=== PATIENT | female | born 1965 | race Hispanic/Latino ===

== ENCOUNTER → 2017-06-20 | Outpatient (CLI) | payer OTHER ==
--- NOTE | 2017-07-08 08:25 | Diagnostic Imaging Report ---
#[id number] - [id number] #BILATERAL FIRST EVER DIGITAL SCREENING MAMMOGRAM WITH CAD: 06/20/2017 CLINICAL: Routine screening. Baseline exam. No prior exams were available for comparison. Current study contains 4 films. There are scattered fibroglandular elements in both breasts. Current study was also evaluated with a Computer Aided Detection (CAD) system. There is grouped amorphous calcification in the left breast at 1 o'clock posterior depth. There are several other areas of calcification in the left breast. Scattered benign calcification and vascular calcfication present in the right breast. No other significant masses, calcifications, or other findings are seen in either breast. IMPRESSION: INCOMPLETE: NEEDS ADDITIONAL IMAGING EVALUATION The amorphous calcification in the left breast is indeterminate. Spot magnification views are recommended. The patient will be contacted by the Mammography Department to schedule this appointment. Khadar Cuenca Jr., D.O. cw/:07/05/2017 09:58:36 Power Plant Installer: Cynthia GUNN)(Sonido), [facility] letter sent: Additional Imaging Needed Mammogram BI-RADS: 0 Indeterminate
== END ==
LOC: MAMMO 08:52
PROVIDERS: ATTEND Internal Medicine
DX: Z12.31 Encounter for screening mammogram for malignant neoplasm of breast (principal)
CPT/HCPCS: 77067

== ENCOUNTER → 2017-07-14 | Outpatient (CLI) | payer OTHER ==
--- NOTE | 2017-07-14 15:48 | Diagnostic Imaging Report ---
#[id number] - [id number] #UNILATERAL LEFT DIGITAL DIAGNOSTIC MAMMOGRAM WITH CAD WITH MAGNIFICATION: 07/14/2017 Comparison is made to exam dated: 06/20/2017 mammogram - [facility]. Current study contains 3 films. There are scattered fibroglandular elements in the left breast. Current study was also evaluated with a Computer Aided Detection (CAD) system. There are multiple areas (at least 6-7) of grouped calcifications in the left breast. The most suspicious area is most posterior at the 2-3 o'clock position. A stereo biopsy of these is recommended, however the patient does take aspirin and plavix and these Rx would have to be discontinued for a week prior to the procedure. If a biopsy is not performed then a follow up mammogram in 6 months would be necessary. IMPRESSION: SUSPICIOUS OF MALIGNANCY A phone call was made to Dr. Christy and the case discussed. The patient was notified of the need for a biopsy. Khadar Cuenca Jr., D.O. cw/:07/14/2017 14:26:52 Parking Cashier: Cynthia ARECHIGA(R)(M), [facility] letter sent: Biopsy Required Mammogram BI-RADS: 4a Suspicious abnormality - low suspicion for malignancy
== END ==
LOC: MAMMO 12:17
PROVIDERS: ATTEND Internal Medicine
DX: N64.59 Other signs and symptoms in breast (principal)

== ENCOUNTER → 2017-07-29 | Outpatient (CLI) | payer OTHER ==
[~2017-07-29] MED LIST: LIDOCAINE 2% /EPINEPHRINE 20 ML SDV INJ ONE; LIDOCAINE HCL 1% LOCAL INJ 20 ML VIAL ONE; SODIUM CHLORIDE 0.9% 250ML 250 ML ONE
--- NOTE | 2017-07-30 08:20 | Diagnostic Imaging Report ---
THIS REPORT HAS BEEN AMENDED. #[id number] - [id number] STEREOTACTIC GUIDED BIOPSY: 07/29/2017 PATIENT CONSENT: According to [facility] requirements, a time out was performed, correct site was localized and the patient was consented. PROCEDURE DESCRIPTION: A stereotactic biopsy of microcalcificaiton in the left breast upper outer posterior aspect was requested. The procedure was fully discussed with the patient including benefits, risks and alternatives. The need for a post biopsy clip was discussed. It was performed with written informed consent. A radio time sales supervisor out was taken prior to beginning the biopsy to confirm patient and procedure, including laterality. The area of concern was targeted stereotactically using an upright biopsy machine. The area over the site was prepared in the standard sterile fashion. Local anesthsia was achieved with 1% Lidocaine. The biopsy probe was advanced to the lesion and vacuum assisted core biopsy samples obtained. A micromarker was placed. After removal of the probe, hemostasis was achieved with compression and a sterile bandage was applied. A specimen radiograph shows calcifications within the cores, concordant with biopsy images. Following the procedure, the patient was discharged from the breast area with no immediate complications. Full post biopsy instructions were provided and acknowledged by the patient. Correlation is made to exams dated: 07/14/2017 mammogram and 06/20/2017 mammogram - [facility]. IMPRESSION: STEREOTACTIC GUIDED BIOPSY Khadar Cuenca Jr., D.O. cw/:07/29/2017 13:14:47 Circular Knitter: Cynthia GUNN)(Sonido), [facility] [id number] AMENDMENT: 08/04/2017 Khadar Cuenca Jr., D.O. Pathology results from the stereo biopsy reveal Fibroadenomatoid stroma with embedded calcifications. Negative for malignancy.
== END ==
LOC: MAMMO 08:13
PROVIDERS: ATTEND Internal Medicine
DX: R92.0 Mammographic microcalcification found on diagnostic imaging of breast (principal); D24.2 Benign neoplasm of left breast
CPT/HCPCS: 19081; 88305; J2001 ×2; J7050

== ENCOUNTER 2018-06-02 13:51 | Emergency (ER) | payer OTHER ==
[~2018-06-02] VITALS: Ht 157.5 cm; Wt 74.8 kg
--- OUTSIDE RECORDS SUMMARY | 2018-06-02 13:55 | XMS REPORT ---
Author Author [facility] Address Unknown Phone Unavailable Care Team Providers Care Auditing Manager Name Role Phone Sonido CHRISTY Unavailable Unavailable Problems This patient has no known problems. Allergies, Adverse Reactions, Alerts This patient has no known allergies or adverse reactions. Medications This patient has no known medications. Results Test Description Test Time Test Comments Text Results Atomic Results Result Comments BX RAYSA 1ST LESION STRTCTC-LT [place] [address] Patient Name: BRIDGET SHETTY MR #: [id number] : 1965 Age/Sex: 52/F Req #: [id number] [facility] Physician: Ordered by: SUSAN CHRISTY MD Report #: [id number] Location: MAMMO Room/Bed: Procedure: [id number] MG/BX RAYSA 1ST LESION STRTCTC-LT Exam Date: Exam Time: REPORT STATUS: Signed THIS REPORT HAS BEEN AMENDED. #[id number] - [id number] STEREOTACTIC GUIDED BIOPSY: 07/29/2017 PATIENT CONSENT: According to [facility] requirements, a time out was performed, correct site was localized and the patient was consented. PROCEDURE DESCRIPTION: A stereotactic biopsy of microcalcificaiton in the left breast upper outer posterior aspect was requested. The procedure was fully discussed with the patient including benefits, risks and alternatives. The need for a post biopsy clip was discussed. It was performed with written informed consent. A signal timer out was taken prior to beginning the biopsy to confirm patient and procedure, including laterality. The area of concern was targeted stereotactically using an upright biopsy machine. The area over the site was prepared in the standard sterile fashion. Local anesthsia was achieved with 1% Lidocaine. The biopsy probe was advanced to the lesion and vacuum assisted core biopsy samples obtained. A micromarker was placed. After removal of the probe, hemostasis was achieved with compression and a sterile bandage was applied. A specimen radiograph shows calcifications within the cores, concordant with biopsy images. Following the procedure, the patient was discharged from the breast area with no immediate complications. Full post biopsy instructions were provided and acknowledged by the patient. Correlation is made to ex ams dated: 07/14/2017 mammogram and 06/20/2017 mammogram - [facility]. IMPRESSION: STEREOTACTIC GUIDED BIOPSY Stacey Cuenca Jr., D.O. cw/:07/29/2017 13:14:47 Animal Husbandry Teacher: Cynthia GUNN)(Sonido), [facility] [id number] AMENDMENT: 08/04/2017 Stacey Cuenca Jr., D.O. Pathology results from the stereo biopsy reveal Fibroadenomatoid stroma with embedded calcifications. Negative for malignancy. Dictated By: STACEY CUENCA DO 1314 Transcribed By: VERONICA on 08/04/17 0948 COPY TO: SUSAN CHRISTY MD MAMMO [place] [address] Patient Name: BRIDGET SHETTY MR #: [id number] : 1965 Age/Sex: 52/F Req #: [id number] [facility] Physician: Ordered by: SUSAN CHRISTY MD Report #: [id number] Location: MAMMO Room/Bed: Procedure: [id number] MG/MAMMO DIAG UNI CAD LT Exam Date: 07/14/17 Exam Time: 1300 REPORT STATUS: Signed #[id number] - [id number] #UNILATERAL LEFT DIGITAL DIAGNOSTIC MAMMOGRAM WITH CAD WITH MAGNIFICATION: 07/14/2017 Comparison is made to exam dated: 06/20/2017 mammogram - [facility]. Current study contains 3 films. There are scattered fibroglandular elements in the left breast. Current study was also evaluated with a Computer Aided Detection (CAD) system. There are multiple areas (at least 6-7) of grouped calcifications in the left breast. The most suspicious area is most posterior at the 2-3 o'clock position. A stereo biopsy of these is recommended, however the patient does take aspirin and plavix and these Rx would have to be discontinued for a week prior to the procedure. If a biopsy is not performed then a follow up mammogram in 6 months would be necessary. I MPRESSION: SUSPICIOUS OF MALIGNANCY A phone call was made to Dr. Christy and the case discussed. The patient was notified of the need for a biopsy. Stacey Cuenca Jr., D.O. cw/:07/14/2017 14:26:52 Animal Husbandry Teacher: Cynthia GUNN)(Sonido), [facility] letter sent: Biopsy Required Mammogram BI-RADS: 4a Suspicious abnormality - low suspicion for malignancy Dictated By: STACEY CUENCA DO 1426 Transcribed By: VERONICA on 07/14/17 1426 COPY TO: SUSAN CHRISTY MD MAMMOGRAPHY DIGITAL SCR BILAT [place] [address] Patient Name: BRIDGET SHETTY MR #: [id number] : 1965 Age/Sex: 52/F Req #: [id number] Physician: Ordered by: SUSAN CHRISTY MD Report #: [id number] Location: MAMMO Room/Bed: Procedure: [id number] MG/MAMMOGRAPHY DIGITAL SCR BILAT Exam Date: 06/20/17 Exam Time: 0900 REPORT STATUS: Signed #[id number] - MGSCRBIL #BILATERAL FIRST EVER DIGITAL SCREENING MAMMOGRAM WITH CAD: 06/20/2017 CLINICAL: Routine screening. Baseline exam. No prior exams were available for comparison. Current study contains 4 films. There are scattered fibroglandular elements in both breasts. Current study was also evaluated with a Computer Aided Detection (CAD) system. There is grouped amorphous calcification in the left breast at 1 o'clock posterior depth. There are several other areas of calcification in the left breast. Scattered benign calcification and vascular calcfication present in the right breast. No other significant masses, calcifications, or other findings are seen in either breast. IMPRESSION: INCOMPLETE: NEEDS ADDITIONAL IMAGING EVALUATION The amorphous calcification in the left breast is indeterminate. Spot magnification views are recommended. The patient will be contacted by the Mammography Department to schedule this appointment. Stacey Cuenca Jr., D.O. cw/:07/05/2017 09:58:36 Animal Husbandry Teacher: Cynthia GUNN)(Sonido), [facility] letter sent: Additional Imaging Needed Mammogram BI-RADS: 0 Indeterminate Dictated By: STACEY CUENCA DO 7 Transcribed By: VERONICA on 07/05/17957 COPY TO: SUSAN CHRISTY MD
[2018-06-02 14:58] LABS: BASOPHILS % 0.4 % (0.0-1.0); EOSINOPHILS # (AUTO) 0.2 (0.0-0.4); HEMATOCRIT 37.7 % (34.2-44.1); HEMOGLOBIN 12.2 g/dL (12.0-16.0); LYMPHOCYTES # (AUTO) 3.5 (1.0-3.2); LYMPHOCYTES % 31.6 % (18.0-39.1); MEAN CORPUSCULAR HEMOGLOBIN 25.9 pg (28-32); MEAN CORPUSCULAR HGB CONC 32.4 g/dL (31-35); MONOCYTES # (AUTO) 0.6 (0.2-0.8); MONOCYTES % 5.8 % (4.4-11.3); NEUTROPHILS # (AUTO) 6.7 (2.1-6.9); NEUTROPHILS % 59.8 % (38.7-80.0); PLATELET COUNT 346 x10e3/uL (140-360); RED BLOOD COUNT 4.71 x10e6/uL (3.6-5.1); RED CELL DISTRIBUTION WIDTH 13.8 % (11.7-14.4)
[2018-06-02 15:09] LABS: PREGNANCY TEST, URINE NEGATIVE (NEGATIVE)
[2018-06-02 15:14] LABS: ALANINE AMINOTRANSFERASE 24 IU/L (0-55); ALBUMIN 3.7 g/dL (3.5-5.0); ALBUMIN/GLOBULIN RATIO 1.1 (0.8-2.0); ALKALINE PHOSPHATASE 53 IU/L (40-150); AMYLASE 40 U/L (25-125); ANION GAP 13.6 mmol/L (8-16); BLOOD UREA NITROGEN 16 mg/dL (7-26); BUN/CREATININE RATIO 20 (6-25); CALCIUM 9.4 mg/dL (8.4-10.2); CARBON DIOXIDE 26 mmol/L (22-29); CHLORIDE 105 mmol/L (98-107); CREATININE, SERUM 0.81 mg/dL (0.57-1.11); EST GLOMERULAR FILTRATION RATE > 60 ML/MIN (60-); GLUCOSE 139 mg/dL (74-118); LIPASE 24 U/L (8-78); POTASSIUM 3.6 mmol/L (3.5-5.1); SODIUM 141 mmol/L (136-145)
[2018-06-02 15:17] LABS: CLARITY,URINE CLEAR (CLEAR); COLOR,URINE YELLOW (YELLOW)
[2018-06-02 15:18] LABS: BACTERIA,URINE FEW /HPF; BILIRUBIN,URINE NEGATIVE (NEGATIVE); EPITHELIAL CELLS,URINE FEW /LPF; KETONES,URINE NEGATIVE (NEGATIVE); LEUKOCYTE ESTERASE ,URINE NEGATIVE (NEGATIVE); NITRITE,URINE NEGATIVE (NEGATIVE); PROTEIN,URINE DIPSTICK NEGATIVE (NEGATIVE); RBC,URINE 0-5 /HPF (0-5); URINE UROBILINOGEN 0.2 mg/dL (0.2 - 1); WBC,URINE (MAN) 0-5 /HPF (0-5)
--- NOTE | 2018-06-02 17:31 | Diagnostic Imaging Report ---
EXAM: Right upper quadrant abdominal ultrasound INDICATION: Right upper quadrant pain COMPARISON: None. TECHNIQUE: Transverse and longitudinal images of the right upper quadrant abdomen were obtained FINDINGS: Liver: Size: Measures 15.6 cm in the right midclavicular line Appearance: Increased echogenicity, smooth contour Mass: No focal masses Gallbladder: No pericholecystic fluid, distension, wall thickening, stone, or reported sonographic Mckeon's sign. Gallbladder wall measures 0.2 cm. There is a small amount of gallbladder sludge. Bile Ducts: Intrahepatic Ducts: No dilatation Extrahepatic Ducts: Common bile duct measures 0.3 cm, no dilatation Pancreas: Visualized portions of the pancreatic head, neck and proximal body are normal. Kidney: The right kidney measures 11.7 cm without evidence of hydronephrosis or stone. Vessels: Aorta: Visualized portions are normal Inferior Vena Cava: Visualized portions are normal Main Portal Vein: 0.9 cm, normal size with hepatopetal flow. Free Fluid: No evidence of ascites. IMPRESSION: Small amount of gallbladder sludge without sonographic evidence of cholecystitis. Hepatic steatosis and mild hepatomegaly. Signed by: Dr. Patrick Godinez MD on 06/02/2018 5:28 PM
[2018-06-02 18:23] VITALS: BP 194/96
--- NOTE | 2018-06-02 18:25 | NUR ---
PATIENT EDUCATED AND INSTRUCTED TO TAKE HOME BP MEDS; PATIENT VERBALIZES UNDERSTANDING
== END 2018-06-02 18:34 | disposition home or self-care (01) ==
LOC: ER 13:51
DX: R10.11 Right upper quadrant pain (principal); R11.0 Nausea; I10 Essential (primary) hypertension; E11.9 Type 2 diabetes mellitus without complications; E78.5 Hyperlipidemia, unspecified; I25.2 Old myocardial infarction; Z86.73 Personal history of transient ischemic attack (TIA), and cerebral infarction without residual deficits
CPT/HCPCS: 36415; 76705; 80053; 81001; 81025; 82150; 83690; 85025; 99283

== ENCOUNTER → 2018-06-11 | Outpatient (CLI) | payer OTHER ==
[~2018-06-11] MED LIST changes: +IOPAMIDOL 370 MG/ML 200 ML INFUS..BTL INJ ONE; -LIDOCAINE 2% /EPINEPHRINE 20 ML SDV INJ ONE; -LIDOCAINE HCL 1% LOCAL INJ 20 ML VIAL ONE; -SODIUM CHLORIDE 0.9% 250ML 250 ML ONE; +SODIUM CHLORIDE 0.9% 50ML 50 ML ONE
[2018-06-11 10:10] LABS: BLOOD UREA NITROGEN 11 mg/dL (7-26); BUN/CREATININE RATIO 15 (6-25); CREATININE, SERUM 0.72 mg/dL (0.57-1.11); EST GLOMERULAR FILTRATION RATE > 60 ML/MIN (60-)
--- NOTE | 2018-06-11 11:10 | Diagnostic Imaging Report ---
EXAMINATION: CT of the abdomen with contrast. TECHNIQUE: Helical CT images of the abdomen were performed from the lung bases to the iliac crests after the intravenous administration of 100 cc of Isovue 300 and the oral administration of none. Coronal and sagittal reformatted images were obtained. COMPARISON: None. CLINICAL HISTORY:Generalized abdominal pain DISCUSSION: LOWER THORAX:Unremarkable. HEPATOBILIARY: Hepatic steatosis. No focal lesions. Gallbladder normal by CT. SPLEEN: No splenomegaly. PANCREAS: No focal masses or ductal dilatation. ADRENALS: No adrenal nodules. KIDNEYS/URETERS: No hydronephrosis, stones, or solid mass lesions. PERITONEUM/RETROPERITONEUM: No free air or fluid. LYMPH NODES: No intra-abdominal, retroperitoneal, pelvic or inguinal lymphadenopathy. VESSELS: Unremarkable. GI TRACT: No distention or wall thickening. BONES AND SOFT TISSUE: No bony destructive lesions. No soft tissue abnormalities. IMPRESSION: Hepatic steatosis, otherwise unremarkable CT of the abdomen. Signed by: Dr. Alli Montez M.D. on 06/11/2018 11:07 AM
== END ==
LOC: CT 08:58
PROVIDERS: ATTEND Internal Medicine
DX: R10.84 Generalized abdominal pain (principal); K52.9 Noninfective gastroenteritis and colitis, unspecified
CPT/HCPCS: 36415; 74160; 82565; 84520; Q9967

== ENCOUNTER 2018-09-04 21:52 | Emergency (ER) | payer OTHER ==
[~2018-09-04] VITALS: Ht 157.5 cm; Wt 74.8 kg
[2018-09-04] MEDS ORDERED: HYDROCODONE/APAP 10MG-325MG TAB PO ONE (22:30)
[2018-09-04] MEDS ORDERED: KETOROLAC TROMETHAMINE 60 MG/2 ML VIAL IM ONE (22:30)
[2018-09-05 00:50] VITALS: BP 153/76
[2018-09-05] MEDS ORDERED: LIDOCAINE 5% PATCH TP ONE (09:00)
== END 2018-09-05 01:24 | disposition home or self-care (01) ==
LOC: ER 21:52
DX: R52 Pain, unspecified (principal); B02.9 Zoster without complications; I10 Essential (primary) hypertension; E11.9 Type 2 diabetes mellitus without complications; I25.10 Atherosclerotic heart disease of native coronary artery without angina pectoris; I25.2 Old myocardial infarction; F17.210 Nicotine dependence, cigarettes, uncomplicated
CPT/HCPCS: 99283; J1885

== ENCOUNTER → 2018-09-09 | Outpatient (CLI) | payer OTHER ==
--- NOTE | 2018-09-09 11:33 | Diagnostic Imaging Report ---
Exam: Lumbar spine, complete, sacrum, 2 views History: Low back pain Comparison: CT abdomen 06/11/2018 Findings: Sacrum: No acute, displaced fracture or dislocation. Sacroiliac joints are intact. Sacral foramina are intact superiorly. Inferiorly, the sacrum and coccyx are obscured by rectal gas and stool. No step-off on the lateral radiograph. Lumbar spine: There are 5 nonrib-bearing lumbar vertebral bodies. No acute, displaced fracture or subluxation. Multilevel disc space narrowing with marginal osteophytosis affecting the lower thoracic and upper lumbar spine to the level of L1-L2. Bilateral facet arthropathy at L5-S1. No pars interarticularis defects are identified on the oblique radiographs. Circular left upper quadrant density may reflect bowel contents. Impression: No acute osseous abnormality. Multilevel degenerative disc changes and facet arthropathy of the lower thoracic and lower lumbar spine as described. Signed by: Dr. Jairo Bobo M.D. on 09/09/2018 11:30 AM
--- NOTE | 2018-09-09 11:36 | Diagnostic Imaging Report ---
Exam: Thoracic spine 2 views History: Low back pain Comparison: Lumbar spine radiographs same day; CT abdomen with contrast 06/11/2018 Findings: No acute displaced fracture or subluxation. Multilevel degenerative disc changes of the thoracic spine with disc space narrowing and large anterior osteophytes. Cervicothoracic junction is intact on the swimmer's radiograph. Paraspinal soft tissues are within normal limits. Left upper quadrant circular density may reflect bowel contents. Impression: No acute osseous abnormality. Multilevel degenerative disc changes of the thoracic spine. Signed by: Dr. Jairo Bobo M.D. on 09/09/2018 11:33 AM
== END ==
LOC: RAD 10:33
PROVIDERS: ATTEND Internal Medicine
DX: M54.5 Low back pain (principal)
CPT/HCPCS: 72070; 72110; 72220

== ENCOUNTER 2019-02-16 17:04 | Emergency (ER) | payer OTHER ==
[~2019-02-16] VITALS: Ht 157.5 cm; Wt 74.8 kg
[2019-02-16] MEDS ORDERED: METOPROLOL TART50 MG PO (17:36)
[2019-02-16 17:52] LABS: BASOPHILS # (AUTO) 0.1 (0.0-0.1); BASOPHILS % 0.4 % (0.0-1.0); EOSINOPHILS # (AUTO) 0.2 (0.0-0.4); EOSINOPHILS % 1.8 % (0.0-6.0); HEMATOCRIT 37.2 % (34.2-44.1); HEMOGLOBIN 12.1 g/dL (12.0-16.0); LYMPHOCYTES # (AUTO) 3.5 (1.0-3.2); LYMPHOCYTES % 26.5 % (18.0-39.1); MEAN CORPUSCULAR HEMOGLOBIN 26.2 pg (28-32); MEAN CORPUSCULAR HGB CONC 32.5 g/dL (31-35); MEAN CORPUSCULAR VOLUME 80.5 fL (81-99); MONOCYTES # (AUTO) 0.8 (0.2-0.8); MONOCYTES % 5.7 % (4.4-11.3); NEUTROPHILS # (AUTO) 8.7 (2.1-6.9); NEUTROPHILS % 65.1 % (38.7-80.0); PLATELET COUNT 292 x10e3/uL (140-360); RED BLOOD COUNT 4.62 x10e6/uL (3.6-5.1); RED CELL DISTRIBUTION WIDTH 14.6 % (11.7-14.4)
[2019-02-16 18:13] LABS: ALANINE AMINOTRANSFERASE 21 IU/L (0-55); ALBUMIN 3.7 g/dL (3.5-5.0); ALBUMIN/GLOBULIN RATIO 1.1 (0.8-2.0); ALKALINE PHOSPHATASE 55 IU/L (40-150); ANION GAP 11.3 mmol/L (8-16); BLOOD UREA NITROGEN 12 mg/dL (7-26); BUN/CREATININE RATIO 15 (6-25); CALCIUM 9.5 mg/dL (8.4-10.2); CARBON DIOXIDE 27 mmol/L (22-29); CHLORIDE 103 mmol/L (98-107); CREATINE KINASE 83 IU/L (29-168); CREATININE, SERUM 0.79 mg/dL (0.57-1.11); EST GLOMERULAR FILTRATION RATE > 60 ML/MIN (60-); GLUCOSE 120 mg/dL (74-118); POTASSIUM 3.3 mmol/L (3.5-5.1); SODIUM 138 mmol/L (136-145)
--- NOTE | 2019-02-16 18:22 | Diagnostic Imaging Report ---
A single frontal view of the chest. HISTORY: Arm hurting, left arm pain, rule out cardiac COMPARISON: None available. DISCUSSION: Portable technique, limits sensitivity of the exam. Soft tissue attenuation partially limits sensitivity of the exam. Overlying monitoring leads. Tubes/Lines: None Lungs and pleura: The lungs are well inflated. No evidence of a consolidative pneumonia or pulmonary alveolar edema. No definite pleural effusion or pneumothorax is identified. Heart and mediastinum: The cardiomediastinal silhouette appear(s) unremarkable. Bones and soft tissues: Chronic appearing healed right clavicular fracture deformity. IMPRESSION: No acute radiographic abnormality. Signed by: Dr. Kyler Randle D.O., M.M.M. on 02/16/2019 6:19 PM
[2019-02-16 18:25] LABS: INR 0.9; PROTHROMBIN TIME 12.6 seconds (11.9-14.5)
[2019-02-16 18:26] LABS: PARTIAL THROMBOPLASTIN TIME 30.9 seconds (23.8-35.5)
[2019-02-16] MEDS: KETOROLAC TROMETHAMINE 30 MG/ML VIAL IV STA (18:28)
--- NOTE | 2019-02-16 19:04 | Diagnostic Imaging Report ---
LEFT SHOULDER - 2 Image(s) HISTORY: Arm hurting, pain COMPARISON: None available. FINDINGS: Sensitivity limited by portable technique. Bones: No acute displaced fracture. No aggressive osseous lesion. Joints: Mild hypertrophic degenerative changes of the acromioclavicular joint. Minimal degenerative changes of the glenohumeral joint. Soft tissues: Small calcification in the region of the coracoclavicular ligament, likely indicative of a remote injury. IMPRESSION: 1. No acute radiographic abnormality. 2. Mild acromioclavicular and minimal glenohumeral osteoarthrosis. Signed by: Dr. Kyler Randle D.O., M.M.M. on 02/16/2019 7:01 PM
[2019-02-16 20:00] VITALS: BP 189/80
== END 2019-02-16 19:55 | disposition home or self-care (01) ==
LOC: ER 17:04
DX: M19.012 Primary osteoarthritis, left shoulder (principal); I10 Essential (primary) hypertension; E11.9 Type 2 diabetes mellitus without complications; E78.5 Hyperlipidemia, unspecified; Z86.73 Personal history of transient ischemic attack (TIA), and cerebral infarction without residual deficits; I25.2 Old myocardial infarction; M54.9 Dorsalgia, unspecified; G89.29 Other chronic pain
CPT/HCPCS: 36415; 71045; 73030; 80053; 82550; 82553; 84484; 85025; 85610; 85730; 93005; 99284; J1885

== ENCOUNTER 2019-03-23 13:00 | Emergency (ER) | payer OTHER ==
[~2019-03-23] VITALS: Ht 157.5 cm; Wt 74.8 kg
[~2019-03-23 13:00] MED LIST changes: -IOPAMIDOL 370 MG/ML 200 ML INFUS..BTL INJ ONE; +METOPROLOL TART50 MG PO; -SODIUM CHLORIDE 0.9% 50ML 50 ML ONE
--- NOTE | 2019-03-23 14:12 | Diagnostic Imaging Report ---
EXAMINATION: HIP LEFT 2-3 VW (+/- PELVIS) INDICATION: Left hip pain COMPARISON: None FINDINGS: AP and frog-leg views of the left hip and AP view of the pelvis demonstrate no acute fracture or dislocation. Alignment is anatomic. No substantial degenerative change. Nonobstructive bowel gas pattern. IMPRESSION: No acute osseous injury. Signed by: Tiffany Bain MD on 03/23/2019 2:09 PM
[2019-03-23] MEDS ORDERED: ASPIRIN 81 MG CHEW TAB PO ONE (14:30)
--- NOTE | 2019-03-23 14:47 | Diagnostic Imaging Report ---
EXAMINATION: CHEST SINGLE (NOT PORTABLE) INDICATION: Chest pain COMPARISON: None FINDINGS: LINES/TUBES:None LUNGS:The lungs are well-inflated. No focal consolidation or pulmonary edema. PLEURA:No pleural effusion or pneumothorax. MEDIASTINUM:The cardiomediastinal silhouette appears normal in size and shape. BONES/SOFT TISSUES:No acute osseous injury. ABDOMEN:No free air under the diaphragm. IMPRESSION: No focal pneumonia or pulmonary edema. Signed by: Tiffany Bain MD on 03/23/2019 2:44 PM
[2019-03-23] MEDS ORDERED: ULTRAM50 MG PO (15:53)
[2019-03-23] MEDS ORDERED: ROBAXIN-750750 MG PO (15:53)
[2019-03-23] MEDS ORDERED: SODIUM CHLORIDE 0.9% 1000ML 1,000 ML IV STA (16:13)
[2019-03-23] MEDS ORDERED: KETOROLAC TROMETHAMINE 30 MG/ML VIAL IV NR (16:15)
[2019-03-23] MEDS ORDERED: DIAZEPAM INJ 5 MG/ML 2 ML IV NR (16:15)
[2019-03-23 16:33] LABS: BASOPHILS # (AUTO) 0.1 (0.0-0.1); BASOPHILS % 0.6 % (0.0-1.0); EOSINOPHILS # (AUTO) 0.4 (0.0-0.4); EOSINOPHILS % 3.3 % (0.0-6.0); HEMATOCRIT 41.3 % (34.2-44.1); LYMPHOCYTES # (AUTO) 3.2 (1.0-3.2); LYMPHOCYTES % 29.5 % (18.0-39.1); MEAN CORPUSCULAR HEMOGLOBIN 25.7 pg (28-32); MEAN CORPUSCULAR HGB CONC 31.5 g/dL (31-35); MEAN CORPUSCULAR VOLUME 81.6 fL (81-99); MONOCYTES # (AUTO) 0.7 (0.2-0.8); MONOCYTES % 6.5 % (4.4-11.3); NEUTROPHILS # (AUTO) 6.5 (2.1-6.9); NEUTROPHILS % 59.6 % (38.7-80.0); PLATELET COUNT 320 x10e3/uL (140-360); RED BLOOD COUNT 5.06 x10e6/uL (3.6-5.1); RED CELL DISTRIBUTION WIDTH 14.9 % (11.7-14.4)
[2019-03-23 16:43] LABS: ALANINE AMINOTRANSFERASE 15 IU/L (0-55); ALBUMIN 3.9 g/dL (3.5-5.0); ALBUMIN/GLOBULIN RATIO 1.2 (0.8-2.0); ALKALINE PHOSPHATASE 55 IU/L (40-150); ANION GAP 13.6 mmol/L (8-16); BLOOD UREA NITROGEN 12 mg/dL (7-26); BUN/CREATININE RATIO 16 (6-25); CALCIUM 9.1 mg/dL (8.4-10.2); CARBON DIOXIDE 28 mmol/L (22-29); CHLORIDE 103 mmol/L (98-107); CREATININE, SERUM 0.73 mg/dL (0.57-1.11); EST GLOMERULAR FILTRATION RATE > 60 ML/MIN (60-); GLUCOSE 141 mg/dL (74-118); POTASSIUM 3.6 mmol/L (3.5-5.1); SODIUM 141 mmol/L (136-145)
--- NOTE | 2019-03-23 17:28 | Diagnostic Imaging Report ---
EXAM: CT Abdomen and Pelvis WITHOUT intravenous contrast INDICATION: Left flank pain COMPARISON: CT abdomen of 06/11/2018 TECHNIQUE: Abdomen and pelvis were scanned utilizing a multidetector helical scanner from the lung base to the pubic symphysis without administration of IV contrast. Coronal and sagittal reformations were obtained. IV CONTRAST: None ORAL CONTRAST: Water COMPLICATIONS: None RADIATION DOSE: Total DLP: 397.1 mGy*cm Dose modulation, iterative reconstruction, and/or weight based adjustment of the mA/kV was utilized to reduce the radiation dose to as low as reasonably achievable. FINDINGS: LOWER THORAX: Normal. HEPATOBILIARY: Hepatomegaly to 22 cm. Mild diffuse hepatic steatosis. No focal liver lesions. Unremarkable gallbladder. SPLEEN: No splenomegaly. PANCREAS: No focal masses or ductal dilatation. ADRENALS: No adrenal nodules. KIDNEYS/URETERS: No hydronephrosis, stones, or solid mass lesions. PELVIC ORGANS/BLADDER: Status post hysterectomy. PERITONEUM / RETROPERITONEUM: No free air or fluid. LYMPH NODES: No lymphadenopathy. VESSELS: Scattered atherosclerotic calcifications of the nonaneurysmal abdominal aorta and major branches. GI TRACT: No abnormal bowel wall thickening. No bowel obstruction. Normal appendix. BONES AND SOFT TISSUES: No acute osseous injury. No suspicious lytic or blastic lesions. IMPRESSION: No renal calculi or hydronephrosis. Hepatomegaly and mild diffuse hepatic steatosis. Signed by: Tiffany Bain MD on 03/23/2019 5:24 PM
[2019-03-23 17:45] LABS: BILIRUBIN,URINE NEGATIVE (NEGATIVE); CLARITY,URINE CLEAR (CLEAR); KETONES,URINE NEGATIVE (NEGATIVE); LEUKOCYTE ESTERASE ,URINE NEGATIVE (NEGATIVE); NITRITE,URINE NEGATIVE (NEGATIVE); PROTEIN,URINE DIPSTICK NEGATIVE (NEGATIVE); URINE UROBILINOGEN 0.2 mg/dL (0.2 - 1)
[2019-03-23] MEDS ORDERED: LIDOCAINE 5% PATCH TP NR (17:45)
[2019-03-23 17:46] LABS: COLOR,URINE YELLOW (YELLOW)
[2019-03-23 18:01] LABS: EPITHELIAL CELLS,URINE FEW /LPF
== END 2019-03-23 18:32 | disposition home or self-care (01) ==
LOC: ER 13:00
DX: M25.552 Pain in left hip (principal); I10 Essential (primary) hypertension; E11.9 Type 2 diabetes mellitus without complications; E78.5 Hyperlipidemia, unspecified; I25.2 Old myocardial infarction; Z86.73 Personal history of transient ischemic attack (TIA), and cerebral infarction without residual deficits
CPT/HCPCS: 36415; 71045; 73502; 74176; 80053; 81001; 85025; 96374; 96375; 99283; J1885; J3360; J7030

== ENCOUNTER → 2019-04-14 | Outpatient (CLI) | payer OTHER ==
[~2019-04-14] MED LIST changes: +ROBAXIN-750750 MG PO; +ULTRAM50 MG PO
--- NOTE | 2019-04-14 13:57 | Diagnostic Imaging Report ---
History: Low back and left hip pain Comparison studies: X-ray of the lumbar spine 09/09/2018 Technique: Sagittal, coronal and axial T2 , sagittal T1 and IR, axial spin density oblique. Intravenous contrast: None Findings: Number of lumbar vertebral bodies:5 Alignment: Normal lordosis.No scoliosis. Soft tissues: No T2 hyperintense inflammatory changes. Paraspinal muscles: No signal abnormalities. No atrophy. Lower thoracic cord:Normal in signal and morphology. The tip of the conus is at L1. Cauda equina: No masses. No arachnoiditis. Vertebrae: Normal in height and signal intensity. No compression fractures, infection or neoplasm. Degenerative changes: L1-L2: No abnormalities. L2-L3: No abnormalities. L3-L4: No abnormalities. L4-L5: Mild disc degeneration with loss of T2 signal. Left foraminal and extraforaminal disc protrusion (1.9 AP x 2.6 TV cm), results in severe left neural foramen with impingement of the exiting L4 nerve root. Facet hypertrophy patent canal and right foramen. L5-S1: Mild diffuse disc bulge mild facet hypertrophy with patent canal and foramina. Additional findings: None IMPRESSION: Severe left neural foramen at L4-5 secondary to left foraminal and extraforaminal disc protrusion, which results in impingement of the exiting L4 nerve root. Signed by: DR Young Vega M.D. on 04/14/2019 9:27 PM
== END ==
LOC: MRI 09:34
PROVIDERS: ATTEND Internal Medicine
DX: M54.5 Low back pain (principal); M25.552 Pain in left hip
CPT/HCPCS: 72148

== ENCOUNTER 2019-07-07 13:38 | Inpatient (IN) | payer OTHER ==
[~2019-07-07] VITALS: Ht 157.5 cm; Wt 74.8 kg
[2019-07-07] MEDS ORDERED: ALBUTEROL SULF 0.083% NEB SOLN 3 ML NEB NEB STA (13:39)
[2019-07-07] MEDS ORDERED: IPRATROPIUM BROMIDE 0.02% 2.5 ML NEB NEB STA (13:39)
[2019-07-07] MEDS ORDERED: ONDANSETRON HCL INJ 2MG/ML 2ML 2 MG/ML VIAL IV STA (13:44)
[2019-07-07] MEDS ORDERED: SODIUM CHLORIDE 0.9% 1000ML 1,000 ML IV STA (13:44)
[2019-07-07] MEDS ORDERED: FAMOTIDINE 20 MG/2 ML VIAL IV STA ×2 (13:44→15:56)
[2019-07-07] MEDS ORDERED: ASPIRIN 81 MG CHEW TAB PO ONE (13:45)
[2019-07-07 14:56] LABS: BASOPHILS # (AUTO) 0.1 (0.0-0.1); BASOPHILS % 0.6 % (0.0-1.0); EOSINOPHILS # (AUTO) 0.1 (0.0-0.4); EOSINOPHILS % 0.7 % (0.0-6.0); HEMATOCRIT 34.6 % (34.2-44.1); LYMPHOCYTES # (AUTO) 5.1 (1.0-3.2); LYMPHOCYTES % 31.4 % (18.0-39.1); MEAN CORPUSCULAR HEMOGLOBIN 25.8 pg (28-32); MEAN CORPUSCULAR HGB CONC 31.8 g/dL (31-35); MONOCYTES # (AUTO) 0.8 (0.2-0.8); MONOCYTES % 4.9 % (4.4-11.3); NEUTROPHILS % 61.8 % (38.7-80.0); PLATELET COUNT 465 x10e3/uL (140-360); RED BLOOD COUNT 4.27 x10e6/uL (3.6-5.1); RED CELL DISTRIBUTION WIDTH 14.8 % (11.7-14.4)
[2019-07-07 15:11] LABS: ALANINE AMINOTRANSFERASE 13 IU/L (0-55); ALBUMIN 3.6 g/dL (3.5-5.0); ALBUMIN/GLOBULIN RATIO 1.3 (0.8-2.0); ALKALINE PHOSPHATASE 49 IU/L (40-150); ANION GAP 20.3 mmol/L (8-16); BLOOD UREA NITROGEN 44 mg/dL (7-26); BUN/CREATININE RATIO 60 (6-25); CALCIUM 10.1 mg/dL (8.4-10.2); CARBON DIOXIDE 21 mmol/L (22-29); CHLORIDE 103 mmol/L (98-107); CREATINE KINASE 74 IU/L (29-168); CREATININE, SERUM 0.73 mg/dL (0.57-1.11); EST GLOMERULAR FILTRATION RATE > 60 ML/MIN (60-); GLUCOSE 206 mg/dL (74-118); POTASSIUM 4.3 mmol/L (3.5-5.1); SODIUM 140 mmol/L (136-145)
[2019-07-07 15:14] LABS: INR 0.92; PROTHROMBIN TIME 12.9 seconds (11.9-14.5)
[2019-07-07 15:15] LABS: PARTIAL THROMBOPLASTIN TIME 28.1 seconds (23.8-35.5)
--- NOTE | 2019-07-07 15:26 | Diagnostic Imaging Report ---
Exam: Chest radiograph Clinical History: Shortness of breath Comparison: March 23, 2019 Findings: The cardiomediastinal silhouette and lungs are normal. The regional skeleton and soft tissue are unremarkable. There is no evidence of pleural effusion or pneumothorax. Impression: No radiographic evidence of acute cardiopulmonary disease. Signed by: Dr. Anthony Grace MD on 07/07/2019 3:24 PM
[2019-07-07 15:31] LABS: THYROID STIMULATING HORMONE 1.895 uIU/mL (0.350-4.940)
[2019-07-07 15:34] LABS: MAGNESIUM 1.4 MG/DL (1.3-2.1)
[2019-07-07 15:37] LABS: BILIRUBIN,URINE NEGATIVE (NEGATIVE); CLARITY,URINE SL CLOUDY (CLEAR); COLOR,URINE YELLOW (YELLOW); KETONES,URINE TRACE (NEGATIVE); LEUKOCYTE ESTERASE ,URINE TRACE (NEGATIVE); NITRITE,URINE NEGATIVE (NEGATIVE); PROTEIN,URINE DIPSTICK TRACE (NEGATIVE); URINE UROBILINOGEN 0.2 mg/dL (0.2 - 1)
[2019-07-07 15:48] LABS: BACTERIA,URINE MANY /HPF; EPITHELIAL CELLS,URINE MODERATE /LPF
[2019-07-07] MEDS ORDERED: METOPROLOL TARTRATE 50 MG TAB PO STA (15:56)
[2019-07-07] MEDS ORDERED: ENOXAPARIN SODIUM INJ 100 MG/ML SYR SC STA (15:56)
[2019-07-07] MEDS ORDERED: CEFTRIAXONE SOD 1 GM/NS 50 ML 50 ML IV STA (15:56)
[2019-07-07] MEDS ORDERED: ASPIRIN 81 MG CHEW TAB PO STA (15:56)
[2019-07-07] MEDS ORDERED: NITROGLYCERIN 0.4 MG SUBL SL PRN (16:15)
[2019-07-07] MEDS ORDERED: IPRATROPIUM BROMIDE 0.02% 2.5 ML NEB NEB PRN (16:15)
[2019-07-07] MEDS ORDERED: ONDANSETRON HCL INJ 2MG/ML 2ML 2 MG/ML VIAL IV PRN (16:15)
[2019-07-07] MEDS ORDERED: LEVALBUTEROL HCL SOLN NEBU 1.25 MG/3 ML NEB INH PRN (16:15)
[2019-07-07] MEDS ORDERED: NITROGLYCERIN 2% OINT 1 GM PKT TOP ONE (16:30)
[2019-07-07] MEDS ORDERED: CEFTRIAXONE SOD 1 GM VIAL ONE (16:34)
[2019-07-07] MEDS ORDERED: AZITHROMYCIN 500MG/NS 250 ML 250 ML IV ONE (17:00)
[2019-07-07] MEDS ORDERED: ENOXAPARIN SODIUM INJ 100 MG/ML SYR SC SCH (17:00)
--- NOTE | 2019-07-07 17:28 | Diagnostic Imaging Report ---
Exam: CT pulmonary angiogram Clinical History: Shortness of breath DOSE REDUCTION: The exams was performed according to the departmental dose-optimization program which includes automated exposure control, adjustment of the mA and/or kV according to patient size and/or use of iterative reconstruction technique. Technique: Helical images of the chest were obtained after IV contrast administration using the pulmonary embolism protocol. Findings: There is no evidence of acute pulmonary embolism in the main pulmonary artery or its visualized branches. There is no evidence of pulmonary edema, consolidation, pleural effusion, or pneumothorax. The tracheobronchial tree is clear. There is no evidence of mediastinal or hilar adenopathy. The cardiac size is within normal limits. The great vessels are normal in caliber and configuration. The visualized upper abdominal solid organs are unremarkable. Impression: No CT evidence of acute pulmonary embolism. Signed by: Dr. Anthony Grace MD on 07/07/2019 5:25 PM
[2019-07-07] MEDS ORDERED: METHOCARBAMOL 750 MG TAB PO PRN (18:30)
[2019-07-07 19:07] LABS: ABG HCO3 17 mmol/L (23-28); ABG PCO2 27 mmHg (41-51); ABG PH 7.42 (7.31-7.41); ABG PO2 95 mmHg (80-105)
[2019-07-07] MEDS ORDERED: IOPAMIDOL 370 MG/ML 200 ML INFUS..BTL INJ ONE (19:54)
[2019-07-07] MEDS ORDERED: SODIUM CHLORIDE 0.9% 50ML 50 ML ONE (19:54)
[2019-07-07 20:09] LABS: HYPOCHROMASIA SLIGHT; LYMPHOCYTES % (MANUAL) 39 % (19-48); MONOCYTES % (MANUAL) 8 % (3.4-9.0); NEUTROPHILS % (MANUAL) 52 % (40-74); PLATELET ESTIMATE ADEQUATE; PLATELET MORPHOLOGY COMMENT NORMAL; RBC MORPHOLOGY COMMENT NORMAL
--- NOTE | 2019-07-07 20:21 | NUR ---
SPOKE WITH DR. Addie RAMOS AT THIS TIME IN REGARDING TO ABG RESULTS AND CURRENT STATUS. NO NEW ORDERS AT THIS TIME.
--- NOTE | 2019-07-07 21:30 | NUR ---
PT STATES SHE HAD BLACK STOOLS WHILE HAVING BM. PT REPORTS FIRST BM OF BLACK STOOLS. PT AND ON COMING FLOOR RN NOTIFIED AND AWARE WHEN PT HAS NEXT BM TO NOTIFY RN.
--- NOTE | 2019-07-07 22:45 | NUR ---
Patient received via stretcher from ER. AAO x 3. Patient had no complaints of chest pain or discomfort. Respirations even and non-labored on 2L NC. Admission history obtained. Initial physical assessment performed. Patient oriented to room, call light and plan of care. Fall precautions implemented. Patient instructed to call for assistance when needed. Call light within reach.
[2019-07-07] MEDS: ATORVASTATIN 20 MG TAB PO SCH (22:50)
[2019-07-07] MEDS: METOPROLOL TARTRATE 25 MG TAB PO SCH (22:50)
[2019-07-07] MEDS: FAMOTIDINE 20 MG/2 ML VIAL IV SCH (22:50)
[2019-07-07] MEDS: SODIUM CHLORIDE 0.9% 1000ML 1,000 ML IV SCH (22:50)
[2019-07-07 23:00] VITALS: BP 127/55
--- NOTE | 2019-07-07 23:05 | NUR ---
Blood specimen sent to lab for Blood type and Screen.
--- NOTE | 2019-07-07 23:55 | NUR ---
Patient informed of upcoming procedure----Right /Left heart Catheterization and NPO status after midnight. Patient verbalized understanding and voluntarily signed "Disclosure and Consent" form.
[2019-07-08] VITALS (15 sets, daily range): BP systolic 88–142; BP diastolic 40–81
--- NOTE | 2019-07-08 01:00 | NUR ---
Blood specimen sent to lab for analysis of cardiac enzymes and blood culture.
--- NOTE | 2019-07-08 01:57 | History and Physical ---
CHIEF COMPLAINT: This is a 54-year-old female, patient of mine, presented to the emergency room with chest pain and shortness of breath. HISTORY OF PRESENT ILLNESS: Ms. Tiffany Pavon is a 54-year-old female patient with a previous history of coronary artery disease and angioplasty, came to the emergency room with a 1-day history of sudden onset of chest pain and shortness of breath. The patient is stating that she was having nausea and dizziness yesterday and this morning, the patient was found to have a chest pain and shortness of breath and the patient was feeling chest pain and shortness of breath on walking few steps or standing up. REVIEW OF SYSTEMS: As per history of present illness. The patient is short of breath and chest pain on mild exertion, but no current nausea or vomiting. The patient has nausea and vomiting yesterday. PAST SURGICAL HISTORY: Hysterectomy and and the patient has a carotid artery stenosis and the patient had surgery done. PAST MEDICAL HISTORY: The patient has diabetes mellitus, [place], hyperlipidemia, and chronic back pain. ALLERGIES: NO KNOWN DRUG ALLERGIES. SOCIAL HISTORY: Denies smoking. Denies using alcohol. FAMILY HISTORY: Hypertension, diabetes mellitus, and coronary artery disease. HOME MEDICATIONS: Metoprolol, tramadol, and . PHYSICAL EXAMINATION: GENERAL: Middle-aged female patient, lying in the bed. The patient is tachypneic. VITAL SIGNS: Temperature 98, pulse rate 80, respiratory rate 24, blood pressure 107/60, and O2 saturation 100%. HEENT: Normocephalic and atraumatic. No JVD. No lymphadenopathy. LUNGS: Bilateral equal air entry. No rales, no rhonchi. HEART: S1, S2. Regular. Loud systolic murmur present. ABDOMEN: Soft. Bowel sounds present. NEUROLOGIC: No focal neurological deficits. ADMITTING IMPRESSION/DIAGNOSES: Unstable angina, shortness of breath, acute congestive heart failure, systolic congestive heart failure, coronary artery disease, diabetes mellitus, hypertension, and hyperlipidemia. PLAN: We will obtain stat 2D echo. The patient has a CT scan of the chest was done, which was negative for any PE obtain the urine culture and treat with Rocephin. We will give anticoagulation, Lovenox and Plavix will continue. We will also obtain Cardiology consultation, Dr. Pavon. ADDITIONAL ADMITTING DIAGNOSIS: Urinary tract infection, community-acquired, present on admission without any catheterization. MD ALEXANDER Thurman/CASEY /[id number]
[2019-07-08 01:59] LABS: CREATINE KINASE MB 6.8 ng/mL (0-5.0)
[2019-07-08] MEDS ORDERED: ASPIR 8181 MG PO (02:59)
[2019-07-08] MEDS ORDERED: LISINOPRIL-HCT1 EAC1 PO (02:59)
[2019-07-08] MEDS ORDERED: ASPIRIN81 MG PO (02:59)
[2019-07-08] MEDS ORDERED: NOVOLOG100 UNIT/1 SQ (02:59)
[2019-07-08] MEDS ORDERED: POTASSIUM CHLO10 ME1 PO (02:59)
[2019-07-08] MEDS ORDERED: GLIPIZIDE-METF1 EAC2 PO (02:59)
[2019-07-08] MEDS ORDERED: ATORVASTATIN CA20 MG PO (02:59)
[2019-07-08] MEDS ORDERED: INSULIN AS100 UNIT/2 SQ (02:59)
--- NOTE | 2019-07-08 03:02 | Consultation ---
DATE OF CONSULTATION: 07/07/2019 Cardiology Consultation CONSULTING PHYSICIAN: Meng Lan MD, Interventional Cardiology. REASON FOR CONSULTATION: Chest discomfort. HISTORY OF PRESENT ILLNESS: Ms. Pavon is a 54-year-old woman with history of CAD and prior stents, diabetes mellitus type 2, hypertension, and dyslipidemia, tobacco abuse, who presents with complaints of lightheaded spells and nausea associated with exertional chest discomfort and dyspnea of recent onset over the last 48 hours. Symptoms do not recur while the patient is resting; however, they do reproduce upon exertion. She decided to proceed with further evaluation in the emergency department. EKG is remarkable for normal sinus rhythm and nonspecific repolarization abnormality. First troponin is negative. The patient has currently no active complaints. PHYSICAL EXAMINATION: VITAL SIGNS: Afebrile, heart rate 68, blood pressure 130/60, respiratory rate 20, O2 saturation 100% on nasal cannula. General: In no acute distress. Alert. NECK: No JVD. Right carotid bruit. CHEST: Clear to auscultation bilaterally. CARDIOVASCULAR: Regular rate and rhythm, normal S1 and S2. No S3 or S4. Systolic ejection murmur 2/6 in the right upper sternal border and second intercostal space, worse with expiration. An additional holosystolic murmur in the cardiac apex. No S3. No S4. ABDOMEN: Soft. Bowel sounds positive. EXTREMITIES: No edema. Warm extremities. CARDIOVASCULAR MEDICATIONS: Reviewed. Atorvastatin 40 mg at every night at bedtime, metoprolol tartrate 25 mg every 12 hours, aspirin 81 mg daily, clopidogrel 75 mg daily, Lovenox 70 mg subcu. LABORATORY AND IMAGING DATA: Studies reviewed. EKG and troponin as previously described. BNP 162. CT chest negative for pulmonary embolism. Sodium 140, potassium 4.3, chloride 103, bicarbonate 21, BUN 44, creatinine 0.7, glucose 206. White blood cells 16.1, hemoglobin 11, platelets 465. PT 12.9, PTT 28.1, INR 0.92. AST 16, ALT 13, total bilirubin 0.5, alkaline phosphatase 49. ASSESSMENT AND PLAN: A 54-year-old woman presents with unstable angina. 1. Coronary artery disease with previous stents. 2. Diabetes mellitus type 2. 3. Hypertension. 4. Dyslipidemia. 5. Tobacco abuse. 6. Right carotid bruit. 7. Heart murmur concerning for aortic stenosis and concomitant mitral insufficiency, pending confirmation with echocardiogram. 8. Leukocytosis. RECOMMENDATIONS: Continue aspirin and the patient is status post Lovenox. Trend cardiac enzymes. Obtain echocardiogram, which is still pending. Maintain on telemetry. Continue beta-ritchie and statin. Discussed with patient indications, alternatives, risks, and benefits of coronary angiography and possible intervention. The patient voices understanding and agrees to proceed. We will plan for scheduling tomorrow likely p.m. pending semiconductor lab technician availability at that time. I thank, Dr. Christy, for the opportunity to participate in the care of this patient. Meng Lan MD [facility]igh [facility]/CASEY /[id number]
[2019-07-08] MEDS: SODIUM CHLORIDE 0.9% 1000ML 1,000 ML IV SCH ×3 (03:50→17:15)
[2019-07-08] MEDS: CEFTRIAXONE SOD 1 GM/NS 50 ML 50 ML IV SCH ×2 (05:15→17:15)
--- NOTE | 2019-07-08 07:00 | NUR ---
Walking rounds done. Shift report given to oncoming nurse.
[2019-07-08 07:11] LABS: BASOPHILS # (AUTO) 0.1 (0.0-0.1); BASOPHILS % 0.4 % (0.0-1.0); EOSINOPHILS # (AUTO) 0.2 (0.0-0.4); EOSINOPHILS % 1.2 % (0.0-6.0); LYMPHOCYTES # (AUTO) 5.7 (1.0-3.2); LYMPHOCYTES % 40.8 % (18.0-39.1); MEAN CORPUSCULAR VOLUME 81.3 fL (81-99); MONOCYTES # (AUTO) 0.9 (0.2-0.8); MONOCYTES % 6.6 % (4.4-11.3); NEUTROPHILS % 50.1 % (38.7-80.0); PLATELET COUNT 304 x10e3/uL (140-360); RED BLOOD COUNT 2.46 x10e6/uL (3.6-5.1); RED CELL DISTRIBUTION WIDTH 14.7 % (11.7-14.4)
[2019-07-08 07:31] LABS: HEMOGLOBIN 6.4 g/dL (12.0-16.0)
[2019-07-08 07:36] LABS: ALANINE AMINOTRANSFERASE 10 IU/L (0-55); ALBUMIN 2.8 g/dL (3.5-5.0); ALBUMIN/GLOBULIN RATIO 1.4 (0.8-2.0); ALKALINE PHOSPHATASE 34 IU/L (40-150); ANION GAP 12.7 mmol/L (8-16); BLOOD UREA NITROGEN 45 mg/dL (7-26); BUN/CREATININE RATIO 65 (6-25); CALCIUM 8.3 mg/dL (8.4-10.2); CARBON DIOXIDE 23 mmol/L (22-29); CHLORIDE 108 mmol/L (98-107); CHOL/HDL RATIO 4.7 (3.0-3.6); CHOLESTEROL 80 MD/DL (0-199); CREATININE, SERUM 0.69 mg/dL (0.57-1.11); EST GLOMERULAR FILTRATION RATE > 60 ML/MIN (60-); GLUCOSE 230 mg/dL (74-118); HDL CHOLESTEROL 17 MG/DL (40-60); LDL CHOLESTEROL 11 MG/DL (60-130); MAGNESIUM 1.4 MG/DL (1.3-2.1); PHOSPHORUS 4.1 MG/DL (2.3-4.7); POTASSIUM 3.7 mmol/L (3.5-5.1); SODIUM 140 mmol/L (136-145); TRIGLYCERIDES 258 MG/DL (0-149)
--- NOTE | 2019-07-08 07:40 | NUR ---
PATIENT IN BED RESTING WITH NO S/S OF DISTRESS. NPO FOR A PROCEDURE. IV FLUID INFUSING ORDERED. BED IN LOWER POSITION, CALL LIGHT AT REACH.
[2019-07-08] MEDS: MORPHINE SULFATE 2 MG/ML SYR 1ML IV PRN ×2 (08:50→21:05)
[2019-07-08] MEDS ORDERED: CLOPIDOGREL BISULFATE 75 MG TAB PO SCH (09:00)
[2019-07-08] MEDS ORDERED: ASPIRIN 81 MG ENTERIC COATED PO SCH (09:00)
[2019-07-08] MEDS: METOPROLOL TARTRATE 25 MG TAB PO SCH ×2 (09:00→21:22)
[2019-07-08] MEDS ORDERED: METOPROLOL TARTRATE 50 MG TAB PO SCH (09:00)
[2019-07-08] MEDS: FAMOTIDINE 20 MG/2 ML VIAL IV SCH ×2 (09:43→21:21)
[2019-07-08 10:40] LABS: BASOPHILS # (AUTO) 0.1 (0.0-0.1); BASOPHILS % 0.5 % (0.0-1.0); EOSINOPHILS # (AUTO) 0.1 (0.0-0.4); EOSINOPHILS % 0.3 % (0.0-6.0); LYMPHOCYTES # (AUTO) 3.8 (1.0-3.2); LYMPHOCYTES % 24.7 % (18.0-39.1); MEAN CORPUSCULAR HGB CONC 31.1 g/dL (31-35); MEAN CORPUSCULAR VOLUME 83.6 fL (81-99); MONOCYTES # (AUTO) 0.8 (0.2-0.8); NEUTROPHILS # (AUTO) 10.5 (2.1-6.9); NEUTROPHILS % 68.6 % (38.7-80.0); PLATELET COUNT 327 x10e3/uL (140-360); RED CELL DISTRIBUTION WIDTH 14.9 % (11.7-14.4)
[2019-07-08 10:42] LABS: HEMOGLOBIN 6.5 g/dL (12.0-16.0)
[2019-07-08 10:43] LABS: HEMATOCRIT 20.9 % (34.2-44.1)
[2019-07-08] MEDS ORDERED: FUROSEMIDE INJ 10 MG/ML 2 ML VIAL IV PRN (11:00)
--- NOTE | 2019-07-08 11:24 | NUR ---
SPOKE WITH MD REGARDING ABNORMAL LAB RESULT, NEW ORDERS RECEIVED.
[2019-07-08] MEDS ORDERED: DEXTROSE 50% SYRINGE 50 ML IV PRN (11:30)
[2019-07-08] MEDS ORDERED: SODIUM CHLORIDE 0.9% 250ML 250 ML IV ONE (11:45)
[2019-07-08] MEDS ORDERED: PANTOPRAZOLE 40 MG 10ML VIAL IV SCH (12:00)
[2019-07-08] MEDS: INSULIN REGULAR, HUMAN 100 UNIT/1 ML 3ML VIAL SQ SCH ×3 (12:26→21:24)
--- NOTE | 2019-07-08 12:26 | NUR ---
SPOKE WITH DR SHETTY, IS OKAY FOR THE EGD TO BE DONE.
[2019-07-08 12:36] LABS: CREATINE KINASE MB 5.5 ng/mL (0-5.0)
--- NOTE | 2019-07-08 13:45 | NUR ---
PATIENT OFF UNIT TO ENDO.
[2019-07-08] MEDS ORDERED: EPINEPHRINE HCL 1:1000 1ML 1 MG/ML AMP ONE (14:16)
--- NOTE | 2019-07-08 15:11 | NUR ---
PATIENT IS TO BE TRANSFERRED FROM ENDO TO ICU. REPORT CALLED AND GIVEN TO RECEIVING NURSE.
[2019-07-08] MEDS ORDERED: ONDANSETRON HCL INJ 2MG/ML 2ML 2 MG/ML VIAL ONE (15:20)
[2019-07-08] MEDS ORDERED: PROMETHAZINE HCL (IM) 25 MG/ML VIAL ONE (15:22)
[2019-07-08] MEDS ORDERED: PANTOPRAZOLE 40 MG 10ML VIAL ONE (15:24)
[2019-07-08] MEDS ORDERED: PANTOPRAZOLE 40 MG 10ML VIAL IV NR (15:30)
--- NOTE | 2019-07-08 16:12 | NUR ---
1st unit prbc finished upon patient arriving to icu room 192. 2nd returned to blood bank. new order placed for new unit of prbc.
[2019-07-08] MEDS ORDERED: SODIUM CHLORIDE 0.9% 250ML 250 ML IV NR (16:15)
[2019-07-08] MEDS ORDERED: PANTOPRAZOLE INJ 40 MG in SODIUM CHLORIDE 0.9% 50ML 50 ML IV SCH (17:00)
[2019-07-08] MEDS: PANTOPRAZOL 40MG/SOD CHL 0.9% 50 ML IV SCH ×2 (17:15→21:21)
[2019-07-08] MEDS ORDERED: PROPOFOL IV EMULSION 10 MG/ML 50 ML VIAL ONE (17:50)
[2019-07-08] MEDS ORDERED: MIDAZOLAM HCL 2 MG/2 ML VIAL ONE (17:56)
--- NOTE | 2019-07-08 18:52 | Progress Note ---
DATE: 07/08/2019 Cardiology Progress Note SUBJECTIVE: Had recurrent episodes of nausea and had significant drop in hemoglobin to 6.5. Anticoagulation was held, PRBC transfusions, and GI evaluation ordered. The patient found to have a bleeding duodenal ulcer for which endoscopic treatment was provided by GI. Coronary angiogram was deferred. Given the acute severe change in hemoglobin, it was felt symptomatic anemia was most likely reason for symptoms of angina and not an acute coronary syndrome at this point. OBJECTIVE: VITAL SIGNS: Temperature 96.5, heart rate 107, sinus tachycardia, blood pressure 142/69, respiratory rate 18, and O2 saturation 100%. BMI 30.1. GENERAL: In no acute distress. Pale in appearance, tired. NECK: No JVD. Right carotid bruit. CHEST: Clear to auscultation bilaterally. CARDIOVASCULAR: Regular rate and rhythm. Normal S1 and S2. Tachycardic. Systolic ejection murmur. ABDOMEN: Soft. Bowel sounds positive. EXTREMITIES: No edema. Warm extremities. CARDIOVASCULAR MEDICATIONS: Reviewed. Atorvastatin 40 mg at bedtime, nitroglycerin p.r.n., metoprolol 25 mg every 12 hours, furosemide p.r.n. 40 mg post transfusion, Protonix drip, and Zofran. STUDIES: Reviewed. Sodium 140, potassium 3.7, chloride 108, bicarbonate 23, BUN 45, creatinine 0.69, and glucose 230. White blood cells 15.2, hemoglobin 6.5, and platelets 327. INR 0.92, PT 12.9, and PTT 28.1. AST 13, ALT 10, alkaline phosphatase 34, and total bilirubin 0.2. Echocardiogram with hyperdynamic left ventricular systolic function. Left ventricular ejection fraction more than 70%. Left ventricular intracavitary gradient with peak systolic velocity 6 m/sec, grade 1 impaired relaxation of left ventricle, mild aortic sclerosis without stenosis. Mild mitral regurgitation. Trace tricuspid regurgitation. Aortic valve did not well visualized. ASSESSMENT AND PLAN: 1. A 54-year-old woman presents with acute symptomatic anemia in the setting of bleeding ulcer, status post endoscopic treatment and PRBC transfusion ordered. 2. Aortic sclerosis without stenosis. 3. Mild mitral regurgitation. 4. Preserved left ventricular systolic function. RECOMMEND: Hold any anticoagulation or antiplatelet therapy at this point. The patient does have a history of remote coronary artery disease. At this point, defer any additional cardiac procedures and treat ongoing acute GI bleed and symptomatic anemia. Monitor response to therapy. Prognosis is guarded. MD DALTON Reyes/CASEY /[id number]
[2019-07-08 19:59] LABS: CREATINE KINASE MB 3.2 ng/mL (0-4.3)
[2019-07-08] MEDS: ATORVASTATIN 20 MG TAB PO SCH (21:21)
--- NOTE | 2019-07-08 22:28 | Operative Report ---
DATE OF PROCEDURE: SURGEON: César Mohr MD PROCEDURE: EGD with NG suction, therapy and hemoclipping of an actively bleeding duodenal ulcer. ADDITIONAL REFERRING PHYSICIAN: Meng Lan MD INDICATIONS FOR PROCEDURES: Anemia, history of melena. MEDICATIONS: The patient was done under MAC please see anesthesiologist's note. PROCEDURE IN DETAIL: With the patient in left lateral decubitus position flexible fiberoptic Olympus gastroscope was introduced into the esophagus under direct visualization without any difficulty. There was some patchy erythema noted in distal esophagus. The scope was then advanced with ease into the stomach traversing a small sliding hiatal hernia. Mucosa overlying the antrum and body revealed some patchy erythema. Pylorus was of normal contour and shape, and the scope was advanced into the duodenal bulb. An actively bleeding ulcer was noted with an overlying clot along the anterior wall of the distal bulb. The ulcer site was then injected with 4 mL a total of 1/10,000 epi and then the ulcer was hemoclipped x4 with size 16 hemoclips. Excellent hemostasis was obtained. The scope was then withdrawn back into the stomach and retroflexed mucosa overlying the fundus and the cardia appeared to be within normal limits. The scope was then straightened out it was subsequently withdrawn. The patient tolerated procedure well. IMPRESSION: 1. Mild distal esophagitis. 2. Small sliding hiatal hernia. 3. Gastritis, mild. 4. Actively bleeding duodenal ulcer anterior wall distal bulb, injected with 4 mL of 1/10,000 epi and hemoclipped x4 with excellent hemostasis. PLAN: Follow H and H. Initiate a PPI drip. César Mohr MD [facility]/MODL /[id number] cc: MD César Thurman MD Andres Felipe Vasquez-Donado, MD
[2019-07-09] VITALS (21 sets, daily range): BP systolic 91–150; BP diastolic 45–76
[2019-07-09] MEDS: PANTOPRAZOL 40MG/SOD CHL 0.9% 50 ML IV SCH ×5 (02:07→22:08)
[2019-07-09] MEDS: SODIUM CHLORIDE 0.9% 1000ML 1,000 ML IV SCH ×3 (02:07→20:40)
[2019-07-09] MEDS: CEFTRIAXONE SOD 1 GM/NS 50 ML 50 ML IV SCH ×2 (05:08→17:36)
[2019-07-09 05:09] LABS: BASOPHILS % 0.3 % (0.0-1.0); EOSINOPHILS # (AUTO) 0.2 (0.0-0.4); EOSINOPHILS % 1.4 % (0.0-6.0); LYMPHOCYTES # (AUTO) 4.4 (1.0-3.2); LYMPHOCYTES % 36.1 % (18.0-39.1); MEAN CORPUSCULAR HEMOGLOBIN 27.2 pg (28-32); MEAN CORPUSCULAR HGB CONC 31.8 g/dL (31-35); MEAN CORPUSCULAR VOLUME 85.6 fL (81-99); MONOCYTES # (AUTO) 0.9 (0.2-0.8); MONOCYTES % 7.4 % (4.4-11.3); NEUTROPHILS # (AUTO) 6.6 (2.1-6.9); PLATELET COUNT 171 x10e3/uL (140-360); RED BLOOD COUNT 2.57 x10e6/uL (3.6-5.1)
[2019-07-09 05:38] LABS: ALANINE AMINOTRANSFERASE 9 IU/L (0-55); ALBUMIN 2.6 g/dL (3.5-5.0); ALBUMIN/GLOBULIN RATIO 1.5 (0.8-2.0); ALKALINE PHOSPHATASE 27 IU/L (40-150); ANION GAP 11.3 mmol/L (8-16); BLOOD UREA NITROGEN 23 mg/dL (7-26); BUN/CREATININE RATIO 38 (6-25); CALCIUM 7.4 mg/dL (8.4-10.2); CARBON DIOXIDE 23 mmol/L (22-29); CHLORIDE 112 mmol/L (98-107); CREATININE, SERUM 0.61 mg/dL (0.57-1.11); EST GLOMERULAR FILTRATION RATE > 60 ML/MIN (60-); GLUCOSE 91 mg/dL (74-118); POTASSIUM 3.3 mmol/L (3.5-5.1); SODIUM 143 mmol/L (136-145)
[2019-07-09] MEDS: INSULIN REGULAR, HUMAN 100 UNIT/1 ML 3ML VIAL SQ SCH ×4 (07:27→20:39)
[2019-07-09 07:38] LABS: HEMATOCRIT 21.7 % (34.2-44.1)
[2019-07-09] MEDS: FAMOTIDINE 20 MG/2 ML VIAL IV SCH ×2 (08:18→20:40)
[2019-07-09] MEDS: METOPROLOL TARTRATE 25 MG TAB PO SCH ×2 (08:19→20:40)
[2019-07-09] MEDS ORDERED: SODIUM CHLORIDE 0.9% 250ML 250 ML IV ONE (08:20)
[2019-07-09 08:24] LABS: INR 1.09; PROTHROMBIN TIME 14.8 seconds (11.9-14.5)
[2019-07-09 08:25] LABS: PARTIAL THROMBOPLASTIN TIME 25.8 seconds (23.8-35.5)
--- NOTE | 2019-07-09 12:23 | Progress Note ---
DATE: 07/09/2019 Cardiology Progress Note SUBJECTIVE: Continues to have epigastric discomfort. Had bloody bowel movement overnight and hemoglobin instead of PRBC transfusions, remained at 7. OBJECTIVE: VITAL SIGNS: Temperature 99 degrees, heart rate 66, blood pressure 112/64, respiratory rate 12, and O2 saturation 100%. BMI 30.1. GENERAL: In no acute distress. Alert. NECK: No JVD. CHEST: Clear to auscultation. CARDIOVASCULAR: Regular rate and rhythm. Normal S1 and S2. Systolic ejection murmur. ABDOMEN: Soft. Bowel sounds positive. EXTREMITIES: No edema. CARDIOVASCULAR MEDICATIONS: Reviewed. Atorvastatin 40 mg at bedtime, nitroglycerin p.r.n., and metoprolol tartrate 25 mg every 12 hours. STUDIES: Reviewed. Creatinine 0.6. Hemoglobin 7, platelets 171, and white blood cells 12.1. ASSESSMENT AND PLAN: 1. A 54-year-old woman presents with bleeding duodenal ulcer and acute blood loss anemia, symptomatic anemia. 2. Hypertension, diabetes, and dyslipidemia. 3. Chest pain and shortness of breath, likely related to ulcer and anemia. RECOMMEND: 1. Continue supportive transfusions as needed and monitoring in ICU. 2. Continue PPI drip and management as directed by GI for bleeding ulcer, possible repeat endoscopy soon. 3. The patient's prognosis remains guarded. As an outpatient at a later date advised on further workup for carotid disease and CAD. Defer at this point in time given life-threatening ongoing GI acute illness. Meng Lan MD [facility]/MODL /[id number]
[2019-07-09] MEDS ORDERED: SODIUM CHLORIDE 0.9% 250ML 250 ML ONE (13:21)
[2019-07-09] MEDS ORDERED: POTASSIUM CHLORIDE 20MEQ/100ML 200 ML IV ONE (14:00)
--- NOTE | 2019-07-09 17:44 | Progress Note ---
DATE: Medicine Progress Note I am covering for Dr. Leigh Ann Christy. SUBJECTIVE: The patient was admitted for underlying chest pain. She was in the process of undergoing a left heart catheterization, but suddenly started having black tarry stool, underwent status post EGD on yesterday on 07/08/[address] Mohr. She was found to have a bleeding ulceration in the duodenum, requiring blood transfusion products. The patient continues to have bleeding at this time and in the ICU she is currently receiving blood products. The patient was doing well during my evaluation. She is alert, awake, and oriented. Blood pressure is stable. She is scheduled to go back to the endoscopy suite later today for EGD and another look to see if they can cauterize further bleeding. General Surgery was consulted as per GI recommendations. PHYSICAL EXAMINATION: VITAL SIGNS: Temperature is 98.5, pulse 90, respirations 12, blood pressure is 110/70, pulse ox 100% on room air. GENERAL: Not in acute distress. Alert and oriented x3. Cooperative on examination. HEENT: Head; normocephalic, atraumatic. Eyes; pupils are equal, round, and reactive to light bilaterally. Extraocular movements are intact bilaterally. Throat; no evidence of erythema or exudates in the posterior pharynx. Has poor dentition. NECK: Supple. Good range of motion. PULMONARY: Clear to auscultation bilaterally. No wheezing, no rales, no rhonchi, no crackles appreciated. CARDIOVASCULAR: Positive S1 and S2. No murmurs, rubs, or gallops appreciated. ABDOMEN: Soft, nondistended, and nontender to palpation. Bowel sounds present. MUSCULOSKELETAL: Strength is 5/5 throughout. No evidence of any muscle deficits on examination. No weakness appreciated. NEUROLOGIC: Cranial nerves 2 through 12 grossly intact. No evidence of any neurological deficits on exam. SKIN: Intact. Warm to touch. Good cap refill. PSYCHIATRIC: Normal affect and mood. EXTREMITIES: No edema. Good range of motion throughout. LABORATORY FINDINGS: Show white count was 12.1, hemoglobin last one recorded was 7, but it was as low as 6.4, requiring blood products, hematocrit 21.7, platelets of 171. Coagulation; PT 14.8, INR is 1.09, PTT 25, D-dimer 0.18, negative. Chemistry; sodium 143, potassium 3.3, chloride 112, bicarb 23, anion gap is 11, BUN is 23, creatinine is 0.61, glucose 91, calcium 7.4. LFTs within normal range. Troponins were all negative. Albumin was 2.6, LDL is 11. TSH is 1.895. Lipase level was 13. Urinalysis was found to be consistent, was noted serologies. Flu was negative. MICROBIOLOGY: Blood cultures were found to be negative. Urine culture was found to be final. No growth. IMAGING STUDIES: Chest x-ray showed no radiographic evidence of acute cardiopulmonary process. Chest CT shows no evidence of any pulmonary embolism in the main pulmonary artery or visualized branches. There is no evidence of pulmonary edema, consolidation, pleural effusion or pneumothorax. There is no evidence of mediastinal or hilar adenopathy. Otherwise, no CT evidence of acute pulmonary embolism. IMPRESSION: 1. Gastrointestinal bleed with duodenal ulcer still active-the patient is currently on a Protonix drip. Her hemoglobin did drop to 7.1 this morning. She is currently receiving blood products. GI is involved in this patient's case. Also, she is scheduled to get an EGD again today to further evaluate this bleeding. The patient seems to still have active bleeding at this time. General Surgery was consulted as recommendations by GI. 2. Chest pain, likely atypical-at this time left heart catheterization will be deferred for later date likely outpatient. Cardiology is following. 3. Electrolyte abnormalities-replace potassium accordingly. 4. Hypertension-blood pressure stable, monitor blood pressure closely, continue with same antihypertensives. 5. Nutrition-n.p.o., likely clear liquid after procedure. 6. SCDs for DVT prophylaxis. Otherwise, consultants we have General surgery, GI and Cardiology. The patient is currently in ICU. I spent more than 35 minutes of critical care time on this case. MD JACKELYN Solano/CASEY /[id number]
--- NOTE | 2019-07-09 20:03 | Diagnostic Imaging Report ---
EXAMINATION: CHEST XRAY LINE PLACEMENT INDICATION: ^picc placement ^[id number] ^193 COMPARISON: 07/07/2019. FINDINGS: TUBES and LINES: Interval placement of a left upper extremity PICC with distal tip projected on the cavoatrial junction, adequate position. LUNGS: Lungs are well inflated. There are bibasilar atelectasis. There is no evidence of pneumonia or pulmonary edema. PLEURA: No pleural effusion or pneumothorax. HEART AND MEDIASTINUM: The cardiomediastinal silhouette is unremarkable. BONES AND SOFT TISSUES: No acute osseous lesion. Soft tissues are unremarkable. UPPER ABDOMEN: No free air under the diaphragm. IMPRESSION: Interval placement of a left upper extremity PICC with distal tip projected on the cavoatrial junction, adequate position. Signed by: Dr. Jeffrey Butler M.D. on 07/09/2019 8:01 PM
[2019-07-09] MEDS: ATORVASTATIN 20 MG TAB PO SCH (20:40)
[2019-07-10] VITALS (9 sets, daily range): BP systolic 134–170; BP diastolic 68–99
[2019-07-10 00:23] LABS: HEMATOCRIT 27.6 % (34.2-44.1); HEMOGLOBIN 8.9 g/dL (12.0-16.0)
[2019-07-10] MEDS: PANTOPRAZOL 40MG/SOD CHL 0.9% 50 ML IV SCH ×5 (02:50→22:15)
[2019-07-10] MEDS: SODIUM CHLORIDE 0.9% 1000ML 1,000 ML IV SCH ×2 (05:08→11:50)
[2019-07-10] MEDS: CEFTRIAXONE SOD 1 GM/NS 50 ML 50 ML IV SCH ×2 (05:10→17:35)
[2019-07-10 06:03] LABS: HEMATOCRIT 28.4 % (34.2-44.1); HEMOGLOBIN 9.4 g/dL (12.0-16.0)
[2019-07-10] MEDS ORDERED: SODIUM CHLORIDE 0.9% 250ML 250 ML ONE (06:20)
[2019-07-10 06:25] LABS: ANION GAP 13.4 mmol/L (8-16); BLOOD UREA NITROGEN 6 mg/dL (7-26); BUN/CREATININE RATIO 11 (6-25); CALCIUM 7.9 mg/dL (8.4-10.2); CARBON DIOXIDE 23 mmol/L (22-29); CHLORIDE 111 mmol/L (98-107); CREATININE, SERUM 0.57 mg/dL (0.57-1.11); EST GLOMERULAR FILTRATION RATE > 60 ML/MIN (60-); GLUCOSE 103 mg/dL (74-118); POTASSIUM 3.4 mmol/L (3.5-5.1); SODIUM 144 mmol/L (136-145)
--- NOTE | 2019-07-10 07:03 | NUR ---
patient is resting in bed. walking rounds complete. bed is in lowest position and call jarrett is within reach.
[2019-07-10] MEDS: INSULIN REGULAR, HUMAN 100 UNIT/1 ML 3ML VIAL SQ SCH ×4 (07:30→20:56)
--- NOTE | 2019-07-10 08:33 | Progress Note ---
DATE: 07/10/2019 Cardiology Progress Note SUBJECTIVE: Epigastric discomfort persists. The dyspnea has resolved. Has had no recurrent bloody bowel movements so far today. Denies any hematemesis. OBJECTIVE: VITAL SIGNS: Temperature 97 degrees, heart rate 63, blood pressure 157/70, respiratory rate 18, O2 saturation 100%. BMI 30.17. GENERAL: No acute distress, alert. NECK: No JVD. Right carotid bruit. CHEST: Clear to auscultation. CARDIOVASCULAR: Regular rate and rhythm. Normal S1, S2. Systolic ejection murmur. No S3, no S4 ABDOMEN: Soft. Bowel sounds positive. EXTREMITIES: No edema. CARDIOVASCULAR MEDICATIONS: Reviewed. Atorvastatin 40 mg at bedtime, nitroglycerin p.r.n., metoprolol tartrate 25 mg every 12 hours, furosemide 40 mg p.r.n. posttransfusion. STUDIES: Reviewed. Creatinine 0.5, glucose 103, hemoglobin 9.4, white blood cells 12.1, platelets 171. INR 1.09, PTT 25.8. ASSESSMENT AND PLAN: 1. A 54-year-old woman presents with acute gastrointestinal bleed and symptomatic anemia. 2. Coronary artery disease with previous remote PCI. 3. Hypertension, diabetes, and dyslipidemia. 4. Acute blood loss anemia. RECOMMEND: 1. Continue current cardiovascular medications and monitoring H and H. 2. Continue PPI and care per GI. MD DALTON Reyes/JIML /[id number]
[2019-07-10] MEDS: METOPROLOL TARTRATE 25 MG TAB PO SCH ×2 (08:45→20:55)
[2019-07-10] MEDS: FAMOTIDINE 20 MG/2 ML VIAL IV SCH ×2 (09:00→20:55)
--- NOTE | 2019-07-10 10:00 | NUR ---
DR SHETTY HERE NO NEW ORDERS.
--- NOTE | 2019-07-10 12:45 | NUR ---
DR RENE HERE ORDERS WRITTEN,PT DENIES PAIN.
[2019-07-10] MEDS ORDERED: POTASSIUM CHLORIDE 20 MEQ TAB CR PO ONE (16:00)
--- NOTE | 2019-07-10 18:39 | NUR ---
PT UP IN BED DENIES PAIN,TOLERATED FULL LIQUID WELL.
--- NOTE | 2019-07-10 19:20 | NUR ---
received report from day nurse. bedside rounds complete. patient is resting comfortably in bed. bed is in lowest position and call jarrett is within reach. will continue to monitor patient.
[2019-07-10] MEDS: ATORVASTATIN 20 MG TAB PO SCH (20:55)
[2019-07-11] VITALS: BP 166/75
--- NOTE | 2019-07-11 00:30 | NUR ---
patients blood sugar is 54. patient is awake and sitting on the side of the bed. patient has been given 3 cups of orange juice. will recheck patients blood sugar in 10minutes.
--- NOTE | 2019-07-11 00:40 | NUR ---
patients blood sugar has been rechecked and found to be 144. patient is resting in the bed. denies discomfort and distress.
[2019-07-11 04:00] VITALS: BP 160/73
[2019-07-11] MEDS: PANTOPRAZOL 40MG/SOD CHL 0.9% 50 ML IV SCH ×4 (05:17→21:22)
[2019-07-11] MEDS: CEFTRIAXONE SOD 1 GM/NS 50 ML 50 ML IV SCH ×2 (05:18→17:51)
[2019-07-11] MEDS: TRAMADOL HCL 50 MG TAB PO PRN ×2 (05:18→15:32)
--- NOTE | 2019-07-11 06:35 | NUR ---
patient is resting in the bed. bed is in the lowest position and call light is within reach. denies pain or discomfort at this time.
[2019-07-11] MEDS: INSULIN REGULAR, HUMAN 100 UNIT/1 ML 3ML VIAL SQ SCH ×4 (07:46→21:30)
[2019-07-11 08:31] VITALS: BP 145/70
[2019-07-11] MEDS: FAMOTIDINE 20 MG/2 ML VIAL IV SCH ×2 (09:40→21:22)
[2019-07-11] MEDS: METOPROLOL TARTRATE 25 MG TAB PO SCH ×2 (09:41→21:22)
[2019-07-11 09:47] LABS: HEMATOCRIT 31.3 % (34.2-44.1); HEMOGLOBIN 10.3 g/dL (12.0-16.0)
[2019-07-11 12:21] VITALS: BP 162/73
[2019-07-11] MEDS: LOSARTAN POTASSIUM 25 MG TAB PO SCH (16:11)
[2019-07-11 16:21] VITALS: BP 172/76
[2019-07-11 18:01] LABS: HEMOGLOBIN 10.2 g/dL (12.0-16.0)
[2019-07-11 20:00] VITALS: BP 171/79
[2019-07-11] MEDS: ATORVASTATIN 20 MG TAB PO SCH (21:22)
--- NOTE | 2019-07-11 22:03 | Progress Note ---
DATE: Cardiology Progress Note SUBJECTIVE: Feels better today. Denies any chest discomfort or shortness of breath. Denies recurrent bleeding. OBJECTIVE: VITAL SIGNS: Temperature 96.6, heart rate 71, blood pressure 145/70, respiratory rate 18, O2 saturation 100%. GENERAL: No acute distress. Alert. NECK: No JVD. No carotid bruits. CHEST: Clear to auscultation. CARDIOVASCULAR: Regular rate and rhythm. Normal S1 and S2. Systolic ejection murmur. No S3 or S4. ABDOMEN: Soft. Bowel sounds positive. EXTREMITIES: No edema. CARDIOVASCULAR MEDICATIONS: Atorvastatin 40 mg at bedtime, nitroglycerin p.r.n., and metoprolol tartrate 25 mg every 12 hours. STUDIES: Sodium 144, potassium 3.4, chloride 111, bicarbonate 23, BUN 6, creatinine 0.57, glucose 103. White blood cells 12.1, hemoglobin 10.3, and platelets 171. ASSESSMENT AND PLAN: A 54-year-old woman presents with blood loss anemia in the setting of peptic ulcer now status post endoscopic treatment and PRBC transfusions. RECOMMENDATIONS: 1. Continue current cardiovascular medications and monitor H and H. 2. Outpatient evaluation for carotid disease and outpatient stress test at a later date after healing from peptic ulcer disease. MD DALTON Reyes/CASEY /[id number]
[2019-07-12] VITALS (9 sets, daily range): BP systolic 142–175; BP diastolic 60–85
[2019-07-12] MEDS: PANTOPRAZOL 40MG/SOD CHL 0.9% 50 ML IV SCH ×5 (02:30→20:00)
[2019-07-12] MEDS ORDERED: SODIUM CHLORIDE 0.9% 250ML 250 ML ONE (04:50)
[2019-07-12] MEDS: CEFTRIAXONE SOD 1 GM/NS 50 ML 50 ML IV SCH ×2 (05:34→18:00)
[2019-07-12 06:13] LABS: BASOPHILS % 0.4 % (0.0-1.0); EOSINOPHILS # (AUTO) 0.3 (0.0-0.4); EOSINOPHILS % 3.2 % (0.0-6.0); HEMATOCRIT 32.1 % (34.2-44.1); HEMOGLOBIN 10.6 g/dL (12.0-16.0); LYMPHOCYTES # (AUTO) 2.3 (1.0-3.2); LYMPHOCYTES % 23.6 % (18.0-39.1); MEAN CORPUSCULAR VOLUME 84.7 fL (81-99); MONOCYTES # (AUTO) 0.6 (0.2-0.8); NEUTROPHILS # (AUTO) 6.4 (2.1-6.9); NEUTROPHILS % 66.4 % (38.7-80.0); PLATELET COUNT 225 x10e3/uL (140-360); RED BLOOD COUNT 3.79 x10e6/uL (3.6-5.1); RED CELL DISTRIBUTION WIDTH 15.7 % (11.7-14.4)
[2019-07-12 06:39] LABS: ANION GAP 13.6 mmol/L (8-16); BLOOD UREA NITROGEN < 5 mg/dL (7-26); CALCIUM 8.7 mg/dL (8.4-10.2); CARBON DIOXIDE 27 mmol/L (22-29); CHLORIDE 106 mmol/L (98-107); CREATININE, SERUM 0.66 mg/dL (0.57-1.11); EST GLOMERULAR FILTRATION RATE > 60 ML/MIN (60-); GLUCOSE 84 mg/dL (74-118); POTASSIUM 3.6 mmol/L (3.5-5.1); SODIUM 143 mmol/L (136-145)
[2019-07-12 06:41] LABS: BUN/CREATININE RATIO 8 (6-25)
--- NOTE | 2019-07-12 07:20 | NUR ---
pt up in bed no distress ntoed,denies [pain.
[2019-07-12] MEDS: LOSARTAN POTASSIUM 25 MG TAB PO SCH (09:00)
[2019-07-12] MEDS: METOPROLOL TARTRATE 25 MG TAB PO SCH ×2 (09:00→21:00)
[2019-07-12] MEDS: FAMOTIDINE 20 MG/2 ML VIAL IV SCH (09:00)
[2019-07-12] MEDS: INSULIN REGULAR, HUMAN 100 UNIT/1 ML 3ML VIAL SQ SCH ×4 (11:30→21:00)
--- NOTE | 2019-07-12 11:41 | Progress Note ---
DATE: 07/12/2019 Cardiology Progress Note SUBJECTIVE: No complaints. OBJECTIVE: VITAL SIGNS: Temperature 97.5, heart rate 85, blood pressure 142/63, respiratory rate 20, and O2 saturation 100%. GENERAL: In no acute distress. Alert. NECK: No JVD. CHEST: Clear to auscultation. CARDIOVASCULAR: Regular rate and rhythm. Normal S1 and S2. Systolic ejection murmur. ABDOMEN: Soft. Bowel sounds positive. EXTREMITIES: No edema. CARDIOVASCULAR MEDICATIONS: Reviewed. Atorvastatin 40 mg at bedtime, losartan 50 mg daily, metoprolol tartrate 25 mg every 12 hours, and furosemide p.r.n. posttransfusion 40 mg. STUDIES: Reviewed. Creatinine 0.6, bicarbonate 27, and potassium 3.6. White blood cells 9.6, hemoglobin 10.6, and platelets 225. ASSESSMENT AND PLAN: A 54-year-old woman presents with acute gastrointestinal bleed in the setting of peptic ulcer disease, acute blood loss anemia, asymptomatic, now status post transfusion, hypertension, dyslipidemia, diabetes, and coronary artery disease. RECOMMEND: 1. Continue current cardiovascular medications. 2. Outpatient evaluation with carotid Doppler and stress test at a later date once GI confirmed healing occurs. MD DALTON Reyes/CASEY /[id number]
--- NOTE | 2019-07-12 12:33 | NUR ---
PT TOLERATED GI SOFT WELL
--- NOTE | 2019-07-12 16:00 | NUR ---
PAGED DR RAMOS RE; HIGH GLUCOSE .INSULIN GIVEN PER S/S
--- NOTE | 2019-07-12 17:28 | NUR ---
re paged dr blandon
--- NOTE | 2019-07-12 17:30 | NUR ---
SPOKE WITH DR RAMOS ORDERS WRITTEN
--- NOTE | 2019-07-12 19:45 | NUR ---
ROUNDS DONE, RECEIVED REPORT FROM 7AM NURSE, PATIENT RESTING IN BED WITH HOB ELEVATED TALKING TO FAMILY, NO DISTRESS NOTED. CALL LIGHT REMAIN IN REACH. WILL CONTINUE TO MONITOR.
--- NOTE | 2019-07-12 20:05 | NUR ---
PATIENT REQUESTED TO GO WALKING IN THE HALLWAYS, FAMILY REMAIN AT HER SIDE.
[2019-07-12] MEDS ORDERED: INSULIN LISPRO 100 UNIT/1 ML 3ML VIAL SQ SCH (21:00)
[2019-07-12] MEDS: FAMOTIDINE 20 MG TAB PO SCH (21:00)
[2019-07-12] MEDS ORDERED: INSULIN ASPART 30 UNIT SQ SCH (21:00)
[2019-07-12] MEDS: ATORVASTATIN 20 MG TAB PO SCH (21:00)
[2019-07-12] MEDS ORDERED: INSULIN ASPART 70/30 100 UNITS/ML VIAL SC SCH (21:00)
[2019-07-13] VITALS: BP 148/67
--- NOTE | 2019-07-13 01:47 | NUR ---
DR. JORDANA WHITFIELD VISIT.
[2019-07-13] MEDS: PANTOPRAZOL 40MG/SOD CHL 0.9% 50 ML IV SCH ×3 (03:57→12:20)
[2019-07-13 04:00] VITALS: BP 161/71
[2019-07-13 05:26] LABS: BASOPHILS # (AUTO) 0.1 (0.0-0.1); BASOPHILS % 0.5 % (0.0-1.0); EOSINOPHILS # (AUTO) 0.4 (0.0-0.4); EOSINOPHILS % 3.7 % (0.0-6.0); HEMATOCRIT 31.5 % (34.2-44.1); HEMOGLOBIN 10.2 g/dL (12.0-16.0); LYMPHOCYTES # (AUTO) 2.7 (1.0-3.2); LYMPHOCYTES % 28.1 % (18.0-39.1); MEAN CORPUSCULAR HEMOGLOBIN 27.4 pg (28-32); MEAN CORPUSCULAR HGB CONC 32.4 g/dL (31-35); MEAN CORPUSCULAR VOLUME 84.7 fL (81-99); MONOCYTES # (AUTO) 0.7 (0.2-0.8); MONOCYTES % 7.6 % (4.4-11.3); NEUTROPHILS # (AUTO) 5.6 (2.1-6.9); NEUTROPHILS % 59.7 % (38.7-80.0); PLATELET COUNT 232 x10e3/uL (140-360); RED BLOOD COUNT 3.72 x10e6/uL (3.6-5.1); RED CELL DISTRIBUTION WIDTH 15.3 % (11.7-14.4)
[2019-07-13] MEDS ORDERED: INSULIN LISPRO 100 UNIT/1 ML 3ML VIAL SQ SCH (06:00)
[2019-07-13] MEDS: CEFTRIAXONE SOD 1 GM/NS 50 ML 50 ML IV SCH (06:13)
--- NOTE | 2019-07-13 07:20 | NUR ---
PATIENT RESTING IN BED, NO COMPLAINTS VOICED. REPORT GIVEN TO AM NURSE.
[2019-07-13] MEDS: INSULIN REGULAR, HUMAN 100 UNIT/1 ML 3ML VIAL SQ SCH ×2 (07:30→11:30)
[2019-07-13] MEDS ORDERED: INSULIN ASPART 70/30 100 UNITS/ML VIAL SC SCH (07:30)
[2019-07-13 07:40] VITALS: BP 175/84
--- NOTE | 2019-07-13 07:40 | NUR ---
PATIENT IN BED RESTING WITH EYES CLOSED, NO DISTRESS NOTED. PROTONIX DRIP IN PROGRESS. BED IN LOWER POSITION, CALL LIGHT AT REACH.
[2019-07-13 08:00] VITALS: BP 175/84
[2019-07-13] MEDS: LOSARTAN POTASSIUM 25 MG TAB PO SCH (09:20)
[2019-07-13] MEDS: FAMOTIDINE 20 MG TAB PO SCH (09:20)
[2019-07-13] MEDS: METOPROLOL TARTRATE 25 MG TAB PO SCH (09:20)
[2019-07-13 12:00] VITALS: BP 186/81
--- NOTE | 2019-07-13 12:00 | NUR ---
PATIENT HAS A DISCHARGE ORDER, PENDING GI CLEARANCE. CALL PLACE TO DR WHITFIELD, AWAITING CALL BACK.
--- NOTE | 2019-07-13 12:01 | Discharge Summary ---
IDENTIFICATION: This is a 54-year-old female patient of mine presented with chest pain and shortness of breath. ADMITTING IMPRESSION DIAGNOSES: 1. Chest pain. 2. Shortness of breath. 3. Unstable angina. 4. Rule out myocardial infarction. 5. Peptic ulcer disease. 6. Hypertension. 7. Coronary artery disease. 8. Diabetes mellitus. 9. Suspected congestive heart failure. 10. Urinary tract infection. HOSPITAL COURSE SUMMARY: The patient was admitted with above diagnosis. The patient was having cardiac monitoring done, and stat echocardiogram and cardiology evaluation were done by Dr. Pavon. The patient was monitored in the cardiac unit. EKG had not shown any except WA changes. Ejection fraction was 45%-50%, mild systolic dysfunction on the echocardiogram. The patient had a chest CT that was done, which was negative for any PE. A chest x-ray was done, which was unremarkable. While the patient was in the the patient had black tarry stool and repeat hemoglobin dropped down to 6.4 from 11. The patient was suspected to have acute bleeding ulcer. GI consult was done. The patient was taken to the endoscope suite and the patient was having actively bleeding duodenal ulcer. The patient was started on a Protonix drip. The patient was also given antibiotics, Rocephin. The patient was very closely monitored for recurrent bleeding. The patient anticoagulation was hold. The patient had original plan to cardiac catheterization, after her GI bleeding has developed it was postponed. Upon stabilization and without having any recurrent bleed, the patient hemoglobin today is 10.2. So, the patient will be discharged home on Protonix, Carafate, cephalexin, iron and folic acid. A patient was advised to follow up with me as well as GI and Cardiology as outpatient. DISCHARGE DIAGNOSES: 1. Acutely bleeding duodenal ulcers. 2. Acute blood loss anemia. Severe anemia requiring blood transfusion 2 units. 3. Diabetes mellitus. 4. Hypertension. 5. Hypertensive heart disease. 6. Mild chronic systolic dysfunction and systolic congestive heart failure, mild. 7. Hypertensive lung disease. 8. Hypertensive heart disease. 9. Chronic back pain. 10. Urinary tract infection was community-acquired. stabilization the patient will be discharged home and followed up as an outpatient. MD ALEXANDER Thurman/JIML /[id number]
--- NOTE | 2019-07-13 13:30 | NUR ---
CALL BACK RECEIVED FROM DR WHITFIELD. RADHA TO D/C PATIENT.
[2019-07-13] MEDS ORDERED: PANTOPRAZOLE SO40 MG PO (13:50)
[2019-07-13] MEDS ORDERED: CARAFATE1 GM/10 ML PO (13:51)
[2019-07-13] MEDS ORDERED: CEPHALEXIN500 MG PO (13:52)
[2019-07-13] MEDS ORDERED: FERROUS SULFAT325 MG PO (13:53)
--- NOTE | 2019-07-13 14:30 | NUR ---
PATIENT DISCHARGED HOME. DISCHARGE INSTRUCTIONS, PRESCRIPTIONS, AND FOLLOW UP GIVEN TO PATIENT, SHE VERBALIZED UNDERSTANDING. PICC LINE TO LEFT UPPER ARM REMOVED WITH TIP INTACT, PRESSURE APPLIED FOR 5 MINUTES. ALL PERSONAL ITEMS TAKEN WITH PATIENT. REFUSED WHEEL CHAIR, BUT WAS ACCOMPANIED TO FRONT LOBBY BY A HOSPITAL STAFF IN STABLE CONDITION.
--- NOTE | 2019-07-13 18:44 | Progress Note ---
DATE: 07/13/2019 Cardiology Progress Note SUBJECTIVE: No complaints. Denies any nausea, vomiting, chest pain, or shortness of breath. Denies any bleeding. OBJECTIVE: VITAL SIGNS: Temperature 97.4, heart rate 69, blood pressure 161/71, respiratory rate 20, and O2 saturation 99%. BMI 40.17. GENERAL: In no acute distress. Alert. NECK: No JVD. CHEST: Clear to auscultation. CARDIOVASCULAR: Regular rate and rhythm. Normal S1 and S2. Systolic ejection murmur. ABDOMEN: Soft. Bowel sounds positive. EXTREMITIES: No edema. CARDIOVASCULAR MEDICATIONS: Reviewed. Atorvastatin 40 mg at bedtime, furosemide 40 mg pre-transfusion, nitroglycerin p.r.n., and losartan 50 mg daily. STUDIES: Reviewed. Creatinine 0.6. Hemoglobin 10.2 and platelets 232. INR 1.09. ASSESSMENT AND PLAN: 1. A 54-year-old woman presents with acute blood loss anemia in the setting of peptic ulcer with bleed. 2. Hypertension. 3. Dyslipidemia. 4. Diabetes. RECOMMEND: 1. Continue current cardiovascular medications. 2. Outpatient followup with GI and Cardiology as well as primary care. Once peptic ulcer disease healed, we will consider resuming anticoagulation. Further outpatient stress test and carotid ultrasound advised. Meng Lan MD AFLeigh Ann/CASEY /[id number]
== END 2019-07-13 14:20 | disposition home or self-care (01) | DRG 378 ==
LOC: ER 13:38 → ERHOLD 16:24 → MED/SURG3 22:00 → ICU 07-08 15:53 → MED/SURG3 07-10 05:53
PROVIDERS: ADMIT Internal Medicine; ATTEND Internal Medicine
PROC: 30243N1 Transfusion of Nonautologous Red Blood Cells into Central Vein, Percutaneous Approach (ICD-10-PCS; 2019-07-08)
PROC: 0W3P8ZZ Control Bleeding in Gastrointestinal Tract, Via Natural or Artificial Opening Endoscopic (ICD-10-PCS; principal; 2019-07-08 14:02)
PROC: 02HV33Z Insertion of Infusion Device into Superior Vena Cava, Percutaneous Approach (ICD-10-PCS; 2019-07-09)
DX: K26.0 Acute duodenal ulcer with hemorrhage (principal); I25.110 Atherosclerotic heart disease of native coronary artery with unstable angina pectoris; D62 Acute posthemorrhagic anemia; I50.22 Chronic systolic (congestive) heart failure; N39.0 Urinary tract infection, site not specified; E11.9 Type 2 diabetes mellitus without complications; K29.70 Gastritis, unspecified, without bleeding; K44.9 Diaphragmatic hernia without obstruction or gangrene; K20.9 Esophagitis, unspecified; E87.6 Hypokalemia; E87.8 Other disorders of electrolyte and fluid balance, not elsewhere classified; I08.0 Rheumatic disorders of both mitral and aortic valves; Z95.5 Presence of coronary angioplasty implant and graft; F17.200 Nicotine dependence, unspecified, uncomplicated; I11.0 Hypertensive heart disease with heart failure; I27.20 Pulmonary hypertension, unspecified
CPT/HCPCS: 36415; 36569; 36600; 43255; 71045; 71260; 80048; 80053; 80061; 81001; 82550; 82553; 82805; 82948; 83690; 83735; 83880; 84100; 84443; 84484; 85014; 85018; 85025; 85379; 85610; 85730; 86850; 86900; 86920; 87040; 87086; 87400; 93005; 93306; 94640; 94760; 96360; 96372; 99284; J0171; J0456; J0696; J1650; J1815; J1817; J1940; J2250; J2270; J2405; J2550; J3480; J7030; J7050; P9016; Q9967

== ENCOUNTER 2020-02-28 14:51 | Emergency (ER) | payer OTHER ==
[~2020-02-28] VITALS: Ht 157.5 cm; Wt 74.8 kg
[~2020-02-28 14:51] MED LIST changes: +ASPIR 8181 MG PO; +ASPIRIN81 MG PO; +ATORVASTATIN CA20 MG PO; +CARAFATE1 GM/10 ML PO; +CEPHALEXIN500 MG PO; +FERROUS SULFAT325 MG PO; +GLIPIZIDE-METF1 EAC2 PO; +INSULIN AS100 UNIT/2 SQ; +LISINOPRIL-HCT1 EAC1 PO; +NOVOLOG100 UNIT/1 SQ; +PANTOPRAZOLE SO40 MG PO; +POTASSIUM CHLO10 ME1 PO
[2020-02-28] MEDS ORDERED: MECLIZINE HCL 12.5 MG TAB PO STA (15:13)
[2020-02-28 15:23] LABS: BASOPHILS # (AUTO) 0.1 (0.0-0.1); BASOPHILS % 0.5 % (0.0-1.0); EOSINOPHILS # (AUTO) 0.3 (0.0-0.4); EOSINOPHILS % 2.9 % (0.0-6.0); HEMOGLOBIN 11.6 g/dL (12.0-16.0); LYMPHOCYTES # (AUTO) 2.4 (1.0-3.2); LYMPHOCYTES % 25.1 % (18.0-39.1); MEAN CORPUSCULAR HEMOGLOBIN 25.9 pg (28-32); MEAN CORPUSCULAR HGB CONC 31.4 g/dL (31-35); MEAN CORPUSCULAR VOLUME 82.6 fL (81-99); MONOCYTES # (AUTO) 0.6 (0.2-0.8); MONOCYTES % 6.3 % (4.4-11.3); NEUTROPHILS # (AUTO) 6.2 (2.1-6.9); NEUTROPHILS % 64.7 % (38.7-80.0); PLATELET COUNT 361 x10e3/uL (140-360); RED BLOOD COUNT 4.48 x10e6/uL (3.6-5.1); RED CELL DISTRIBUTION WIDTH 13.8 % (11.7-14.4)
[2020-02-28 15:42] LABS: ALBUMIN 3.5 g/dL (3.5-5.0); ALBUMIN/GLOBULIN RATIO 0.9 (0.8-2.0); CALCIUM 9.5 mg/dL (8.4-10.2); CREATININE, SERUM 0.98 mg/dL (0.57-1.11)
--- OUTSIDE RECORDS SUMMARY | 2020-02-28 15:44 | XMS REPORT | Continuity of Care Document ---
Author Author [facility] t Organization [facility] Address [address] [place] [address] [address]. [address] [place] [address] Phone Unavailable Care Team Providers Care Comptometrist Name Role Phone Sonido CHRISTY MD PCP Sonido CHRISTY Attphys Unavailable SANDHIR, S AMBICA Attphys Unavailable VICKEY, P BIANCA Attphys Unavailable Sonido CHRISTY Admphys Unavailable Payers Payer Name Policy Type Policy Number Effective Date Expiration Date [place] o [id number] 2019 00:00:00 [facility] Cigna o [id number] 2014 00:00:00 [facility] Problems Condition Name Condition Details Condition Category Status Onset Date Resolution Date Last Treatment Date Treating Clinician Comments Source Chest pain in adult Chest pain in adult Problem Active [facility] Dyspnea Dyspnea Problem Active [facility] Leukocytosis Elevated WBCs Problem Active [facility] Allergies, Adverse Reactions, Alerts This patient has no known allergies or adverse reactions. Medications Ordered Medication Name Filled Medication Name Start Date Stop Da te Current Medication? Ordering Clinician Indication Dosage Frequency Signature (SIG) Comments Components Source Methocarbamol (Robaxin-750) 750 Mg Tablet Methocarbamo l (Robaxin-750) 750 Mg Tablet 2019-03-23 00:00:00 Yes Ambica Sandhir Do 750 Every 8 Hours as needed for Muscle Spasms [facility] Tramadol Hcl (Ultram) 50 Mg Tablet Tramadol Hcl (Ultram) 50 Mg Tablet 2019-03-23 00:00:00 Yes Ambica Sandhir Do 50 Ev magaly 6 Hours as needed for Mild Pain (1-3) Or Fever>100.8 [facility] Atorvastatin Calcium 20 Mg Tablet Atorvastatin Calcium 20 Mg Tablet Yes 40 Bedtime [facility] Cephalexin 500 Mg Capsule Cephalexin 500 Mg Capsule Yes 500 Twice A Day [facility] Ferrous Sulfate 325 Mg Tablet Ferrous Sulfate 325 Mg Tablet Yes 325 Twice A Day [facility] Glipizide/Metformin Hcl (Glipizide-Metformin 5-500 Mg) 1 Each Tablet Glipizide/Metformin Hcl (Glipizide-Metformin 5-500 Mg) 1 Each Tablet Yes 2 Twice A Day [facility] Insulin Aspart (Novolog) 100 Unit/1 Ml Cartridge Insul in Aspart (Novolog) 100 Unit/1 Ml Cartridge Yes 40 Daily@0600 [facility] Insulin Aspart 100 Unit/1 Ml Vial Insulin Aspart 100 Unit/1 Ml Vial Yes 30 Bedtime [facility] Lisinopril/Hydrochlorothiazide (Lisinopril-Hctz 20-25 Mg Tab) 1 Each Tablet Lisinopril/Hydrochlorothiazide (Lisinopril-Hctz 20-25 Mg Tab) 1 Each Tablet Yes Daily [facility] Metoprolol Tartrate 50 Mg Tablet Metoprolol Tartrate 50 Mg Tablet Yes 25 Twice A Day [facility] Pantoprazole Sodium (Protonix) 40 Mg Tablet. Pantopr azole Sodium (Protonix) 40 Mg Tablet. Yes 40 Twice A Day [facility] Potassium Chloride 10 Meq Tab.er.prt Potassium Chloride 10 Meq Tab. er.prt Yes 10 Daily [facility] Sucralfate (Carafate) 1 Gm/10 Ml Oral.susp Sucralfate (Carafate) 1 Gm/10 Ml Oral.susp Yes 1 Four Times Daily [facility] Aspirin 81 Mg Tab.chew, 81 Mg Oral Aspirin 81 Mg Tab.chew, 81 Mg Oral 2019-07-13 00:00:00 No 81 Daily [facility] Aspirin (Aspir 81) 81 Mg Tablet.dr 81 Mg Oral Aspirin (Aspir 81) 81 Mg Tablet., 81 Mg Oral 2019-07-12 00:00:00 No 81 Da [email or web address] [facility] Procedures Procedure Date / Time Performed Performing Clinician Sourc e EGD with biopsy 2019-07-08 00:00:00 WHITFIELDJORDANA Najera [facility] X-ray of chest, single view 2019-07-07 00:00:00 ASH LIVINGSTON [facility] Computed tomography of chest with contrast 2019-07-07 00:00:00 Ericka HAMILTONNAEL JANEL [facility] Magnetic resonance imaging of lumbar spine without contrast 2019-04-14 00:00:00 SUSAN CHRISTY [facility] X-ray of chest, single view 2019-03-23 00:00:00 CAESAR ESCOBAR [facility] CT of abdomen and pelvis without contrast 2019-03-23 00:00:00 SA ECHAVARRIA [facility] Encounters Start Date/Time End Date/Time Encounter Type Admission Type [facility] Care Department Encounter ID Source 2019-07-07 16:24:00 2019-07-13 14:20:00 Discharged Inpatient 1 SUSAN CHRISTY [facility] [id number] [facility] 2019-04-14 09:34:00 2019-04-14 09:34:00 Registered Clinic 3 JASON SRIVASTAVA [facility] [id number] [facility] 2019-03-23 13:00:00 2019-03-23 18:32:00 Departed Emergency Room 1 CAESAR ESCOBAR [facility] [id number] [facility] 2019-02-16 17:04:00 2019-02-16 19:55:00 Departed Emergency Room 1 CHRISTOPHER [facility] [place] [facility] [id number] [facility] 2018-09-09 10:33:00 2018-09-09 10:33:00 Registered Clinic 3 JASON [facility] [id number] [facility] 2018-09-04 21:52:00 2018-09-05 01:24:00 Departed Emergency Room [facility] [id number] [facility] 2018-06-11 08:58:00 2018-06-11 08:58:00 Registered Clinic 3 SUSAN ORELLANA [facility] [id number] [facility] 2018-06-02 13:51:00 2018-06-02 18:34:00 Departed Emergency Room 1 BIANCA HURD [facility] [id number] [facility] Results Test Description Test Time Test Comments Results Result Comments Source Bedside Glucose 2019-07-13 11:43:00 Test Item Bedside Glucose (test code = 29317-1) 262 70-120 H Meter ID: [id number] [facility] 2019-07-13 05:29:00* Test Item Value Reference Range Interpretation Comments White Blood Count (test code = 6690-2) 9.43 4.8-10.8 [facility] Blood Mczdk1621-60-94 05:29:00* Test Item Value Reference Range Interpretation Comments Red Blood Count (test code = 789-8) 3.72 3.6-5.1 [facility] HospitalHemoglobin2020-02-18 05:29:00* Test Item Value Reference Range Interpretation Comments Hemoglobin (test code = 37287-6) 10.2 12.0-16.0 L [facility] HospitalHematocrit2020-02-18 05:29:00* Test Item Value Reference Range Interpretation Comments Hematocrit (test code = 4544-3) 31.5 34.2-44.1 L [facility] HospitalMean Corpuscular Bituhv1388-83-97 05:29:00* Test Item Value Reference Range Interpretation Comments Mean Corpuscular Volume (test code = 787-2) 84.7 81-99 [facility] HospitalMean Corpuscular Hwiuyedmok1710-52-04 05:29:00* Test Item Value Reference Range Interpretation Comments Mean Corpuscular Hemoglobin (test code = 785-6) 27.4 28-32 L [facility] HospitalMean Corpuscular Hemoglobin Concent 2019-07-13 05:29:00* Test Item Value Reference Range Interpretation Comments Mean Corpuscular Hemoglobin Concent (test code = 786-4) 32.4 31-35 [facility] HospitalRed Cell Distribution Ywumq8448-46-39 05:29:00* Test Item Value Reference Range Interpretation Comments Red Cell Distribution Width (test code = 32258-3) 15.3 11.7 -14.4 H [facility] HospitalPlatelet Khbdg8021-55-73 05:29:00* Test Item Value Reference Range Interpretation Comments Platelet Count (test code = 777-3) 232 140-360 [facility] HospitalNeutrophils (%) (Auto)2019-07-13 05:29:00 * Test Item Value Reference Range Interpretation Comments Neutrophils (%) (Auto) (test code = 35380-7) 59.7 38.7-80.0 [facility] HospitalLymphocytes (%) (Auto)2019-07-13 05:29:00 * Test Item Value Reference Range Interpretation Comments Lymphocytes (%) (Auto) (test code = 736-9) 28.1 18.0-39.1 [facility] HospitalMonocytes (%) (Auto)2019-07-13 05:29:00* Test Item Value Reference Range Interpretation Comments Monocytes (%) (Auto) (test code = 5905-5) 7.6 4.4-11.3 [facility] HospitalEosinophils (%) (Auto)2019-07-13 05:29:00 * Test Item Value Reference Range Interpretation Comments Eosinophils (%) (Auto) (test code = 713-8) 3.7 0.0-6.0 [facility] HospitalBasophils (%) (Auto)2019-07-13 05:29:00* Test Item Value Reference Range Interpretation Comments Basophils (%) (Auto) (test code = 706-2) 0.5 0.0-1.0 [facility] HospitalIM GRANULOCYTES %2019-07-13 05:29:00* Test Item Value Reference Range Interpretation Comments IM GRANULOCYTES % (test code = IM GRANULOCYTES %) 0.4 0.0- 1.0 [facility] HospitalNeutrophils # (Auto)2019-07-13 05:29:00* Test Item Value Reference Range Interpretation Comments Neutrophils # (Auto) (test code = 751-8) 5.6 2.1-6.9 [facility] HospitalLymphocytes # (Auto)2019-07-13 05:29:00* Test Item Value Reference Range Interpretation Comments Lymphocytes # (Auto) (test code = 54361-6) 2.7 1.0-3.2 [facility] HospitalMonocytes # (Auto)2019-07-13 05:29:00* Test Item Value Reference Range Interpretation Comments Monocytes # (Auto) (test code = 742-7) 0.7 0.2-0.8 [facility] HospitalEosinophils # (Auto)2019-07-13 05:29:00* Test Item Value Reference Range Interpretation Comments Eosinophils # (Auto) (test code = 711-2) 0.4 0.0-0.4 [facility] HospitalBasophils # (Auto)2019-07-13 05:29:00* Test Item Value Reference Range Interpretation Comments Basophils # (Auto) (test code = 704-7) 0.1 0.0-0.1 [facility] HospitalAbsolute Immature Granulocyte (auto 2019-07-13 05:29:00* Test Item Value Reference Range Interpretation Comments Absolute Immature Granulocyte (auto (cesar t code = Absolute Immature Granulocyte (auto) 0.04 0-0.1 [facility] HospitalBlood Jjrdzph3205-95-61 05:26:00* Test Item Value Reference Range Interpretation Comments Blood Culture (test code = 55521533) NO GROWTH AFTER 5 DAYS, FINAL REPORT [facility] Gwgwp9155-99-63 06:41:00* Test Item Value Reference Range Interpretation Comments Sodium Level (test code = 2951-2) 143 136-145 [facility] HospitalPotassium Mbugm6216-43-62 06:41:00* Test Item Value Reference Range Interpretation Comments Potassium Level (test code = 2823-3) 3.6 3.5-5.1 [facility] HospitalChloride Zbtqp1640-19-19 06:41:00* Test Item Value Reference Range Interpretation Comments Chloride Level (test code = 2075-0) 106 98-107 [facility] HospitalCarbon Dioxide Fvthy9342-63-21 06:41:00* Test Item Value Reference Range Interpretation Comments Carbon Dioxide Level (test code = 2028-9) 27 22-29 [facility] HospitalAnion Rhe8137-58-36 06:41:00* Test Item Value Reference Range Interpretation Comments Anion Gap (test code = 23838-7) 13.6 8-16 [facility] HospitalBlood Urea Adohskfq3158-57-44 06:41:00* Test Item Value Reference Range Interpretation Comments Blood Urea Nitrogen (test code = 3094-0) < 5 7-26 L [facility] HospitalCreatinine2020-02-17 06:41:00* Test Item Value Reference Range Interpretation Comments Creatinine (test code = 2160-0) 0.66 0.57-1.11 [facility] HospitalBUN/Creatinine Tgmud1862-00-15 06:41:00* Test Item Value Reference Range Interpretation Comments BUN/Creatinine Ratio (test code = 3097-3) 8 6-25 [facility] HospitalEstimat Glomerular Filtration Rate 2019-07-12 06:41:00* Test Item Value Reference Range Interpretation Comments Estimat Glomerular Filtration Rate (test code = 054313610) > 60 >60 Ranges were taken from the National Kidney Disease Education Program and the Cele [facility] literature.Reference ranges:60 or greater: Jhditd54-61 ( for 3 consecutive months): Chronic kidney disease 15 or less: Kidney failurePalo Pinto General HospitalGlucose Wshlw5180-10-09 06:41:00* Test Item Value Reference Range Interpretation Comments Glucose Level (test code = LBT2768) 84 74-118 [facility] HospitalCalcium Esgrl9660-85-74 06:41:00* Test Item Value Reference Range Interpretation Comments Calcium Level (test code = 52238-0) 8.7 8.4-10.2 [facility] X[facility] LINE VDZBNXFPO0804-69-00 20:00:00 [facility] [address] [address] Patient Name: BRIDGET SHETTY MR #: [id number] : 1965 Age/Sex: 54/F Req #: [id number] Adm Physician: SUSAN CHRISTY MD Ordered by: SUSAN CHRISTY MD Report #: [id number] Location: ICU Room/Bed: ICU [facility] Procedure: [id number] DX /CHEST XRAY LINE PLACEMENT Exam Date: 07/09/19 Exam Time: 1934 REPORT STATUS: Signed EXAMINATION: CHEST XRAY LINE PLACEMENT INDICATION: picc placement [id number] COMPARISON: 07/07/2019. FINDINGS: TUBES and LINES: Interval placement of a left upper extremity PICC with distal tip projected on the cavoatrial junction, adequate position. LUNGS: L ungs are well inflated. There are bibasilar atelectasis. There is no eviden ce of pneumonia or pulmonary edema. PLEURA: No pleural effusion or pneumot horax. HEART AND MEDIASTINUM: The cardiomediastinal silhouette is unremark able. BONES AND SOFT TISSUES: No acute osseous lesion. Soft tissues a re unremarkable. UPPER ABDOMEN: No free air under the diaphragm. IMPRESSION: Interval placement of a left upper extremity PICC with distal tip projected on the cavoatrial junction, adequate position. Signed by: Dr. Jeffrey Diehl M.D. on 07/09/2019 8:01 PM Dictated By: NOEL BEATTY MD, MD 00 T ranscribed By: ROSY on 07/09/192000 COPY TO: SUSAN CHRISTY MD Prothrombin Kyao1544-25-43 08:30:00* Test Item Value Reference Range Interpretation Comments Prothrombin Time (test code = 5902-2) 14.8 11.9-14.5 H [facility] HospitalProthromb Time International Ratio 2019-07-09 08:30:00* Test Item Value Reference Range Interpretation Comments Prothromb Time International Ratio (test code = 6301-6) 1.09 Oral Anticoagulant Therapy INR Values:1. Low Intensity Therapy 1.5 - 2.02 . Moderate Intensity Therapy 2.0 - 3.03. High Intensity Therapy(1) 2.5 - 3. 54. High Intensity Therapy(2) 3.0 - 4.05. Panic Value INR > 5.0 [facility] HospitalActivated Partial Thromboplast Time 2019-07-09 08:30:00* Test Item Value Reference Range Interpretation Comments Activated Partial Thromboplast Time (test code = 20439-1) 25.8 23.8-35.5 [facility] HospitalTotal Glpapwsyw3230-17-47 05:40:00* Test Item Value Reference Range Interpretation Comments Total Bilirubin (test code = 1975-2) 0.2 0.2-1.2 [facility] HospitalAspartate Amino Transf (AST/SGOT) 2019-07-09 05:40:00* Test Item Value Reference Range Interpretation Comments Aspartate Amino Transf (AST/SGOT) (test code = Aspartate Amino Transf (AST/SGOT)) 15 5-34 [facility] HospitalAlanine Aminotransferase (ALT/SGPT) 2019-07-09 05:40:00* Test Item Value Reference Range Interpretation Comments Alanine Aminotransferase (ALT/SGPT) (test code = 1742-6) 9 0-55 [facility] HospitalTotal Ahhciek8270-72-02 05:40:00* Test Item Value Reference Range Interpretation Comments Total Protein (test code = 2885-2) 4.3 6.5-8.1 L [facility] HospitalAlbumin2020-02-14 05:40:00* Test Item Value Reference Range Interpretation Comments Albumin (test code = 1751-7) 2.6 3.5-5.0 L [facility] HospitalGlobulin2020-02-14 05:40:00* Test Item Value Reference Range Interpretation Comments Globulin (test code = 36318-4) 1.7 2.3-3.5 L [facility] HospitalAlbumin/Globulin Thwjf6539-50-41 05:40:00 * Test Item Value Reference Range Interpretation Comments Albumin/Globulin Ratio (test code = 1759-0) 1.5 0.8-2.0 [facility] HospitalAlkaline Rfrcrxfhgcb2332-91-15 05:40:00* Test Item Value Reference Range Interpretation Comments Alkaline Phosphatase (test code = 6768-6) 27 40-150 L [facility] HospitalTroponin U0733-14-43 22:07:00* Test Item Value Reference Range Interpretation Comments Troponin I (test code = XEZ1652) 0.030 0-0.300 [facility] HospitalCreatine Kinase ZP2825-77-69 20:02:00* Test Item Value Reference Range Interpretation Comments Creatine Kinase MB (test code = 70270-8) 3.20 0-4.3 [facility] HospitalCreatine Mcrsoh6908-89-74 19:52:00* Test Item Value Reference Range Interpretation Comments Creatine Kinase (test code = 2157-6) 66 29-168 [facility] HospitalPhosphorus Awflg9105-22-38 07:38:00* Test Item Value Reference Range Interpretation Comments Phosphorus Level (test code = DND4617) 4.1 2.3-4.7 [facility] HospitalMagnesium Qcphg4957-34-71 07:38:00* Test Item Value Reference Range Interpretation Comments Magnesium Level (test code = 59182-7) 1.4 1.3-2.1 [facility] HospitalTriglycerides Hbdoe2977-06-74 07:38:00* Test Item Value Reference Range Interpretation Comments Triglycerides Level (test code = 2571-8) 258 0-149 H [facility] HospitalCholesterol Yuozc1417-25-58 07:38:00* Test Item Value Reference Range Interpretation Comments Cholesterol Level (test code = 2093-3) 80 0-199 Less than 200 mg/dL Low Byio451 - 239 mg/dL Borderline Djxe797 m g/dl and greater High Risk [facility] HospitalLDL Zfdtjgnjfqa5355-97-74 07:38:00* Test Item Value Reference Range Interpretation Comments LDL Cholesterol (test code = 2089-1) 11 60-130 L [facility] HospitalHDL Tcppjhsdfon8474-43-42 07:38:00* Test Item Value Reference Range Interpretation Comments HDL Cholesterol (test code = 2085-9) 17 40-60 L [facility] HospitalCholesterol/HDL Ouokh1568-46-38 07:38:00 * Test Item Value Reference Range Interpretation Comments Cholesterol/HDL Ratio (test code = 9830-1) 4.7 3.0-3.6 H [facility] HospitalDifferential Total Cells Counted 2019-07-07 20:09:00* Test Item Value Reference Range Interpretation Comments Differential Total Cells Counted (test code = Kala tial Total Cells Counted) 100 [facility] HospitalNeutrophils % (Manual)2019-07-07 20:09:00 * Test Item Value Reference Range Interpretation Comments Neutrophils % (Manual) (test code = 95858-7) 52 40-74 [facility] HospitalLymphocytes % (Manual)2019-07-07 20:09:00 * Test Item Value Reference Range Interpretation Comments Lymphocytes % (Manual) (test code = 737-7) 39 19-48 [facility] HospitalMonocytes % (Manual)2019-07-07 20:09:00* Test Item Value Reference Range Interpretation Comments Monocytes % (Manual) (test code = 744-3) 8 3.4-9.0 [facility] HospitalReactive Zrwnbxjcgnp3792-31-74 20:09:00* Test Item Value Reference Range Interpretation Comments Reactive Lymphocytes (test code = 65228-5) 1 [facility] HospitalPlatelet Etuoacac5964-52-16 20:09:00* Test Item Value Reference Range Interpretation Comments Platelet Estimate (test code = 42625-5) ADEQUATE [facility] HospitalPlatelet Morphology Jizfsvw8097-55-89 20:09:00* Test Item Value Reference Range Interpretation Comments Platelet Morphology Comment (test code = 38919-7) NORMAL [facility] HospitalHypochromasia2020-02-12 20:09:00* Test Item Value Reference Range Interpretation Comments Hypochromasia (test code = 728-6) SLIGHT [facility] HospitalRed Cell Morphology Joqaltd6277-60-40 20:09:00* Test Item Value Reference Range Interpretation Comments Red Cell Morphology Comment (test code = 6742-1) NORMAL [facility] HospitalArterial Blood yN4078-52-12 19:10:00* Test Item Value Reference Range Interpretation Comments Arterial Blood pH (test code = 2744-1) 7.42 7.31-7.41 H [facility] HospitalArterial Blood Partial Pressure CO2 2019-07-07 19:10:00* Test Item Value Reference Range Interpretation Comments Arterial Blood Partial Pressure CO2 (test code = 2018-8) 27 41-51 L [facility] HospitalArterial Blood Partial Pressure O2 2019-07-07 19:10:00* Test Item Value Reference Range Interpretation Comments Arterial Blood Partial Pressure O2 (test code = 2018-8) 95 80-105 [facility] HospitalArterial Blood WTQ25965-50-47 19:10:00* Test Item Value Reference Range Interpretation Comments Arterial Blood HCO3 (test code = 1960-4) 17 23-28 L [facility] HospitalArterial Blood Base Kicqie6252-84-46 19:10:00* Test Item Value Reference Range Interpretation Comments Arterial Blood Base Excess (test code = 1925-7) -7.0 -2-3 L [facility] HospitalArterial Blood Oxygen Saturation 2019-07-07 19:10:00* Test Item Value Reference Range Interpretation Comments Arterial Blood Oxygen Saturation (test code = 2708-6) 98.0 95-98 [facility] HospitalFiO22020-02-12 19:10:00* Test Item Value Reference Range Interpretation Comments FiO2 (test code = FiO2) 21 ABG DRAWN ON RIGHT RADIAL ON RAPATIENT DOES TAKE ASPIRIN DAILY RESULTS GIVEN TO THE PATIENT ER NURSE [facility] HospitalCT CHEST Q4566-08-58 17:24:00 [facility] [address] [address] Patient Name: BRIDGET SHETTY MR #: [id number] : 1965 Age/Sex: 54/F Req #: [id number] Adm Physician: SUSAN CHRISTY MD Ordered by: IAN VELASQUEZ, JANEL VELASQUEZ Report #: [id number] [facility]: [id number]/CT CHEST W Exam Date: 07/07/19 Exam Time: 1700 REPORT STATUS: Signed Exam: CT p ulmonary angiogram Clinical History: Shortness of breath DOSE REDUCTIO N: The exams was performed according to the departmental dose-optimization pr ogram which includes automated exposure control, adjustment of the mA and/or k V according to patient size and/or use of iterative reconstruction technique. Technique: Helical images of the chest were obtained after IV contrast ad ministration using the pulmonary embolism protocol. Findings: There is no evidence of acute pulmonary embolism in the main pulmonary artery or its visua lized branches. There is no evidence of pulmonary edema, consolidation, ple ural effusion, or pneumothorax. The tracheobronchial tree is clear. There is n o evidence of mediastinal or hilar adenopathy. The cardiac size is within norm al limits. The great vessels are normal in caliber and configuration. The visualized upper abdominal solid organs are unremarkable. Impression: No CT evidence of acute pulmonary embolism. Signed by: Dr. Anthony Grace MD on 5:25 PM Dictated By: DESHAUN GRACE MD 24 Transcribed By: ROSY on 07/07/191724 COPY TO: MALINI SOSAY Urine [id number] 15:48:00* Test Item Value Reference Range Interpretation Comments Urine WBC (test code = 5821-4) 6-10 0-5 H [facility] HospitalUrine [id number] 15:48:00* Test Item Value Reference Range Interpretation Comments Urine RBC (test code = 90773-1) NONE 0-5 [facility] HospitalUrine Ttptemes5744-56-04 15:48:00* Test Item Value Reference Range Interpretation Comments Urine Bacteria (test code = 30104-7) MANY NONE H [facility] HospitalUrine Epithelial Rwadx5273-02-46 15:48:00 * Test Item Value Reference Range Interpretation Comments Urine Epithelial Cells (test code = 86482-1) MODERATE NONE [facility] HospitalLipase2020-02-12 15:38:00* Test Item Value Reference Range Interpretation Comments Lipase (test code = 3040-3) 13 8-78 [facility] HospitalThyroid Stimulating Hormone (TSH) 2019-07-07 15:38:00* Test Item Value Reference Range Interpretation Comments Thyroid Stimulating Hormone (TSH) (test code = 60707-5) 1.895 0.350-4.940 [facility] HospitalUrine Cxrud2900-71-21 15:37:00* Test Item Value Reference Range Interpretation Comments Urine Color (test code = 5778-6) YELLOW YELLOW [facility] HospitalUrine Qdyyojo7726-13-33 15:37:00* Test Item Value Reference Range Interpretation Comments Urine Clarity (test code = 67949-0) SL CLOUDY CLEAR [facility] HospitalUrine Specific Jmdqpqf1266-70-60 15:37:00 * Test Item Value Reference Range Interpretation Comments Urine Specific [place] (test code = 5811-5) 1.025 1.010-1.02 5 [facility] HospitalUrine [id number] 15:37:00* Test Item Value Reference Range Interpretation Comments Urine pH (test code = 14189-0) 5.5 5-7 [facility] HospitalU[facility] Leukocyte Otuxfrbm0559-56-83 15:37:00* Test Item Value Reference Range Interpretation Comments Urine Leukocyte Esterase (test code = 5799-2) TRACE NEGATIVE H [facility] HospitalUrine Cetsmzm1410-45-49 15:37:00* Test Item Value Reference Range Interpretation Comments Urine Nitrite (test code = 15002-8) NEGATIVE NEGATIVE [facility] Lzskiet3552-49-59 15:37:00* Test Item Value Reference Range Interpretation Comments Urine Protein (test code = 5804-0) TRACE NEGATIVE H [facility] Glucose (UA)2019-07-07 15:37:00* Test Item Value Reference Range Interpretation Comments Urine Glucose (UA) (test code = 2349-9) NEGATIVE NEGATIVE [facility] Pgrgtzz6384-76-78 15:37:00* Test Item Value Reference Range Interpretation Comments Urine Ketones (test code = 74138-1) TRACE NEGATIVE H [facility] Avudtklsedne4744-34-03 15:37:00* Test Item Value Reference Range Interpretation Comments Urine Urobilinogen (test code = 78432-1) 0.2 0.2-1 [facility] Jzeyzbmdd9229-93-74 15:37:00* Test Item Value Reference Range Interpretation Comments Urine Bilirubin (test code = 1978-6) NEGATIVE NEGATIVE [facility] Mdehl0690-78-08 15:37:00* Test Item Value Reference Range Interpretation Comments Urine Blood (test code = 69610-0) NEGATIVE NEGATIVE [facility] HospitalB-Type Natriuretic Yzpjyau4192-61-70 15:24:00* Test Item Value Reference Range Interpretation Comments B-Type Natriuretic Peptide (test code = 43733-5) 162.1 0-100 H [facility] HospitalCHEST SINGLE (NOT PORTABLE)2019-07-07 15:22:00 [facility] [address] [place] [address] Patient Name: BRIDGET SHETTY MR #: [id number] : 1965 Age/Sex: 54/F Req #: [id number] Adm Physician: Ordered by: ASH LIVINGSTON VARITYPE OPERATOR Report #: [id number] Location: ER Room/Bed: Procedure: [id number] D X/CHEST SINGLE (NOT PORTABLE) Exam Date: 07/07/19 Ex am Time: 1405 REPORT STATUS: Signed Exam: Chest radiograph Clinical History: Shortness of breath Duc rison: March 23, 2019 Findings: The cardiomediastinal silhouette and lungs are normal. The regional skeleton and soft tissue are unremarkable. Th ere is no evidence of pleural effusion or pneumothorax. Impression: No radiographic evidence of acute cardiopulmonary disease. Signed by: Dr. Reinaldo Grace MD on 07/07/2019 3:24 PM Dictated By: DESHAUN GRACE MD Elect ronically Signed By: DESHAUN GRACE MD on 07/07/191523 Transcribed By: ROSY on 07/07/19 1524 COPY TO: ASH LIVINGSTON VARITYPE OPERATOR Influenza Virus Types A,B Hnruyga4023-13-20 15:19:00* Test Item Value Reference Range Interpretation Comments Influenza Virus Types A,B Antigen (test code = 68623-4) NEGATIVE NEGATIVE [facility] HospitalD-Dimer Quantitative (PE/DVT)2019-07-07 15:08:00* Test Item Value Reference Range Interpretation Comments D-Dimer Quantitative (PE/DVT) (test code = 86614-6) 0.18 0. 00-0.45 As with all in vitro diagnostic tests, the test results should be interpreted by the physician in conjunction with clinical findings and other test results.Test results are reported in NEW D-dimer units(ug/mLFEU).[facility] HospitalMRI SPINE LUMBAR XI5701-06-71 13:52:00 [facility] [address] [address] Patient Name: BRIDGET SHETTY MR #: [id number] : 1965 Age/Sex: 54/F Req #: [id number] Adm Physician: Ordered by: SUSAN CHRISTY MD Report #: [id number] Location: MRI Room/Bed: Procedure: [id number] MRI /MRI SPINE LUMBAR WO Exam Date: Exam Time: REPORT STATUS: Signed History: Low back and left hip pain Comparison studies: X-ray of the lumbar spine 09/09/2018 Technique: Sagittal, coronal and axial T2 , sagittal T1 and IR, axial spin density oblique. Intravenous contrast: None Findings: Number of l umbar vertebral bodies:5 Alignment: Normal lordosis.No scoliosis. Soft ti ssues: No T2 hyperintense inflammatory changes. Paraspinal muscles: No signal abnormalities. No atrophy. Lower thoracic cord:Normal in signal and morpholog y. The tip of the conus is at L1. Cauda equina: No masses. No arachnoiditis . Vertebrae: Normal in height and signal intensity. No compression frac tures, infection or neoplasm. Degenerative changes: L1-L2: No abnorm alities. L2-L3: No abnormalities. L3-L4: No abnormalities. L4 -L5: Mild disc degeneration with loss of T2 signal. Left foraminal and extra foraminal disc protrusion (1.9 AP x 2.6 TV cm), results in severe left neural foramen with impingement of the exiting L4 nerve root. Facet hypertrophy paten t canal and right foramen. L5-S1: Mild diffuse disc bulge mild facet hype rtrophy with patent canal and foramina. Additional findings: None IM PRESSION: Severe left neural foramen at L4-5 secondary to left foraminal an d extraforaminal disc protrusion, which results in impingement of the exiting L4 nerve root. Signed by: DR Young Vega M.D. on 04/14/2019 9:2 7 PM Dictated By: YOUNG GILLIAM MD 26 Transcribed By: ROSY on 04/14/192126 COPY TO: SUSAN CHRISTY MD Urine [id number] 18:01:00* Test Item Value Reference Range Interpretation Comments Urine WBC (test code = 5821-4) NONE 0-5 [facility] XXB4922-31-17 18:01:00* Test Item Value Reference Range Interpretation Comments Urine RBC (test code = 69094-1) NONE 0-5 [facility] Mbcmpezl7744-07-32 18:01:00* Test Item Value Reference Range Interpretation Comments Urine Bacteria (test code = 00008-1) NONE NONE [facility] Epithelial Snnby6067-28-74 18:01:00 * Test Item Value Reference Range Interpretation Comments Urine Epithelial Cells (test code = 97965-5) FEW NONE [facility] Qjmvg6498-55-31 17:46:00* Test Item Value Reference Range Interpretation Comments Urine Color (test code = 5778-6) YELLOW YELLOW [facility] Gjjzndf9165-00-15 17:46:00* Test Item Value Reference Range Interpretation Comments Urine Clarity (test code = 29952-6) CLEAR CLEAR [facility] Specific Vxvqxpd9267-55-61 17:46:00 * Test Item Value Reference Range Interpretation Comments Urine Specific [place] (test code = 5811-5) 1.010 1.010-1.02 5 [facility] hM7928-19-48 17:46:00* Test Item Value Reference Range Interpretation Comments Urine pH (test code = 62637-7) 7.5 5-7 [facility] Leukocyte Fzvbefnn8364-67-53 17:46:00* Test Item Value Reference Range Interpretation Comments Urine Leukocyte Esterase (test code = 22444-7) NEGATIVE NEGATIV E [facility] Egzxdru7270-29-78 17:46:00* Test Item Value Reference Range Interpretation Comments Urine Nitrite (test code = 71612-0) NEGATIVE NEGATIVE [facility] Auwficq2935-21-20 17:46:00* Test Item Value Reference Range Interpretation Comments Urine Protein (test code = 26374-2) NEGATIVE NEGATIVE [facility] Glucose (UA)2019-03-23 17:46:00* Test Item Value Reference Range Interpretation Comments Urine Glucose (UA) (test code = 22026-0) NEGATIVE NEGATIVE [facility] Prbwraz1429-36-79 17:46:00* Test Item Value Reference Range Interpretation Comments Urine Ketones (test code = 21294-2) NEGATIVE NEGATIVE [facility] Eokqlyjtngwt7272-65-55 17:46:00* Test Item Value Reference Range Interpretation Comments Urine Urobilinogen (test code = 76950-9) 0.2 0.2-1 [facility] Jarusxebw5186-36-95 17:46:00* Test Item Value Reference Range Interpretation Comments Urine Bilirubin (test code = 1977-8) NEGATIVE NEGATIVE [facility] Upoxs7659-52-39 17:46:00* Test Item Value Reference Range Interpretation Comments Urine Blood (test code = 60739-6) NEGATIVE NEGATIVE [facility] HospitalCT ABDOMEN/PELVIS GG1154-08-84 17:17:00 [facility] [address] [place] [address] Patient Name: BRIDGET SHETTY MR #: [id number] : 1965 Age/Sex: 54/F Req #: [id number] Adm Physician: Ordered by: CAESAR ESCOBAR MD Report #: [id number] Location: ER Room/Bed: Procedure: [id number] CT/CT ABDOMEN/PELVIS WO Exam Date: Exam Time: REPORT STATUS: Signed EXAM: CT Abdom en and Pelvis WITHOUT intravenous contrast INDICATION: Left flank pain COMPARISON: CT abdomen of 06/11/2018 TECHNIQUE: Abdomen and pelvis were s canned utilizing a multidetector helical scanner from the lung base to the pub ic symphysis without administration of IV contrast. Coronal and sagittal refor mations were obtained. IV CONTRAST: None ORAL CONTRAST: Water COMPLICATIONS: None RADIATION DOSE: Total DLP: 397.1 mGy*cm Dose modulation, iterative reconstruction, and/or weight based adjustment of the mA/kV was utilized to reduce the radiation dose to as low as reasonably achievable. FINDINGS: LOWER THORAX: Normal. HEPATOBILIARY: Hepato megaly to 22 cm. Mild diffuse hepatic steatosis. No focal liver lesions. Unrem arkable gallbladder. SPLEEN: No splenomegaly. PANCREAS: No focal senia s or ductal dilatation. ADRENALS: No adrenal nodules. KIDNEYS/URETERS: No hydronephrosis, stones, or solid mass lesions. PELVIC ORGANS/BLADDER: Status post hysterectomy. PERITONEUM / RETROPERITONEUM: No free air or fluid. LY MPH NODES: No lymphadenopathy. VESSELS: Scattered atherosclerotic calcificatio ns of the nonaneurysmal abdominal aorta and major branches. GI TRACT: No abnormal bowel wall thickening. No bowel obstruction. Normal appendix. WILVER BRIAN AND SOFT TISSUES: No acute osseous injury. No suspicious lytic or blastic lesions. IMPRESSION: No renal calculi or hydronephrosis. Hepatomega ly and mild diffuse hepatic steatosis. Signed by: Ramón Greenfield MD on 02/24 5:24 PM Dictated By: RAMÓN GREENFIELD MD 23 Transcribed By: ROSY on 03/23/191723 COPY TO: CAESAR ESCOBAR MD Sodium Gxhud0253-80-94 16:54:00* Test Item Value Reference Range Interpretation Comments Sodium Level (test code = 2951-2) 141 136-145 [facility] HospitalPotassium Erzkc0589-94-76 16:54:00* Test Item Value Reference Range Interpretation Comments Potassium Level (test code = 2823-3) 3.6 3.5-5.1 [facility] HospitalChloride Eedyz0456-33-92 16:54:00* Test Item Value Reference Range Interpretation Comments Chloride Level (test code = 2075-0) 103 98-107 [facility] HospitalCarbon Dioxide Tjxkl2786-66-34 16:54:00* Test Item Value Reference Range Interpretation Comments Carbon Dioxide Level (test code = 2028-9) 28 22-29 [facility] HospitalAnion Rld8595-54-73 16:54:00* Test Item Value Reference Range Interpretation Comments Anion Gap (test code = 31520-5) 13.6 8-16 [facility] HospitalBlood Urea Qosfpjwo3793-89-44 16:54:00* Test Item Value Reference Range Interpretation Comments Blood Urea Nitrogen (test code = 3094-0) 12 7-26 [facility] HospitalCreatinine2019-10-29 16:54:00* Test Item Value Reference Range Interpretation Comments Creatinine (test code = 2160-0) 0.73 0.57-1.11 [facility] HospitalBUN/Creatinine Zmgai2201-95-16 16:54:00* Test Item Value Reference Range Interpretation Comments BUN/Creatinine Ratio (test code = 3097-3) 16 6-25 [facility] HospitalEstimat Glomerular Filtration Rate 2019-03-23 16:54:00* Test Item Value Reference Range Interpretation Comments Estimat Glomerular Filtration Rate (test code = 858928854) > 60 >60 Ranges were taken from the National Kidney Disease Education Program and the [facility] [employer] literature.Reference ranges:60 or greater: Eaudzy39-67 ( for 3 consecutive months): Chronic kidney disease 15 or less: Kidney failurePalo Pinto General HospitalGlucose Msvye7423-69-17 16:54:00* Test Item Value Reference Range Interpretation Comments Glucose Level (test code = HTL9642) 141 74-118 H [facility] HospitalCalcium Bqsdx0175-14-67 16:54:00* Test Item Value Reference Range Interpretation Comments Calcium Level (test code = 89626-4) 9.1 8.4-10.2 [facility] HospitalTotal Tbxibemos5120-81-16 16:54:00* Test Item Value Reference Range Interpretation Comments Total Bilirubin (test code = 1975-2) 0.2 0.2-1.2 [facility] HospitalAspartate Amino Transf (AST/SGOT) 2019-03-23 16:54:00* Test Item Value Reference Range Interpretation Comments Aspartate Amino Transf (AST/SGOT) (test code = Aspartate Amino Transf (AST/SGOT)) 13 5-34 [facility] HospitalAlanine Aminotransferase (ALT/SGPT) 2019-03-23 16:54:00* Test Item Value Reference Range Interpretation Comments Alanine Aminotransferase (ALT/SGPT) (test code = 1742-6) 15 0-55 [facility] HospitalTotal Nczklwc3397-38-44 16:54:00* Test Item Value Reference Range Interpretation Comments Total Protein (test code = 2885-2) 7.1 6.5-8.1 [facility] HospitalAlbumin2019-10-29 16:54:00* Test Item Value Reference Range Interpretation Comments Albumin (test code = 1751-7) 3.9 3.5-5.0 [facility] HospitalGlobulin2019-10-29 16:54:00* Test Item Value Reference Range Interpretation Comments Globulin (test code = 08696-5) 3.2 2.3-3.5 [facility] HospitalAlbumin/Globulin Pagpv5037-04-04 16:54:00 * Test Item Value Reference Range Interpretation Comments Albumin/Globulin Ratio (test code = 1759-0) 1.2 0.8-2.0 [facility] HospitalAlkaline Hxlsvueigqn3881-90-92 16:54:00* Test Item Value Reference Range Interpretation Comments Alkaline Phosphatase (test code = 6768-6) 55 40-150 [facility] HospitalWhite Blood Odtau4927-92-48 16:33:00* Test Item Value Reference Range Interpretation Comments White Blood Count (test code = 6690-2) 10.96 4.8-10.8 H [facility] HospitalRed Blood Komde1994-55-54 16:33:00* Test Item Value Reference Range Interpretation Comments Red Blood Count (test code = 789-8) 5.06 3.6-5.1 [facility] HospitalHemoglobin2019-10-29 16:33:00* Test Item Value Reference Range Interpretation Comments Hemoglobin (test code = 97850-5) 13.0 12.0-16.0 [facility] HospitalHematocrit2019-10-29 16:33:00* Test Item Value Reference Range Interpretation Comments Hematocrit (test code = 4544-3) 41.3 34.2-44.1 [facility] HospitalMean Corpuscular Ngflrk6987-88-93 16:33:00* Test Item Value Reference Range Interpretation Comments Mean Corpuscular Volume (test code = 787-2) 81.6 81-99 [facility] HospitalMean Corpuscular Rvcdhlxiby5991-64-49 16:33:00* Test Item Value Reference Range Interpretation Comments Mean Corpuscular Hemoglobin (test code = 785-6) 25.7 28-32 L [facility] HospitalMean Corpuscular Hemoglobin Concent 2019-03-23 16:33:00* Test Item Value Reference Range Interpretation Comments Mean Corpuscular Hemoglobin Concent (test code = 786-4) 31.5 31-35 [facility] HospitalRed Cell Distribution Gemkp2682-93-50 16:33:00* Test Item Value Reference Range Interpretation Comments Red Cell Distribution Width (test code = 50657-2) 14.9 11.7 -14.4 H [facility] HospitalPlatelet Wqplw7450-01-13 16:33:00* Test Item Value Reference Range Interpretation Comments Platelet Count (test code = 777-3) 320 140-360 [facility] HospitalNeutrophils (%) (Auto)2019-03-23 16:33:00 * Test Item Value Reference Range Interpretation Comments Neutrophils (%) (Auto) (test code = 57610-0) 59.6 38.7-80.0 [facility] HospitalLymphocytes (%) (Auto)2019-03-23 16:33:00 * Test Item Value Reference Range Interpretation Comments Lymphocytes (%) (Auto) (test code = 736-9) 29.5 18.0-39.1 [facility] HospitalMonocytes (%) (Auto)2019-03-23 16:33:00* Test Item Value Reference Range Interpretation Comments Monocytes (%) (Auto) (test code = 5905-5) 6.5 4.4-11.3 [facility] HospitalEosinophils (%) (Auto)2019-03-23 16:33:00 * Test Item Value Reference Range Interpretation Comments Eosinophils (%) (Auto) (test code = 713-8) 3.3 0.0-6.0 [facility] HospitalBasophils (%) (Auto)2019-03-23 16:33:00* Test Item Value Reference Range Interpretation Comments Basophils (%) (Auto) (test code = 706-2) 0.6 0.0-1.0 [facility] HospitalIM GRANULOCYTES %2019-03-23 16:33:00* Test Item Value Reference Range Interpretation Comments IM GRANULOCYTES % (test code = IM GRANULOCYTES %) 0.5 0.0- 1.0 [facility] HospitalNeutrophils # (Auto)2019-03-23 16:33:00* Test Item Value Reference Range Interpretation Comments Neutrophils # (Auto) (test code = 751-8) 6.5 2.1-6.9 [facility] HospitalLymphocytes # (Auto)2019-03-23 16:33:00* Test Item Value Reference Range Interpretation Comments Lymphocytes # (Auto) (test code = 11926-3) 3.2 1.0-3.2 [facility] HospitalMonocytes # (Auto)2019-03-23 16:33:00* Test Item Value Reference Range Interpretation Comments Monocytes # (Auto) (test code = 742-7) 0.7 0.2-0.8 [facility] HospitalEosinophils # (Auto)2019-03-23 16:33:00* Test Item Value Reference Range Interpretation Comments Eosinophils # (Auto) (test code = 711-2) 0.4 0.0-0.4 [facility] HospitalBasophils # (Auto)2019-03-23 16:33:00* Test Item Value Reference Range Interpretation Comments Basophils # (Auto) (test code = 704-7) 0.1 0.0-0.1 [facility] HospitalAbsolute Immature Granulocyte (auto 2019-03-23 16:33:00* Test Item Value Reference Range Interpretation Comments Absolute Immature Granulocyte (auto (cesar t code = Absolute Immature Granulocyte (auto) 0.05 0-0.1 [facility] HospitalCHEST SINGLE (NOT PORTABLE)2019-03-23 14:43:[address] [address] Patient Name: BRIDGET SHTETY MR #: [id number] : 1965 Age/Sex: 54/F Req #: [id number] Adm Physician: Ordered by: CAESAR ESCOBAR MD Report #: [id number] Location: ER Room/Bed: Procedure: [id number] DX/CHEST SINGLE (NOT PORTABLE) Exam Date: 03/23/19 E xam Time: 1429 REPORT STATUS: Daniela d EXAMINATION: CHEST SINGLE (NOT PORTABLE) INDICATION: Chest pain COMPARISON: None FINDINGS: LINES/TUBES:None LUNGS:The francheska ngs are well-inflated. No focal consolidation or pulmonary edema. PLEURA:No pleural effusion or pneumothorax. MEDIASTINUM:The cardiomediastinal silhou ette appears normal in size and shape. BONES/SOFT TISSUES:No acute osseous injury. ABDOMEN:No free air under the diaphragm. IMPRESSION: No focal pneumonia or pulmonary edema. Signed by: Ramón Greenfield MD on 03/23/2019 2:44 PM Dictated By: RAMÓN GREENFIELD MD 43 Transcribed By: ROYS on 03/23/191443 COPY TO: CAESAR ESCOBAR MD HIP LEFT 2-3 VW (+/- PELVIS)2019-03-23 14:08:00 [address] [address] Patient Name: BRIDGET SHETTY MR #: [id number] : 1965 Age/Sex: 54/F Req #: [id number] Adm Physician: Ordered by: CAESAR ESCOBAR MD Report #: [id number] Location: ER Room/Bed: Procedure: [id number] DX/HIP LEFT 2-3 VW (+/- PELVIS) Exam Date: Exam Manny e: REPORT STATUS: Signed EXAMIN ATION: HIP LEFT 2-3 VW (+/- PELVIS) INDICATION: Left hip pain COM PARISON: None FINDINGS: AP and frog-leg views of the left hip and AP view of the pelvis demonstrate no acute fracture or dislocation. Alignment is anatomic. No substantial degenerative change. Nonobstructive bowel gas pat tern. IMPRESSION: No acute osseous injury. Signed by: Sonido Mccormick on 03/23/2019 2:09 PM Dictated By: RAMÓN GREENFIELD MD 08 Transcribed By: ROSY on 03/23/191408 COPY TO: CAESAR ESCOBAR MD SHOULDER LEFT UQKZWFFA1229-47-72 18:59:00 [address] [address] Patient Name: BRIDGET SHETTY MR #: [id number] : 1965 Age/Sex: 53/F Req #: [id number] Adm Physician: Ordered by: MONICA CERDA NP Report #: [id number] Location: ER Room/Bed: Procedure: [id number] DX/ SHOULDER LEFT COMPLETE Exam Date: 02/16/19 Exam Time : 1834 REPORT STATUS: Signed LEF T SHOULDER - 2 Image(s) HISTORY: Arm hurting, pain COMPARISON: N one available. FINDINGS: Sensitivity limited by portable technique. Bones: No acute displaced fracture. No aggressive osseous lesion. Joints: Mild hypertrophic degenerative changes of the acromioclavicular joint. Minimal degenerative changes of the glenohumeral joint. Soft tiss ues: Small calcification in the region of the coracoclavicular ligament, likel y indicative of a remote injury. IMPRESSION: 1. No acute radiograp hic abnormality. 2. Mild acromioclavicular and minimal glenohumeral osteoarth rosis. Signed by: Dr. Kyler Terry DCeciliaO., M.M.M. on 02/16/2019 7:01 PM Dictated By: KYLER TERRY DO 00 Transcribed By: ROSY on 02/16/191900 COPY TO: MONICA CERDA NP Prothrombin Efju1231-68-55 18:28:00* Test Item Value Reference Range Interpretation Comments Prothrombin Time (test code = 5902-2) 12.6 11.9-14.5 [facility] HospitalProthromb Time International Ratio 2019-02-16 18:28:00* Test Item Value Reference Range Interpretation Comments Prothromb Time International Ratio (test code = 6301-6) 0.90 Oral Anticoagulant Therapy INR Values:1. Low Intensity Therapy 1.5 - 2.02 . Moderate Intensity Therapy 2.0 - 3.03. High Intensity Therapy(1) 2.5 - 3. 54. High Intensity Therapy(2) 3.0 - 4.05. Panic Value INR > 5.0 [facility] HospitalActivated Partial Thromboplast Time 2019-02-16 18:28:00* Test Item Value Reference Range Interpretation Comments Activated Partial Thromboplast Time (test code = 45111-1) 30.9 23.8-35.5 [facility] HospitalProthrombin Ovsz2170-11-45 18:28:00* Test Item Value Reference Range Interpretation Comments Prothrombin Time (test code = 5902-2) 12.6 11.9-14.5 [facility] HospitalProthromb Time International Ratio 2019-02-16 18:28:00* Test Item Value Reference Range Interpretation Comments Prothromb Time International Ratio (test code = 6301-6) 0.90 Oral Anticoagulant Therapy INR Values:1. Low Intensity Therapy 1.5 - 2.02 . Moderate Intensity Therapy 2.0 - 3.03. High Intensity Therapy(1) 2.5 - 3. 54. High Intensity Therapy(2) 3.0 - 4.05. Panic Value INR > 5.0 [facility] HospitalActivated Partial Thromboplast Time 2019-02-16 18:28:00* Test Item Value Reference Range Interpretation Comments Activated Partial Thromboplast Time (test code = 88211-8) 30.9 23.8-35.5 [facility] HospitalCreatine Kinase RD6496-41-56 18:21:00* Test Item Value Reference Range Interpretation Comments Creatine Kinase MB (test code = 70933-8) 1.10 0-5.0 [facility] HospitalTroponin P9776-52-93 18:21:00* Test Item Value Reference Range Interpretation Comments Troponin I (test code = SBQ6164) 0.006 0-0.300 [facility] HospitalCreatine Kinase KK2562-12-70 18:21:00* Test Item Value Reference Range Interpretation Comments Creatine Kinase MB (test code = 62494-0) 1.10 0-5.0 [facility] HospitalTroponin J1879-33-20 18:21:00* Test Item Value Reference Range Interpretation Comments Troponin I (test code = FJT9358) 0.006 0-0.300 [facility] HospitalCHEST SINGLE (PORTABLE)2019-02-16 18:18:00 [facility] [address] [place] [address] Patient Name: BRIDGET SHETTY MR #: [id number] : 1965 Age/Sex: 53/F Req #: [id number] Adm Physician: Ordered by: CAESAR WHITE MD Report #: [id number] Location: ER Room/Bed: Procedure: [id number] D X/CHEST SINGLE (PORTABLE) Exam Date: 02/16/19 Exam T robert: 1957 REPORT STATUS: Signed A single frontal view of the chest. HISTORY: Arm hurting, left arm pain, r ule out cardiac COMPARISON: None available. DISCUSSION: Portable technique, limits sensitivity of the exam. Soft tissue attenuation partially limits sensitivity of the exam. Overlying monitoring leads. Tubes/Lines: No ne Lungs and pleura: The lungs are well inflated. No evidence of a consolidative pneumonia or pulmonary alveolar edema. No definite pleural effus ion or pneumothorax is identified. Heart and mediastinum: The cardiomed iastinal silhouette appear(s) unremarkable. Bones and soft tissues: Chr onic appearing healed right clavicular fracture deformity. IMPRESSION: No acute radiographic abnormality. Signed by: Dr. Kyler Terry D.O., M.M.M. on 02/16/2019 6:19 PM Dictated By: KYLER TERRY DO Electron ically Signed By: KYLER TERRY DO on 02/16/191818 Transcribed By: ROSY on 1818 COPY TO: CAESAR WHITE MD Sodium Srzaf3017-48-74 18:13:00* Test Item Value Reference Range Interpretation Comments Sodium Level (test code = 2951-2) 138 136-145 [facility] HospitalPotassium Gzqag2384-62-84 18:13:00* Test Item Value Reference Range Interpretation Comments Potassium Level (test code = 2823-3) 3.3 3.5-5.1 L [facility] HospitalChloride Pzjmu5316-73-54 18:13:00* Test Item Value Reference Range Interpretation Comments Chloride Level (test code = 2075-0) 103 98-107 [facility] HospitalCarbon Dioxide Urcwm4746-99-39 18:13:00* Test Item Value Reference Range Interpretation Comments Carbon Dioxide Level (test code = 2028-9) 27 22-29 [facility] HospitalAnion Pij6138-46-53 18:13:00* Test Item Value Reference Range Interpretation Comments Anion Gap (test code = 04182-2) 11.3 8-16 [facility] [facility] HospitalBlood Urea Zydivlut8462-67-89 18:13:00* Test Item Value Reference Range Interpretation Comments Blood Urea Nitrogen (test code = 3094-0) 12 7-26 [facility] HospitalCreatinine2019-09-24 18:13:00* Test Item Value Reference Range Interpretation Comments Creatinine (test code = 2160-0) 0.79 0.57-1.11 [facility] HospitalBUN/Creatinine Aupjv2647-49-79 18:13:00* Test Item Value Reference Range Interpretation Comments BUN/Creatinine Ratio (test code = 3097-3) 15 6-25 [facility] HospitalEstimat Glomerular Filtration Rate 2019-02-16 18:13:00* Test Item Value Reference Range Interpretation Comments Estimat Glomerular Filtration Rate (test code = 283116638) > 60 >60 Ranges were taken from the National Kidney Disease Education Program and the [facility] literature.Reference ranges:60 or greater: Llkmaa01-09 ( for 3 consecutive months): Chronic kidney disease 15 or less: Kidney failurePalo Pinto General HospitalGlucose Bshxo4650-87-41 18:13:00* Test Item Value Reference Range Interpretation Comments Glucose Level (test code = JPJ8358) 120 74-118 H [facility] HospitalCalcium Uxvla7097-99-87 18:13:00* Test Item Value Reference Range Interpretation Comments Calcium Level (test code = 43371-9) 9.5 8.4-10.2 [facility] HospitalTotal Jnboesshx5135-54-73 18:13:00* Test Item Value Reference Range Interpretation Comments Total Bilirubin (test code = 1975-2) 0.3 0.2-1.2 [facility] HospitalAspartate Amino Transf (AST/SGOT) 2019-02-16 18:13:00* Test Item Value Reference Range Interpretation Comments Aspartate Amino Transf (AST/SGOT) (test code = Aspartate Amino Transf (AST/SGOT)) 15 5-34 [facility] HospitalAlanine Aminotransferase (ALT/SGPT) 2019-02-16 18:13:00* Test Item Value Reference Range Interpretation Comments Alanine Aminotransferase (ALT/SGPT) (test code = 1742-6) 21 0-55 [facility] HospitalTotal Ivlirnb2166-93-74 18:13:00* Test Item Value Reference Range Interpretation Comments Total Protein (test code = 2885-2) 7.0 6.5-8.1 [facility] HospitalAlbumin2019-09-24 18:13:00* Test Item Value Reference Range Interpretation Comments Albumin (test code = 1751-7) 3.7 3.5-5.0 [facility] HospitalGlobulin2019-09-24 18:13:00* Test Item Value Reference Range Interpretation Comments Globulin (test code = 38212-9) 3.3 2.3-3.5 [facility] HospitalAlbumin/Globulin Gbzjb0100-51-15 18:13:00 * Test Item Value Reference Range Interpretation Comments Albumin/Globulin Ratio (test code = 1759-0) 1.1 0.8-2.0 [facility] HospitalAlkaline Gutiufmqxdu5829-94-64 18:13:00* Test Item Value Reference Range Interpretation Comments Alkaline Phosphatase (test code = 6768-6) 55 40-150 [facility] HospitalCreatine Phtdwh2699-06-87 18:13:00* Test Item Value Reference Range Interpretation Comments Creatine Kinase (test code = 2157-6) 83 29-168 [facility] HospitalCreatine Yzqklf4549-34-18 18:13:00* Test Item Value Reference Range Interpretation Comments Creatine Kinase (test code = 2157-6) 83 29-168 [facility] HospitalWhite Blood Qmxti6836-83-97 17:56:00* Test Item Value Reference Range Interpretation Comments White Blood Count (test code = 6690-2) 13.37 4.8-10.8 H [facility] HospitalRed Blood Oysol5435-46-52 17:56:00* Test Item Value Reference Range Interpretation Comments Red Blood Count (test code = 789-8) 4.62 3.6-5.1 [facility] HospitalHemoglobin2019-09-24 17:56:00* Test Item Value Reference Range Interpretation Comments Hemoglobin (test code = 61534-3) 12.1 12.0-16.0 [facility] HospitalHematocrit2019-09-24 17:56:00* Test Item Value Reference Range Interpretation Comments Hematocrit (test code = 4544-3) 37.2 34.2-44.1 [facility] HospitalMean Corpuscular Eeguns2784-57-70 17:56:00* Test Item Value Reference Range Interpretation Comments Mean Corpuscular Volume (test code = 787-2) 80.5 81-99 L [facility] HospitalMean Corpuscular Oydaziesio2729-69-70 17:56:00* Test Item Value Reference Range Interpretation Comments Mean Corpuscular Hemoglobin (test code = 785-6) 26.2 28-32 L [facility] HospitalMean Corpuscular Hemoglobin Concent 2019-02-16 17:56:00* Test Item Value Reference Range Interpretation Comments Mean Corpuscular Hemoglobin Concent (test code = 786-4) 32.5 31-35 [facility] HospitalRed Cell Distribution Aisvx4715-49-17 17:56:00* Test Item Value Reference Range Interpretation Comments Red Cell Distribution Width (test code = 53094-0) 14.6 11.7 -14.4 H [facility] HospitalPlatelet Vooid6076-81-61 17:56:00* Test Item Value Reference Range Interpretation Comments Platelet Count (test code = 777-3) 292 140-360 [facility] HospitalNeutrophils (%) (Auto)2019-02-16 17:56:00 * Test Item Value Reference Range Interpretation Comments Neutrophils (%) (Auto) (test code = 05452-6) 65.1 38.7-80.0 [facility] HospitalLymphocytes (%) (Auto)2019-02-16 17:56:00 * Test Item Value Reference Range Interpretation Comments Lymphocytes (%) (Auto) (test code = 736-9) 26.5 18.0-39.1 [facility] HospitalMonocytes (%) (Auto)2019-02-16 17:56:00* Test Item Value Reference Range Interpretation Comments Monocytes (%) (Auto) (test code = 5905-5) 5.7 4.4-11.3 [facility] HospitalEosinophils (%) (Auto)2019-02-16 17:56:00 * Test Item Value Reference Range Interpretation Comments Eosinophils (%) (Auto) (test code = 713-8) 1.8 0.0-6.0 [facility] HospitalBasophils (%) (Auto)2019-02-16 17:56:00* Test Item Value Reference Range Interpretation Comments Basophils (%) (Auto) (test code = 706-2) 0.4 0.0-1.0 [facility] HospitalIM GRANULOCYTES %2019-02-16 17:56:00* Test Item Value Reference Range Interpretation Comments IM GRANULOCYTES % (test code = IM GRANULOCYTES %) 0.5 0.0- 1.0 [facility] HospitalNeutrophils # (Auto)2019-02-16 17:56:00* Test Item Value Reference Range Interpretation Comments Neutrophils # (Auto) (test code = 751-8) 8.7 2.1-6.9 H [facility] HospitalLymphocytes # (Auto)2019-02-16 17:56:00* Test Item Value Reference Range Interpretation Comments Lymphocytes # (Auto) (test code = 32666-7) 3.5 1.0-3.2 H [facility] HospitalMonocytes # (Auto)2019-02-16 17:56:00* Test Item Value Reference Range Interpretation Comments Monocytes # (Auto) (test code = 742-7) 0.8 0.2-0.8 [facility] HospitalEosinophils # (Auto)2019-02-16 17:56:00* Test Item Value Reference Range Interpretation Comments Eosinophils # (Auto) (test code = 711-2) 0.2 0.0-0.4 [facility] HospitalBasophils # (Auto)2019-02-16 17:56:00* Test Item Value Reference Range Interpretation Comments Basophils # (Auto) (test code = 704-7) 0.1 0.0-0.1 [facility] HospitalAbsolute Immature Granulocyte (auto 2019-02-16 17:56:00* Test Item Value Reference Range Interpretation Comments Absolute Immature Granulocyte (auto (cesar t code = Absolute Immature Granulocyte (auto) 0.07 0-0.1 [facility] HospitalTHORACIC SPINE 6DU7070-22-32 11:30:00 [place] [address] Patient Name: BRIDGET SHETTY MR #: [id number] : 1965 Age/Sex: 53/F Req #: [id number] Adm Physician: Ordered by: SUSAN CHRISTY MD Report #: [id number] Location: RAD Room/Bed: Procedure: [id number] DX/ THORACIC SPINE 2VW Exam Date: 09/09/18 Exam Time: 10 34 REPORT STATUS: Signed Exam : Thoracic spine 2 views History: Low back pain Comparison: Lumbar s pine radiographs same day; CT abdomen with contrast 06/11/2018 Findings: No acute displaced fracture or subluxation. Multilevel degenerative disc c hanges of the thoracic spine with disc space narrowing and large anterior oste ophytes. Cervicothoracic junction is intact on the swimmer's radiograph. [place]as baron soft tissues are within normal limits. Left upper quadrant circular dens ity may reflect bowel contents. Impression: No acute osseous abn ormality. Multilevel degenerative disc changes of the thoracic spine. Signed by: Dr. Jackie Bobo M.D. on 09/09/2018 11:33 AM Dictated By: JACKIE BOBO MD 1133 T ranscribed By: ROSY on 09/09/18 1133 COPY TO: SUSAN CHRISTY MD SP LUMBAR, COMPLETE MIN 1RT6827-24-48 11:25:00 [place] [address] Patient Name: BRIDGET SHETTY MR #: [id number] : 1965 Age/Sex: 53/F Req #: [id number] Adm Physician: Ordered by: SUSAN CHRISTY MD Report #: [id number] Location: RAD Room/Bed: Procedure: [id number] DX/ SP LUMBAR, COMPLETE MIN 4VW Exam Date: 09/09/18 Exam Time: 1034 REPORT STATUS: Signed Exam: Lumbar spine, complete, sacrum, 2 views History: Low back pain Comparison: CT abdomen 06/11/2018 Findings: Sacrum: No acute, displaced fracture or dislocation. Sacroiliac joints are intact. Sacral fora chay are intact superiorly. Inferiorly, the sacrum and coccyx are obscured by rectal gas and stool. No step-off on the lateral radiograph. Lumbar spine: There are 5 nonrib-bearing lumbar vertebral bodies. No acute, displaced f racture or subluxation. Multilevel disc space narrowing with marginal osteophy tosis affecting the lower thoracic and upper lumbar spine to the level of L1-L 2. Bilateral facet arthropathy at L5-S1. No pars interarticularis defects are identified on the oblique radiographs. Circular left upper quadrant density may reflect bowel contents. Impression: No acute osseous abnormality. Multilevel degenerative disc changes and facet arthropathy of the lower thoracic and lower lumbar spine as described. Signed by: Dr. Jackie walter M.D. on 09/09/2018 11:30 AM Dictated By: JACKIE BOBO MD [facility] Signed By: JACKIE BOBO MD on 09/09/18 1130 Transcribed By: ROSY on 1130 COPY TO: SUSAN CHRISTY MD SACRUM [id number] 11:25:00 [place] [address] Patient Name: BRIDGET SHETTY MR #: [id number] : 1965 Age/Sex: 53/F Req #: [id number] Adm Physician: Ordered by: SUSAN CHRISTY MD Report #: [id number] Location: [facility] Room/Bed: Procedure: [id number] DX/ SACRUM X-RAY Exam Date: 09/09/18 Exam Time: 1034 REPORT STATUS: Signed Exam: Lum bar spine, complete, sacrum, 2 views History: Low back pain Compariso n: CT abdomen 06/11/2018 Findings: Sacrum: No acute, displaced fra cture or dislocation. Sacroiliac joints are intact. Sacral foramina are intact superiorly. Inferiorly, the sacrum and coccyx are obscured by rectal gas and stool. No step-off on the lateral radiograph. Lumbar spine: There are 5 nonrib-bearing lumbar vertebral bodies. No acute, displaced fracture or subl uxation. Multilevel disc space narrowing with marginal osteophytosis affecting the lower thoracic and upper lumbar spine to the level of L1-L2. Bilateral fa cet arthropathy at L5-S1. No pars interarticularis defects are identified on t he oblique radiographs. Circular left upper quadrant density may reflect wilver wel contents. Impression: No acute osseous abnormality. Multileve l degenerative disc changes and facet arthropathy of the lower thoracic and lo wer lumbar spine as described. Signed by: Dr. Jackie Bobo M.D. on 08/24 11:30 AM Dictated By: JACKIE BOBO MD 1130 Transcribed By: ROSY on 09/09/18 1130 COPY TO: SUSAN CHRISTY MD CT ABDOMEN [id number] 11:02:00 [place] [address] Patient Name: BRIDGET SHETTY MR #: [id number] : 1965 Age/Sex: 53/F Req #: [id number] Adm Physician: Ordered by: SUSAN CHRISTY MD Report #: [id number] Location: CT Room/Bed: Procedure: [id number] CT/ CT ABDOMEN W Exam Date: 06/11/18 Exam Time: 1030 REPORT STATUS: Signed EXAMINATION: CT of the abdomen with contrast. TECHNIQUE: Helical CT images of the abd omen were performed from the lung bases to the iliac crests after the intraven ous administration of 100 cc of Isovue 300 and the oral administration of none . Coronal and sagittal reformatted images were obtained. COMPARISON: No ne. CLINICAL HISTORY:Generalized abdominal pain DISCUSSION: LOWER THORAX:Unremarkable. HEPATOBILIARY: Hepatic steatosis. No focal lesi ons. Gallbladder normal by CT. SPLEEN: No splenomegaly. PANCREAS: No f ocal masses or ductal dilatation. ADRENALS: No adrenal nodules. KIDNEY S/URETERS: No hydronephrosis, stones, or solid mass lesions. PERITONEUM/RET ROPERITONEUM: No free air or fluid. LYMPH NODES: No intra-abdominal, retrop eritoneal, pelvic or inguinal lymphadenopathy. VESSELS: Unremarkable. GI TRACT: No distention or wall thickening. BONES AND SOFT TISSUE: No bony destructive lesions. No soft tissue abnormalities. IMPRESSION: Hepatic steatosis, otherwise unremarkable CT of the abdomen. Signed by: Dr. Cheyanne Chavarria M.D. on 06/11/2018 11:07 AM Dictated By: CHEYANNE CHAVARRIA MD 06 Transcribed By: ROSY on 06/11/181106 COPY TO: SUSAN CHRISTY MD Blood Urea Yvwkeemx1640-78-05 10:11:00* Test Item Value Reference Range Interpretation Comments Blood Urea Nitrogen (test code = 3094-0) 11 12-18 [facility]2019-01-17 10:11:00* Test Item Value Reference Range Interpretation Comments Creatinine (test code = 2160-0) 0.72 0.57-1.11 [facility] HospitalBUN/Creatinine Qtqzb5356-17-89 10:11:00* Test Item Value Reference Range Interpretation Comments BUN/Creatinine Ratio (test code = 3097-3) 15 6-25 [facility] HospitalEstimat Glomerular Filtration Rate 2018-06-11 10:11:00* Test Item Value Reference Range Interpretation Comments Estimat Glomerular Filtration Rate (test code = 468145740) > 60 >60 Ranges were taken from the National Kidney Disease Education Program and the [facility] Kidney Foundation literature.Reference ranges:60 or greater: Usafpr20-18 ( for 3 consecutive months): Chronic kidney disease 15 or less: Kidney failureCHI [facility]'S [facility] DallasUS HWMARAQNMVD8054-52-26 17:24:00 [place] [address] Patient Name: BRDIGET SHETTY MR #: [id number] : 1965 Age/Sex: 53/F Req #: [id number] Adm Physician: Ordered by: ANGELLA MOTA VARITYPE OPERATOR Report #: [id number] Location: ER Room/Bed: Procedure: [id number] US/US GALLBLADDER Exam Date: 06/02/18 Exam Time: 151 6 REPORT STATUS: Signed EXAM: [facility] upper quadrant abdominal ultrasound INDICATION: Right upper quadrant pain COMPARISON: None. TECHNIQUE: Transverse and longitudinal images of th e right upper quadrant abdomen were obtained FINDINGS: Liver: Si ze: Measures 15.6 cm in the right midclavicular line Appearance: Increased ech ogenicity, smooth contour Mass: No focal masses Gallbladder: No perichole cystic fluid, distension, wall thickening, stone, or reported sonographic Murp hy's sign. Gallbladder wall measures 0.2 cm. There is a small amount of gallbl adder sludge. Bile Ducts: Intrahepatic Ducts: No dilatation Extrahepat ic Ducts: Common bile duct measures 0.3 cm, no dilatation Pancreas: Visua lized portions of the pancreatic head, neck and proximal body are normal. K idney: The right kidney measures 11.7 cm without evidence of hydronephrosis or stone. Vessels: Aorta: Visualized portions are normal Inferior Vena C vandana: Visualized portions are normal Main Portal Vein: 0.9 cm, normal size with hepatopetal flow. Free Fluid: No evidence of ascites. IMPRESSION: Small amount of gallbladder sludge without sonographic evidence of cholecysti tis. Hepatic steatosis and mild hepatomegaly. Signed by: Dr. Byron zhang MD on 06/02/2018 5:28 PM Dictated By: BYRON ASCENCIO MD Electronically Sign ed By: BYRON ASCENCIO MD on 06/02/181727 Transcribed By: ROSY on 06/02/181727 COPY TO: ANGELLA MOTA NP Sodium Kbjej8953-89-59 15:20:00* Test Item Value Reference Range Interpretation Comments Sodium Level (test code = 2951-2) 141 136-145 [facility] HospitalPotassium Qbxiu9971-49-75 15:20:00* Test Item Value Reference Range Interpretation Comments Potassium Level (test code = 2823-3) 3.6 3.5-5.1 [facility] HospitalChloride Ihmzu0612-26-83 15:20:00* Test Item Value Reference Range Interpretation Comments Chloride Level (test code = 2075-0) 105 98-107 [facility] HospitalCarbon Dioxide Rpuyz2402-12-07 15:20:00* Test Item Value Reference Range Interpretation Comments Carbon Dioxide Level (test code = 8-9) 26 22-29 [facility] HospitalAnion Zlc6902-42-58 15:20:00* Test Item Value Reference Range Interpretation Comments Anion Gap (test code = 84867-7) 13.6 8-16 [facility] HospitalBlood Urea Eodmmywm8332-89-80 15:20:00* Test Item Value Reference Range Interpretation Comments Blood Urea Nitrogen (test code = 3094-0) 16 7-26 [facility] HospitalCreatinine2019-01-08 15:20:00* Test Item Value Reference Range Interpretation Comments Creatinine (test code = 2160-0) 0.81 0.57-1.11 [facility] HospitalBUN/Creatinine Qatps1246-39-83 15:20:00* Test Item Value Reference Range Interpretation Comments BUN/Creatinine Ratio (test code = 3097-3) 20 6-25 [facility] HospitalEstimat Glomerular Filtration Rate 2018-06-02 15:20:00* Test Item Value Reference Range Interpretation Comments Estimat Glomerular Filtration Rate (test code = 274103449) > 60 >60 Ranges were taken from the National Kidney Disease Education Program and the [facility] literature.Reference ranges:60 or greater: Csooht09-60 ( for 3 consecutive months): Chronic kidney disease 15 or less: Kidney failurePalo Pinto General HospitalGlucose Fyqkb7605-66-32 15:20:00* Test Item Value Reference Range Interpretation Comments Glucose Level (test code = JET0007) 139 74-118 H [facility] HospitalCalcium Dlgef2083-99-72 15:20:00* Test Item Value Reference Range Interpretation Comments Calcium Level (test code = 61897-2) 9.4 8.4-10.2 [facility] HospitalTotal Aimlytxqm3282-01-18 15:20:00* Test Item Value Reference Range Interpretation Comments Total Bilirubin (test code = 1975-2) 0.2 0.2-1.2 [facility] HospitalAspartate Amino Transf (AST/SGOT) 2018-06-02 15:20:00* Test Item Value Reference Range Interpretation Comments Aspartate Amino Transf (AST/SGOT) (test code = Aspartate Amino Transf (AST/SGOT)) 17 5-34 [facility] HospitalAlanine Aminotransferase (ALT/SGPT) 2018-06-02 15:20:00* Test Item Value Reference Range Interpretation Comments Alanine Aminotransferase (ALT/SGPT) (test code = 1742-6) 24 0-55 [facility] HospitalTotal Xytnnrr1600-34-87 15:20:00* Test Item Value Reference Range Interpretation Comments Total Protein (test code = 2885-2) 7.0 6.5-8.1 [facility] HospitalAlbumin2019-01-08 15:20:00* Test Item Value Reference Range Interpretation Comments Albumin (test code = 1751-7) 3.7 3.5-5.0 [facility] HospitalGlobulin2019-01-08 15:20:00* Test Item Value Reference Range Interpretation Comments Globulin (test code = 87501-0) 3.3 2.3-3.5 [facility] HospitalAlbumin/Globulin Lkgeo4191-57-63 15:20:00 * Test Item Value Reference Range Interpretation Comments Albumin/Globulin Ratio (test code = 1759-0) 1.1 0.8-2.0 [facility] HospitalAlkaline Etqafnnbnfm6002-70-64 15:20:00* Test Item Value Reference Range Interpretation Comments Alkaline Phosphatase (test code = 6768-6) 53 40-150 [facility] HospitalAmylase Izdbq4153-76-95 15:20:00* Test Item Value Reference Range Interpretation Comments Amylase Level (test code = 1798-8) 40 25-125 [facility] HospitalLipase2019-01-08 15:20:00* Test Item Value Reference Range Interpretation Comments Lipase (test code = 3040-3) 24 8-78 [facility]odium Drvuo9136-86-67 15:20:00* Test Item Value Reference Range Interpretation Comments Sodium Level (test code = 2951-2) 141 136-145 [facility] HospitalPotassium Onghm2022-84-90 15:20:00* Test Item Value Reference Range Interpretation Comments Potassium Level (test code = 2823-3) 3.6 3.5-5.1 [facility] HospitalChloride Hqxzc2176-43-90 15:20:00* Test Item Value Reference Range Interpretation Comments Chloride Level (test code = 2075-0) 105 98-107 [facility] HospitalCarbon Dioxide Ahxxn2472-05-44 15:20:00* Test Item Value Reference Range Interpretation Comments Carbon Dioxide Level (test code = 2028-9) 26 22-29 [facility] HospitalAnion Zxa8646-74-73 15:20:00* Test Item Value Reference Range Interpretation Comments Anion Gap (test code = 30775-6) 13.6 8-16 [facility] HospitalGlucose Xzbsc6485-82-57 15:20:00* Test Item Value Reference Range Interpretation Comments Glucose Level (test code = ZRH5731) 139 74-118 H [facility] HospitalCalcium Bxdkn3139-56-24 15:20:00* Test Item Value Reference Range Interpretation Comments Calcium Level (test code = 77962-7) 9.4 8.4-10.2 [facility] HospitalTotal Xamsbbdlp0672-10-68 15:20:00* Test Item Value Reference Range Interpretation Comments Total Bilirubin (test code = 1975-2) 0.2 0.2-1.2 [facility] HospitalAspartate Amino Transf (AST/SGOT) 2018-06-02 15:20:00* Test Item Value Reference Range Interpretation Comments Aspartate Amino Transf (AST/SGOT) (test code = Aspartate Amino Transf (AST/SGOT)) 17 5-34 [facility] HospitalAlanine Aminotransferase (ALT/SGPT) 2018-06-02 15:20:00* Test Item Value Reference Range Interpretation Comments Alanine Aminotransferase (ALT/SGPT) (test code = 1742-6) 24 0-55 [facility] HospitalTotal Knlfbpg8666-39-34 15:20:00* Test Item Value Reference Range Interpretation Comments Total Protein (test code = 2885-2) 7.0 6.5-8.1 [facility] HospitalAlbumin2019-01-08 15:20:00* Test Item Value Reference Range Interpretation Comments Albumin (test code = 1751-7) 3.7 3.5-5.0 [facility] HospitalGlobulin2019-01-08 15:20:00* Test Item Value Reference Range Interpretation Comments Globulin (test code = 06880-6) 3.3 2.3-3.5 [facility] HospitalAlbumin/Globulin Jbuxs2556-99-11 15:20:00 * Test Item Value Reference Range Interpretation Comments Albumin/Globulin Ratio (test code = 1759-0) 1.1 0.8-2.0 [facility] HospitalAlkaline Thwclojnpoh2520-06-01 15:20:00* Test Item Value Reference Range Interpretation Comments Alkaline Phosphatase (test code = 6768-6) 53 40-150 [facility] HospitalAmylase Ageda6126-22-05 15:20:00* Test Item Value Reference Range Interpretation Comments Amylase Level (test code = 1798-8) 40 25-125 [facility] HospitalLipase2019-01-08 15:20:00* Test Item Value Reference Range Interpretation Comments Lipase (test code = 3040-3) 24 78 [facility] HospitalAmylase Csfjb4997-18-89 15:20:00* Test Item Value Reference Range Interpretation Comments Amylase Level (test code = 1798-8) 40 25-125 [facility] HospitalLipase2019-01-08 15:20:00* Test Item Value Reference Range Interpretation Comments Lipase (test code = 3040-3) 24 78 [facility] HospitalAmylase Xxijz4836-11-46 15:20:00* Test Item Value Reference Range Interpretation Comments Amylase Level (test code = 1798-8) 40 25-125 [facility] HospitalLipase2019-01-08 15:20:00* Test Item Value Reference Range Interpretation Comments Lipase (test code = 3040-3) 24 78 [facility] HospitalUrine Gpgbg8913-96-54 15:18:00* Test Item Value Reference Range Interpretation Comments Urine Color (test code = 5778-6) YELLOW YELLOW [facility] HospitalUrine Cwfbnry5746-49-20 15:18:00* Test Item Value Reference Range Interpretation Comments Urine Clarity (test code = 35486-9) CLEAR CLEAR [facility] HospitalUrine Specific Ichvcju8550-01-52 15:18:00 * Test Item Value Reference Range Interpretation Comments Urine Specific [place] (test code = 5811-5) 1.015 1.010-1.02 5 [facility] HospitalUrine wY3957-61-68 15:18:00* Test Item Value Reference Range Interpretation Comments Urine pH (test code = 88303-2) 8 5-7 H [facility] HospitalUrine Leukocyte Iybdldfu9248-32-91 15:18:00* Test Item Value Reference Range Interpretation Comments Urine Leukocyte Esterase (test code = 5799-2) NEGATIVE NEGATIVE [facility] HospitalUrine Ntaiyss1651-38-83 15:18:00* Test Item Value Reference Range Interpretation Comments Urine Nitrite (test code = 19787-3) NEGATIVE NEGATIVE [facility] HospitalUrine Hponhgo4811-24-79 15:18:00* Test Item Value Reference Range Interpretation Comments Urine Protein (test code = 5804-0) NEGATIVE NEGATIVE [facility] HospitalUrine Glucose (UA)2018-06-02 15:18:00* Test Item Value Reference Range Interpretation Comments Urine Glucose (UA) (test code = 2349-9) NEGATIVE NEGATIVE [facility] HospitalUrine Hlmrfrf8399-73-07 15:18:00* Test Item Value Reference Range Interpretation Comments Urine Ketones (test code = 43300-6) NEGATIVE NEGATIVE [facility] Ismhaejvkyxb9432-64-16 15:18:00* Test Item Value Reference Range Interpretation Comments Urine Urobilinogen (test code = 33072-2) 0.2 0.2-1 [facility] Ynrctcmcr7597-84-49 15:18:00* Test Item Value Reference Range Interpretation Comments Urine Bilirubin (test code = 1978-6) NEGATIVE NEGATIVE [facility] Jelcg7166-80-70 15:18:00* Test Item Value Reference Range Interpretation Comments Urine Blood (test code = 12407-3) NEGATIVE NEGATIVE [facility] OHE2670-06-36 15:18:00* Test Item Value Reference Range Interpretation Comments Urine WBC (test code = 5821-4) 0-5 0-5 [facility] SDS6850-43-61 15:18:00* Test Item Value Reference Range Interpretation Comments Urine RBC (test code = 63480-0) 0-5 0-5 [facility] Hjrzzgzg3794-17-84 15:18:00* Test Item Value Reference Range Interpretation Comments Urine Bacteria (test code = 97872-5) FEW NONE [facility] Epithelial Uhkng9242-45-26 15:18:00 * Test Item Value Reference Range Interpretation Comments Urine Epithelial Cells (test code = 39532-6) FEW NONE [facility] Eikpr4546-82-36 15:18:00* Test Item Value Reference Range Interpretation Comments Urine Color (test code = 5778-6) YELLOW YELLOW [facility] Jfqcgim7737-54-39 15:18:00* Test Item Value Reference Range Interpretation Comments Urine Clarity (test code = 83241-7) CLEAR CLEAR [facility] Specific Uelzhxf0085-38-25 15:18:00 * Test Item Value Reference Range Interpretation Comments Urine Specific [place] (test code = 5811-5) 1.015 1.010-1.02 5 [facility] gC9364-73-34 15:18:00* Test Item Value Reference Range Interpretation Comments Urine pH (test code = 19458-4) 8 5-7 H [facility] Leukocyte Bwgbjkmw8016-16-92 15:18:00* Test Item Value Reference Range Interpretation Comments Urine Leukocyte Esterase (test code = 5799-2) NEGATIVE NEGATIVE [facility] Fvxtbku5541-37-40 15:18:00* Test Item Value Reference Range Interpretation Comments Urine Nitrite (test code = 94021-4) NEGATIVE NEGATIVE [facility] Sncxsal8505-85-87 15:18:00* Test Item Value Reference Range Interpretation Comments Urine Protein (test code = 5804-0) NEGATIVE NEGATIVE [facility] Glucose (UA)2018-06-02 15:18:00* Test Item Value Reference Range Interpretation Comments Urine Glucose (UA) (test code = 2349-9) NEGATIVE NEGATIVE [facility] Xacvtgn0833-36-50 15:18:00* Test Item Value Reference Range Interpretation Comments Urine Ketones (test code = 19934-6) NEGATIVE NEGATIVE [facility] Srsmdrimbuhp3576-11-57 15:18:00* Test Item Value Reference Range Interpretation Comments Urine Urobilinogen (test code = 70311-8) 0.2 0.2-1 [facility] Jhkejjccf3201-65-70 15:18:00* Test Item Value Reference Range Interpretation Comments Urine Bilirubin (test code = 1978-6) NEGATIVE NEGATIVE [facility] Hywco9680-04-77 15:18:00* Test Item Value Reference Range Interpretation Comments Urine Blood (test code = 55035-2) NEGATIVE NEGATIVE [facility] XLR9559-61-90 15:18:00* Test Item Value Reference Range Interpretation Comments Urine WBC (test code = 5821-4) 0-5 0-5 [facility] OTV4548-40-26 15:18:00* Test Item Value Reference Range Interpretation Comments Urine RBC (test code = 67186-6) 0-5 0-5 [facility] Igsxmbdl0953-78-77 15:18:00* Test Item Value Reference Range Interpretation Comments Urine Bacteria (test code = 39669-5) FEW NONE [facility] Epithelial Pstdw4428-12-61 15:18:00 * Test Item Value Reference Range Interpretation Comments Urine Epithelial Cells (test code = 47681-7) FEW NONE [facility] Ieyck5081-00-01 15:18:00* Test Item Value Reference Range Interpretation Comments Urine Color (test code = 5778-6) YELLOW YELLOW [facility] Bgpdjon7320-97-77 15:18:00* Test Item Value Reference Range Interpretation Comments Urine Clarity (test code = 83162-4) CLEAR CLEAR [facility] Specific Dbfwbgc1888-92-86 15:18:00 * Test Item Value Reference Range Interpretation Comments Urine Specific [place] (test code = 5811-5) 1.015 1.010-1.02 5 [facility] mB6748-03-15 15:18:00* Test Item Value Reference Range Interpretation Comments Urine pH (test code = 70405-0) 8 5-7 H [facility] Leukocyte Qjcbdjww3826-36-80 15:18:00* Test Item Value Reference Range Interpretation Comments Urine Leukocyte Esterase (test code = 5799-2) NEGATIVE NEGATIVE [facility] Vdczlml1478-03-60 15:18:00* Test Item Value Reference Range Interpretation Comments Urine Nitrite (test code = 26307-1) NEGATIVE NEGATIVE [facility] Bmxlghn0929-99-11 15:18:00* Test Item Value Reference Range Interpretation Comments Urine Protein (test code = 5804-0) NEGATIVE NEGATIVE [facility] Glucose (UA)2018-06-02 15:18:00* Test Item Value Reference Range Interpretation Comments Urine Glucose (UA) (test code = 2349-9) NEGATIVE NEGATIVE [facility] Ohsritk1833-32-11 15:18:00* Test Item Value Reference Range Interpretation Comments Urine Ketones (test code = 97861-7) NEGATIVE NEGATIVE [facility] Potzgqfvnlrn3897-25-99 15:18:00* Test Item Value Reference Range Interpretation Comments Urine Urobilinogen (test code = 39888-3) 0.2 0.2-1 [facility] Spexcrrgg0384-19-30 15:18:00* Test Item Value Reference Range Interpretation Comments Urine Bilirubin (test code = 1978-6) NEGATIVE NEGATIVE [facility] Crznw7872-08-22 15:18:00* Test Item Value Reference Range Interpretation Comments Urine Blood (test code = 75236-1) NEGATIVE NEGATIVE [facility] YPE2827-89-15 15:18:00* Test Item Value Reference Range Interpretation Comments Urine WBC (test code = 5821-4) 0-5 0-5 [facility] NUB7079-31-36 15:18:00* Test Item Value Reference Range Interpretation Comments Urine RBC (test code = 02076-5) 0-5 0-5 [facility] Kzhlzeth1768-61-80 15:18:00* Test Item Value Reference Range Interpretation Comments Urine Bacteria (test code = 27569-0) FEW NONE [facility] Epithelial Byobr5614-18-16 15:18:00 * Test Item Value Reference Range Interpretation Comments Urine Epithelial Cells (test code = 76408-5) FEW NONE [facility] Spaf1247-33-31 15:09:00* Test Item Value Reference Range Interpretation Comments Urine Test (test code = 2106-3) NEGATIVE NEGATIVE [facility] Ertb0016-11-05 15:09:00* Test Item Value Reference Range Interpretation Comments Urine Test (test code = 2106-3) NEGATIVE NEGATIVE [facility] Abdg2576-04-73 15:09:00* Test Item Value Reference Range Interpretation Comments Urine Test (test code = 2106-3) NEGATIVE NEGATIVE [facility] Ptus0122-34-23 15:09:00* Test Item Value Reference Range Interpretation Comments Urine Test (test code = 2106-3) NEGATIVE NEGATIVE [facility] Blood Nvjvi1932-12-72 15:03:00* Test Item Value Reference Range Interpretation Comments White Blood Count (test code = 6690-2) 11.09 4.8-10.8 H [facility] Blood Xxvir6844-82-67 15:03:00* Test Item Value Reference Range Interpretation Comments Red Blood Count (test code = 789-8) 4.71 3.6-5.1 [facility]emoglobin2019-01-08 15:03:00* Test Item Value Reference Range Interpretation Comments Hemoglobin (test code = 04141-8) 12.2 12.0-16.0 [facility] HospitalHematocrit2019-01-08 15:03:00* Test Item Value Reference Range Interpretation Comments Hematocrit (test code = 4544-3) 37.7 34.2-44.1 [facility] HospitalMean Corpuscular Qnkxro2064-42-06 15:03:00* Test Item Value Reference Range Interpretation Comments Mean Corpuscular Volume (test code = 787-2) 80.0 81-99 L [facility]Mean Corpuscular Rkdgxnndlq2186-49-73 15:03:00* Test Item Value Reference Range Interpretation Comments Mean Corpuscular Hemoglobin (test code = 785-6) 25.9 28-32 L [facility]Mean Corpuscular Hemoglobin Concent 2018-06-02 15:03:00* Test Item Value Reference Range Interpretation Comments Mean Corpuscular Hemoglobin Concent (test code = 786-4) 32.4 31-35 [facility] Cell Distribution Pvefz2447-06-95 15:03:00* Test Item Value Reference Range Interpretation Comments Red Cell Distribution Width (test code = 96802-4) 13.8 11.7 -14.4 [facility] HospitalPlatelet Fubne6527-23-62 15:03:00* Test Item Value Reference Range Interpretation Comments Platelet Count (test code = 777-3) 346 140-360 [facility] HospitalNeutrophils (%) (Auto)2018-06-02 15:03:00 * Test Item Value Reference Range Interpretation Comments Neutrophils (%) (Auto) (test code = 28764-1) 59.8 38.7-80.0 [facility] HospitalLymphocytes (%) (Auto)2018-06-02 15:03:00 * Test Item Value Reference Range Interpretation Comments Lymphocytes (%) (Auto) (test code = 736-9) 31.6 18.0-39.1 [facility] (%) (Auto)2018-06-02 15:03:00* Test Item Value Reference Range Interpretation Comments Monocytes (%) (Auto) (test code = 5905-5) 5.8 4.4-11.3 [facility]osinophils (%) (Auto)2018-06-02 15:03:00 * Test Item Value Reference Range Interpretation Comments Eosinophils (%) (Auto) (test code = 713-8) 2.0 0.0-6.0 [facility] (%) (Auto)2018-06-02 15:03:00* Test Item Value Reference Range Interpretation Comments Basophils (%) (Auto) (test code = 706-2) 0.4 0.0-1.0 [facility] HospitalIM GRANULOCYTES %2018-06-02 15:03:00* Test Item Value Reference Range Interpretation Comments IM GRANULOCYTES % (test code = IM GRANULOCYTES %) 0.4 0.0- 1.0 [facility] HospitalNeutrophils # (Auto)2018-06-02 15:03:00* Test Item Value Reference Range Interpretation Comments Neutrophils # (Auto) (test code = 751-8) 6.7 2.1-6.9 [facility] HospitalLymphocytes # (Auto)2018-06-02 15:03:00* Test Item Value Reference Range Interpretation Comments Lymphocytes # (Auto) (test code = 00360-9) 3.5 1.0-3.2 H [facility] HospitalMonocytes # (Auto)2018-06-02 15:03:00* Test Item Value Reference Range Interpretation Comments Monocytes # (Auto) (test code = 742-7) 0.6 0.2-0.8 [facility]Eosinophils # (Auto)2018-06-02 15:03:00* Test Item Value Reference Range Interpretation Comments Eosinophils # (Auto) (test code = 711-2) 0.2 0.0-0.4 [facility] # (Auto)2018-06-02 15:03:00* Test Item Value Reference Range Interpretation Comments Basophils # (Auto) (test code = 704-7) 0.0 0.0-0.1 [facility] HospitalAbsolute Immature Granulocyte (auto 2018-06-02 15:03:00* Test Item Value Reference Range Interpretation Comments Absolute Immature Granulocyte (auto (cesar t code = Absolute Immature Granulocyte (auto) 0.04 0-0.1 [facility] HospitalWhite Blood Pioat0407-75-60 15:03:00* Test Item Value Reference Range Interpretation Comments White Blood Count (test code = 6690-2) 11.09 4.8-10.8 H [facility] HospitalRed Blood Kfgev4733-47-37 15:03:00* Test Item Value Reference Range Interpretation Comments Red Blood Count (test code = 789-8) 4.71 3.6-5.1 [facility] HospitalHemoglobin2019-01-08 15:03:00* Test Item Value Reference Range Interpretation Comments Hemoglobin (test code = 15411-6) 12.2 12.0-16.0 [facility] HospitalHematocrit2019-01-08 15:03:00* Test Item Value Reference Range Interpretation Comments Hematocrit (test code = 4544-3) 37.7 34.2-44.1 [facility] HospitalMean Corpuscular Lkzkmo7537-60-88 15:03:00* Test Item Value Reference Range Interpretation Comments Mean Corpuscular Volume (test code = 787-2) 80.0 81-99 L [facility] HospitalMean Corpuscular Spzjgfndue8048-31-12 15:03:00* Test Item Value Reference Range Interpretation Comments Mean Corpuscular Hemoglobin (test code = 785-6) 25.9 28-32 L [facility] HospitalMean Corpuscular Hemoglobin Concent 2018-06-02 15:03:00* Test Item Value Reference Range Interpretation Comments Mean Corpuscular Hemoglobin Concent (test code = 786-4) 32.4 31-35 [facility] HospitalRed Cell Distribution Pycxd4271-91-04 15:03:00* Test Item Value Reference Range Interpretation Comments Red Cell Distribution Width (test code = 60442-9) 13.8 11.7 -14.4 [facility] HospitalPlatelet Kflko0646-08-69 15:03:00* Test Item Value Reference Range Interpretation Comments Platelet Count (test code = 777-3) 346 140-360 [facility] HospitalNeutrophils (%) (Auto)2018-06-02 15:03:00 * Test Item Value Reference Range Interpretation Comments Neutrophils (%) (Auto) (test code = 85386-2) 59.8 38.7-80.0 [facility] HospitalLymphocytes (%) (Auto)2018-06-02 15:03:00 * Test Item Value Reference Range Interpretation Comments Lymphocytes (%) (Auto) (test code = 736-9) 31.6 18.0-39.1 [facility] HospitalMonocytes (%) (Auto)2018-06-02 15:03:00* Test Item Value Reference Range Interpretation Comments Monocytes (%) (Auto) (test code = 5905-5) 5.8 4.4-11.3 [facility] HospitalEosinophils (%) (Auto)2018-06-02 15:03:00 * Test Item Value Reference Range Interpretation Comments Eosinophils (%) (Auto) (test code = 713-8) 2.0 0.0-6.0 [facility]Bas[facility] (%) (Auto)2018-06-02 15:03:00* Test Item Value Reference Range Interpretation Comments Basophils (%) (Auto) (test code = 706-2) 0.4 0.0-1.0 [facility] HospitalIM GRANULOCYTES %2018-06-02 15:03:00* Test Item Value Reference Range Interpretation Comments IM GRANULOCYTES % (test code = IM GRANULOCYTES %) 0.4 0.0- 1.0 [facility] HospitalNeutrophils # (Auto)2018-06-02 15:03:00* Test Item Value Reference Range Interpretation Comments Neutrophils # (Auto) (test code = 751-8) 6.7 2.1-6.9 [facility] HospitalLymphocytes # (Auto)2018-06-02 15:03:00* Test Item Value Reference Range Interpretation Comments Lymphocytes # (Auto) (test code = 69058-7) 3.5 1.0-3.2 H [facility] HospitalMonocytes # (Auto)2018-06-02 15:03:00* Test Item Value Reference Range Interpretation Comments Monocytes # (Auto) (test code = 742-7) 0.6 0.2-0.8 [facility] HospitalEosinophils # (Auto)2018-06-02 15:03:00* Test Item Value Reference Range Interpretation Comments Eosinophils # (Auto) (test code = 711-2) 0.2 0.0-0.4 [facility]Bas[facility] # (Auto)2018-06-02 15:03:00* Test Item Value Reference Range Interpretation Comments Basophils # (Auto) (test code = 704-7) 0.0 0.0-0.1 [facility] HospitalAbsolute Immature Granulocyte (auto 2018-06-02 15:03:00* Test Item Value Reference Range Interpretation Comments Absolute Immature Granulocyte (auto (cesar t code = Absolute Immature Granulocyte (auto) 0.04 0-0.1 [facility] HospitalBX RAYSA 1ST LESION STRTCTC-LT [place] [address] Patient Name: BRIDGET SHETTY MR #: [id number] : 1965 Age/Sex: 52/F Req #: [id number] Adm Physician: Ordered by: SUSAN CHRISTY MD Report #: [id number] Location: MAMMO Room/Bed: Procedure: [id number] MG/BX RAYSA 1ST LESION STRTCT C-LT Exam Date: Exam Time: REPORT STATUS: Si gned THIS REPORT HAS BEEN AMENDED. #[id number] - [id number] STEREOTAC TIC GUIDED BIOPSY: 07/29/2017 PATIENT CONSENT: According to [facility] requirements, a time out was performed, correct site was localized and the patient was cons ented. PROCEDURE DESCRIPTION: A stereotactic biopsy of microcalcificaiton in the left breast upper outer posterior aspect was requested. The procedure was fully discussed with the patient including benefits, risks and alternat kathe. The need for a post biopsy clip was discussed. It was performed with wr itten informed consent. A full time paramedic out was taken prior to beginning the biopsy to confirm patient and procedure, including laterality. The area of conc shawn was targeted stereotactically using an upright biopsy machine. The area over the site was prepared in the standard sterile fashion. Local anesthsia was a chieved with 1% Lidocaine. The biopsy probe was advanced to the lesion and va cuum assisted core biopsy samples obtained. A micromarker was placed. After r emoval of the probe, hemostasis was achieved with compression and a sterile b andage was applied. A specimen radiograph shows calcifications within the c ores, concordant with biopsy images. Following the procedure, the patient w as discharged from the breast area with no immediate complications. Full post biopsy instructions were provided and acknowledged by the patient. Corre lation is made to exams dated: 07/14/2017 mammogram and 06/20/2017 mammogram - [facility]. IMPRESSION: STEREOTACTIC GUIDED B IOPSY Khadar Stevens Jr., D.O. cw/:07/29/2017 13:14:47 Imaging Te chnologist: Cynthia Stein RT(R)(M), [facility] 190 [id number] AMENDMENT: 08/04/2017 Khadar Stevens Jr., D.O. Pathology res ults from the stereo biopsy reveal Fibroadenomatoid stroma with embedded calc ifications. Negative for malignancy. Dictated By: KHADAR SANTOS lectronically Signed By: KHADAR STEVENS DO on 07/29/17 1314 Transcribed By: DELORES MORALEZ on 08/04/17 0962 COPY TO: SUSAN CHRISTY MD MAMMO DIAG UNI CAD [place] [address] Patient Name: BRIDGET SHETTY MR #: [id number] : 1965 Age/Sex: 52/F Req #: [id number] Adm Physician: Ordered by: SUSAN CHRISTY MD Report #: [id number] Location: MAMMO Room/Bed: Procedure: [id number] MG/MAMMO DIAG UNI CAD LT Exam Date: 07/14/17 Exam Time: 1300 REPORT STA TUS: Signed #[id number] - [id number] #UNILATERAL LEFT DIGITAL DIAGNOST IC MAMMOGRAM WITH CAD WITH MAGNIFICATION: 07/14/2017 Comparison is made to exam dated: 06/20/2017 mammogram - [facility]. Current s tudy contains 3 films. There are scattered fibroglandular elements in the le ft breast. Current study was also evaluated with a Computer Aided Detection (CAD) system. There are multiple areas (at least 6-7) of grouped calcificati ons in the left breast. The most suspicious area is most posterior at the 2-3 o'clock position. A stereo biopsy of these is recommended, however the gertrude ent does take aspirin and plavix and these Rx would have to be discontinued f or a week prior to the procedure. If a biopsy is not performed then a foll ow up mammogram in 6 months would be necessary. IMPRESSION: SUSPICIOUS OF M ALIGNANCY A phone call was made to Dr. Christy and the case discussed. The p atient was notified of the need for a biopsy. Khadar Stevens Jr., D.O. cw/:07/14/2017 14:26:52 Environmental Health Specialist: Cynthia ARECHIGA (R)(Sonido), [facility] letter sent: Biopsy Required Ma mmogram BI-RADS: 4a Suspicious abnormality - low suspicion for malignancy Di ctated By: KHADAR STEVENS DO 25 COPY TO: SUSAN CHRISTY MD MAMMOGRAPHY DIGITAL SCR BILAT [place] [address] Patient Name: BRIDGET SHETTY MR #: [id number] : 1965 Age/Sex: 52/F Req #: [id number] [facility] Physician: Ordered by: SUSAN CHRISTY MD Report #: [id number] Location: MAMMO Room/Bed: Procedure: [id number] MG/MAMMOGRAPHY DIGITAL SCR BILAT Exam Date: 06/20/17 Exam Time: 0900 REPO RT STATUS: Signed #[id number] - [id number] #BILATERAL FIRST EVER DIGITA L SCREENING MAMMOGRAM WITH CAD: 06/20/2017 CLINICAL: Routine screening. Baseli ne exam. No prior exams were available for comparison. Current study con tains 4 films. There are scattered fibroglandular elements in both breasts. Current study was also evaluated with a Computer Aided Detection (CAD) ivon monzon. There is grouped amorphous calcification in the left breast at 1 o'clock posterior depth. There are several other areas of calcification in the left b reast. Scattered benign calcification and vascular calcfication present in the right breast. No other significant masses, calcifications, or other findings are seen in either breast. IMPRESSION: INCOMPLETE: NEEDS ADDITIONAL RUMA GING EVALUATION The amorphous calcification in the left breast is indeterminat e. Spot magnification views are recommended. The patient will be cont acted by the Mammography Department to schedule this appointment. Johnathan Stevens Jr., D.O. cw/:07/05/2017 09:58:36 Imaging Technologis t: Cynthia GUNN)(M), [facility] letter sent: Ad ditional Imaging Needed Mammogram BI-RADS: 0 Indeterminate Dictated By: KHADAR STEVENS DO 0958 T ranscribed By: VERONICA on 07/05/17 0958 COPY TO: SUSAN CHRISTY MD
[2020-02-28 15:48] LABS: CREATINE KINASE MB 1.5 ng/mL (0-5.0)
--- NOTE | 2020-02-28 16:07 | Diagnostic Imaging Report ---
Exam: Head CT without contrast History: Dizziness, visual disturbance Comparison studies: None Technique: Axial images were obtained from the skull base to the vertex. Coronal and sagittal images reconstructed from the axial data. Dose modulation, iterative reconstruction, and/or weight based adjustment of the mA/kV was utilized to reduce the radiation dose to as low as reasonably achievable. Radiation dose: Total DLP: 921 mGy*cm. Estimated effective dose: DLP x 0.015 Intravenous contrast: None Findings: Scalp: No abnormalities. Bones: No fractures, blastic or lytic lesions. Brain sulci: Appropriate for age. Ventricles: Normal in size and configuration. No hydrocephalus. Extra-axial spaces: No masses, no fluid collection. Parenchyma: No abnormal densities. No masses, acute hemorrhage, acute or chronic vascular insults. Incidental punctate left occipital dystrophic calcification without surrounding edema or mass effect which may be sequela of remote infection or inflammation. Sellar/suprasellar region: No abnormalities. Craniocervical junction: Patent foramen magnum. No Chiari one malformation. Incidental findings: Calcified atherosclerosis in the carotid siphons and intradural vertebral arteries. IMPRESSION: No acute intracranial abnormalities. Signed by: Dr. Jairo Ramirez M.D. on 02/28/2020 4:04 PM
--- NOTE | 2020-02-28 16:19 | Diagnostic Imaging Report ---
EXAMINATION: CHEST SINGLE (PORTABLE) INDICATION: Dizziness COMPARISON: Chest radiograph 07/09/2019 FINDINGS: LINES/TUBES:EKG leads overlie the chest. LUNGS:The lungs are well-inflated. No focal consolidation or pulmonary edema. PLEURA:No pleural effusion or pneumothorax. MEDIASTINUM:The cardiomediastinal silhouette appears normal in size and shape. BONES/SOFT TISSUES:No acute osseous injury. Old healed right clavicle fracture deformity. ABDOMEN:No free air under the diaphragm. IMPRESSION: No focal pneumonia or pulmonary edema. Signed by: Tiffany Bain MD on 02/28/2020 4:15 PM
[2020-02-28] MEDS ORDERED: ACETAMINOPHEN 325 MG TAB ONE (16:47)
[2020-02-28] MEDS ORDERED: ACETAMINOPHEN 325 MG TAB PO ONE (17:30)
--- NOTE | 2020-02-28 17:37 | Emergency Department Note ---
History of Present Illnes History of Present Illness Chief Complaint: General Medicine Complaints History of Present Illness This is a 55 year old female Chief Complaint Comment PATIENT IN FROM HOME WITH COMPLAINTS OF DIZZINESS/VERTIGO STARTING THIS AFTERNOON; STATES SHE WAS AT WORK WHEN SHE GOT DIZZY; PATIENT COMPLAINING OF VISUAL DISTURBANCES AND BALANCE PROBLEMS. STATES SHE HAS A HISTORY OF VERTIGO, RATES HEADACHE 12/02 . Historian: Patient, Family Member Arrival Mode: Car Onset (how long ago): day(s) (2) Location: HEADACHE Radiation: Denies non-radiation, Denies back, Denies neck, Denies extremity, D enies abdomen, Denies periumbilical, Denies flank, Denies proximal, Denies distal, Denies other Severity: moderate Onset quality: gradual Duration (how long): day(s) (2) Timing of current episode: intermittent Progression: waxing and waning Chronicity: new Context: Denies recent illness, Denies recent surgery, Denies recent immobilization, Denies recent travel, Denies trauma/injury, Denies new medications, Denies hx of DVT/PE, Denies non-compliance w/ medications, Denies other Relieving factors: none Exacerbating factors: none Associated symptoms: Reports denies other symptoms Past Medical/Family History Physician Review I have reviewed the patient's past medical and family history. Any updates have been documented here. Past Medical History Recent Fever: No Clinical Suspicion of Infectio: No New/Unexplained Change in Ment: No Past Medical History: Hypertension, Diabetes, [place], TIA, Hyperlipedemia, Chronic Back Pain Other Medical History: CAROTID ARTERY WITH STENOSIS Past Surgical History: Hysterectomy, Social History Smoking Cessation: Unknown if ever smoked Counseling Performed: No Alcohol Use: None Any Illegal Drug Use: No Other Last Tetanus: UNKNOWN Any Pre-Existing Lines (PICC,: No Review of Systems Review of Systems Constitutional: Reports no symptoms EENTM: Reports no symptoms Cardiovascular: Reports no symptoms Respiratory: Reports no symptoms Gastrointestinal: Reports no symptoms Genitourinary: Reports no symptoms Musculoskeletal: Reports no symptoms Integumentary: Reports no symptoms Neurological: Reports as per HPI Psychological: Reports no symptoms Endocrine: Reports no symptoms Hematological/Lymphatic: Reports no symptoms Physical Exam Related Data Allergies: Coded Allergies: No Known Allergies (Unverified , 02/28/20) Triage Vital Signs Vital Signs Date Time Temp Pulse Resp B/P (MAP) Pulse Ox O2 Delivery O2 Flow Rate FiO2 02/28/20 15:08 97.7 75 18 164/67 100 Room Air Vital signs reviewed: Yes Physical Exam CONSTITUTIONAL Constitutional: Present well-developed, Present well-nourished HENT HENT: Present normocephalic, Present atraumatic, Present oropharynx clear/moist, Present nose normal HENT L/R: Present left ext ear normal, Present right ext ear normal EYES Eyes: Reports PERRL, Reports conjunctivae normal; Denies EOM normal, Denies lids normal, Denies left eye discharge, Denies right eye discharge, Denies scleral icterus, Denies other NECK Neck: Present ROM normal; Absent supple, Absent thyromegaly, Absent tracheal deviation, Absent stridor, Absent JVD, Absent cervical adenopathy, Absent carotid bruit, Absent other PULMONARY Pulmonary: Present effort normal, Present breath sounds normal; Absent respiratory distress, Absent rales, Absent rhonchi, Absent chest tenderness, Absent other CARDIOVASCULAR Cardiovascular: Present regular rhythm, Present heart sounds normal, Present capillary refill normal, Present normal rate; Absent irregular rhythm, Absent intact distal pulses, Absent tachycardia, Absent bradycardia, Absent murmur, Absent gallop, Absent friction rub, Absent palpable pulses, Absent strong pulses, Absent weak pulses, Absent LLE edema, Absent RLE edema, Absent other GASTROINTESTINAL Abdominal: Present soft, Present nontender, Present bowel sounds normal; Absent distension, Absent tender, Absent guarding, Absent mass, Absent rebound, Absent hernia, Absent left CVA tenderness, Absent right CVA tenderness, Absent other GENITOURINARY Genitourinary: Present exam deferred SKIN Skin: Present warm, Present dry MUSCULOSKELETAL Musculoskeletal: Present ROM normal NEUROLOGICAL Neurological: Present alert, Present oriented x 3, Present no gross motor or sensory deficits PSYCHOLOGICAL Psychological: Present mood/affect normal, Present judgement normal Results Laboratory Result Diagram: 02/28/20 1515 02/28/20 1515 Laboratory Laboratory Tests Test 02/28/20 15:15 White Blood Count 9.62 x10e3/uL (4.8-10.8) Red Blood Count 4.48 x10e6/uL (3.6-5.1) Hemoglobin 11.6 g/dL (12.0-16.0) Hematocrit 37.0 % (34.2-44.1) Mean Corpuscular Volume 82.6 fL (81-99) Mean Corpuscular Hemoglobin 25.9 pg (28-32) Mean Corpuscular Hemoglobin Concent 31.4 g/dL (31-35) Red Cell Distribution Width 13.8 % (11.7-14.4) Platelet Count 361 x10e3/uL (140-360) Neutrophils (%) (Auto) 64.7 % (38.7-80.0) Lymphocytes (%) (Auto) 25.1 % (18.0-39.1) Monocytes (%) (Auto) 6.3 % (4.4-11.3) Eosinophils (%) (Auto) 2.9 % (0.0-6.0) Basophils (%) (Auto) 0.5 % (0.0-1.0) Neutrophils # (Auto) 6.2 (2.1-6.9) Lymphocytes # (Auto) 2.4 (1.0-3.2) Monocytes # (Auto) 0.6 (0.2-0.8) Eosinophils # (Auto) 0.3 (0.0-0.4) Basophils # (Auto) 0.1 (0.0-0.1) Absolute Immature Granulocyte (auto 0.05 x10e3/uL (0-0.1) Sodium Level 138 mmol/L (136-145) Potassium Level 4.0 mmol/L (3.5-5.1) Chloride Level 104 mmol/L (98-107) Carbon Dioxide Level 26 mmol/L (22-29) Anion Gap 12.0 mmol/L (8-16) Blood Urea Nitrogen 15 mg/dL (7-26) Creatinine 0.98 mg/dL (0.57-1.11) Estimat Glomerular Filtration Rate 59 ML/MIN (60-) BUN/Creatinine Ratio 15 (6-25) Glucose Level 289 mg/dL (74-118) Calcium Level 9.5 mg/dL (8.4-10.2) Total Bilirubin 0.2 mg/dL (0.2-1.2) Aspartate Amino Transf (AST/SGOT) 18 IU/L (5-34) Alanine Aminotransferase (ALT/SGPT) 13 IU/L (0-55) Alkaline Phosphatase 43 IU/L (40-150) Creatine Kinase 75 IU/L (29-168) Creatine Kinase MB 1.50 ng/mL (0-5.0) Troponin I 0.067 ng/mL (0-0.300) Total Protein 7.2 g/dL (6.5-8.1) Albumin 3.5 g/dL (3.5-5.0) Globulin 3.7 g/dL (2.3-3.5) Albumin/Globulin Ratio 0.9 (0.8-2.0) Lab results reviewed: Yes Imaging Imaging results reviewed: Yes Procedures 12 Lead ECG Interpretation ECG Interpretation : ECG: ECG 1 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: Interpreted by ED physician Date: Feb 28, 2020 Time: 15:13 Rhythm: sinus rhythm Rate: normal BPM: 75 QRS axis: left ST segments normal: Yes T waves normal: Yes Assessment & Plan Medical Decision Making MDM [place] MIGRAIN BLEED Reassessment Reassessment BETTER Assessment & Plan Final Impression: (1) Headache (2) Dizziness Depart Disposition: HOME, SELF-CARE Last Vital Signs Date Time Temp Pulse Resp B/P (MAP) Pulse Ox O2 Delivery O2 Flow Rate FiO2 02/28/20 15:34 78 18 155/58 100 Room Air 02/28/20 15:08 97.7 Home Meds Active Scripts Methocarbamol (ROBAXIN-750) 750 Mg Tablet, 750 MG PO Q8HR PRN for MUSCLE SPASMS, #20 Prov:CAESAR ESCOBAR DO 03/23/19 Tramadol Hcl (ULTRAM) 50 Mg Tablet, 50 MG PO Q6HR PRN for Mild Pain (1-3) or Fever>100.8, #14 TAB Prov:CAESAR ESCOBAR DO 03/23/19 Reported Medications Ferrous Sulfate (FERROUS SULFATE) 325 Mg Tablet, 325 MG PO BID, #60 07/13/19 Cephalexin (CEPHALEXIN) 500 Mg Capsule, 500 MG PO BID, #10 CAP 07/13/19 Sucralfate (CARAFATE) 1 Gm/10 Ml Oral.susp, 1 GM PO QID, #60 ML 07/13/19 Pantoprazole Sodium* (PROTONIX) 40 Mg Tablet.dr, 40 MG PO BID, #60 TAB 07/13/19 Insulin Aspart (Insulin Aspart) 100 Unit/1 Ml Vial, 30 UNIT SQ HS 07/08/19 Insulin Aspart (NOVOLOG) 100 Unit/1 Ml Cartridge, 40 UNIT SQ DAILY@0600 07/08/19 Potassium Chloride (POTASSIUM CHLORIDE) 10 Meq Tab.er.prt, 10 MEQ PO DAILY, TAB 07/08/19 Atorvastatin Calcium (ATORVASTATIN CALCIUM) 20 Mg Tablet, 40 MG PO HS, #30 TAB 07/08/19 Lisinopril/Hydrochlorothiazide (LISINOPRIL-HCTZ 20-25 MG TAB) 1 Each Tablet, 20-25 MG PO DAILY 07/08/19 Glipizide/Metformin Hcl (GLIPIZIDE-METFORMIN 5-500 MG) 1 Each Tablet, 2 TAB PO BID 07/08/19 Metoprolol Tartrate (METOPROLOL TARTRATE) 50 Mg Tablet, 25 MG PO BID 02/16/19 Medications in the ED Meclizine HCl 25 mg ONCE STAT PO Last administered on 02/28/20at 17:00; Admin Dose 25 MG; Start 02/28/20 at 15:13; Stop 02/28/20 at 15:14; Status DC Acetaminophen 975 mg STK-MED ONCE .ROUTE ; Start 02/28/20 at 16:47; Stop 02/28/20 at 16:40; Status DC Acetaminophen 975 mg ONCE ONCE PO Last administered on 02/28/20at 17:00; Admin Dose 975 MG; Start 02/28/20 at 17:30; Stop 02/28/20 at 17:32; Status DC RYLEE JACKSON MD Feb 28, 2020 17:37
[2020-02-28] MEDS ORDERED: HYDROCODONE/APAP 5MG-325MG TAB ONE (17:44)
[2020-02-28] MEDS ORDERED: HYDROCODONE/APAP 5MG-325MG TAB PO ONE (17:45)
[2020-02-29] MEDS ORDERED: HYDROCHLOROTH12.5 MG PO (22:54)
[2020-02-29] MEDS ORDERED: HUMALOG MI100 UNIT/2 SQ ×2 (22:54)
[2020-02-29] MEDS ORDERED: CLOPIDOGREL75 MG PO (22:54)
[2020-02-29] MEDS ORDERED: LYRICA150 MG PO (22:54)
[2020-02-29] MEDS ORDERED: LOSARTAN POTAS100 MG PO (22:54)
[2020-02-29] MEDS ORDERED: CYMBALTA30 MG PO (22:54)
[2020-02-29] MEDS ORDERED: CYCLOBENZAPRINE10 MG PO (22:54)
[2020-02-29] MEDS ORDERED: FENOFIBRATE145 MG PO (22:54)
== END 2020-02-28 18:18 | disposition home or self-care (01) ==
LOC: ER 15:00
DX: R51.9 Headache, unspecified (principal); R42 Dizziness and giddiness; I10 Essential (primary) hypertension; E11.9 Type 2 diabetes mellitus without complications; E78.5 Hyperlipidemia, unspecified; M54.9 Dorsalgia, unspecified; G89.29 Other chronic pain; I25.2 Old myocardial infarction; Z86.73 Personal history of transient ischemic attack (TIA), and cerebral infarction without residual deficits
CPT/HCPCS: 36415; 70450; 71045; 80053; 82550; 82553; 84484; 85025; 93005; 99284; J8597

== ENCOUNTER 2020-02-29 17:50 | Inpatient (IN) | payer OTHER ==
[~2020-02-29] VITALS: Ht 157.5 cm; Wt 74.8 kg
[2020-02-29] MEDS ORDERED: SODIUM CHLORIDE 0.9% 1000ML 1,000 ML IV STA (18:07)
[2020-02-29] MEDS ORDERED: KETOROLAC TROMETHAMINE 30 MG/ML VIAL IV STA (18:07)
--- NOTE | 2020-02-29 18:07 | Emergency Department Note ---
History of Present Illnes History of Present Illness Chief Complaint: General Medicine Complaints History of Present Illness This is a 55 year old female rreturns ot the ED for continued CABA . Historian: Patient Onset (how long ago): day(s) (1) Severity: severe Onset quality: gradual (1) Duration (how long): day(s) Timing of current episode: constant Progression: worsening Chronicity: new Context: Denies recent illness, Denies recent surgery, Denies recent immobilization, Denies recent travel, Denies trauma/injury, Denies new medications, Denies hx of DVT/PE, Denies non-compliance w/ medications, Denies other Relieving factors: none Exacerbating factors: none Associated symptoms: Reports headaches, Reports nausea/vomiting Previous service: medications given, tests performed, one or more referrals, re-evaluation Past Medical/Family History Physician Review I have reviewed the patient's past medical and family history. Any updates have been documented here. Past Medical History Recent Fever: No Clinical Suspicion of Infectio: No New/Unexplained Change in Ment: Yes Past Medical History: Hypertension, Diabetes, [place], TIA, Hyperlipedemia, Chronic Back Pain Other Medical History: CAROTID ARTERY WITH STENOSIS Past Surgical History: Hysterectomy, Social History Alcohol Use: None Any Illegal Drug Use: No Other Last Tetanus: UNKNOWN Review of Systems Review of Systems Constitutional: Reports no symptoms EENTM: Reports blurred vision Cardiovascular: Reports no symptoms Respiratory: Reports no symptoms Gastrointestinal: Reports no symptoms Genitourinary: Reports no symptoms Musculoskeletal: Reports no symptoms Integumentary: Reports no symptoms Neurological: Reports headache, Reports other (dizziness) Psychological: Reports no symptoms Endocrine: Reports no symptoms Hematological/Lymphatic: Reports no symptoms Physical Exam Related Data Allergies: Coded Allergies: No Known Allergies (Unverified , 02/28/20) Triage Vital Signs Vital Signs Date Time Temp Pulse Resp B/P (MAP) Pulse Ox O2 Delivery O2 Flow Rate FiO2 02/29/20 18:08 97.6 66 18 174/61 100 Room Air Vital signs reviewed: Yes Physical Exam CONSTITUTIONAL Constitutional: Present distressed, Present ill appearing HENT HENT: Present normocephalic, Present atraumatic, Present oropharynx clear/moist, Present nose normal, Present other (visual field defect) HENT L/R: Present left ext ear normal, Present right ext ear normal EYES Eyes: Reports PERRL, Reports conjunctivae normal NECK Neck: Present ROM normal PULMONARY Pulmonary: Present effort normal, Present breath sounds normal CARDIOVASCULAR Cardiovascular: Present regular rhythm, Present heart sounds normal, Present capillary refill normal, Present normal rate GASTROINTESTINAL Abdominal: Present soft, Present nontender, Present bowel sounds normal GENITOURINARY Genitourinary: Present exam deferred SKIN Skin: Present warm, Present dry MUSCULOSKELETAL Musculoskeletal: Present ROM normal NEUROLOGICAL Neurological: Present alert, Present oriented x 3 PSYCHOLOGICAL Psychological: Present mood/affect normal, Present judgement normal Results Laboratory Lab results reviewed: Yes Laboratory comments Laboratory Tests Test 02/29/20 19:09 02/29/20 19:03 02/29/20 18:15 White Blood Count 11.77 x10e3/uL (4.8-10.8) Red Blood Count 4.55 x10e6/uL (3.6-5.1) Hemoglobin 12.3 g/dL (12.0-16.0) Hematocrit 37.8 % (34.2-44.1) Mean Corpuscular Volume 83.1 fL (81-99) Mean Corpuscular Hemoglobin 27.0 pg (28-32) Mean Corpuscular Hemoglobin Concent 32.5 g/dL (31-35) Red Cell Distribution Width 14.1 % (11.7-14.4) Platelet Count 361 x10e3/uL (140-360) Neutrophils (%) (Auto) 69.4 % (38.7-80.0) Lymphocytes (%) (Auto) 21.8 % (18.0-39.1) Monocytes (%) (Auto) 5.4 % (4.4-11.3) Eosinophils (%) (Auto) 2.6 % (0.0-6.0) Basophils (%) (Auto) 0.5 % (0.0-1.0) Neutrophils # (Auto) 8.2 (2.1-6.9) Lymphocytes # (Auto) 2.6 (1.0-3.2) Monocytes # (Auto) 0.6 (0.2-0.8) Eosinophils # (Auto) 0.3 (0.0-0.4) Basophils # (Auto) 0.1 (0.0-0.1) Absolute Immature Granulocyte (auto 0.04 x10e3/uL (0-0.1) Sodium Level 140 mmol/L (136-145) Potassium Level 3.6 mmol/L (3.5-5.1) Chloride Level 103 mmol/L (98-107) Carbon Dioxide Level 25 mmol/L (22-29) Anion Gap 15.6 mmol/L (8-16) Blood Urea Nitrogen 10 mg/dL (7-26) Creatinine 0.78 mg/dL (0.57-1.11) Estimat Glomerular Filtration Rate > 60 ML/MIN (60-) BUN/Creatinine Ratio 13 (6-25) Glucose Level 141 mg/dL (74-118) Calcium Level 9.5 mg/dL (8.4-10.2) Total Bilirubin 0.2 mg/dL (0.2-1.2) Aspartate Amino Transf (AST/SGOT) 13 IU/L (5-34) Alanine Aminotransferase (ALT/SGPT) 12 IU/L (0-55) Alkaline Phosphatase 44 IU/L (40-150) Creatine Kinase 51 IU/L (29-168) Creatine Kinase MB 1.10 ng/mL (0-5.0) Troponin I 0.062 ng/mL (0-0.300) B-Type Natriuretic Peptide 69.5 pg/mL (0-100) Total Protein 7.2 g/dL (6.5-8.1) Albumin 3.7 g/dL (3.5-5.0) Globulin 3.5 g/dL (2.3-3.5) Albumin/Globulin Ratio 1.1 (0.8-2.0) Urine Test Negative (NEGATIVE) Urine Opiates Screen Positive (NEGATIVE) Urine Methadone Screen Negative (NEGATIVE) Urine Barbiturates Screen Negative (NEGATIVE) Urine Phencyclidine Screen Negative (NEGATIVE) Urine Amphetamines Screen Negative (NEGATIVE) Urine Methamphetamines Screen Negative (NEGATIVE) Urine Benzodiazepines Screen Negative (NEGATIVE) Urine Cocaine Screen Negative (NEGATIVE) Urine Cannabinoids Screen Negative (NEGATIVE) Imaging Imaging results reviewed: Yes Impressions [place] [id number] Patient Name: BRIDGET SHETTY MR #: [id number] : 1965 Age/Sex: 55/F Req #: [id number] Adm Physician: Ordered by: ASH HAGAN DO Report #: [id number] Location: ER Room/Bed: ____ Procedure: [id number] DX/CHEST SINGLE (PORTABLE) Exam Date: 02/29/20 Exam Time: 1815 REPORT STATUS: Signed EXAMINATION: CHEST SINGLE (PORTABLE) INDICATION: Chest pain. COMPARISON: Chest CT on 07/07/2019. FINDINGS: TUBES and LINES: None. LUNGS: Normal lung volumes. Lungs are clear. No consolidations. Bibasilar atelectasis. PLEURA: No pleural effusion or pneumothorax. HEART AND MEDIASTINUM: The cardiomediastinal silhouette is unremarkable. BONES AND SOFT TISSUES: No acute osseous lesion. Soft tissues are unremarkable. UPPER ABDOMEN: No free air under the diaphragm. IMPRESSION: No acute thoracic radiographic abnormality. Signed by: Lori Stallings MD on 02/29/2020 7:04 PM Dictated By: LORI STALLINGS MD 03 Transcribed By: ROSY on 02/29/201903 COPY TO: ASH HAGAN DO~ [place] [address] Patient Name: BRIDGET SHETTY MR #: [id number] : 1965 Age/Sex: 55/F Req #: [id number] Adm Physician: Ordered by: ASH HAGAN DO Report #: [id number] Location: ER Room/Bed: Procedure: [id number] CT/CT BRAIN WO Exam Date: 02/29/20 Exam Time: 1814 REPORT STATUS: Signed Exam: Head CT without contrast History: Headache Comparison studies: Head CT 02/28/2020. Technique: Axial images were obtained from the skull base to the vertex. Coronal and sagittal images reconstructed from the axial data. Dose modulation, iterative reconstruction, and/or weight based adjustment of the mA/kV was utilized to reduce the radiation dose to as low as reasonably achievable. Radiation dose: Total DLP: 832.18 mGy*cm. Estimated effective dose: DLP x 0.015 Intravenous contrast: None Findings: Scalp: No abnormalities. Bones: No fractures, blastic or lytic lesions. Brain sulci: Appropriate for age. Ventricles: Normal in size and configuration. No hydrocephalus. Extra-axial spaces: No masses, no fluid collection. Parenchyma: Acute nonhemorrhagic infarct in the right FALSEWORK BUILDER territory with cortical and subcortical hypodensity along the right inferior occipital and lingual gyri, occipitotemporal gyri and within the right hippocampus without significant mass effect. No mass or acute hemorrhage. Unchanged incidental punctate left occipital calcification which may be sequela of remote infection/inflammation. Sellar/suprasellar region: No abnormalities. Craniocervical junction: Patent foramen magnum. No Chiari one malformation. Incidental findings: Atherosclerotic calcifications in the carotid siphons and in the intradural vertebral arteries. IMPRESSION: 1. Acute infarct in the right FALSEWORK BUILDER territory without significant mass effect. 2. No acute hemorrhage or other acute intracranial abnormalities. Findings discussed with Dr. Hagan at 6:50 PM on 02/29/2020. Signed by: Dr. Jackie Ramirez M.D. 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 Assessment & Plan Final Impression: (1) Cerebral infarction involving posterior cerebral artery Depart Disposition: ADMITTED Home Meds Reported Medications Insulin Npl/Insulin Lispro (HUMALOG MIX 75-25 KWIKPEN) 100 Unit/1 Ml Insuln.pen, 30 UNIT SQ HS 02/29/20 Insulin Npl/Insulin Lispro (HUMALOG MIX 75-25 KWIKPEN) 100 Unit/1 Ml Insuln.pen, 40 UNITS SQ ACB 02/29/20 Cyclobenzaprine Hcl (CYCLOBENZAPRINE HCL) 10 Mg Tablet, 10 MG PO HS, TAB 02/29/20 Pregabalin (LYRICA) 150 Mg Capsule, 150 MG PO HS, CAP 02/29/20 Duloxetine Hcl (CYMBALTA) 30 Mg Capsule.dr, 60 MG PO HS, #30 CAP 02/29/20 Hydrochlorothiazide (HYDROCHLOROTHIAZIDE) 12.5 Mg Tablet, 12.5 MG PO DAILY 02/29/20 Losartan Potassium (LOSARTAN POTASSIUM) 100 Mg Tablet, 100 MG PO DAILY, TAB 02/29/20 Clopidogrel Bisulfate (CLOPIDOGREL) 75 Mg Tablet, 75 MG PO DAILY, #30 TAB 02/29/20 Fenofibrate Nanocrystallized (FENOFIBRATE) 145 Mg Tablet, 145 MG PO DAILY 02/29/20 Ferrous Sulfate (FERROUS SULFATE) 325 Mg Tablet, 325 MG PO DAILY, #60 07/13/19 Potassium Chloride (POTASSIUM CHLORIDE) 10 Meq Tab.er.prt, 8 MEQ PO DAILY, TAB 07/08/19 Atorvastatin Calcium (ATORVASTATIN CALCIUM) 20 Mg Tablet, 80 MG PO HS, #30 TAB 07/08/19 Glipizide/Metformin Hcl (GLIPIZIDE-METFORMIN 5-500 MG) 1 Each Tablet, 2 TAB PO BID 07/08/19 Metoprolol Tartrate (METOPROLOL TARTRATE) 50 Mg Tablet, 50 MG PO BID 02/16/19 Discontinued Reported Medications Cephalexin (CEPHALEXIN) 500 Mg Capsule, 500 MG PO BID, #10 CAP 07/13/19 Sucralfate (CARAFATE) 1 Gm/10 Ml Oral.susp, 1 GM PO QID, #60 ML 07/13/19 Pantoprazole Sodium* (PROTONIX) 40 Mg Tablet.dr, 40 MG PO BID, #60 TAB 07/13/19 Insulin Aspart (Insulin Aspart) 100 Unit/1 Ml Vial, 30 UNIT SQ HS 07/08/19 Insulin Aspart (NOVOLOG) 100 Unit/1 Ml Cartridge, 40 UNIT SQ DAILY@0600 07/08/19 Lisinopril/Hydrochlorothiazide (LISINOPRIL-HCTZ 20-25 MG TAB) 1 Each Tablet, 20- 25 MG PO DAILY 07/08/19 Discontinued Scripts Methocarbamol (ROBAXIN-750) 750 Mg Tablet, 750 MG PO Q8HR PRN for MUSCLE SPASMS, #20 Prov:CAESAR ESCOBAR DO 03/23/19 Tramadol Hcl (ULTRAM) 50 Mg Tablet, 50 MG PO Q6HR PRN for Mild Pain (1-3) or Fever>100.8, #14 TAB Prov:CAESAR ESCOBAR DO 03/23/19 ASH HAGAN DO Feb 29, 2020 18:07
[2020-02-29] MEDS ORDERED: METHYLPREDNISOLONE SOD SUCC 125 MG/2ML VIAL IV ONE (18:15)
[2020-02-29] MEDS ORDERED: METOCLOPRAMIDE HCL 10 MG/2ML VIAL IV ONE (18:15)
[2020-02-29] MEDS ORDERED: DIPHENHYDRAMINE HCL INJ 50 MG/ML VIAL IV ONE (18:15)
--- OUTSIDE RECORDS SUMMARY | 2020-02-29 18:25 | XMS REPORT | Continuity of Care Document ---
Author Author [facility] [place] [place] t Organization [facility] Address [address] [place] [address] Phone Unavailable Care Team Providers Care Clinical Cytogeneticist Name Role Phone RACHEL VELASQUEZ, MD Sonido DAVIS PCP RYLEE JACKSON Attphys Unavailable RACHEL, Sonido DAVIS Attphys Unavailable SANDHIR, S AMBICA Attphys Unavailable VICKEY, P BIANCA Attphys Unavailable RACHEL, Sonido DAVIS Admphys Unavailable Payers Payer Name Policy Type Policy Number Effective Date Expiration Date [place] [employer] o [id number] 2014 00:00:00 [facility] [employer] o [id number] 2019 00:00:00 [facility] Problems Condition Name Condition Details Condition Category Status Onset Date Resolution Date Last Treatment Date Treating Clinician Comments Source Chest pain in adult Chest pain in adult Problem Active [facility] Dyspnea Dyspnea Problem Active [facility] Leukocytosis Elevated WBCs Problem Active [facility] Headache Problem Active [facility] Dizziness Problem Active [facility] Allergies, Adverse Reactions, Alerts This patient has no known allergies or adverse reactions. Social History Social Habit Start Date Stop Date Quantity Comments Source Sex Assigned At 1965 00:00[birth year]00 1965 00:00:[address] [facility] Medications Ordered Medication Name Filled Medication Name Start Date Stop Da te Current Medication? Ordering Clinician Indication Dosage Frequency Signature (SIG) Comments Components Source Methocarbamol (Robaxin-750) 750 Mg TABLET Methocarbamo l (Robaxin-750) 750 Mg TABLET 2019-03-23 15:53:00 Yes 750 Ever y 8 Hours as needed for Muscle Spasms [facility] Tramadol Hcl (Ultram) 50 Mg TABLET Tramadol Hcl (Ultram) 50 Mg TABLET 2019-03-23 15:53:00 Yes 50 Every 6 Ho urs as needed for Mild Pain (1-3) Or Fever>100.8 [facility] Atorvastatin Calcium Atorvastatin Calcium Yes [address] [facility] Cephalexin Cephalexin Yes [address] [facility] Ferrous Sulfate Ferrous Sulfate Yes [address] [facility] Glipizide/Metformin Hcl (Glipizide-Metformin 5-500 Mg) 1 Each TABLET Glipizide/Metformin Hcl (Glipizide-Metformin 5-500 Mg) 1 Each TABLET Yes [address] [facility] Insulin Aspart (Novolog) 100 Unit/1 Ml CARTRIDGE Insul in Aspart (Novolog) 100 Unit/1 Ml CARTRIDGE Yes 40 Daily@0600 [facility] Insulin Aspart Insulin Aspart Yes [address] [facility] Lisinopril/Hydrochlorothiazide (Lisinopril-Hctz 20-25 Mg Tab) 1 Each TABLET Lisinopril/Hydrochlorothiazide (Lisinopril-Hctz 20-25 Mg Tab) [address] [facility] Metoprolol Tartrate Metoprolol Tartrate Yes [address] [facility] Pantoprazole Sodium (Protonix) 40 Mg TABLET. Pantopr azole Sodium (Protonix) 40 Mg TABLET. Yes 40 Twice A Day [facility] Potassium Chloride Potassium Chloride Yes [address] [facility] Sucralfate (Carafate) 1 Gm/10 Ml ORAL.SUSP Sucralfate (Carafate) 1 Gm/10 Ml ORAL.SUSP Yes [address] [facility] Aspirin Aspirin 2019-07-13 00:00:[address] [facility] Aspirin (Aspir 81) 81 Mg TABLET. Aspirin (Aspir 81) 81 Mg TABL ET.DR 2019-07-12 00:00:00 No 81 Daily@0600 [facility] Vital Signs Vital Name Observation Time Observation Value Comments Source Weight 2020-02-28 15:08:00 165 [lb_av] [facility] BMI (Body Mass Index) 2020-02-28 15:08:00 30.2 kg/m2 [facility] Body Temperature 2019-07-13 11:00:00 98.4 [degF] [facility] Procedures Procedure Date / Time Performed Performing Clinician Leslie e Computed tomography of brain without radiopaque contrast 2020-02 00:00:00 [facility] INSERTION OF INFUSION DEV INTO SUP VENA CAVA, PERC APPROACH 2019-07-09 00:00:00 [facility] CONTROL BLEEDING IN GASTROINTESTINAL TRACT, ENDO 2019-07-08 00:0 0:00 [facility] TRANSFUSE NONAUT RED BLOOD CELLS IN CENTRAL VEIN, PERC 2019-06-26 3 00:00:00 [facility] X-ray of chest, single view 2019-07-07 00:00:[address] [facility] Computed tomography of chest with contrast 2019-07-07 00:00:[address] [facility] Plan of Care Planned Activity Planned Date Details Comments Source Instructions Headache [facility] Instructions Vertigo [facility] Encounters Start Date/Time End Date/Time Encounter Type Admission Type Attendi [facility] Care Department Encounter ID Source 2020-02-28 15:00:00 2020-02-28 18:18:00 Departed Emergency Room 1 RENETTA PRASHANTDILLAN [facility] [id number] [facility] 2019-07-07 15:24:00 2019-07-13 13:20:00 Discharged Inpatient 1 SUSAN CHRISTY [facility] [id number] [facility] 2019-04-14 09:34:2019-04-14 09:34:00 Registered Clinic 3 PA TEL [facility] [id number] [facility] [place] 2019-03-23 13:00:00 2019-03-23 18:32:00 Departed Emergency Room 1 CAESAR ESCOBAR [facility] [id number] [facility] 2019-02-16 17:04:00 2019-02-16 19:55:00 Departed Emergency Room 1 CAESAR WHITE [facility] [id number] [facility] 2018-09-09 10:33:00 2018-09-09 10:33:00 Registered Clinic 3 JASON SRIVASTAVA [facility] [id number] [facility] 2018-09-04 21:52:00 2018-09-05 01:24:00 Departed Emergency Room [facility] [id number] [facility] [place] 2018-06-11 08:58:00 2018-06-11 08:58:00 Registered Clinic 3 JASON SRIVASTAVA [facility] [id number] [facility] 2018-06-02 13:51:00 2018-06-02 18:34:00 Departed Emergency Room 1 BIANCA HURD [facility] [id number] [facility] Results Test Description Test Time Test Comments Results Result Comments Source CHEST SINGLE (PORTABLE) 2020-02-28 16:15:00 [place] [address] Patient Name: BRIDGET SHETTY MR #: [id number] : 1965 Age/Sex: 55/F Req #: [id number] Adm Physician: Ordered by: RYLEE JACKSON MD Report #: [id number] Location: ER Room/Bed: Procedure: [id number] DX/CHEST SINGLE (PORTABLE) Exam Date: 02/28/20 Exam Time: 1541 REPORT STATUS: Signed EXAMINATION: CHEST SINGLE (PORTABLE) INDICATION: Dizziness COMPARISON: Chest radiograph 07/09/2019 FINDINGS: LINES/TUBES:EKG leads overlie the chest. LUNGS:The lungs are well-inflated. No focal consolidation or pulmonary edema. PLEURA:No pleural effusion or pneumothorax. MEDIASTINUM:The cardiomediastinal silhouette appears normal in size and shape. BONES/SOFT TISSUES:No acute osseous injury. Old healed right clavicle fracture deformity. ABDOMEN:No free air under the diaphragm. IMPRESSION: No focal pneumonia or pulmonary edema. Signed by: Ramón Greenfield MD on 02/28/2020 4:15 PM Dictated By: RAMÓN GREENFIELD MD 14 Transcribed By: ROSY on 02/28/201614 COPY TO: RYLEE JACKSON MD CT BRAIN WO 2020-02-28 16:01:00 [place] [address] Patient Name: BRIDGET SHETTY MR #: [id number] : 1965 Age/Sex: 55/F Req #: [id number] Adm Physician: Ordered by: RYLEE JACKSON MD Report #: [id number] Location: Room/Bed: Procedure: [id number] CT/CT BRAIN WO Exam Date: 02/28/20 Exam Time: 1548 REPORT STATUS: Signed Exam: Head CT without contrast History: Dizziness, visual disturbance Comparison studies: None Technique: Axial images were obtained from the skull base to the vertex. Coronal and sagittal images reconstructed from the axial data. Dose modulation, iterative reconstruction, and/or weight based adjustment of the mA/kV was utilized to reduce the radiation dose to as low as reasonably achievable. Radiation dose: Total DLP: 921 mGy*cm. Estimated effective dose: DLP x 0.015 Intravenous contrast: None Findings: Scalp: No abnormalities. Bones: No fractures, blastic or lytic lesions. Brain sulci: Appropriate for age. Ventricles: Normal in size and configuration. No hydrocephalus. Extra-axial spaces: No masses, no fluid collection. Parenchyma: No abnormal densities. No masses, acute hemorrhage, acute or chronic vascular insults. Incidental punctate left occipital dystrophic calcification without surrounding edema or mass effect which may be sequela of remote infection or inflammation. Sellar/suprasellar region: No abnormalities. Craniocervical junction: Patent foramen magnum. No Chiari one malformation. Incidental findings: Calcified atherosclerosis in the carotid siphons and intradural vertebral arteries. IMPRESSION: No acute intracranial abnormalities. Signed by: Dr. Jackie Rodriguez M.D. on 02/28/2020 4:04 PM Dictated By: JACKIE RODRIGUEZ MD 160 Transcribed By: ROSY on 02/28/20 1604 COPY TO: RYLEE JACKSON MD Blood leukocytes automated count (number/volume) 2020-02-28 15:15:00 Test Item White Blood Count (test code = 6690-2) 9.62 4.8-10.8 [facility] automated count (number/volume)2020-02-28 15:15:00* Test Item Value Reference Range Interpretation Comments Red Blood Count (test code = 789-8) 4.48 3.6-5.1 [facility] hemoglobin measurement (moles/volume)2020-02-28 15:15:00* Test Item Value Reference Range Interpretation Comments Hemoglobin (test code = 55277-2) 11.6 12.0-16.0 [facility] HospitalAutomated blood hematocrit (volume fraction)2020-02-28 15:15:00* Test Item Value Reference Range Interpretation Comments Hematocrit (test code = 4544-3) 37.0 34.2-44.1 [facility] HospitalAutomated erythrocyte mean corpuscular rnkveo0966-12-03 15:15:00* Test Item Value Reference Range Interpretation Comments Mean Corpuscular Volume (test code = 787-2) 82.6 81-99 [facility] HospitalAutomated erythrocyte mean corpuscular hemoglobin (mass per erythrocyte)2020-02-28 15:15:00* Test Item Value Reference Range Interpretation Comments Mean Corpuscular Hemoglobin (test code = 785-6) 25.9 28-32 [facility] erythrocyte mean corpuscular hemoglobin concentration measurement (mass/volume)2020-02-28 15:15:00* Test Item Value Reference Range Interpretation Comments Mean Corpuscular Hemoglobin Concent (test code = 786-4) 31.4 31-35 [facility] HospitalRDW JnuWk-Jfp1069-09-05 15:15:00* Test Item Value Reference Range Interpretation Comments Red Cell Distribution Width (test code = 67898-6) 13.8 11.7 -14.4 [facility] HospitalAutformerly [facility] blood platelet count (count/volume)2020-02-28 15:15:00* Test Item Value Reference Range Interpretation Comments Platelet Count (test code = 777-3) 361 140-360 [facility] HospitalAutformerly [facility] blood segmented neutrophil count as percentage of total rliqomuxee5402-65-39 15:15:00* Test Item Value Reference Range Interpretation Comments Neutrophils (%) (Auto) (test code = 52722-5) 64.7 38.7-80.0 [facility] HospitalAutomated blood lymphocyte count as percentage ot total iqijnczouc7914-81-84 15:15:00* Test Item Value Reference Range Interpretation Comments Lymphocytes (%) (Auto) (test code = 736-9) 25.1 18.0-39.1 [facility] HospitalAutomated blood monocyte count as percentage of total wzayttvcph7263-98-49 15:15:00* Test Item Value Reference Range Interpretation Comments Monocytes (%) (Auto) (test code = 5905-5) 6.3 4.4-11.3 [facility] HospitalAutomated blood eosinophil count as percentage of total rmfaqexldd3396-78-38 15:15:00* Test Item Value Reference Range Interpretation Comments Eosinophils (%) (Auto) (test code = 713-8) 2.9 0.0-6.0 [facility] HospitalAutomated blood basophil count as percentage of total pskzgreqxa1351-22-81 15:15:00* Test Item Value Reference Range Interpretation Comments Basophils (%) (Auto) (test code = 706-2) 0.5 0.0-1.0 [facility] HospitalFluoroscopic procedure less than one hour uuvqqwmd3619-52-34 15:15:00* Test Item Value Reference Range Interpretation Comments IM GRANULOCYTES % (test code = IM GRANULOCYTES %) 0.5 0.0- 1.0 [facility] HospitalAutomated blood neutrophil count 2020-02-28 15:15:00* Test Item Value Reference Range Interpretation Comments Neutrophils # (Auto) (test code = 751-8) 6.2 2.1-6.9 [facility] HospitalBlood lymphocytes count (number/volume) 2020-02-28 15:15:00* Test Item Value Reference Range Interpretation Comments Lymphocytes # (Auto) (test code = 63759-9) 2.4 1.0-3.2 [facility] HospitalBlood monocytes automated count (number/volume)2020-02-28 15:15:00* Test Item Value Reference Range Interpretation Comments Monocytes # (Auto) (test code = 742-7) 0.6 0.2-0.8 [facility] HospitalAutomated blood eosinophil count 2020-02-28 15:15:00* Test Item Value Reference Range Interpretation Comments Eosinophils # (Auto) (test code = 711-2) 0.3 0.0-0.4 [facility] HospitalAutomated blood basophil count (count/volume)2020-02-28 15:15:00* Test Item Value Reference Range Interpretation Comments Basophils # (Auto) (test code = 704-7) 0.1 0.0-0.1 [facility] HospitalFluoroscopic procedure less than one hour xgqvjtmv2653-53-94 15:15:00* Test Item Value Reference Range Interpretation Comments Absolute Immature Granulocyte (auto (ecsar t code = Absolute Immature Granulocyte (auto) 0.05 0-0.1 [facility] sodium measurement (moles/volume)2020-02-28 15:15:00* Test Item Value Reference Range Interpretation Comments Sodium Level (test code = 2951-2) 138 136-145 [facility] potassium measurement (moles/volume)2020-02-28 15:15:00* Test Item Value Reference Range Interpretation Comments Potassium Level (test code = 2823-3) 4.0 3.5-5.1 [facility] plasma chloride measurement (moles/volume)2020-02-28 15:15:00* Test Item Value Reference Range Interpretation Comments Chloride Level (test code = 2075-0) 104 98-107 [facility] plasma carbon dioxide, total measurement (moles/volume)2020-02-28 15:15:00* Test Item Value Reference Range Interpretation Comments Carbon Dioxide Level (test code = 2028-9) 26 22-29 [facility] or plasma anion bkc2388-90-45 15:15:00* Test Item Value Reference Range Interpretation Comments Anion Gap (test code = 41848-4) 12.0 8-16 [facility] plasma urea nitrogen measurement (mass/volume)2020-02-28 15:15:00* Test Item Value Reference Range Interpretation Comments Blood Urea Nitrogen (test code = 3094-0) 15 7-26 [facility] plasma creatinine measurement (mass/volume)2020-02-28 15:15:00* Test Item Value Reference Range Interpretation Comments Creatinine (test code = 2160-0) 0.98 0.57-1.11 [facility] or plasma urea nitrogen/creatinine mass aekcn5535-01-02 15:15:00* Test Item Value Reference Range Interpretation Comments BUN/Creatinine Ratio (test code = 3097-3) 15 6-25 [facility] HospitalEstimated glomerular filtration rate (GFR) wsoamqwlxwokl3981-37-81 15:15:00* Test Item Value Reference Range Interpretation Comments Estimat Glomerular Filtration Rate (test code = 697370728) 59 >60 Ranges were taken from the National Kidney Disease Education Program and the [facility] literature.Reference ranges:60 or greater: Prpkjq54-84 ( for 3 consecutive months): Chronic kidney disease 15 or less: Kidney failureSt. Luke's Baptist HospitalGlucose ljqnkuwtywn4822-13-46 15:15:00* Test Item Value Reference Range Interpretation Comments Glucose Level (test code = DIH9798) 289 74-118 [facility] or plasma calcium measurement (mass/volume)2020-02-28 15:15:00* Test Item Value Reference Range Interpretation Comments Calcium Level (test code = 88641-1) 9.5 8.4-10.2 [facility] or plasma total bilirubin measurement (mass/volume)2020-02-28 15:15:00* Test Item Value Reference Range Interpretation Comments Total Bilirubin (test code = 1975-2) 0.2 0.2-1.2 [facility] HospitalFluoroscopic procedure less than one hour ddmpvwqq6885-22-14 15:15:00* Test Item Value Reference Range Interpretation Comments Aspartate Amino Transf (AST/SGOT) (test code = Aspartate Amino Transf (AST/SGOT)) 18 5-34 [facility] or plasma alanine aminotransferase measurement (enzymatic activity/volume)2020-02-28 15:15:00* Test Item Value Reference Range Interpretation Comments Alanine Aminotransferase (ALT/SGPT) (test code = 1742-6) 13 0-55 [facility] or plasma protein measurement (mass/volume)2020-02-28 15:15:00* Test Item Value Reference Range Interpretation Comments Total Protein (test code = 2885-2) 7.2 6.5-8.1 [facility] or plasma albumin measurement (mass/volume)2020-02-28 15:15:00* Test Item Value Reference Range Interpretation Comments Albumin (test code = 1751-7) 3.5 3.5-5.0 [facility] HospitalPlasma globulin measurement (mass/volume) 2020-02-28 15:15:00* Test Item Value Reference Range Interpretation Comments Globulin (test code = 14772-8) 3.7 2.3-3.5 [facility] or plasma albumin/globulin mass jejzb3253-48-51 15:15:00* Test Item Value Reference Range Interpretation Comments Albumin/Globulin Ratio (test code = 1759-0) 0.9 0.8-2.0 [facility]ere[facility] or plasma alkaline phosphatase measurement (enzymatic activity/volume)2020-02-28 15:15:00* Test Item Value Reference Range Interpretation Comments Alkaline Phosphatase (test code = 6768-6) 43 40-150 [facility]ere[facility] or plasma creatine kinase measurement (enzymatic activity/volume)2020-02-28 15:15:00* Test Item Value Reference Range Interpretation Comments Creatine Kinase (test code = 2157-6) 75 29-168 [facility]ererum or plasma creatine kinase MB measurement (mass/volume)2020-02-28 15:15:00* Test Item Value Reference Range Interpretation Comments Creatine Kinase MB (test code = 19707-8) 1.50 0-5.0 [facility] HospitalTroponin I measurement by highly sensitive enzyme ysfpumkhzvv0829-84-66 15:15:00* Test Item Value Reference Range Interpretation Comments Troponin I (test code = 57555-5) 0.067 0-0.300 [facility] HospitalBedside Rchnjtw2917-99-77 11:43:00* Test Item Value Reference Range Interpretation Comments Bedside Glucose (test code = 73131-4) 262 70-120 H Meter ID: [id number] Saint Anthony's HospitalCapillary blood glucose measurement by glucometer (mass/volume)2019-07-13 10:36:00* Test Item Value Reference Range Interpretation Comments Bedside Glucose (test code = 35393-6) 262 70-120 Meter ID: [id number] Saint Anthony's HospitalWhite Blood Count 2019-07-13 05:29:00* Test Item Value Reference Range Interpretation Comments White Blood Count (test code = 6690-2) 9.43 4.8-10.8 [facility] HospitalRed Blood Mjybm4008-92-80 05:29:00* Test Item Value Reference Range Interpretation Comments Red Blood Count (test code = 789-8) 3.72 3.6-5.1 [facility] HospitalHemoglobin2020-02-18 05:29:00* Test Item Value Reference Range Interpretation Comments Hemoglobin (test code = 24060-6) 10.2 12.0-16.[address] [facility] HospitalHematocrit2020-02-18 05:29:00* Test Item Value Reference Range Interpretation Comments Hematocrit (test code = 4544-3) 31.5 34.2-44.[address] [facility] HospitalMean Corpuscular Xnnqbo4218-75-63 05:29:00* Test Item Value Reference Range Interpretation Comments Mean Corpuscular Volume (test code = 787-2) 84.7 81-99 [facility] HospitalMean Corpuscular Gevhpobpis8163-81-59 05:29:00* Test Item Value Reference Range Interpretation Comments Mean Corpuscular Hemoglobin (test code = 785-6) 27.4 28-[address] [facility] HospitalMean Corpuscular Hemoglobin Concent 2019-07-13 05:29:00* Test Item Value Reference Range Interpretation Comments Mean Corpuscular Hemoglobin Concent (test code = 786-4) 32.4 31-35 [facility] HospitalRed Cell Distribution Umynd4512-09-13 05:29:00* Test Item Value Reference Range Interpretation Comments Red Cell Distribution Width (test code = 43648-4) 15.3 11.7 -14.[address] [facility] HospitalPlatelet Nmauo6843-02-81 05:29:00* Test Item Value Reference Range Interpretation Comments Platelet Count (test code = 777-3) 232 140-360 [facility] HospitalNeutrophils (%) (Auto)2019-07-13 05:29:00 * Test Item Value Reference Range Interpretation Comments Neutrophils (%) (Auto) (test code = 79998-7) 59.7 38.7-80.0 [facility] HospitalLymphocytes (%) (Auto)2019-07-13 05:29:00 * Test Item Value Reference Range Interpretation Comments Lymphocytes (%) (Auto) (test code = 736-9) 28.1 18.0-39.1 [facility] HospitalMonocytes (%) (Auto)2019-07-13 05:29:00* Test Item Value Reference Range Interpretation Comments Monocytes (%) (Auto) (test code = 5905-5) 7.6 4.4-11.3 [facility] HospitalEosinophils (%) (Auto)2019-07-13 05:29:00 * Test Item Value Reference Range Interpretation Comments Eosinophils (%) (Auto) (test code = 713-8) 3.7 0.0-6.0 [facility] HospitalBasophils (%) (Auto)2019-07-13 05:29:00* Test Item Value Reference Range Interpretation Comments Basophils (%) (Auto) (test code = 706-2) 0.5 0.0-1.0 [facility] HospitalIM GRANULOCYTES %2019-07-13 05:29:00* Test Item Value Reference Range Interpretation Comments IM GRANULOCYTES % (test code = IM GRANULOCYTES %) 0.4 0.0- 1.0 [facility] HospitalNeutrophils # (Auto)2019-07-13 05:29:00* Test Item Value Reference Range Interpretation Comments Neutrophils # (Auto) (test code = 751-8) 5.6 2.1-6.9 [facility] HospitalLymphocytes # (Auto)2019-07-13 05:29:00* Test Item Value Reference Range Interpretation Comments Lymphocytes # (Auto) (test code = 63727-0) 2.7 1.0-3.2 [facility] HospitalMonocytes # (Auto)2019-07-13 05:29:00* Test Item Value Reference Range Interpretation Comments Monocytes # (Auto) (test code = 742-7) 0.7 0.2-0.8 [facility] HospitalEosinophils # (Auto)2019-07-13 05:29:00* Test Item Value Reference Range Interpretation Comments Eosinophils # (Auto) (test code = 711-2) 0.4 0.0-0.4 [facility] HospitalBasophils # (Auto)2019-07-13 05:29:00* Test Item Value Reference Range Interpretation Comments Basophils # (Auto) (test code = 704-7) 0.1 0.0-0.1 [facility] HospitalAbsolute Immature Granulocyte (auto 2019-07-13 05:29:00* Test Item Value Reference Range Interpretation Comments Absolute Immature Granulocyte (auto (cesar t code = Absolute Immature Granulocyte (auto) 0.04 0-0.1 [facility] HospitalBlood Pmqfwmu3652-06-37 05:26:00* Test Item Value Reference Range Interpretation Comments Blood Culture (test code = 09579987) NO GROWTH AFTER 5 DAYS, FINAL REPORT [facility] Centerodium Mycld5357-81-32 06:41:00* Test Item Value Reference Range Interpretation Comments Sodium Level (test code = 2951-2) 143 136-145 [facility] HospitalPotassium Wldkj2367-74-16 06:41:00* Test Item Value Reference Range Interpretation Comments Potassium Level (test code = 2823-3) 3.6 3.5-5.1 [facility] HospitalChloride Sckon1688-76-20 06:41:00* Test Item Value Reference Range Interpretation Comments Chloride Level (test code = 2075-0) 106 98-107 [facility] HospitalCarbon Dioxide Ixktg2754-65-86 06:41:00* Test Item Value Reference Range Interpretation Comments Carbon Dioxide Level (test code = 2028-9) 27 22-29 [facility] HospitalAnion Gdd1408-70-06 06:41:00* Test Item Value Reference Range Interpretation Comments Anion Gap (test code = 29731-6) 13.6 8-16 [facility] HospitalBlood Urea Tqvrsujs0364-71-03 06:41:00* Test Item Value Reference Range Interpretation Comments Blood Urea Nitrogen (test code = 3094-0) < 5 7-[address] [facility] HospitalCreatinine2020-02-17 06:41:00* Test Item Value Reference Range Interpretation Comments Creatinine (test code = 2160-0) 0.66 0.57-1.11 [facility] HospitalBUN/Creatinine Ikipk9281-86-44 06:41:00* Test Item Value Reference Range Interpretation Comments BUN/Creatinine Ratio (test code = 3097-3) 8 6-25 [facility] HospitalEstimat Glomerular Filtration Rate 2019-07-12 06:41:00* Test Item Value Reference Range Interpretation Comments Estimat Glomerular Filtration Rate (test code = 961043437) > 60 >60 Ranges were taken from the National Kidney Disease Education Program and the [facility] literature.Reference ranges:60 or greater: Nzpgfk28-37 ( for 3 consecutive months): Chronic kidney disease 15 or less: Kidney failureSt. Luke's Baptist HospitalGlucose Yerzc1552-73-64 06:41:00* Test Item Value Reference Range Interpretation Comments Glucose Level (test code = MYR9416) 84 74-118 [facility] HospitalCalcium Yvbvl3038-61-28 06:41:00* Test Item Value Reference Range Interpretation Comments Calcium Level (test code = 87420-2) 8.7 8.4-10.2 [facility] HospitalCHEST XRAY LINE VINIBVCZD4368-96-82 20:00:00 [facility] [address] [address] Patient Name: BRIDGET SHETTY MR #: [id number] : 1965 Age/Sex: 54/F Req #: [id number] Adm Physician: SUSAN CHRISTY MD Ordered by: SUSAN CHRISTY MD Report #: [id number] Location: ICU Room/Bed: ICU [facility] Procedure: [id number] DX /CHEST XRAY LINE PLACEMENT Exam Date: 07/09/19 Exam Time: 1934 REPORT STATUS: Signed EXAMINATION: CHEST XRAY LINE PLACEMENT INDICATION: picc placement [id number] COMPARISON: 07/07/2019. FINDINGS: TUBES and LINES: Interval placement of a left upper extremity PICC with dist al tip projected on the cavoatrial junction, adequate [...] a left upper extremity PICC with distal ti p projected on the cavoatrial junction, adequate position. Signed by: Dr. Jeffrey Diehl M.D. on 07/09/2019 8:01 PM Dictated By: NOEL BEATTY MD, MD 00 T ranscribed By: ROSY on 07/09/192000 COPY TO: SUSAN CHRISTY MD Prothrombin Ewkr7460-42-10 08:30:00* Test Item Value Reference Range Interpretation Comments Prothrombin Time (test code = 5902-2) 14.8 11.9-14.[address] [facility] HospitalProthromb Time International Ratio 2019-07-09 08:30:00* Test Item Value Reference Range Interpretation Comments Prothromb Time International Ratio (test code = 6301-6) 1.09 Oral Anticoagulant Therapy INR Values:1. Low Intensity Therapy 1.5 - 2.02 . Moderate Intensity Therapy 2.0 - 3.03. High Intensity Therapy(1) 2.5 - 3. 54. High Intensity Therapy(2) 3.0 - 4.05. Panic Value INR > 5.0 [facility] HospitalActivated Partial Thromboplast Time 2019-07-09 08:30:00* Test Item Value Reference Range Interpretation Comments Activated Partial Thromboplast Time (test code = 29587-1) 25.8 23.8-35.5 [facility] HospitalProthrombin time (PT) in platelet poor plasma by coagulation dxqze1968-90-31 07:00:00* Test Item Value Reference Range Interpretation Comments Prothrombin Time (test code = 5902-2) 14.8 11.9-14.5 [facility] HospitalINR in Platelet poor plasma by Coagulation ttapf1681-19-67 07:00:00* Test Item Value Reference Range Interpretation Comments Prothromb Time International Ratio (test code = 6301-6) 1.09 Oral Anticoagulant Therapy INR Values:1. Low Intensity Therapy 1.5 - 2.02 . Moderate Intensity Therapy 2.0 - 3.03. High Intensity Therapy(1) 2.5 - 3. 54. High Intensity Therapy(2) 3.0 - 4.05. Panic Value INR > 5.0 [facility] HospitalActivated partial thromboplastin time (aPTT) in platelet poor plasma by coagulation ycjfa5908-26-82 07:00:00* Test Item Value Reference Range Interpretation Comments Activated Partial Thromboplast Time (test code = 83471-9) 25.8 23.8-35.5 [facility] HospitalTotal Ysicgrcny5959-94-30 05:40:00* Test Item Value Reference Range Interpretation Comments Total Bilirubin (test code = 1975-2) 0.2 0.2-1.2 [facility] HospitalAspartate Amino Transf (AST/SGOT) 2019-07-09 05:40:00* Test Item Value Reference Range Interpretation Comments Aspartate Amino Transf (AST/SGOT) (test code = Aspartate Amino Transf (AST/SGOT)) 15 5-34 [facility] HospitalAlanine Aminotransferase (ALT/SGPT) 2019-07-09 05:40:00* Test Item Value Reference Range Interpretation Comments Alanine Aminotransferase (ALT/SGPT) (test code = 1742-6) 9 0-55 [facility] HospitalTotal Ynqfgod3778-20-98 05:40:00* Test Item Value Reference Range Interpretation Comments Total Protein (test code = 2885-2) 4.3 6.5-8.[address] [facility] HospitalAlbumin2020-02-14 05:40:00* Test Item Value Reference Range Interpretation Comments Albumin (test code = 1751-7) 2.6 3.5-5.[address] [facility] HospitalGlobulin2020-02-14 05:40:00* Test Item Value Reference Range Interpretation Comments Globulin (test code = 58601-1) 1.7 2.3-3.[address] [facility] HospitalAlbumin/Globulin Wmxfh0735-71-73 05:40:00 * Test Item Value Reference Range Interpretation Comments Albumin/Globulin Ratio (test code = 1759-0) 1.5 0.8-2.0 [facility] HospitalAlkaline Kyjluoqruxl2803-41-57 05:40:00* Test Item Value Reference Range Interpretation Comments Alkaline Phosphatase (test code = 6768-6) 27 40-[address] [facility] HospitalTroponin T3140-35-20 22:07:00* Test Item Value Reference Range Interpretation Comments Troponin I (test code = IPW4157) 0.030 0-0.300 [facility] HospitalCreatine Kinase XD7160-40-78 20:02:00* Test Item Value Reference Range Interpretation Comments Creatine Kinase MB (test code = 74162-3) 3.20 0-4.3 [facility] HospitalCreatine Mssvha9595-15-93 19:52:00* Test Item Value Reference Range Interpretation Comments Creatine Kinase (test code = 2157-6) 66 29-168 [facility] HospitalPhosphorus Prtwr8659-70-07 07:38:00* Test Item Value Reference Range Interpretation Comments Phosphorus Level (test code = VCF7956) 4.1 2.3-4.7 [facility] HospitalMagnesium Pysue2904-93-57 07:38:00* Test Item Value Reference Range Interpretation Comments Magnesium Level (test code = 45973-3) 1.4 1.3-2.1 [facility] HospitalTriglycerides Qozlg7132-69-45 07:38:00* Test Item Value Reference Range Interpretation Comments Triglycerides Level (test code = 2571-8) 258 0-[address] [facility] HospitalCholesterol Ukajb9063-13-11 07:38:00* Test Item Value Reference Range Interpretation Comments Cholesterol Level (test code = 2093-3) 80 0-199 Less than 200 mg/dL Low Egqx487 - 239 mg/dL Borderline Ummj970 m g/dl and greater High Risk [facility] HospitalLDL Mzhqrfyzafp7075-30-24 07:38:00* Test Item Value Reference Range Interpretation Comments LDL Cholesterol (test code = 2089-1) 11 60-[address] [facility] HospitalHDL Tdloemkvvob1484-66-64 07:38:00* Test Item Value Reference Range Interpretation Comments HDL Cholesterol (test code = 2085-9) 17 40-[address] [facility] HospitalCholesterol/HDL Bctev8726-69-84 07:38:00 * Test Item Value Reference Range Interpretation Comments Cholesterol/HDL Ratio (test code = 9830-1) 4.7 3.0-3.[address] [facility] HospitalPhosphorus wriposrmbjw5947-39-69 05:55:00 * Test Item Value Reference Range Interpretation Comments Phosphorus Level (test code = NNT3211) 4.1 2.3-4.7 [facility] plasma magnesium measurement (mass/volume)2019-07-08 05:55:00* Test Item Value Reference Range Interpretation Comments Magnesium Level (test code = 61890-3) 1.4 1.3-2.1 [facility]ererum or plasma triglyceride measurement (mass/volume)2019-07-08 05:55:00* Test Item Value Reference Range Interpretation Comments Triglycerides Level (test code = 2571-8) 258 0-149 [facility]ererum or plasma cholesterol measurement (mass/volume)2019-07-08 05:55:00* Test Item Value Reference Range Interpretation Comments Cholesterol Level (test code = 2093-3) 80 0-199 Less than 200 mg/dL Low Ugof969 - 239 mg/dL Borderline Rdth126 m g/dl and greater High Risk [facility]ererum or plasma cholesterol in LDL measurement (mass/volume) 2019-07-08 05:55:00* Test Item Value Reference Range Interpretation Comments LDL Cholesterol (test code = 2089-1) 11 60-130 [facility]ererum or plasma cholesterol in HDL measurement (mass/volume)2019-07-08 05:55:00* Test Item Value Reference Range Interpretation Comments HDL Cholesterol (test code = 2085-9) 17 40-60 [facility]ererum or plasma total cholesterol/cholesterol in HDL mass lbsqg2781-22-19 05:55:00* Test Item Value Reference Range Interpretation Comments Cholesterol/HDL Ratio (test code = 9830-1) 4.7 3.0-3.6 [facility] HospitalDifferential Total Cells Counted 2019-07-07 20:09:00* Test Item Value Reference Range Interpretation Comments Differential Total Cells Counted (test code = Differen tial Total Cells Counted) 100 [facility] HospitalNeutrophils % (Manual)2019-07-07 20:09:00 * Test Item Value Reference Range Interpretation Comments Neutrophils % (Manual) (test code = 04021-0) 52 40-74 [facility] HospitalLymphocytes % (Manual)2019-07-07 20:09:00 * Test Item Value Reference Range Interpretation Comments Lymphocytes % (Manual) (test code = 737-7) 39 19-48 [facility] HospitalMonocytes % (Manual)2019-07-07 20:09:00* Test Item Value Reference Range Interpretation Comments Monocytes % (Manual) (test code = 744-3) 8 3.4-9.0 [facility] HospitalReactive Vionenvwovy0724-20-32 20:09:00* Test Item Value Reference Range Interpretation Comments Reactive Lymphocytes (test code = 42219-7) 1 [facility] HospitalPlatelet Ihepscsh5069-02-71 20:09:00* Test Item Value Reference Range Interpretation Comments Platelet Estimate (test code = 80332-0) ADEQUATE [facility] HospitalPlatelet Morphology Vuhhwbv0912-38-66 20:09:00* Test Item Value Reference Range Interpretation Comments Platelet Morphology Comment (test code = 68893-5) NORMAL [facility] HospitalHypochromasia2020-02-12 20:09:00* Test Item Value Reference Range Interpretation Comments Hypochromasia (test code = 728-6) SLIGHT [facility] HospitalRed Cell Morphology Xlcbtcj7624-65-11 20:09:00* Test Item Value Reference Range Interpretation Comments Red Cell Morphology Comment (test code = 6742-1) NORMAL [facility] HospitalArterial Blood sJ1106-80-21 19:10:00* Test Item Value Reference Range Interpretation Comments Arterial Blood pH (test code = 2744-1) 7.42 7.31-7.[address] [facility] HospitalArterial Blood Partial Pressure CO2 2019-07-07 19:10:00* Test Item Value Reference Range Interpretation Comments Arterial Blood Partial Pressure CO2 (test code = 2019-8) 27 41-[address] [facility] HospitalArterial Blood Partial Pressure O2 2019-07-07 19:10:00* Test Item Value Reference Range Interpretation Comments Arterial Blood Partial Pressure O2 (test code = 2019-8) 95 80-105 [facility] HospitalArterial Blood OSZ16076-19-59 19:10:00* Test Item Value Reference Range Interpretation Comments Arterial Blood HCO3 (test code = 1960-4) 17 23-[address] [facility] HospitalArterial Blood Base Cpthze7450-67-80 19:10:00* Test Item Value Reference Range Interpretation Comments Arterial Blood Base Excess (test code = 1925-7) -7.0 -2-[address] [facility] HospitalArterial Blood Oxygen Saturation 2019-07-07 19:10:00* Test Item Value Reference Range Interpretation Comments Arterial Blood Oxygen Saturation (test code = 2708-6) 98.0 95-98 [facility] HospitalFiO22020-02-12 19:10:00* Test Item Value Reference Range Interpretation Comments FiO2 (test code = FiO2) 21 ABG DRAWN ON RIGHT RADIAL ON RAPATIENT DOES TAKE ASPIRIN DAILY RESULTS GIVEN TO THE PATIENT ER NURSE [facility] HospitalArterial blood pH rnijezhgjtf7334-62-82 17:36:00* Test Item Value Reference Range Interpretation Comments Arterial Blood pH (test code = 2744-1) 7.42 7.31-7.41 [facility] HospitalpCO2 IflF2102-69-84 17:36:00* Test Item Value Reference Range Interpretation Comments Arterial Blood Partial Pressure CO2 (test code = 2018-12) 27 41-51 [facility] HospitalpCO2 McqY3755-68-28 17:36:00* Test Item Value Reference Range Interpretation Comments Arterial Blood Partial Pressure O2 (test code = 2018-12) 95 80-105 [facility] HospitalArterial blood bicarbonate measurement (moles/volume)2019-07-07 17:36:00* Test Item Value Reference Range Interpretation Comments Arterial Blood HCO3 (test code = 1960-4) 17 [facility] HospitalArterial blood base excess by calculation 2019-07-07 17:36:00* Test Item Value Reference Range Interpretation Comments Arterial Blood Base Excess (test code = 1925-7) -7.0 -2-3 [facility] HospitalArterial blood oxygen saturation agrqhqqfviu9988-62-19 17:36:00* Test Item Value Reference Range Interpretation Comments Arterial Blood Oxygen Saturation (test code = 2708-6) 98.0 95-98 [facility] HospitalFluoroscopic procedure less than one hour iohxwvgw5221-51-13 17:36:00* Test Item Value Reference Range Interpretation Comments FiO2 (test code = FiO2) 21 ABG DRAWN ON RIGHT RADIAL ON RAPATIENT DOES TAKE ASPIRIN DAILY RESULTS GIVEN TO THE PATIENT ER NURSE [facility] HospitalCT CHEST Q6635-08-97 17:24:00 [facility] [address] [place] [address] Patient Name: BRIDGTE SHETTY MR #: [id number] : 1965 Age/Sex: 54/F Req #: [id number] Adm Physician: SUSAN CHRISTY MD Ordered by: JANEL SOSA MD, MD Report #: [id number] Location: [facility] Room/Bed: ERHOLD-4 Procedure: [id number]/CT CHEST W Exam [...] abdominal solid organs are unremarkable. Impression: No C T evidence of acute pulmonary embolism. Signed by: Dr. Anthony Grace MD on 5:25 PM Dictated By: DESHAUN GRACE MD 24 Transcribed By: ROSY on 07/07/191724 COPY TO: JANEL SOSA Urine KLD9740-85-82 15:48:00* Test Item Value Reference Range Interpretation Comments Urine WBC (test code = 5821-4) 6-10 0-[address] [facility] HospitalUrine VIS0283-34-83 15:48:00* Test Item Value Reference Range Interpretation Comments Urine RBC (test code = 90121-4) NONE 0-5 [facility] Uuewoiqr2776-79-66 15:48:00* Test Item Value Reference Range Interpretation Comments Urine Bacteria (test code = 31567-5) MANY NONE H [facility] HospitalUrine Epithelial Qvkcz9914-26-29 15:48:00 * Test Item Value Reference Range Interpretation Comments Urine Epithelial Cells (test code = 81690-2) MODERATE NONE [facility] HospitalLipase2020-02-12 15:38:00* Test Item Value Reference Range Interpretation Comments Lipase (test code = 3040-3) 13 8-78 [facility] HospitalThyroid Stimulating Hormone (TSH) 2019-07-07 15:38:00* Test Item Value Reference Range Interpretation Comments Thyroid Stimulating Hormone (TSH) (test code = 50269-1) 1.895 0.350-4.940 [facility] HospitalUrine Pfjna3188-51-20 15:37:00* Test Item Value Reference Range Interpretation Comments Urine Color (test code = 5778-6) YELLOW YELLOW [facility] HospitalUrine Qejxavs6302-90-98 15:37:00* Test Item Value Reference Range Interpretation Comments Urine Clarity (test code = 34071-8) SL CLOUDY CLEAR [facility] HospitalUrine Specific Ycavbcx9564-09-39 15:37:00 * Test Item Value Reference Range Interpretation Comments Urine Specific [place] (test code = 5811-5) 1.025 1.010-1.[address] [facility] HospitalUrine wK9609-37-43 15:37:00* Test Item Value Reference Range Interpretation Comments Urine pH (test code = 43535-4) 5.5 5-7 [facility] HospitalUrine Leukocyte Oyqbffhj4204-66-91 15:37:00* Test Item Value Reference Range Interpretation Comments Urine Leukocyte Esterase (test code = 5799-2) TRACE NEGATIVE H [facility] HospitalUrine Ylyshvp5552-97-41 15:37:00* Test Item Value Reference Range Interpretation Comments Urine Nitrite (test code = 11522-5) NEGATIVE NEGATIVE [facility] HospitalUrine Mbpyoat5195-71-52 15:37:00* Test Item Value Reference Range Interpretation Comments Urine Protein (test code = 5804-0) TRACE NEGATIVE H [facility] HospitalUrine Glucose (UA)2019-07-07 15:37:00* Test Item Value Reference Range Interpretation Comments Urine Glucose (UA) (test code = 2349-9) NEGATIVE NEGATIVE [facility] HospitalUrine Jururmi6832-45-87 15:37:00* Test Item Value Reference Range Interpretation Comments Urine Ketones (test code = 04086-1) TRACE NEGATIVE H [facility] HospitalUrine Mwtabdbodlcz3628-51-89 15:37:00* Test Item Value Reference Range Interpretation Comments Urine Urobilinogen (test code = 94255-5) 0.2 0.2-1 [facility] HospitalUrine Dwhqoscqx9883-13-99 15:37:00* Test Item Value Reference Range Interpretation Comments Urine Bilirubin (test code = 1978-6) NEGATIVE NEGATIVE [facility] HospitalUrine Aywrb5881-25-83 15:37:00* Test Item Value Reference Range Interpretation Comments Urine Blood (test code = 28190-1) NEGATIVE NEGATIVE [facility] HospitalB-Type Natriuretic Ogiizuv3018-25-52 15:24:00* Test Item Value Reference Range Interpretation Comments B-Type Natriuretic Peptide (test code = 92579-6) 162.1 0-[address] [facility] HospitalCHEST SINGLE (NOT PORTABLE)2019-07-07 15:22:00 [facility] [address] [address] Patient Name: BRIDGET SHETTY MR #: [id number] : 1965 Age/Sex: 54/F Req #: [id number] Adm Physician: Ordered by: ASH LIVINGSTON [employer] CLE[employer]ER Report #: [id number] Location: ER Room/Bed: Procedure: [id number] D X/CHEST SINGLE (NOT PORTABLE) Exam Date: [...] 3:24 PM Dictated By: DESHAUN GRACE MD [facility] Signed By: DESHAUN GRACE MD on 07/07/19 1524 Transcribed By: ROSY on 07/07/19 1524 COPY TO: ASH [employer] Influenza Virus Types A,B Xwqbvle0196-90-86 15:19:00* Test Item Value Reference Range Interpretation Comments Influenza Virus Types A,B Antigen (test code = 55856-0) NEGATIVE NEGATIVE [facility] HospitalD-Dimer Quantitative (PE/DVT)2019-07-07 15:08:00* Test Item Value Reference Range Interpretation Comments D-Dimer Quantitative (PE/DVT) (test code = 06105-4) 0.18 0. 00-0.45 As with all in vitro diagnostic tests, the test results should be interpreted by the physician in conjunction with clinical findings and other test results.Test results are reported in NEW D-dimer units(ug/mLFEU).[facility] HospitalFluoroscopic procedure less than one hour knggheyc1405-34-93 12:52:00* Test Item Value Reference Range Interpretation Comments Differential Total Cells Counted (test code = Differen tial Total Cells Counted) 100 [facility] blood neutrophils/100 leukocytes 2019-07-07 12:52:00* Test Item Value Reference Range Interpretation Comments Neutrophils % (Manual) (test code = 53946-2) 52 40-74 [facility] blood lymphocytes/100 leukocytes 2019-07-07 12:52:00* Test Item Value Reference Range Interpretation Comments Lymphocytes % (Manual) (test code = 737-7) 39 19-48 [facility] blood monocytes/100 leukocytes 2019-07-07 12:52:00* Test Item Value Reference Range Interpretation Comments Monocytes % (Manual) (test code = 744-3) 8 3.4-9.0 [facility] lymphocytes variant count (number/volume)2019-07-07 12:52:00* Test Item Value Reference Range Interpretation Comments Reactive Lymphocytes (test code = 90105-3) 1 [facility] HospitalBlood platelets count by estimate (number/volume)2019-07-07 12:52:00* Test Item Value Reference Range Interpretation Comments Platelet Estimate (test code = 40937-7) ADEQUATE [facility] HospitalPlatelet hmljejaxtq2457-36-60 12:52:00* Test Item Value Reference Range Interpretation Comments Platelet Morphology Comment (test code = 97093-1) NORMAL [facility] hypochromia detection by light orzcxbmqii4281-43-60 12:52:00* Test Item Value Reference Range Interpretation Comments Hypochromasia (test code = 728-6) SLIGHT [facility] HospitalRBC thnjtgngyu7055-93-24 12:52:00* Test Item Value Reference Range Interpretation Comments Red Cell Morphology Comment (test code = 6742-1) NORMAL [facility] HospitalFibrin D-dimer DDU measurement in platelet poor plasma (mass/volume)2019-07-07 12:52:00* Test Item Value Reference Range Interpretation Comments D-Dimer Quantitative (PE/DVT) (test code = 43449-9) 0.18 0. 00-0.45 As with all in vitro diagnostic tests, the test results should be interpreted by the physician in conjunction with clinical findings and other test results.Test results are reported in NEW D-dimer units(ug/mLFEU).[facility] HospitalInfluenza virus A and B antigen identification by ixccsiouvyfbjsoydy4342-41-49 12:52:00* Test Item Value Reference Range Interpretation Comments Influenza Virus Types A,B Antigen (test code = 19076-5) NEGATIVE NEGATIVE [facility] HospitalBNP Xjz-iKid1102-14-12 12:52:00* Test Item Value Reference Range Interpretation Comments B-Type Natriuretic Peptide (test code = 85445-5) 162.1 0-100 [facility] or plasma lipase measurement (enzymatic activity/volume)2019-07-07 12:52:00* Test Item Value Reference Range Interpretation Comments Lipase (test code = 3040-3) 13 8-78 [facility]ererum or plasma thyrotropin measurement by detection limit <= 0.005 miu/l (units/volume)2019-07-07 12:52:00* Test Item Value Reference Range Interpretation Comments Thyroid Stimulating Hormone (TSH) (test code = 25490-7) 1.895 0.350-4.940 [facility] HospitalUrine color mrtlophulfswq7558-98-03 12:47:00* Test Item Value Reference Range Interpretation Comments Urine Color (test code = 5778-6) YELLOW YELLOW [facility] HospitalUrine owmgoiw2161-00-01 12:47:00* Test Item Value Reference Range Interpretation Comments Urine Clarity (test code = 44222-5) SL CLOUDY CLEAR [facility] Centerpecific gravity of Urine by Test strip 2019-07-07 12:47:00* Test Item Value Reference Range Interpretation Comments Urine Specific [place] (test code = 5811-5) 1.025 1.010-1.[address] [facility] HospitalUrine pH measurement by automated test yigdd4417-01-15 12:47:00* Test Item Value Reference Range Interpretation Comments Urine pH (test code = 70263-0) 5.5 5-7 [facility] HospitalUrine leukocyte esterase detection by ldsfoxtk7789-27-63 12:47:00* Test Item Value Reference Range Interpretation Comments Urine Leukocyte Esterase (test code = 5799-2) TRACE NEGATIVE [facility] HospitalUrine nitrite zfjqbyzmo9429-83-52 12:47:00* Test Item Value Reference Range Interpretation Comments Urine Nitrite (test code = 05084-5) NEGATIVE NEGATIVE [facility] HospitalUrine protein measurement by test strip (mass/volume)2019-07-07 12:47:00* Test Item Value Reference Range Interpretation Comments Urine Protein (test code = 5804-0) TRACE NEGATIVE [facility] HospitalUrine glucose zjgfnqfsj4892-49-41 12:47:00* Test Item Value Reference Range Interpretation Comments Urine Glucose (UA) (test code = 2349-9) NEGATIVE NEGATIVE [facility] HospitalUrine ketones detection by automated test fgdvi9070-39-37 12:47:00* Test Item Value Reference Range Interpretation Comments Urine Ketones (test code = 09956-2) TRACE NEGATIVE [facility] HospitalUrine urobilinogen measurement by test strip (mass/volume)2019-07-07 12:47:00* Test Item Value Reference Range Interpretation Comments Urine Urobilinogen (test code = 99287-0) 0.2 0.2-1 [facility] HospitalUrine total bilirubin measurement (mass/volume)2019-07-07 12:47:00* Test Item Value Reference Range Interpretation Comments Urine Bilirubin (test code = 1978-6) NEGATIVE NEGATIVE [facility] HospitalUrine erythrocytes erkkuapnk5109-70-47 12:47:00* Test Item Value Reference Range Interpretation Comments Urine Blood (test code = 75659-1) NEGATIVE NEGATIVE [facility] HospitalAutomated urine sediment leukocyte count by microscopy (number/high power field)2019-07-07 12:47:00* Test Item Value Reference Range Interpretation Comments Urine WBC (test code = 5821-4) 6-10 0-5 [facility] HospitalErythrocytes detection in urine sediment by light slxqqlmckv4993-68-22 12:47:00* Test Item Value Reference Range Interpretation Comments Urine RBC (test code = 43787-4) NONE 0-5 [facility] HospitalBacteria detection in urine sediment by light onqunyzlit9421-65-25 12:47:00* Test Item Value Reference Range Interpretation Comments Urine Bacteria (test code = 50866-7) MANY NONE [facility] HospitalEpithelial cells detection in urine sediment by light fnpkgpcrmh1300-91-19 12:47:00* Test Item Value Reference Range Interpretation Comments Urine Epithelial Cells (test code = 98983-7) MODERATE NONE [facility] HospitalBlood mkyhbwa7058-36-33 00:55:00* Test Item Value Reference Range Interpretation Comments Blood Culture (test code = 53412575) NO GROWTH AFTER 5 DAYS, FINAL REPORT [facility] FG1765-71-40 13:52:00 [facility] [address] [address] Patient Name: BRIDGET SHETTY MR #: [id number] : [birth year] Age/Sex: 54/F Req #: [id number] Adm Physician: Ordered by: SUSAN CHRISTY MD Report #: [id number] Location: MRI Room/Bed: Procedure: [id number] MRI /MRI SPINE LUMBAR WO Exam Date: [...] 04/14/192126 COPY TO: SUSAN CHRISTY MD Urine VRU2734-02-70 18:01:00* Test Item Value Reference Range Interpretation Comments Urine WBC (test code = 5821-4) NONE 0-5 [facility] WBU2151-78-54 18:01:00* Test Item Value Reference Range Interpretation Comments Urine RBC (test code = 83047-8) NONE 0-5 [facility] HospitalU[facility] Vsallfpu2138-93-59 18:01:00* Test Item Value Reference Range Interpretation Comments Urine Bacteria (test code = 13584-1) NONE NONE [facility] HospitalUrine Epithelial Tjjef9837-10-53 18:01:00 * Test Item Value Reference Range Interpretation Comments Urine Epithelial Cells (test code = 08763-1) FEW NONE [facility] HospitalU[facility] Euscz7663-00-56 17:46:00* Test Item Value Reference Range Interpretation Comments Urine Color (test code = 5778-6) YELLOW YELLOW [facility] Gxsszcw8643-97-06 17:46:00* Test Item Value Reference Range Interpretation Comments Urine Clarity (test code = 66403-1) CLEAR CLEAR [facility] HospitalU[facility] Specific Mdaizql9316-59-03 17:46:00 * Test Item Value Reference Range Interpretation Comments Urine Specific [place] (test code = 5811-5) 1.010 1.010-1.[address] [facility] HospitalU[facility] sY5642-66-44 17:46:00* Test Item Value Reference Range Interpretation Comments Urine pH (test code = 86142-5) 7.5 5-7 [facility] Leukocyte Tdkjjfzo4740-66-85 17:46:00* Test Item Value Reference Range Interpretation Comments Urine Leukocyte Esterase (test code = 97279-6) NEGATIVE NEGATIV E [facility] Hsqrrsg0213-09-48 17:46:00* Test Item Value Reference Range Interpretation Comments Urine Nitrite (test code = 00027-2) NEGATIVE NEGATIVE [facility] Jpqqnng2801-17-42 17:46:00* Test Item Value Reference Range Interpretation Comments Urine Protein (test code = 24210-9) NEGATIVE NEGATIVE [facility] HospitalUrine Glucose (UA)2019-03-23 17:46:00* Test Item Value Reference Range Interpretation Comments Urine Glucose (UA) (test code = 82281-3) NEGATIVE NEGATIVE [facility] HospitalUrine Newhyty2312-69-70 17:46:00* Test Item Value Reference Range Interpretation Comments Urine Ketones (test code = 22911-6) NEGATIVE NEGATIVE [facility] Sqaoguilvmnj5304-91-34 17:46:00* Test Item Value Reference Range Interpretation Comments Urine Urobilinogen (test code = 79526-4) 0.2 0.2-1 [facility] HospitalU[facility] Jregbfirb4872-22-46 17:46:00* Test Item Value Reference Range Interpretation Comments Urine Bilirubin (test code = 1977-8) NEGATIVE NEGATIVE [facility] HospitalU[facility] Bpkbr1441-95-37 17:46:00* Test Item Value Reference Range Interpretation Comments Urine Blood (test code = 15720-9) NEGATIVE NEGATIVE [facility] HospitalCT ABDOMEN/PELVIS DB4343-14-82 17:17:00 [address] [address] Patient Name: BRIDGET SHETTY MR #: [id number] : [birth year] Age/Sex: 54/F Req #: [id number] Adm Physician: Ordered by: CAESAR ESCOBAR MD Report #: [id number] Location: ER Room/Bed: Procedure: [id number] CT/CT ABDOMEN/PELVIS WO Exam Date: Exam Time: [...] modulation, iterative reconstruction, and/or weight based adjustment o f the mA/kV was utilized to reduce the [...] 03/23/191723 COPY TO: CAESAR ESCOBAR MD Sodium Mlnmk1987-79-61 16:54:00* Test Item Value Reference Range Interpretation Comments Sodium Level (test code = 2951-2) 141 136-145 [facility] HospitalPotassium Ohlwt2911-27-69 16:54:00* Test Item Value Reference Range Interpretation Comments Potassium Level (test code = 2823-3) 3.6 3.5-5.1 [facility] HospitalChloride Dfxpz1390-01-91 16:54:00* Test Item Value Reference Range Interpretation Comments Chloride Level (test code = 2075-0) 103 98-107 [facility] HospitalCarbon Dioxide Gvbqd9248-70-45 16:54:00* Test Item Value Reference Range Interpretation Comments Carbon Dioxide Level (test code = 2028-9) 28 - [facility] HospitalAnion Mjf0361-83-21 16:54:00* Test Item Value Reference Range Interpretation Comments Anion Gap (test code = 14344-8) 13.6 8-16 [facility] HospitalBlood Urea Iqxdoqpi5322-19-04 16:54:00* Test Item Value Reference Range Interpretation Comments Blood Urea Nitrogen (test code = 3094-0) 12 7-26 [facility] HospitalCreatinine2019-10-29 16:54:00* Test Item Value Reference Range Interpretation Comments Creatinine (test code = 2160-0) 0.73 0.57-1.11 [facility] HospitalBUN/Creatinine Fvyqw5818-96-77 16:54:00* Test Item Value Reference Range Interpretation Comments BUN/Creatinine Ratio (test code = 3097-3) 16 6-25 [facility] HospitalEstimat Glomerular Filtration Rate 2019-03-23 16:54:00* Test Item Value Reference Range Interpretation Comments Estimat Glomerular Filtration Rate (test code = 348738549) > 60 >60 Ranges were taken from the National Kidney Disease Education Program and the Cele ional Kidney Foundation literature.Reference ranges:60 or greater: Vrbjhg18-03 ( for 3 consecutive months): Chronic kidney disease 15 or less: Kidney failureSt. Luke's Baptist HospitalGlucose Jznjm4437-87-24 16:54:00* Test Item Value Reference Range Interpretation Comments Glucose Level (test code = VYD5247) 141 74-[address] [facility] HospitalCalcium Zdvwo6481-74-28 16:54:00* Test Item Value Reference Range Interpretation Comments Calcium Level (test code = 75741-9) 9.1 8.4-10.2 [facility] HospitalTotal Odjfmtfrb0471-42-05 16:54:00* Test Item Value Reference Range Interpretation Comments Total Bilirubin (test code = 1975-2) 0.2 0.2-1.2 [facility] HospitalAspartate Amino Transf (AST/SGOT) 2019-03-23 16:54:00* Test Item Value Reference Range Interpretation Comments Aspartate Amino Transf (AST/SGOT) (test code = Aspartate Amino Transf (AST/SGOT)) 13 5-34 [facility] HospitalAlanine Aminotransferase (ALT/SGPT) 2019-03-23 16:54:00* Test Item Value Reference Range Interpretation Comments Alanine Aminotransferase (ALT/SGPT) (test code = 1742-6) 15 0-55 [facility] HospitalTotal Zpoifbi2363-39-86 16:54:00* Test Item Value Reference Range Interpretation Comments Total Protein (test code = 2885-2) 7.1 6.5-8.1 [facility] HospitalAlbumin2019-10-29 16:54:00* Test Item Value Reference Range Interpretation Comments Albumin (test code = 1751-7) 3.9 3.5-5.0 [facility] HospitalGlobulin2019-10-29 16:54:00* Test Item Value Reference Range Interpretation Comments Globulin (test code = 35119-6) 3.2 2.3-3.5 [facility] HospitalAlbumin/Globulin Fiwnw7375-82-89 16:54:00 * Test Item Value Reference Range Interpretation Comments Albumin/Globulin Ratio (test code = 1759-0) 1.2 0.8-2.0 [facility] HospitalAlkaline Pgdmldfafnp3144-74-43 16:54:00* Test Item Value Reference Range Interpretation Comments Alkaline Phosphatase (test code = 6768-6) 55 40-150 [facility] HospitalWhite Blood Qeeyc7658-25-44 16:33:00* Test Item Value Reference Range Interpretation Comments White Blood Count (test code = 6690-2) 10.96 4.8-10.[address] [facility] HospitalRed Blood Eujxe5560-95-37 16:33:00* Test Item Value Reference Range Interpretation Comments Red Blood Count (test code = 789-8) 5.06 3.6-5.1 [facility] HospitalHemoglobin2019-10-29 16:33:00* Test Item Value Reference Range Interpretation Comments Hemoglobin (test code = 08229-0) 13.0 12.0-16.0 [facility] HospitalHematocrit2019-10-29 16:33:00* Test Item Value Reference Range Interpretation Comments Hematocrit (test code = 4544-3) 41.3 34.2-44.1 [facility] HospitalMean Corpuscular Nqopcp4352-86-06 16:33:00* Test Item Value Reference Range Interpretation Comments Mean Corpuscular Volume (test code = 787-2) 81.6 81-99 [facility] HospitalMean Corpuscular Apnhupjndp2208-59-37 16:33:00* Test Item Value Reference Range Interpretation Comments Mean Corpuscular Hemoglobin (test code = 785-6) 25.7 28-[address] [facility] HospitalMean Corpuscular Hemoglobin Concent 2019-03-23 16:33:00* Test Item Value Reference Range Interpretation Comments Mean Corpuscular Hemoglobin Concent (test code = 786-4) 31.5 31-35 [facility] HospitalRed Cell Distribution Pdvkw9991-00-34 16:33:00* Test Item Value Reference Range Interpretation Comments Red Cell Distribution Width (test code = 48635-9) 14.9 11.7 -14.[address] [facility] HospitalPlatelet Ryrev6600-96-44 16:33:00* Test Item Value Reference Range Interpretation Comments Platelet Count (test code = 777-3) 320 140-360 [facility] HospitalNeutrophils (%) (Auto)2019-03-23 16:33:00 * Test Item Value Reference Range Interpretation Comments Neutrophils (%) (Auto) (test code = 94012-5) 59.6 38.7-80.0 [facility] HospitalLymphocytes (%) (Auto)2019-03-23 16:33:00 * Test Item Value Reference Range Interpretation Comments Lymphocytes (%) (Auto) (test code = 736-9) 29.5 18.0-39.1 [facility] HospitalMonocytes (%) (Auto)2019-03-23 16:33:00* Test Item Value Reference Range Interpretation Comments Monocytes (%) (Auto) (test code = 5905-5) 6.5 4.4-11.3 [facility] HospitalEosinophils (%) (Auto)2019-03-23 16:33:00 * Test Item Value Reference Range Interpretation Comments Eosinophils (%) (Auto) (test code = 713-8) 3.3 0.0-6.0 [facility] HospitalBasophils (%) (Auto)2019-03-23 16:33:00* Test Item Value Reference Range Interpretation Comments Basophils (%) (Auto) (test code = 706-2) 0.6 0.0-1.0 [facility] HospitalIM GRANULOCYTES %2019-03-23 16:33:00* Test Item Value Reference Range Interpretation Comments IM GRANULOCYTES % (test code = IM GRANULOCYTES %) 0.5 0.0- 1.0 [facility] HospitalNeutrophils # (Auto)2019-03-23 16:33:00* Test Item Value Reference Range Interpretation Comments Neutrophils # (Auto) (test code = 751-8) 6.5 2.1-6.9 [facility] HospitalLymphocytes # (Auto)2019-03-23 16:33:00* Test Item Value Reference Range Interpretation Comments Lymphocytes # (Auto) (test code = 03854-4) 3.2 1.0-3.2 [facility] HospitalMonocytes # (Auto)2019-03-23 16:33:00* Test Item Value Reference Range Interpretation Comments Monocytes # (Auto) (test code = 742-7) 0.7 0.2-0.8 [facility] HospitalEosinophils # (Auto)2019-03-23 16:33:00* Test Item Value Reference Range Interpretation Comments Eosinophils # (Auto) (test code = 711-2) 0.4 0.0-0.4 [facility] HospitalBasophils # (Auto)2019-03-23 16:33:00* Test Item Value Reference Range Interpretation Comments Basophils # (Auto) (test code = 704-7) 0.1 0.0-0.1 [facility] HospitalAbsolute Immature Granulocyte (auto 2019-03-23 16:33:00* Test Item Value Reference Range Interpretation Comments Absolute Immature Granulocyte (auto (cesar t code = Absolute Immature Granulocyte (auto) 0.05 0-0.1 [facility] HospitalCHEST SINGLE (NOT PORTABLE)2019-03-23 14:43:[address] [address] Patient Name: BRIDGET SHETTY MR #: [id number] : 1965 Age/Sex: 54/F Req #: [id number] Adm Physician: Ordered by: CAESAR ESCOBAR MD Report #: [id number] Location: ER Room/Bed: Procedure: [id number] DX/CHEST SINGLE (NOT PORTABLE) Exam Date: 03/23/19 E xam Time: 1429 REPORT STATUS: Daniela d EXAMINATION: CHEST SINGLE (NOT PORTABLE) INDICATION: Chest pain COMPARISON: None FINDINGS: LINES/TUBES:None LUNGS:The francheksa ngs are well-inflated. No focal consolidation or pulmonary edema. PLEURA:No pleural effusion or pneumothorax. MEDIASTINUM:The cardiomediastinal silhou ette appears normal in size and shape. BONES/SOFT TISSUES:No acute osseous injury. ABDOMEN:No free air under the diaphragm. IMPRESSION: No focal pneumonia or pulmonary edema. Signed by: Ramón Greenfield MD on 03/23/2019 2:44 PM Dictated By: RAMÓN GREENFIELD MD 43 Transcribed By: ROSY on 03/23/191443 COPY TO: CAESAR ESCOBAR MD HIP LEFT 2-3 VW (+/- PELVIS)2019-03-23 14:08:00 [address] [address] Patient Name: BRIDGET SHETTY MR #: [id number] : 1965 Age/Sex: 54/F Req #: [id number] Adm Physician: Ordered by: CAESAR ESCOBAR MD Report #: [id number] Location: ER Room/Bed: Procedure: [id number] DX/HIP LEFT 2-3 VW (+/- PELVIS) Exam [...] COPY TO: CAESAR ESCOBAR MD SHOULDER LEFT MQKAGGPW8695-17-45 18:59:00 [address] [address] Patient Name: BRIDGET SHETTY MR #: [id number] : 1965 Age/Sex: 53/F Req #: [id number] Adm Physician: Ordered by: MONICA CERDA NP Report #: [id number] Location: ER Room/Bed: Procedure: [id number] DX/ SHOULDER LEFT COMPLETE Exam Date: 02/16/19 Exam Time : 1835 REPORT STATUS: Signed LEF T SHOULDER - [...] osteoarth rosis. Signed by: Dr. Kyler Terry D.O., M.M.M. on 02/16/2019 7:01 PM Dictated By: KYLER TERRY DO 00 Transcribed By: ROSY on 02/16/191900 COPY TO: MONICA CERDA NP Prothrombin Zyme3885-41-91 18:28:00* Test Item Value Reference Range Interpretation Comments Prothrombin Time (test code = 5902-2) 12.6 11.9-14.5 [facility] HospitalProthromb Time International Ratio 2019-02-16 18:28:00* Test Item Value Reference Range Interpretation Comments Prothromb Time International Ratio (test code = 6301-6) 0.90 Oral Anticoagulant Therapy INR Values:1. Low Intensity Therapy 1.5 - 2.02 . Moderate Intensity Therapy 2.0 - 3.03. High Intensity Therapy(1) 2.5 - 3. 54. High Intensity Therapy(2) 3.0 - 4.05. Panic Value INR > 5.0 [facility] HospitalActivated Partial Thromboplast Time 2019-02-16 18:28:00* Test Item Value Reference Range Interpretation Comments Activated Partial Thromboplast Time (test code = 96502-8) 30.9 23.8-35.5 [facility] HospitalProthrombin Sbrw8948-29-99 18:28:00* Test Item Value Reference Range Interpretation Comments Prothrombin Time (test code = 5902-2) 12.6 11.9-14.5 [facility] HospitalProthromb Time International Ratio 2019-02-16 18:28:00* Test Item Value Reference Range Interpretation Comments Prothromb Time International Ratio (test code = 6301-6) 0.90 Oral Anticoagulant Therapy INR Values:1. Low Intensity Therapy 1.5 - 2.02 . Moderate Intensity Therapy 2.0 - 3.03. High Intensity Therapy(1) 2.5 - 3. 54. High Intensity Therapy(2) 3.0 - 4.05. Panic Value INR > 5.0 [facility] HospitalActivated Partial Thromboplast Time 2019-02-16 18:28:00* Test Item Value Reference Range Interpretation Comments Activated Partial Thromboplast Time (test code = 24120-4) 30.9 23.8-35.5 [facility] HospitalCreatine Kinase LK7073-92-87 18:21:00* Test Item Value Reference Range Interpretation Comments Creatine Kinase MB (test code = 28536-5) 1.10 0-5.0 [facility] HospitalTroponin J4159-18-44 18:21:00* Test Item Value Reference Range Interpretation Comments Troponin I (test code = ZMF4298) 0.006 0-0.300 [facility] HospitalCreatine Kinase OY5367-32-94 18:21:00* Test Item Value Reference Range Interpretation Comments Creatine Kinase MB (test code = 16459-9) 1.10 0-5.0 [facility] HospitalTroponin P8950-31-94 18:21:00* Test Item Value Reference Range Interpretation Comments Troponin I (test code = WTV7021) 0.006 0-0.300 [facility] HospitalCHEST SINGLE (PORTABLE)2019-02-16 18:18:00 [facility] [address] [place] [address] Patient Name: BRIDGET SHETTY MR #: [id number] : 1965 Age/Sex: 53/F Req #: [id number] Adm Physician: Ordered by: CAESAR WHITE MD Report #: [id number] Location: ER Room/Bed: Procedure: [id number] D X/CHEST SINGLE (PORTABLE) Exam Date: 02/16/19 Exam T robert: 1740 REPORT STATUS: Signed A single frontal view [...] 1818 COPY TO: CAESAR WHITE MD Sodium Sxngo1323-24-95 18:13:00* Test Item Value Reference Range Interpretation Comments Sodium Level (test code = 2951-2) 138 136-145 [facility] HospitalPotassium Bsfxk2835-74-32 18:13:00* Test Item Value Reference Range Interpretation Comments Potassium Level (test code = 2823-3) 3.3 3.5-5.[address] [facility] HospitalChloride Gmypb1279-33-45 18:13:00* Test Item Value Reference Range Interpretation Comments Chloride Level (test code = 2075-0) 103 98-107 [facility] HospitalCarbon Dioxide Gufbl0056-06-60 18:13:00* Test Item Value Reference Range Interpretation Comments Carbon Dioxide Level (test code = 2028-9) 27 22-29 [facility] HospitalAnion Xts8016-58-38 18:13:00* Test Item Value Reference Range Interpretation Comments Anion Gap (test code = 11152-3) 11.3 8-16 [facility] HospitalBlood Urea Yzfldsvm3677-72-49 18:13:00* Test Item Value Reference Range Interpretation Comments Blood Urea Nitrogen (test code = 3094-0) 12 7-26 [facility] HospitalCreatinine2019-09-24 18:13:00* Test Item Value Reference Range Interpretation Comments Creatinine (test code = 2160-0) 0.79 0.57-1.11 [facility] HospitalBUN/Creatinine Xbuut4886-13-66 18:13:00* Test Item Value Reference Range Interpretation Comments BUN/Creatinine Ratio (test code = 3097-3) 15 6-25 [facility] HospitalEstimat Glomerular Filtration Rate 2019-02-16 18:13:00* Test Item Value Reference Range Interpretation Comments Estimat Glomerular Filtration Rate (test code = 688781779) > 60 >60 Ranges were taken from the National Kidney Disease Education Program and the Cele [facility]al Kidney Foundation literature.Reference ranges:60 or greater: Usnbnr10-50 ( for 3 consecutive months): Chronic kidney disease 15 or less: Kidney failureSt. Luke's Baptist HospitalGlucose Ixofs4533-08-96 18:13:00* Test Item Value Reference Range Interpretation Comments Glucose Level (test code = OJO4906) 120 74-[address] [facility] HospitalCalcium Lkind6958-71-46 18:13:00* Test Item Value Reference Range Interpretation Comments Calcium Level (test code = 41897-3) 9.5 8.4-10.2 [facility] HospitalTotal Zkwphzfdq2321-03-80 18:13:00* Test Item Value Reference Range Interpretation Comments Total Bilirubin (test code = 1975-2) 0.3 0.2-1.2 [facility] HospitalAspartate Amino Transf (AST/SGOT) 2019-02-16 18:13:00* Test Item Value Reference Range Interpretation Comments Aspartate Amino Transf (AST/SGOT) (test code = Aspartate Amino Transf (AST/SGOT)) 15 5-34 [facility] HospitalAlanine Aminotransferase (ALT/SGPT) 2019-02-16 18:13:00* Test Item Value Reference Range Interpretation Comments Alanine Aminotransferase (ALT/SGPT) (test code = 1742-6) 21 0-55 [facility] HospitalTotal Kzvnslg7151-52-72 18:13:00* Test Item Value Reference Range Interpretation Comments Total Protein (test code = 2885-2) 7.0 6.5-8.1 [facility] HospitalAlbumin2019-09-24 18:13:00* Test Item Value Reference Range Interpretation Comments Albumin (test code = 1751-7) 3.7 3.5-5.0 [facility] HospitalGlobulin2019-09-24 18:13:00* Test Item Value Reference Range Interpretation Comments Globulin (test code = 80616-0) 3.3 2.3-3.5 [facility] HospitalAlbumin/Globulin Sojkj0848-53-92 18:13:00 * Test Item Value Reference Range Interpretation Comments Albumin/Globulin Ratio (test code = 1759-0) 1.1 0.8-2.0 [facility] HospitalAlkaline Ohawqemwkcm6952-42-56 18:13:00* Test Item Value Reference Range Interpretation Comments Alkaline Phosphatase (test code = 6768-6) 55 40-150 [facility] HospitalCreatine Bhaqgi1743-63-83 18:13:00* Test Item Value Reference Range Interpretation Comments Creatine Kinase (test code = 2157-6) 83 29-168 [facility] HospitalCreatine Wrneci2954-57-89 18:13:00* Test Item Value Reference Range Interpretation Comments Creatine Kinase (test code = 2157-6) 83 29-168 [facility] HospitalWhite Blood Pnjed2647-22-29 17:56:00* Test Item Value Reference Range Interpretation Comments White Blood Count (test code = 6690-2) 13.37 4.8-10.[address] [facility] HospitalRed Blood Yiyyl6893-32-45 17:56:00* Test Item Value Reference Range Interpretation Comments Red Blood Count (test code = 789-8) 4.62 3.6-5.1 [facility] HospitalHemoglobin2019-09-24 17:56:00* Test Item Value Reference Range Interpretation Comments Hemoglobin (test code = 32408-4) 12.1 12.0-16.0 [facility] HospitalHematocrit2019-09-24 17:56:00* Test Item Value Reference Range Interpretation Comments Hematocrit (test code = 4544-3) 37.2 34.2-44.1 [facility] HospitalMean Corpuscular Uwjoym1339-61-45 17:56:00* Test Item Value Reference Range Interpretation Comments Mean Corpuscular Volume (test code = 787-2) 80.5 81-[address] [facility] HospitalMean Corpuscular Yfbjhqtzvj8745-44-74 17:56:00* Test Item Value Reference Range Interpretation Comments Mean Corpuscular Hemoglobin (test code = 785-6) 26.2 28-[address] [facility] HospitalMean Corpuscular Hemoglobin Concent 2019-02-16 17:56:00* Test Item Value Reference Range Interpretation Comments Mean Corpuscular Hemoglobin Concent (test code = 786-4) 32.5 31-35 [facility] HospitalRed Cell Distribution Wdmcw3456-62-80 17:56:00* Test Item Value Reference Range Interpretation Comments Red Cell Distribution Width (test code = 06420-7) 14.6 11.7 -14.[address] [facility] HospitalPlatelet Rvagr1783-91-48 17:56:00* Test Item Value Reference Range Interpretation Comments Platelet Count (test code = 777-3) 292 140-360 [facility] HospitalNeutrophils (%) (Auto)2019-02-16 17:56:00 * Test Item Value Reference Range Interpretation Comments Neutrophils (%) (Auto) (test code = 93649-2) 65.1 38.7-80.0 [facility] HospitalLymphocytes (%) (Auto)2019-02-16 17:56:00 * Test Item Value Reference Range Interpretation Comments Lymphocytes (%) (Auto) (test code = 736-9) 26.5 18.0-39.1 [facility] HospitalMonocytes (%) (Auto)2019-02-16 17:56:00* Test Item Value Reference Range Interpretation Comments Monocytes (%) (Auto) (test code = 5905-5) 5.7 4.4-11.3 [facility] HospitalEosinophils (%) (Auto)2019-02-16 17:56:00 * Test Item Value Reference Range Interpretation Comments Eosinophils (%) (Auto) (test code = 713-8) 1.8 0.0-6.0 [facility] HospitalBasophils (%) (Auto)2019-02-16 17:56:00* Test Item Value Reference Range Interpretation Comments Basophils (%) (Auto) (test code = 706-2) 0.4 0.0-1.0 [facility] HospitalIM GRANULOCYTES %2019-02-16 17:56:00* Test Item Value Reference Range Interpretation Comments IM GRANULOCYTES % (test code = IM GRANULOCYTES %) 0.5 0.0- 1.0 [facility] HospitalNeutrophils # (Auto)2019-02-16 17:56:00* Test Item Value Reference Range Interpretation Comments Neutrophils # (Auto) (test code = 751-8) 8.7 2.1-6.[address] [facility] HospitalLymphocytes # (Auto)2019-02-16 17:56:00* Test Item Value Reference Range Interpretation Comments Lymphocytes # (Auto) (test code = 54996-4) 3.5 1.0-3.[address] [facility] HospitalMonocytes # (Auto)2019-02-16 17:56:00* Test Item Value Reference Range Interpretation Comments Monocytes # (Auto) (test code = 742-7) 0.8 0.2-0.8 [facility] HospitalEosinophils # (Auto)2019-02-16 17:56:00* Test Item Value Reference Range Interpretation Comments Eosinophils # (Auto) (test code = 711-2) 0.2 0.0-0.4 [facility] HospitalBasophils # (Auto)2019-02-16 17:56:00* Test Item Value Reference Range Interpretation Comments Basophils # (Auto) (test code = 704-7) 0.1 0.0-0.1 [facility] HospitalAbsolute Immature Granulocyte (auto 2019-02-16 17:56:00* Test Item Value Reference Range Interpretation Comments Absolute Immature Granulocyte (auto (cesar t code = Absolute Immature Granulocyte (auto) 0.07 0-0.1 [facility] HospitalTHORACIC SPINE 7PR3154-70-85 11:30:00 [place] [address] Patient Name: BRIDGET SHETTY MR #: [id number] : 1965 Age/Sex: 53/F Req #: [id number] Adm Physician: Ordered by: SUSAN CHRISTY MD Report #: [id number] Location: RAD Room/Bed: Procedure: [id number] DX/ THORACIC SPINE 2VW Exam Date: 09/09/18 [...] SUSAN CHRISTY MD SP LUMBAR, COMPLETE MIN [id number] 11:25:00 [place] [address] Patient Name: BRIDGET SHETTY MR #: [id number] : 1965 Age/Sex: 53/F Req #: [id number] Adm Physician: Ordered by: SUSAN CHRISTY MD Report #: [id number] Location: RAD Room/Bed: Procedure: [id number] DX/ SP LUMBAR, COMPLETE MIN 4VW Exam Date: 09/09/18 Exam Time: 1034 REPORT STATUS: Signed Exam: Lumbar spine, complete, sacrum, 2 views History: Low back pain Comparison: CT abdomen 06/11/2018 Findings: Sacrum: No acute , displaced fracture or dislocation. Sacroiliac joints are [...] 11:30 AM Dictated By: JACKIE BOBO MD [facility] Signed By: JACKIE BOBO MD on 09/09/18 1130 Transcribed By: ROSY on 1130 COPY TO: SUSAN CHRISTY MD SACRUM [id number] 11:25:00 [place] [address] Patient Name: BRIDGET SHETTY MR #: [id number] : 1965 Age/Sex: 53/F Req #: [id number] Adm Physician: Ordered by: SUSAN CHRISTY MD Report #: [id number] Location: [facility] Room/Bed: Procedure: [id number] DX/ SACRUM X-RAY Exam Date: 09/09/18 Exam [...] COPY TO: SUSAN CHRISTY MD CT ABDOMEN [id number] 11:02:00 [place] [address] Patient Name: BRIDGET SHETTY MR #: [id number] : 1965 Age/Sex: 53/F Req #: [id number] Adm Physician: Ordered by: SUSAN CHRISTY MD Report #: [id number] Location: CT Room/Bed: Procedure: [id number] CT/ CT ABDOMEN W Exam Date: 06/11/18 [...] wall thickening. BONES AND SOFT TISSUE: No bon y destructive lesions. No soft tissue abnormalities. IMPRESSION: Hepatic steatosis, otherwise unremarkable CT of the abdomen. Signed by: Dr Cecilia Chavarria M.D. on 06/11/2018 11:07 AM Dictated By: CHEYANNE Babb MD [id number] Transcribe d By: ROSY on 06/11/18 4492 COPY TO: SUSAN CHRISTY MD Blood Urea Elygxwzf0663-57-82 10:11:00* Test Item Value Reference Range Interpretation Comments Blood Urea Nitrogen (test code = 3094-0) 11 12-18 [facility]2019-01-17 10:11:00* Test Item Value Reference Range Interpretation Comments Creatinine (test code = 2160-0) 0.72 0.57-1.11 [facility]/Creatinine Fcykf0730-30-07 10:11:00* Test Item Value Reference Range Interpretation Comments BUN/Creatinine Ratio (test code = 3097-3) 15 11-17 [facility] HospitalEstimat Glomerular Filtration Rate 2018-06-11 10:11:00* Test Item Value Reference Range Interpretation Comments Estimat Glomerular Filtration Rate (test code = 701744962) > 60 >60 Ranges were taken from the National Kidney Disease Education Program and the [facility] Kidney Foundation literature.Reference ranges:60 or greater: Dqmkdi82-27 ( for 3 consecutive months): Chronic kidney disease 15 or less: Kidney failureCH[facility] HospitalUS KYNAJEPDLGO0827-64-97 17:24:00 [facility] [address] [place] [address] Patient Name: BRIDGET SHETTY MR #: [id number] : 1965 Age/Sex: 53/F Req #: [id number] Adm Physician: Ordered by: ANGELLA MOTA [employer] Report #: [id number] Location: ER Room/Bed: Procedure: [id number] US/US GALLBLADDER Exam Date: 06/02/18 Exam Time: 151 6 REPORT STATUS: Signed EXAM: Ri ght upper quadrant abdominal ultrasound INDICATION: Right upper [...] 06/02/181727 COPY TO: ANGELLA MOTA NP Sodium Yzrec9425-92-60 15:20:00* Test Item Value Reference Range Interpretation Comments Sodium Level (test code = 2951-2) 141 136-145 [facility] HospitalPotassium Zqtzt8871-59-14 15:20:00* Test Item Value Reference Range Interpretation Comments Potassium Level (test code = 2823-3) 3.6 3.5-5.1 [facility] HospitalChloride Nxtmw3814-48-79 15:20:00* Test Item Value Reference Range Interpretation Comments Chloride Level (test code = 2075-0) 105 98-107 [facility] HospitalCarbon Dioxide Vxwwe5776-65-85 15:20:00* Test Item Value Reference Range Interpretation Comments Carbon Dioxide Level (test code = 2028-9) 26 22-29 [facility] HospitalAnion Ucg4924-66-63 15:20:00* Test Item Value Reference Range Interpretation Comments Anion Gap (test code = 39610-0) 13.6 8-16 [facility] HospitalBlood Urea Qhrhpgau6721-68-26 15:20:00* Test Item Value Reference Range Interpretation Comments Blood Urea Nitrogen (test code = 3094-0) 16 7-26 [facility] HospitalCreatinine2019-01-08 15:20:00* Test Item Value Reference Range Interpretation Comments Creatinine (test code = 2160-0) 0.81 0.57-1.11 [facility] HospitalBUN/Creatinine Hnpol1672-79-48 15:20:00* Test Item Value Reference Range Interpretation Comments BUN/Creatinine Ratio (test code = 3097-3) 20 6- [facility] HospitalEstimat Glomerular Filtration Rate 2018-06-02 15:20:00* Test Item Value Reference Range Interpretation Comments Estimat Glomerular Filtration Rate (test code = 344058689) > 60 >60 Ranges were taken from the National Kidney Disease Education Program and the [facility] Foundation literature.Reference ranges:60 or greater: Auamnm09-56 ( for 3 consecutive months): Chronic kidney disease 15 or less: Kidney failureSt. Luke's Baptist HospitalGlucose Mhcqv6223-80-45 15:20:00* Test Item Value Reference Range Interpretation Comments Glucose Level (test code = YYB6771) 139 74-[address] [facility] HospitalCalcium Vmdiv6817-06-67 15:20:00* Test Item Value Reference Range Interpretation Comments Calcium Level (test code = 55085-7) 9.4 8.4-10.2 [facility] HospitalTotal Yndzaoiws5070-92-23 15:20:00* Test Item Value Reference Range Interpretation Comments Total Bilirubin (test code = 1975-2) 0.2 0.2-1.2 [facility] HospitalAspartate Amino Transf (AST/SGOT) 2018-06-02 15:20:00* Test Item Value Reference Range Interpretation Comments Aspartate Amino Transf (AST/SGOT) (test code = Aspartate Amino Transf (AST/SGOT)) 17 5-34 [facility] HospitalAlanine Aminotransferase (ALT/SGPT) 2018-06-02 15:20:00* Test Item Value Reference Range Interpretation Comments Alanine Aminotransferase (ALT/SGPT) (test code = 1742-6) 24 0-55 [facility] HospitalTotal Vakmpmw0135-45-59 15:20:00* Test Item Value Reference Range Interpretation Comments Total Protein (test code = 2885-2) 7.0 6.5-8.1 [facility] HospitalAlbumin2019-01-08 15:20:00* Test Item Value Reference Range Interpretation Comments Albumin (test code = 1751-7) 3.7 3.5-5.0 [facility] HospitalGlobulin2019-01-08 15:20:00* Test Item Value Reference Range Interpretation Comments Globulin (test code = 74148-4) 3.3 2.3-3.5 [facility] HospitalAlbumin/Globulin Plene6672-64-42 15:20:00 * Test Item Value Reference Range Interpretation Comments Albumin/Globulin Ratio (test code = 1759-0) 1.1 0.8-2.0 [facility] HospitalAlkaline Ticakcgphde9467-50-68 15:20:00* Test Item Value Reference Range Interpretation Comments Alkaline Phosphatase (test code = 6768-6) 53 40-150 [facility] HospitalAmylase Iuzya3404-28-80 15:20:00* Test Item Value Reference Range Interpretation Comments Amylase Level (test code = 1798-8) 40 25-125 [facility] HospitalLipase2019-01-08 15:20:00* Test Item Value Reference Range Interpretation Comments Lipase (test code = 3040-3) 24 8-78 [facility] Eqcyy6880-64-56 15:20:00* Test Item Value Reference Range Interpretation Comments Sodium Level (test code = 2951-2) 141 136-145 [facility] HospitalPotassium Pyncm4204-15-08 15:20:00* Test Item Value Reference Range Interpretation Comments Potassium Level (test code = 2823-3) 3.6 3.5-5.1 [facility] HospitalChloride Rtnnb3779-39-68 15:20:00* Test Item Value Reference Range Interpretation Comments Chloride Level (test code = 2075-0) 105 98-107 [facility] HospitalCarbon Dioxide Rgnak8711-74-05 15:20:00* Test Item Value Reference Range Interpretation Comments Carbon Dioxide Level (test code = 2028-9) 26 22-29 [facility] HospitalAnion Smp0210-42-63 15:20:00* Test Item Value Reference Range Interpretation Comments Anion Gap (test code = 09874-0) 13.6 8-16 [facility] HospitalGlucose Wydhv4337-74-81 15:20:00* Test Item Value Reference Range Interpretation Comments Glucose Level (test code = LJK7525) 139 74-[address] [facility] HospitalCalcium Qwdjb4652-76-37 15:20:00* Test Item Value Reference Range Interpretation Comments Calcium Level (test code = 27549-1) 9.4 8.4-10.2 [facility] HospitalTotal Sxghjjekr1342-62-59 15:20:00* Test Item Value Reference Range Interpretation Comments Total Bilirubin (test code = 1975-2) 0.2 0.2-1.2 [facility] HospitalAspartate Amino Transf (AST/SGOT) 2018-06-02 15:20:00* Test Item Value Reference Range Interpretation Comments Aspartate Amino Transf (AST/SGOT) (test code = Aspartate Amino Transf (AST/SGOT)) 17 5-34 [facility] HospitalAlanine Aminotransferase (ALT/SGPT) 2018-06-02 15:20:00* Test Item Value Reference Range Interpretation Comments Alanine Aminotransferase (ALT/SGPT) (test code = 1742-6) 24 0-55 [facility] HospitalTotal Icbjkyn1557-81-76 15:20:00* Test Item Value Reference Range Interpretation Comments Total Protein (test code = 2885-2) 7.0 6.5-8.1 [facility] HospitalAlbumin2019-01-08 15:20:00* Test Item Value Reference Range Interpretation Comments Albumin (test code = 1751-7) 3.7 3.5-5.0 [facility] HospitalGlobulin2019-01-08 15:20:00* Test Item Value Reference Range Interpretation Comments Globulin (test code = 80438-6) 3.3 2.3-3.5 [facility] HospitalAlbumin/Globulin Kzcgd5450-46-49 15:20:00 * Test Item Value Reference Range Interpretation Comments Albumin/Globulin Ratio (test code = 1759-0) 1.1 0.8-2.0 [facility] HospitalAlkaline Qujoffloqof3016-17-03 15:20:00* Test Item Value Reference Range Interpretation Comments Alkaline Phosphatase (test code = 6768-6) 53 40-150 [facility] HospitalAmylase Nyasi6054-48-37 15:20:00* Test Item Value Reference Range Interpretation Comments Amylase Level (test code = 1798-8) 40 25-125 [facility] HospitalLipase2019-01-08 15:20:00* Test Item Value Reference Range Interpretation Comments Lipase (test code = 3040-3) [address] [facility] HospitalAmylase Miypx9222-95-50 15:20:00* Test Item Value Reference Range Interpretation Comments Amylase Level (test code = 1798-8) 40 25-125 [facility] HospitalLipase2019-01-08 15:20:00* Test Item Value Reference Range Interpretation Comments Lipase (test code = 3040-3) [address] [facility] HospitalAmylase Spkey3201-50-82 15:20:00* Test Item Value Reference Range Interpretation Comments Amylase Level (test code = 1798-8) 40 25-125 [facility] HospitalLipase2019-01-08 15:20:00* Test Item Value Reference Range Interpretation Comments Lipase (test code = 3040-3) [address] [facility] HospitalUrine Afoer4744-35-39 15:18:00* Test Item Value Reference Range Interpretation Comments Urine Color (test code = 5778-6) YELLOW YELLOW [facility] HospitalUrine Bwtihzk6547-00-78 15:18:00* Test Item Value Reference Range Interpretation Comments Urine Clarity (test code = 43517-2) CLEAR CLEAR [facility] HospitalUrine Specific Jczpimg0359-72-70 15:18:00 * Test Item Value Reference Range Interpretation Comments Urine Specific [place] (test code = 5811-5) 1.015 1.010-1.[address] [facility] HospitalUrine tX4027-67-45 15:18:00* Test Item Value Reference Range Interpretation Comments Urine pH (test code = 15071-7) 8 5-7 H [facility] Leukocyte Oyozsosm8844-42-57 15:18:00* Test Item Value Reference Range Interpretation Comments Urine Leukocyte Esterase (test code = 5799-2) NEGATIVE NEGATIVE [facility] Ovosnfq8717-03-74 15:18:00* Test Item Value Reference Range Interpretation Comments Urine Nitrite (test code = 95125-5) NEGATIVE NEGATIVE [facility] Wcpfnhv4328-38-77 15:18:00* Test Item Value Reference Range Interpretation Comments Urine Protein (test code = 5804-0) NEGATIVE NEGATIVE [facility] Glucose (UA)2018-06-02 15:18:00* Test Item Value Reference Range Interpretation Comments Urine Glucose (UA) (test code = 2349-9) NEGATIVE NEGATIVE [facility] HospitalUrine Oghxcmk9121-87-00 15:18:00* Test Item Value Reference Range Interpretation Comments Urine Ketones (test code = 60819-4) NEGATIVE NEGATIVE [facility] Salbhqknfchj4450-28-81 15:18:00* Test Item Value Reference Range Interpretation Comments Urine Urobilinogen (test code = 23540-0) 0.2 0.2-1 [facility] HospitalUrine Dsrrfjcgw5629-68-37 15:18:00* Test Item Value Reference Range Interpretation Comments Urine Bilirubin (test code = 1978-6) NEGATIVE NEGATIVE [facility] HospitalUrine Nvhtt1217-07-83 15:18:00* Test Item Value Reference Range Interpretation Comments Urine Blood (test code = 50247-8) NEGATIVE NEGATIVE [facility] HospitalUrine EYA2409-51-95 15:18:00* Test Item Value Reference Range Interpretation Comments Urine WBC (test code = 5821-4) 0-5 0-5 [facility] HospitalU[facility] FJS7387-19-41 15:18:00* Test Item Value Reference Range Interpretation Comments Urine RBC (test code = 45059-5) 0-5 0-5 [facility] HospitalU[facility] Qlzhsnbt9109-40-76 15:18:00* Test Item Value Reference Range Interpretation Comments Urine Bacteria (test code = 54255-9) FEW NONE [facility] HospitalUrine Epithelial Zxrzd2275-50-02 15:18:00 * Test Item Value Reference Range Interpretation Comments Urine Epithelial Cells (test code = 79087-2) FEW NONE [facility] HospitalUrine Oualk7554-36-50 15:18:00* Test Item Value Reference Range Interpretation Comments Urine Color (test code = 5778-6) YELLOW YELLOW [facility] HospitalUrine Vhraqum2037-72-76 15:18:00* Test Item Value Reference Range Interpretation Comments Urine Clarity (test code = 46751-0) CLEAR CLEAR [facility] Specific Jevzits3742-61-08 15:18:00 * Test Item Value Reference Range Interpretation Comments Urine Specific [place] (test code = 5811-5) 1.015 1.010-1.[address] [facility] HospitalU[facility] wC9896-51-16 15:18:00* Test Item Value Reference Range Interpretation Comments Urine pH (test code = 11256-1) 8 5-[address] [facility] HospitalU[facility] Leukocyte Jxpnxtpn1491-74-28 15:18:00* Test Item Value Reference Range Interpretation Comments Urine Leukocyte Esterase (test code = 5799-2) NEGATIVE NEGATIVE [facility] HospitalU[facility] Tuprzxl1877-84-56 15:18:00* Test Item Value Reference Range Interpretation Comments Urine Nitrite (test code = 87227-6) NEGATIVE NEGATIVE [facility] HospitalU[facility] Aszsfve8723-33-12 15:18:00* Test Item Value Reference Range Interpretation Comments Urine Protein (test code = 5804-0) NEGATIVE NEGATIVE [facility] HospitalU[facility] Glucose (UA)2018-06-02 15:18:00* Test Item Value Reference Range Interpretation Comments Urine Glucose (UA) (test code = 2349-9) NEGATIVE NEGATIVE [facility] HospitalU[facility] Bpzattt0084-29-79 15:18:00* Test Item Value Reference Range Interpretation Comments Urine Ketones (test code = 69477-4) NEGATIVE NEGATIVE [facility] HospitalU[facility] Pnmihocunodw3178-39-64 15:18:00* Test Item Value Reference Range Interpretation Comments Urine Urobilinogen (test code = 30258-0) 0.2 0.2-1 [facility] Hiunrdaal3488-05-95 15:18:00* Test Item Value Reference Range Interpretation Comments Urine Bilirubin (test code = 1978-6) NEGATIVE NEGATIVE [facility] HospitalU[facility] Ubouk8848-40-34 15:18:00* Test Item Value Reference Range Interpretation Comments Urine Blood (test code = 62736-7) NEGATIVE NEGATIVE [facility] HospitalU[facility] OAK6187-56-29 15:18:00* Test Item Value Reference Range Interpretation Comments Urine WBC (test code = 5821-4) 0-5 0-5 [facility] HospitalU[facility] JLW6540-78-30 15:18:00* Test Item Value Reference Range Interpretation Comments Urine RBC (test code = 08618-6) 0-5 0-5 [facility] Epiusdum1642-31-30 15:18:00* Test Item Value Reference Range Interpretation Comments Urine Bacteria (test code = 64673-5) FEW NONE [facility] HospitalU[facility] Epithelial Rvnne5013-51-14 15:18:00 * Test Item Value Reference Range Interpretation Comments Urine Epithelial Cells (test code = 49779-5) FEW NONE [facility] HospitalU[facility] Uumpw0982-66-77 15:18:00* Test Item Value Reference Range Interpretation Comments Urine Color (test code = 5778-6) YELLOW YELLOW [facility] HospitalU[facility] Ppdzzop3879-26-77 15:18:00* Test Item Value Reference Range Interpretation Comments Urine Clarity (test code = 68659-5) CLEAR CLEAR [facility] HospitalU[facility] Specific Zcrbevk5916-94-93 15:18:00 * Test Item Value Reference Range Interpretation Comments Urine Specific [place] (test code = 5811-5) 1.015 1.010-1.[address] [facility] HospitalU[facility] oV1523-42-06 15:18:00* Test Item Value Reference Range Interpretation Comments Urine pH (test code = 46776-2) 8 5-[address] [facility] Leukocyte Iwdwgghy9118-00-80 15:18:00* Test Item Value Reference Range Interpretation Comments Urine Leukocyte Esterase (test code = 5799-2) NEGATIVE NEGATIVE [facility] Kbebfog0102-48-01 15:18:00* Test Item Value Reference Range Interpretation Comments Urine Nitrite (test code = 19498-3) NEGATIVE NEGATIVE [facility] HospitalU[facility] Lwjofxq5034-50-81 15:18:00* Test Item Value Reference Range Interpretation Comments Urine Protein (test code = 5804-0) NEGATIVE NEGATIVE [facility] Glucose (UA)2018-06-02 15:18:00* Test Item Value Reference Range Interpretation Comments Urine Glucose (UA) (test code = 2349-9) NEGATIVE NEGATIVE [facility] Bhhdzby6156-17-44 15:18:00* Test Item Value Reference Range Interpretation Comments Urine Ketones (test code = 43501-4) NEGATIVE NEGATIVE [facility] Hvdkisohabem8388-73-72 15:18:00* Test Item Value Reference Range Interpretation Comments Urine Urobilinogen (test code = 26425-0) 0.2 0.2-1 [facility] HospitalU[facility] Icpdijzxe8908-11-26 15:18:00* Test Item Value Reference Range Interpretation Comments Urine Bilirubin (test code = 1978-6) NEGATIVE NEGATIVE [facility] HospitalU[facility] Mgekj8756-59-28 15:18:00* Test Item Value Reference Range Interpretation Comments Urine Blood (test code = 07718-5) NEGATIVE NEGATIVE [facility] EBJ6195-00-61 15:18:00* Test Item Value Reference Range Interpretation Comments Urine WBC (test code = 5821-4) 0-5 0-5 [facility] SEH1651-02-84 15:18:00* Test Item Value Reference Range Interpretation Comments Urine RBC (test code = 62653-7) 0-5 0-5 [facility] Nxxfuiuu8454-07-68 15:18:00* Test Item Value Reference Range Interpretation Comments Urine Bacteria (test code = 86597-1) FEW NONE [facility] HospitalUrine Epithelial Tbbws0133-86-17 15:18:00 * Test Item Value Reference Range Interpretation Comments Urine Epithelial Cells (test code = 89537-6) FEW NONE [facility] HospitalU[facility] Ukxl6896-99-64 15:09:00* Test Item Value Reference Range Interpretation Comments Urine Test (test code = 2106-3) NEGATIVE NEGATIVE [facility] Deyu0167-90-56 15:09:00* Test Item Value Reference Range Interpretation Comments Urine Test (test code = 2106-3) NEGATIVE NEGATIVE [facility] HospitalU[facility] Opga5108-39-37 15:09:00* Test Item Value Reference Range Interpretation Comments Urine Test (test code = 2106-3) NEGATIVE NEGATIVE [facility] HospitalU[facility] Hthr8289-57-11 15:09:00* Test Item Value Reference Range Interpretation Comments Urine Test (test code = 2106-3) NEGATIVE NEGATIVE [facility] HospitalWhite Blood Qoknl5070-76-52 15:03:00* Test Item Value Reference Range Interpretation Comments White Blood Count (test code = 6690-2) 11.09 4.8-10.[address] [facility] HospitalRed Blood Quaxo5416-76-73 15:03:00* Test Item Value Reference Range Interpretation Comments Red Blood Count (test code = 789-8) 4.71 3.6-5.1 [facility] HospitalHemoglobin2019-01-08 15:03:00* Test Item Value Reference Range Interpretation Comments Hemoglobin (test code = 61404-7) 12.2 12.0-16.0 [facility] HospitalHematocrit2019-01-08 15:03:00* Test Item Value Reference Range Interpretation Comments Hematocrit (test code = 4544-3) 37.7 34.2-44.1 [facility] HospitalMean Corpuscular Okssbj5534-47-71 15:03:00* Test Item Value Reference Range Interpretation Comments Mean Corpuscular Volume (test code = 787-2) 80.0 81-[address] [facility] HospitalMean Corpuscular Tonaycufdy3861-95-58 15:03:00* Test Item Value Reference Range Interpretation Comments Mean Corpuscular Hemoglobin (test code = 785-6) 25.9 28-[address] [facility] HospitalMean Corpuscular Hemoglobin Concent 2018-06-02 15:03:00* Test Item Value Reference Range Interpretation Comments Mean Corpuscular Hemoglobin Concent (test code = 786-4) 32.4 31-35 [facility] HospitalRed Cell Distribution Idljg1139-67-17 15:03:00* Test Item Value Reference Range Interpretation Comments Red Cell Distribution Width (test code = 91794-5) 13.8 11.7 -14.4 [facility] HospitalPlatelet Mcpsz0664-75-05 15:03:00* Test Item Value Reference Range Interpretation Comments Platelet Count (test code = 777-3) 346 140-360 [facility] HospitalNeutrophils (%) (Auto)2018-06-02 15:03:00 * Test Item Value Reference Range Interpretation Comments Neutrophils (%) (Auto) (test code = 31528-4) 59.8 38.7-80.0 [facility] HospitalLymphocytes (%) (Auto)2018-06-02 15:03:00 * Test Item Value Reference Range Interpretation Comments Lymphocytes (%) (Auto) (test code = 736-9) 31.6 18.0-39.1 [facility] HospitalMonocytes (%) (Auto)2018-06-02 15:03:00* Test Item Value Reference Range Interpretation Comments Monocytes (%) (Auto) (test code = 5905-5) 5.8 4.4-11.3 [facility] HospitalEosinophils (%) (Auto)2018-06-02 15:03:00 * Test Item Value Reference Range Interpretation Comments Eosinophils (%) (Auto) (test code = 713-8) 2.0 0.0-6.0 [facility] HospitalBasophils (%) (Auto)2018-06-02 15:03:00* Test Item Value Reference Range Interpretation Comments Basophils (%) (Auto) (test code = 706-2) 0.4 0.0-1.0 [facility] HospitalIM GRANULOCYTES %2018-06-02 15:03:00* Test Item Value Reference Range Interpretation Comments IM GRANULOCYTES % (test code = IM GRANULOCYTES %) 0.4 0.0- 1.0 [facility] HospitalNeutrophils # (Auto)2018-06-02 15:03:00* Test Item Value Reference Range Interpretation Comments Neutrophils # (Auto) (test code = 751-8) 6.7 2.1-6.9 [facility] HospitalLymphocytes # (Auto)2018-06-02 15:03:00* Test Item Value Reference Range Interpretation Comments Lymphocytes # (Auto) (test code = 99105-1) 3.5 1.0-3.[address] [facility] HospitalMonocytes # (Auto)2018-06-02 15:03:00* Test Item Value Reference Range Interpretation Comments Monocytes # (Auto) (test code = 742-7) 0.6 0.2-0.8 [facility] HospitalEosinophils # (Auto)2018-06-02 15:03:00* Test Item Value Reference Range Interpretation Comments Eosinophils # (Auto) (test code = 711-2) 0.2 0.0-0.4 [facility] HospitalBasophils # (Auto)2018-06-02 15:03:00* Test Item Value Reference Range Interpretation Comments Basophils # (Auto) (test code = 704-7) 0.0 0.0-0.1 [facility] HospitalAbsolute Immature Granulocyte (auto 2018-06-02 15:03:00* Test Item Value Reference Range Interpretation Comments Absolute Immature Granulocyte (auto (cesar t code = Absolute Immature Granulocyte (auto) 0.04 0-0.1 [facility] HospitalWhite Blood Eofgk8157-09-03 15:03:00* Test Item Value Reference Range Interpretation Comments White Blood Count (test code = 6690-2) 11.09 4.8-10.[address] [facility] HospitalRed Blood Evmum3387-31-01 15:03:00* Test Item Value Reference Range Interpretation Comments Red Blood Count (test code = 789-8) 4.71 3.6-5.1 [facility] HospitalHemoglobin2019-01-08 15:03:00* Test Item Value Reference Range Interpretation Comments Hemoglobin (test code = 50660-8) 12.2 12.0-16.0 [facility] HospitalHematocrit2019-01-08 15:03:00* Test Item Value Reference Range Interpretation Comments Hematocrit (test code = 4544-3) 37.7 34.2-44.1 [facility] Corpuscular [id number] 15:03:00* Test Item Value Reference Range Interpretation Comments Mean Corpuscular Volume (test code = 787-2) 80.0 81-[address] [facility] Fuyzyqzzfx2191-34-27 15:03:00* Test Item Value Reference Range Interpretation Comments Mean Corpuscular Hemoglobin (test code = 785-6) 25.9 28-[address] [facility] Hemoglobin Concent 2018-06-02 15:03:00* Test Item Value Reference Range Interpretation Comments Mean Corpuscular Hemoglobin Concent (test code = 786-4) 32.4 31-35 [facility] Cell Distribution [id number] 15:03:00* Test Item Value Reference Range Interpretation Comments Red Cell Distribution Width (test code = 55986-0) 13.8 11.7 -14.4 [facility] HospitalPlatelet [id number] 15:03:00* Test Item Value Reference Range Interpretation Comments Platelet Count (test code = 777-3) 346 140-360 [facility] HospitalNeutrophils (%) (Auto)2018-06-02 15:03:00 * Test Item Value Reference Range Interpretation Comments Neutrophils (%) (Auto) (test code = 51050-6) 59.8 38.7-80.0 [facility] HospitalLymphocytes (%) (Auto)2018-06-02 15:03:00 * Test Item Value Reference Range Interpretation Comments Lymphocytes (%) (Auto) (test code = 736-9) 31.6 18.0-39.1 [facility] HospitalMonocytes (%) (Auto)2018-06-02 15:03:00* Test Item Value Reference Range Interpretation Comments Monocytes (%) (Auto) (test code = 5905-5) 5.8 4.4-11.3 [facility] HospitalEosinophils (%) (Auto)2018-06-02 15:03:00 * Test Item Value Reference Range Interpretation Comments Eosinophils (%) (Auto) (test code = 713-8) 2.0 0.0-6.0 [facility] HospitalBasophils (%) (Auto)2018-06-02 15:03:00* Test Item Value Reference Range Interpretation Comments Basophils (%) (Auto) (test code = 706-2) 0.4 0.0-1.0 [facility] HospitalIM GRANULOCYTES %2018-06-02 15:03:00* Test Item Value Reference Range Interpretation Comments IM GRANULOCYTES % (test code = IM GRANULOCYTES %) 0.4 0.0- 1.0 [facility] HospitalNeutrophils # (Auto)2018-06-02 15:03:00* Test Item Value Reference Range Interpretation Comments Neutrophils # (Auto) (test code = 751-8) 6.7 2.1-6.9 [facility] HospitalLymphocytes # (Auto)2018-06-02 15:03:00* Test Item Value Reference Range Interpretation Comments Lymphocytes # (Auto) (test code = 42798-3) 3.5 1.0-3.[address] [facility] HospitalMonocytes # (Auto)2018-06-02 15:03:00* Test Item Value Reference Range Interpretation Comments Monocytes # (Auto) (test code = 742-7) 0.6 0.2-0.8 [facility] HospitalEosinophils # (Auto)2018-06-02 15:03:00* Test Item Value Reference Range Interpretation Comments Eosinophils # (Auto) (test code = 711-2) 0.2 0.0-0.4 [facility] HospitalBasophils # (Auto)2018-06-02 15:03:00* Test Item Value Reference Range Interpretation Comments Basophils # (Auto) (test code = 704-7) 0.0 0.0-0.1 [facility] HospitalAbsolute Immature Granulocyte (auto 2018-06-02 15:03:00* Test Item Value Reference Range Interpretation Comments Absolute Immature Granulocyte (auto (cesar t code = Absolute Immature Granulocyte (auto) 0.04 0-0.1 [facility] HospitalBX RAYSA 1ST LESION STRTCTC-LT [place] [address] Patient Name: BRIDGET SHETTY MR #: [id number] : 1965 Age/Sex: 52/F Req #: [id number] Adm Physician: Ordered by: SUSAN CHRISTY MD Report #: [id number] [facility]: Procedure: [id number] MG/BX RAYSA 1ST LESION STRTCT C-LT Exam Date: Exam Time: REPORT STATUS: Si gned THIS REPORT HAS BEEN AMENDED. #[id number] - DAYI1DOES STEREOTAC TIC GUIDED BIOPSY: 07/29/2017 PATIENT CONSENT: According to [facility] requirements, a time out was performed, correct site was localized and the patient was cons ented. PROCEDURE DESCRIPTION: A stereotactic biopsy of microcalcificaiton in the left breast upper outer posterior aspect was requested. The procedur e was fully discussed with the patient including benefits, risks and alternat kathe. The need for a post biopsy clip was discussed. It was performed with wr itten informed consent. A time study clerk out was taken prior to beginning the [...] dated: 07/14/2017 mammogram and 06/20/2017 mammogram - [facility]. IMPRESSION: STEREOTACTIC GUIDED B IOPSY Khadar Stevens Jr., D.O. cw/:07/29/2017 13:14:47 Imaging Te chnologist: Cynthia Stein RT(R)(M), [facility] 190 [id number] AMENDMENT: 08/04/2017 Khadar Stevens Jr., D.O. Pathology res ults from the stereo biopsy reveal Fibroadenomatoid stroma with embedded calc ifications. Negative for malignancy. Dictated By: KHADAR SANTOS lectronically Signed By: KHADAR STEVENS DO on 07/29/17 1314 Transcribed By: DELORES MORALEZ on 08/04/17 3868 COPY TO: SUSAN CHRISTY MD MAMMO DIAG UNI CAD [place] [address] Patient Name: BRIDGET SHETTY MR #: [id number] : 1965 Age/Sex: 52/F Req #: [id number] Adm Physician: Ordered by: SUSAN CHRISTY MD Report #: [id number] Location: MAMMO Room/Bed: Procedure: MG/MAMMO DIAG UNI CAD LT Exam Date: 07/14/17 Exam Time: 1300 REPORT STA TUS: Signed #[id number] - [id number] #UNILATERAL LEFT DIGITAL DIAGNOST IC MAMMOGRAM WITH CAD WITH MAGNIFICATION: 07/14/2017 Comparison is made to exam dated: 06/20/2017 mammogram - [facility]. Current s tudy contains 3 films. [...] biopsy. Khadar Stevens Jr., D.O. cw/:07/14/2017 14:26:52 Senior Java Web Developer: Cynthia Mcclain)(Son[place]), [facility] letter sent: Biopsy Required Ma mmogram BI-RADS: 4a Suspicious abnormality - low suspicion for malignancy Di ctated By: KHADAR STEVENS DO 1421 COPY TO: SUSAN CHRISTY MD [facility] [address] [place] [address] Patient Name: BRIDGET SHETTY MR #: [id number] : 1965 Age/Sex: 52/F Req #: [id number] Adm Physician: Ordered by: SUSAN CHRISTY MD Report #: [id number] Location: MAMMO Room/Bed: Procedure: [id number] MG/MAMMOGRAPHY DIGITAL [facility] Exam Date: 06/20/17 Exam Time: 0900 REPO RT STATUS: Signed #[id number] - MGSCRBIL #BILATERAL FIRST EVER DIGITA L SCREENING MAMMOGRAM WITH CAD: 06/20/2017 CLINICAL: Routine screening. Baseli ne exam. No prior exams were available for comparison. Current study con tains 4 films. There are scattered fibroglandular elements in both breasts. Current study was also evaluated with a Computer Aided Detection (CAD) syste m. There is grouped amorphous calcification in the left breast at 1 o'clock posterior depth. There are several other areas of calcification in the left b reast. Scattered benign calcification and vascular calcfication present in the right breast. No other significant masses, calcifications, or other finding s are seen in either breast. IMPRESSION: INCOMPLETE: NEEDS ADDITIONAL RUMA GING EVALUATION The amorphous calcification in the left breast is indeterminat e. Spot magnification views are recommended. The patient will be cont acted by the Mammography Department to schedule this appointment. Johnathan Stevens Jr., D.O. cw/:07/05/2017 09:58:36 Imaging Technologis t: Cynthia Stein RT(R)(M), [facility] letter sent: Ad ditional Imaging Needed Mammogram BI-RADS: 0 Indeterminate Dictated By: KHADAR STEVENS DO 7 T ranscribed By: VERONICA on 07/05/17957 COPY TO: SUSAN CHRISTY MD
--- NOTE | 2020-02-29 18:44 | NUR ---
Pt returned from CT scan, Dr. Edmond notified this RN that pt has had a stroke on the imaging. RN immediately at bedside to complete medication administration and blood specimens draw. 12 lead ekg performed. See EMAR for meds given. Pt reports she had L sided lip numbness/tingling and L arm/hand. She also reports L leg buckling. Pt reports R sided headed yesterday.
[2020-02-29] MEDS ORDERED: MORPHINE SULFATE INJ 4 MG/ML INJ 1ML IV STA (18:48)
[2020-02-29] MEDS ORDERED: ONDANSETRON HCL INJ 2MG/ML 2ML 2 MG/ML VIAL IV STA (18:49)
[2020-02-29 18:53] LABS: AMPHETAMINES SCREEN,URINE NEGATIVE (NEGATIVE); BENZODIAZEPINES SCREEN,URINE NEGATIVE (NEGATIVE); PHENCYCLIDINE SCREEN,URINE NEGATIVE (NEGATIVE)
[2020-02-29 18:55] LABS: PREGNANCY TEST, URINE NEGATIVE (NEGATIVE)
--- NOTE | 2020-02-29 18:58 | Diagnostic Imaging Report ---
Exam: Head CT without contrast History: Headache Comparison studies: Head CT 02/28/2020. Technique: Axial images were obtained from the skull base to the vertex. Coronal and sagittal images reconstructed from the axial data. Dose modulation, iterative reconstruction, and/or weight based adjustment of the mA/kV was utilized to reduce the radiation dose to as low as reasonably achievable. Radiation dose: Total DLP: 832.18 mGy*cm. Estimated effective dose: DLP x 0.015 Intravenous contrast: None Findings: Scalp: No abnormalities. Bones: No fractures, blastic or lytic lesions. Brain sulci: Appropriate for age. Ventricles: Normal in size and configuration. No hydrocephalus. Extra-axial spaces: No masses, no fluid collection. Parenchyma: Acute nonhemorrhagic infarct in the right [employer]OOKKEEPING [employer]IST[employer] territory with cortical and subcortical hypodensity along the right inferior occipital and lingual gyri, occipitotemporal gyri and within the right hippocampus without significant mass effect. No mass or acute hemorrhage. Unchanged incidental punctate left occipital calcification which may be sequela of remote infection/inflammation. Sellar/suprasellar region: No abnormalities. Craniocervical junction: Patent foramen magnum. No Chiari one malformation. Incidental findings: Atherosclerotic calcifications in the carotid siphons and in the intradural vertebral arteries. IMPRESSION: 1. 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 2. No acute hemorrhage or other acute intracranial abnormalities. Findings discussed with Dr. Edmond at 6:50 PM on 02/29/2020. Signed by: Dr. Jairo Ramirez M.D. on 02/29/2020 6:54 PM
--- NOTE | 2020-02-29 19:08 | Diagnostic Imaging Report ---
EXAMINATION: CHEST SINGLE (PORTABLE) INDICATION: Chest pain. COMPARISON: Chest CT on 07/07/2019. FINDINGS: TUBES and LINES: None. LUNGS: Normal lung volumes. Lungs are clear. No consolidations. Bibasilar atelectasis. PLEURA: No pleural effusion or pneumothorax. HEART AND MEDIASTINUM: The cardiomediastinal silhouette is unremarkable. BONES AND SOFT TISSUES: No acute osseous lesion. Soft tissues are unremarkable. UPPER ABDOMEN: No free air under the diaphragm. IMPRESSION: No acute thoracic radiographic abnormality. Signed by: Collin Cowan MD on 02/29/2020 7:04 PM
[2020-02-29 19:16] LABS: BASOPHILS # (AUTO) 0.1 (0.0-0.1); BASOPHILS % 0.5 % (0.0-1.0); EOSINOPHILS # (AUTO) 0.3 (0.0-0.4); EOSINOPHILS % 2.6 % (0.0-6.0); HEMATOCRIT 37.8 % (34.2-44.1); HEMOGLOBIN 12.3 g/dL (12.0-16.0); LYMPHOCYTES # (AUTO) 2.6 (1.0-3.2); LYMPHOCYTES % 21.8 % (18.0-39.1); MEAN CORPUSCULAR HGB CONC 32.5 g/dL (31-35); MEAN CORPUSCULAR VOLUME 83.1 fL (81-99); MONOCYTES # (AUTO) 0.6 (0.2-0.8); MONOCYTES % 5.4 % (4.4-11.3); NEUTROPHILS # (AUTO) 8.2 (2.1-6.9); NEUTROPHILS % 69.4 % (38.7-80.0); PLATELET COUNT 361 x10e3/uL (140-360); RED BLOOD COUNT 4.55 x10e6/uL (3.6-5.1); RED CELL DISTRIBUTION WIDTH 14.1 % (11.7-14.4)
--- NOTE | 2020-02-29 19:23 | NUR ---
Neuro exam completed, noted L sided facial droop when smiling. 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 Reports onset of tingling yesterday @ 1400
[2020-02-29] MEDS ORDERED: MORPHINE SULFATE INJ 4 MG/ML INJ 1ML IV PRN (19:30)
[2020-02-29] MEDS ORDERED: ONDANSETRON HCL INJ 2MG/ML 2ML 2 MG/ML VIAL IV PRN (19:30)
[2020-02-29 19:38] LABS: ALANINE AMINOTRANSFERASE 12 IU/L (0-55); ALBUMIN 3.7 g/dL (3.5-5.0); ALBUMIN/GLOBULIN RATIO 1.1 (0.8-2.0); ALKALINE PHOSPHATASE 44 IU/L (40-150); ANION GAP 15.6 mmol/L (8-16); BLOOD UREA NITROGEN 10 mg/dL (7-26); BUN/CREATININE RATIO 13 (6-25); CALCIUM 9.5 mg/dL (8.4-10.2); CARBON DIOXIDE 25 mmol/L (22-29); CHLORIDE 103 mmol/L (98-107); CREATINE KINASE 51 IU/L (29-168); CREATININE, SERUM 0.78 mg/dL (0.57-1.11); EST GLOMERULAR FILTRATION RATE > 60 ML/MIN (60-); GLUCOSE 141 mg/dL (74-118); POTASSIUM 3.6 mmol/L (3.5-5.1); SODIUM 140 mmol/L (136-145)
--- NOTE | 2020-02-29 20:45 | NUR ---
RECEIVED PATIENT FROM ED VIA WHEELCHAIR AT THIS TIME. PATIENT AMBULATED TO BED, STEADY, SLOW GAIT NOTED. PATIENT A&OX4. PAIN 5/10 AT THIS TIME, RECENTLY RECEIVED PAIN MEDICATION. NEURO CHECK COMPLETED, ARM STRENGTH EQUAL ON BOTH SIDES, LEG STRENGTH EQUAL. SMILE SYMMETRICAL. NO FACIAL DROOPING NOTED AT THIS TIME. PATIENT STATES SHE NO LONGER FEELS ANY TINGLING IN L SIDE OF FACE, ARM, OR LEG. PATIENT STATES THE ONLY THING BESIDES THE HEADACHE THAT IS DIFFERENT FROM HER NORM, IS HER PERIPHERAL VISION ON LEFT SIDE. UNABLE TO SEE THINGS ABOUT 40 DEGREES TO THE LEFT OF EYES WHEN LOOKING STRAIGHT FORWARD. PERIPHERAL VISION IS REPORTED TO BE NORMAL ON RIGHT SIDE. SKIN INTACT. LUNG SOUNDS CLEAR. BOWEL SOUNDS ACTIVE, LAST BM TODAY. PEDAL PULSES PALPABLE. NO EDEMA NOTED. TELE BOX [address]. R FA 20G IV ASYMPTOMATIC, INTACT, AND PATENT. BED ALARM IS ACTIVE, PATIENT STATED SHE WOULD CALL WHEN SHE NEEDED TO USE RESTROOM SO STAFF CAN ENSURE SAFETY. BED LOCKED IN LOWEST POSITION, SIDE RAILS UPX2, CALL LIGHT IN REACH.
--- OUTSIDE RECORDS SUMMARY | 2020-02-29 20:52 | XMS REPORT | Continuity of Care Document ---
Author Author [facility] t Organization [facility] Address [address] [place] [address] Phone Unavailable Care Team Providers Care Form Grader Name Role Phone RACHEL VELASQUEZ, MD Sonido DAVIS PCP ASH HAGAN Attphys Unavailable KOUSSAYER, TARDILLAN Attphys Unavailable CHRISTY, Sonido DAVIS Attphys Unavailable SANDHIR, S AMBICA Attphys Unavailable VICKEY, P BIANCA Attphys Unavailable CHRISTY, Sonido DAVIS Admphys Unavailable Payers Payer Name Policy Type Policy Number Effective Date Expiration Date Dyaton pickens [employer] Hmo [id number] 2014 00:00:[address] [facility] Cigna o [id number] 2019 00:00:00 [facility] Problems Condition Name Condition Details Condition Category Status Onset Date Resolution Date Last Treatment Date Treating Clinician Comments Source Chest pain in adult Chest pain in adult Problem Active [facility] Dyspnea Dyspnea Problem Active [facility] Leukocytosis Elevated WBCs Problem Active [facility] Headache Problem Active [facility] Dizziness Problem Active [facility] Allergies, Adverse Reactions, Alerts This patient has no known allergies or adverse reactions. Social History Social Habit Start Date Stop Date Quantity Comments Source Sex Assigned At 1965 00:00:00 1965 00:00:00 Female [facility] Medications Ordered Medication Name Filled Medication Name Start Date Stop Da te Current Medication? Ordering Clinician Indication Dosage Frequency Signature (SIG) Comments Components Source Methocarbamol (Robaxin-750) 750 Mg TABLET Methocarbamo l (Robaxin-750) 750 Mg TABLET 2019-03-23 15:53:00 Yes 750 Ever y 8 Hours as needed for Muscle Spasms [facility] Tramadol Hcl (Ultram) 50 Mg TABLET Tramadol Hcl (Ultram) 50 Mg TABLET 2019-03-23 15:53:00 Yes 50 Every 6 Ho urs as needed for Mild Pain (1-3) Or Fever>100.8 [facility] Atorvastatin Calcium Atorvastatin Calcium Yes 40 Bedtime [facility] Cephalexin Cephalexin Yes 500 Twice A Day [facility] Ferrous Sulfate Ferrous Sulfate Yes 325 Twice A Day [facility] Glipizide/Metformin Hcl (Glipizide-Metformin 5-500 Mg) 1 Each TABLET Glipizide/Metformin Hcl (Glipizide-Metformin 5-500 Mg) 1 Each TABLET Yes 2 Twice A Day [facility] Insulin Aspart (Novolog) 100 Unit/1 Ml CARTRIDGE Insul in Aspart (Novolog) 100 Unit/1 Ml CARTRIDGE Yes 40 Daily@0600 [facility] Insulin Aspart Insulin Aspart Yes 30 Bedtime [facility] Lisinopril/Hydrochlorothiazide (Lisinopril-Hctz 20-25 Mg Tab) 1 Each TABLET Lisinopril/Hydrochlorothiazide (Lisinopril-Hctz 20-25 Mg Tab) 1 Each TABLET Yes Daily [facility] Metoprolol Tartrate Metoprolol Tartrate Yes 25 Twice A Day [facility] Pantoprazole Sodium (Protonix) 40 Mg TABLET. Pantopr azole Sodium (Protonix) 40 Mg TABLET. Yes 40 Twice A Day C [facility] Potassium Chloride Potassium Chloride Yes 10 Da britany [facility] Sucralfate (Carafate) 1 Gm/10 Ml ORAL.SUSP Sucralfate (Carafate) 1 Gm/10 Ml ORAL.SUSP Yes 1 Four Times Daily [facility] Aspirin Aspirin 2019-07-13 00:00:00 No 81 Daily [facility] Aspirin (Aspir 81) 81 Mg TABLET.DR Aspirin (Aspir 81) 81 Mg TABL ET. 2019-07-12 00:00:00 No 81 Daily@0600 [facility] Vital Signs Vital Name Observation Time Observation Value Comments Source Weight 2020-02-29 18:08:00 165 [lb_av] [facility] BMI (Body Mass Index) 2020-02-29 18:08:00 30.2 kg/m2 [facility] Weight 2020-02-28 15:08:00 165 [lb_av] [facility] BMI (Body Mass Index) 2020-02-28 15:08:00 30.2 kg/m2 [facility] Body Temperature 2019-07-13 11:00:00 98.4 [degF] [facility] Procedures Procedure Date / Time Performed Performing Clinician Leslie tony Computed tomography of brain without radiopaque contrast 2020-02 00:00:00 [facility] Computed tomography of brain without radiopaque contrast 2020-02 00:00:00 [facility] INSERTION OF INFUSION DEV INTO SUP VENA CAVA, PERC APPROACH 2019-07-09 00:00:00 [facility] CONTROL BLEEDING IN GASTROINTESTINAL TRACT, ENDO 2019-07-08 00:0 0:00 [facility] TRANSFUSE NONAUT RED BLOOD CELLS IN CENTRAL VEIN, PERC 2019-06-26 3 00:00:00 [facility] X-ray of chest, single view 2019-07-07 00:00:00 ASH LIVINGSTON [facility] Computed tomography of chest with contrast 2019-07-07 00:00:00 JANEL GORDILLO [facility] Encounters Start Date/Time End Date/Time Encounter Type Admission Type [facility] Care Department Encounter ID Source 2020-02-29 18:22:00 2020-02-29 20:40:00 Departed Emergency Room 1 ASH HAGAN [facility] [id number] [facility] 2020-02-28 15:00:00 2020-02-28 18:18:00 Departed Emergency Room 1 RYLEE [facility] [id number] [facility] 2019-07-07 15:24:00 2019-07-13 13:20:00 Discharged Inpatient [address] [facility] [id number] [facility] 2019-04-14 09:34:00 2019-04-14 09:34:00 Registered Clinic 3 PA TEL [facility] [id number] [facility] 2019-03-23 13:00:00 2019-03-23 18:32:00 Departed Emergency Room 1 CAESAR ESCOBAR [facility] [id number] [facility] 2019-02-16 17:04:00 2019-02-16 19:55:00 Departed Emergency Room 1 CAESAR WHITE [facility] [id number] [facility] 2018-09-09 10:33:00 2018-09-09 10:33:00 Registered Clinic 3 PA TEL [facility] [id number] [facility] 2018-09-04 21:52:00 2018-09-05 01:24:00 Departed Emergency Room [facility] [id number] [facility] 2018-06-11 08:58:00 2018-06-11 08:58:00 Registered Clinic 3 JASON TEL [facility] [id number] [facility] 2018-06-02 13:51:00 2018-06-02 18:34:00 Departed Emergency Room 1 BIANCA HURD [facility] [id number] [facility] Results Test Description Test Time Test Comments Results Result Comments Source CHEST SINGLE (PORTABLE) 2020-02-29 19:04:00 [facility] [address] [address] Patient Name: BRIDGET SHETTY MR #: [id number] : 1965 Age/Sex: 55/F Req #: [id number] Adm Physician: Ordered by: ASH HAGAN DO Report #: [id number] Location: ER Room/Bed: Procedure: [id number] DX/CHEST SINGLE (PORTABLE) Exam Date: 02/29/20 Exam Time: 1814 REPORT STATUS: Signed EXAMINATION: CHEST SINGLE (PORTABLE) INDICATION: Chest pain. COMPARISON: Chest CT on 07/07/2019. FINDINGS: TUBES and LINES: None. LUNGS: Normal lung volumes. Lungs are clear. No consolidations. Bibasilar atelectasis. PLEURA: No pleural effusion or pneumothorax. HEART AND MEDIASTINUM: The cardiomediastinal silhouette is unremarkable. BONES AND SOFT TISSUES: No acute osseous lesion. Soft tissues are unremarkable. UPPER ABDOMEN: No free air under the diaphragm. IMPRESSION: No acute thoracic radiographic abnormality. Signed by: Lori Stallings MD on 02/29/2020 7:04 PM Dictated By: LORI STALLINGS MD 03 Transcribed By: ROSY on 02/29/201903 COPY TO: ASH HAGAN DO Blood leukocytes automated count (number/volume) 2020-02-29 19:03:00 Test Item White Blood Count (test code = 6690-2) 11.77 4.8-10.8 [facility] automated count (number/volume)2020-02-29 19:03:00* Test Item Value Reference Range Interpretation Comments Red Blood Count (test code = 789-8) 4.55 3.6-5.1 [facility] hemoglobin measurement (moles/volume)2020-02-29 19:03:00* Test Item Value Reference Range Interpretation Comments Hemoglobin (test code = 05520-6) 12.3 12.0-16.0 [facility] CenterAutomated blood hematocrit (volume fraction)2020-02-29 19:03:00* Test Item Value Reference Range Interpretation Comments Hematocrit (test code = 4544-3) 37.8 34.2-44.1 [facility] CenterAutomated erythrocyte mean corpuscular mnuptq4678-95-59 19:03:00* Test Item Value Reference Range Interpretation Comments Mean Corpuscular Volume (test code = 787-2) 83.1 81-99 [facility] CenterAutomated erythrocyte mean corpuscular hemoglobin (mass per erythrocyte)2020-02-29 19:03:00* Test Item Value Reference Range Interpretation Comments Mean Corpuscular Hemoglobin (test code = 785-6) 27.0 28-32 [facility] CenterAutformerly [facility]ed erythrocyte mean corpuscular hemoglobin concentration measurement (mass/volume)2020-02-29 19:03:00* Test Item Value Reference Range Interpretation Comments Mean Corpuscular Hemoglobin Concent (test code = 786-4) 32.5 31-35 [facility] CenterRDW FxdLv-Tdt0061-07-06 19:03:00* Test Item Value Reference Range Interpretation Comments Red Cell Distribution Width (test code = 32167-3) 14.1 11.7 -14.4 [facility] CenterAutomated blood platelet count (count/volume)2020-02-29 19:03:00* Test Item Value Reference Range Interpretation Comments Platelet Count (test code = 777-3) 361 140-360 [facility] neutrophil count as percentage of total qepnnztxlf4421-19-26 19:03:00* Test Item Value Reference Range Interpretation Comments Neutrophils (%) (Auto) (test code = 89120-1) 69.4 38.7-80.0 [facility] lymphocyte count as percentage ot total bevtchmbew7830-92-01 19:03:00* Test Item Value Reference Range Interpretation Comments Lymphocytes (%) (Auto) (test code = 736-9) 21.8 18.0-39.1 [facility] CenterAutomated blood monocyte count as percentage of total svbgypffki7140-04-26 19:03:00* Test Item Value Reference Range Interpretation Comments Monocytes (%) (Auto) (test code = 5905-5) 5.4 4.4-11.3 [facility] CenterAutomated blood eosinophil count as percentage of total bbgsgaqbrk0229-47-63 19:03:00* Test Item Value Reference Range Interpretation Comments Eosinophils (%) (Auto) (test code = 713-8) 2.6 0.0-6.0 [facility] CenterAutomated blood basophil count as percentage of total plqliivoum0241-79-83 19:03:00* Test Item Value Reference Range Interpretation Comments Basophils (%) (Auto) (test code = 706-2) 0.5 0.0-1.0 [facility] CenterFluoroscopic procedure less than one hour bjamramu0144-08-37 19:03:00* Test Item Value Reference Range Interpretation Comments IM GRANULOCYTES % (test code = IM GRANULOCYTES %) 0.3 0.0- 1.0 [facility] CenterAutomated blood neutrophil count 2020-02-29 19:03:00* Test Item Value Reference Range Interpretation Comments Neutrophils # (Auto) (test code = 751-8) 8.2 2.1-6.9 [facility] CenterBlood lymphocytes count (number/volume) 2020-02-29 19:03:00* Test Item Value Reference Range Interpretation Comments Lymphocytes # (Auto) (test code = 24130-0) 2.6 1.0-3.2 [facility] CenterBlood monocytes automated count (number/volume)2020-02-29 19:03:00* Test Item Value Reference Range Interpretation Comments Monocytes # (Auto) (test code = 742-7) 0.6 0.2-0.8 [facility] CenterAutomated blood eosinophil count 2020-02-29 19:03:00* Test Item Value Reference Range Interpretation Comments Eosinophils # (Auto) (test code = 711-2) 0.3 0.0-0.4 [facility] CenterAutomated blood basophil count (count/volume)2020-02-29 19:03:00* Test Item Value Reference Range Interpretation Comments Basophils # (Auto) (test code = 704-7) 0.1 0.0-0.1 [facility] CenterFluoroscopic procedure less than one hour zjaelcic1859-48-88 19:03:00* Test Item Value Reference Range Interpretation Comments Absolute Immature Granulocyte (auto (cesar t code = Absolute Immature Granulocyte (auto) 0.04 0-0.1 [facility] sodium measurement (moles/volume)2020-02-29 19:03:00* Test Item Value Reference Range Interpretation Comments Sodium Level (test code = 2951-2) 140 136-145 [facility] plasma potassium measurement (moles/volume)2020-02-29 19:03:00* Test Item Value Reference Range Interpretation Comments Potassium Level (test code = 2823-3) 3.6 3.5-5.1 [facility] plasma chloride measurement (moles/volume)2020-02-29 19:03:00* Test Item Value Reference Range Interpretation Comments Chloride Level (test code = 2075-0) 103 98-107 [facility] or plasma carbon dioxide, total measurement (moles/volume)2020-02-29 19:03:00* Test Item Value Reference Range Interpretation Comments Carbon Dioxide Level (test code = 2028-9) 25 22-29 [facility] or plasma anion hxp6819-77-17 19:03:00* Test Item Value Reference Range Interpretation Comments Anion Gap (test code = 36579-6) 15.6 8-16 [facility] or plasma urea nitrogen measurement (mass/volume)2020-02-29 19:03:00* Test Item Value Reference Range Interpretation Comments Blood Urea Nitrogen (test code = 3094-0) 10 7-26 [facility] plasma creatinine measurement (mass/volume)2020-02-29 19:03:00* Test Item Value Reference Range Interpretation Comments Creatinine (test code = 2160-0) 0.78 0.57-1.11 [facility] plasma urea nitrogen/creatinine mass fsooi6442-54-17 19:03:00* Test Item Value Reference Range Interpretation Comments BUN/Creatinine Ratio (test code = 3097-3) 13 6-25 [facility] CenterEstimated glomerular filtration rate (GFR) vwlnqhklxlxqo1911-81-05 19:03:00* Test Item Value Reference Range Interpretation Comments Estimat Glomerular Filtration Rate (test code = 377177515) > 60 >60 Ranges were taken from the National Kidney Disease Education Program and the [facility] Kidney Foundation literature.Reference ranges:60 or greater: Kxgioe78-12 ( for 3 consecutive months): Chronic kidney disease 15 or less: Kidney failureBrownfield Regional Medical CenterGlucose gksyiyaymcr5534-07-32 19:03:00* Test Item Value Reference Range Interpretation Comments Glucose Level (test code = FOQ8810) 141 74-118 [facility] plasma calcium measurement (mass/volume)2020-02-29 19:03:00* Test Item Value Reference Range Interpretation Comments Calcium Level (test code = 09367-1) 9.5 8.4-10.2 [facility] plasma total bilirubin measurement (mass/volume)2020-02-29 19:03:00* Test Item Value Reference Range Interpretation Comments Total Bilirubin (test code = 1975-2) 0.2 0.2-1.2 [facility] CenterFluoroscopic procedure less than one hour dfllvkul6352-19-82 19:03:00* Test Item Value Reference Range Interpretation Comments Aspartate Amino Transf (AST/SGOT) (test code = Aspartate Amino Transf (AST/SGOT)) 13 5-34 [facility] or plasma alanine aminotransferase measurement (enzymatic activity/volume)2020-02-29 19:03:00* Test Item Value Reference Range Interpretation Comments Alanine Aminotransferase (ALT/SGPT) (test code = 1742-6) 12 0-55 [facility] plasma protein measurement (mass/volume)2020-02-29 19:03:00* Test Item Value Reference Range Interpretation Comments Total Protein (test code = 2885-2) 7.2 6.5-8.1 [facility] plasma albumin measurement (mass/volume)2020-02-29 19:03:00* Test Item Value Reference Range Interpretation Comments Albumin (test code = 1751-7) 3.7 3.5-5.0 [facility] CenterPlasma globulin measurement (mass/volume) 2020-02-29 19:03:00* Test Item Value Reference Range Interpretation Comments Globulin (test code = 91221-2) 3.5 2.3-3.5 [facility] or plasma albumin/globulin mass gozvs8119-88-64 19:03:00* Test Item Value Reference Range Interpretation Comments Albumin/Globulin Ratio (test code = 1759-0) 1.1 0.8-2.0 [facility] or plasma alkaline phosphatase measurement (enzymatic activity/volume)2020-02-29 19:03:00* Test Item Value Reference Range Interpretation Comments Alkaline Phosphatase (test code = 6768-6) 44 40-150 [facility] CenterBNP Yrq-sNvo2248-96-06 19:03:00* Test Item Value Reference Range Interpretation Comments B-Type Natriuretic Peptide (test code = 13317-5) 69.5 0-100 [facility] or plasma creatine kinase measurement (enzymatic activity/volume)2020-02-29 19:03:00* Test Item Value Reference Range Interpretation Comments Creatine Kinase (test code = 2157-6) 51 29-168 [facility] or plasma creatine kinase MB measurement (mass/volume)2020-02-29 19:03:00* Test Item Value Reference Range Interpretation Comments Creatine Kinase MB (test code = 00351-3) 1.10 0-5.0 [facility] CenterTroponin I measurement by highly sensitive enzyme dvejmlctdrz8855-73-69 19:03:00* Test Item Value Reference Range Interpretation Comments Troponin I (test code = 79304-3) 0.062 0-0.300 [facility] CenterCT BRAIN BI9786-91-97 18:45:00 [facility] [address] [address] Patient Name: BRIDGET SHETTY MR #: [id number] : 1965 Age/Sex: 55/F Req #: [id number] Adm Physician: Ordered by: ASH HAGAN DO Report #: [id number] Location: ER Room/Bed: Procedure: [id number] CT/CT BRAIN WO Exam Date: 02/29/20 Exam Time: 1815 REPORT STATUS: Signed Exam: Head CT without cont rast History: Headache Comparison studies: Head CT 02/28/2020. Techniq ue: Axial images were obtained from the skull base to the vertex. Coronal an d sagittal images reconstructed from the axial data. Dose modulation, iterati ve reconstruction, and/or weight based adjustment of the mA/kV was utilized to reduce the radiation dose to as low as reasonably achievable. Radiatio n dose: Total DLP: 832.18 mGy*cm. Estimated effective dose: DLP x 0.015 Intravenous contrast: None Findings: Scalp: No abnormalities. Bones : No fractures, blastic or lytic lesions. Brain sulci: Appropriate for age. Ventricles: Normal in size and configuration. No hydrocephalus. Extra-axial spaces: No masses, no fluid collection. 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 No mass or acute hemorrhage. Unchanged incidental punctate left occipital calcificatio n which may be sequela of remote infection/inflammation. Sellar/suprasellar region: No abnormalities. Craniocervical junction: Patent foramen magnum. No Chiari one malformation. Incidental findings: Atherosclerotic calcificat ions in the carotid siphons and in the intradural vertebral arteries. IM PRESSION: 1. 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 2. No acute hemorrhage or other acute intracranial abnormalitie s. Findings discussed with Dr. Hagan at 6:50 PM on 02/29/2020. Signed by : Dr. Jackie Rodriguez M.D. on 02/29/2020 6:54 PM Dictated By: JACKIE DAILY MD 55 Transcribe d By: ROSY on 02/29/201853 COPY TO: ASH HAGAN DO Urine opiates screening smzh0649-98-60 18:15:00* Test Item Value Reference Range Interpretation Comments Urine Opiates Screen (test code = 32300-0) POSITIVE NEGATIVE This test provides only a screen. Positive results should be repeated by a confi rmatory test.[facility] CenterBarbiturates screen, urine 2020-02-29 18:15:00* Test Item Value Reference Range Interpretation Comments Urine Barbiturates Screen (test code = 933498877) NEGATIVE NEGA TIVE [facility] CenterUrine phencyclidine detection by screening [id number] 18:15:00* Test Item Value Reference Range Interpretation Comments Urine Phencyclidine Screen (test code = 96614-6) NEGATIVE NEGAT PA [facility] CenterUrine amphetamines detection by screen method > 1000 ng/wX2888-13-21 18:15:00* Test Item Value Reference Range Interpretation Comments Urine Amphetamines Screen (test code = 11275-9) NEGATIVE NEGATI VE [facility] CenterFluoroscopic procedure less than one hour dhyineky6023-24-70 18:15:00* Test Item Value Reference Range Interpretation Comments Urine Methamphetamines Screen (test code = Urine Metha mphetamines Screen) NEGATIVE NEGATIVE [facility] CenterUrine benzodiazepines detection by screening ahjfoo9809-97-62 18:15:00* Test Item Value Reference Range Interpretation Comments Urine Benzodiazepines Screen (test code = 39752-0) NEGATIVE NEG ATIVE [facility] CenterUrine cocaine measurement (mass/volume) 2020-02-29 18:15:00* Test Item Value Reference Range Interpretation Comments Urine Cocaine Screen (test code = 3398-5) NEGATIVE NEGATIVE [facility] cannabinoids detection by screening zenwzc5804-08-55 18:15:00* Test Item Value Reference Range Interpretation Comments Urine Cannabinoids Screen (test code = 74850-2) NEGATIVE NEGATI VE THESE RESULTS ARE FOR MEDICAL TREATMENT ONLYTHIS REPORT CONTAINS UNCONFIR MED SCREENING RESULTS*POSITIVE RESULTS WILL BE CONFIRMED BY REFERENCE LAB UPON R EQUEST CUT-OFFDRUG CLASS CONCENTRATION ng/mLAmphetamines 1000Methamphetamines 1000Cocaine 300Opiate 300Phencyc lidine 25Cannabinoid 50Barbiturates 300Benzodiazepine 300Methadone 300[facility] ParkwayUrine methadone ujdkfi7241-99-02 18:15:00* Test Item Value Reference Range Interpretation Comments Urine Methadone Screen (test code = 18600-7) NEGATIVE NEGATIVE THESE RESULTS ARE FOR MEDICAL TREATMENT ONLYTHIS REPORT CONTAINS UNCONFIR MED SCREENING RESULTS*POSITIVE RESULTS WILL BE CONFIRMED BY REFERENCE LAB UPON R EQUEST CUT-OFFDRUG CLASS CONCENTRATION ng/mLAmphetamines 1000Methamphetamines 1000Cocaine Metabolite 300Opiate 300Phencyc lidine 25Cannabinoid 50Barbiturates 300Benzodiazepine 300Methadone 300[facility] ParkwayUrine human chorionic gonadotropin (hCG) [id number] 18:15:00* Test Item Value Reference Range Interpretation Comments Urine Test (test code = 2106-3) NEGATIVE NEGATIVE [facility] Center[facility] ([facility])2020-02-28 16:15:00 [facility] [address] [place] [address] Patient Name: BRIDGET SHETTY MR #: [id number] : 1965 Age/Sex: 55/F Req #: [id number] Adm Physician: Ordered by: RYLEE JACKSON MD Report #: [id number] Location: ER Room/Bed: Procedure: [id number] DX/CHEST SIN GLE (PORTABLE) Exam Date: 02/28/20 Exam Time: 1541 REPORT STATUS: Signed EXAMINATION : CHEST SINGLE (PORTABLE) INDICATION: Dizziness COMPARISON: Chest radiograph 07/09/2019 FINDINGS: LINES/TUBES:EKG leads overlie the chest. LUNGS:The lungs are well-inflated. No focal consolidation or pulmon alcon edema. PLEURA:No pleural effusion or pneumothorax. MEDIASTINUM:The cardiomediastinal silhouette appears normal in size and shape. BONES/SOFT TISSUES:No acute osseous injury. Old healed right clavicle fracture deformity. ABDOMEN:No free air under the diaphragm. IMPRESSION: No focal p neumonia or pulmonary edema. Signed by: Ramón Greenfield MD on 02/28/2020 4:15 PM Dictated By: RAMÓN GREENFIELD MD 14 COPY TO: RYLEE OLIVERA MD CT BRAIN [id number] 16:01:00 [place] [address] Patient Name: BRIDGET SHETTY MR #: [id number] : 1965 Age/Sex: 55/F Req #: [id number] Adm Physician: Ordered by: RYLEE JACKSON MD Report #: [id number] Location: ER Room/Bed: Procedure: CT/CT BRAIN WO Exam Date: 02/28/20 Exam Time: 1548 REPORT STATUS: Signed Exam: Head CT without c ontrast History: Dizziness, visual disturbance Comparison studies: None Technique: Axial images were obtained from the skull base to the vertex. Coronal and sagittal images reconstructed from the axial data. Dose modulatio n, iterative reconstruction, and/or weight based adjustment of the mA/kV was u tilized to reduce the radiation dose to as low as reasonably achievable. Radiation dose: Total DLP: 921 mGy*cm. Estimated effective dose: DLP x 0 .015 Intravenous contrast: None Findings: Scalp: No abnormalities. Bones: No fractures, blastic or lytic lesions. Brain sulci: Appropriate f or age. Ventricles: Normal in size and configuration. No hydrocephalus. Extr a-axial spaces: No masses, no fluid collection. Parenchyma: No abnormal densities. No masses, acute hemorrhage, acute or chronic vascular insults. Incidental punctate left occipital dystrophic calcification without surrounding edema or mass effect which may be sequela of remote infection or inflammation . Sellar/suprasellar region: No abnormalities. Craniocervical junction: P atent foramen magnum. No Chiari one malformation. Incidental findings: C alcified atherosclerosis in the carotid siphons and intradural vertebral arter ies. IMPRESSION: No acute intracranial abnormalities. Signed by: Dr. Jackie Rodriguez M.D. on 02/28/2020 4:04 PM Dictated By: JACKIE Reeder MD 160 Transcribed By: ROSY on 02/28/20 1604 COPY TO: RYLEE JACKSON MD Blood leukocytes automated count (number/volume)2020-02-28 15:15:00* Test Item Value Reference Range Interpretation Comments White Blood Count (test code = 6690-2) 9.62 4.8-10.8 [facility] CenterBlood erythrocytes automated count (number/volume)2020-02-28 15:15:00* Test Item Value Reference Range Interpretation Comments Red Blood Count (test code = 789-8) 4.48 3.6-5.1 [facility] CenterBlood hemoglobin measurement (moles/volume)2020-02-28 15:15:00* Test Item Value Reference Range Interpretation Comments Hemoglobin (test code = 74513-6) 11.6 12.0-16.0 [facility] CenterAutomated blood hematocrit (volume fraction)2020-02-28 15:15:00* Test Item Value Reference Range Interpretation Comments Hematocrit (test code = 4544-3) 37.0 34.2-44.1 [facility] CenterAutomated erythrocyte mean corpuscular graajt1208-82-44 15:15:00* Test Item Value Reference Range Interpretation Comments Mean Corpuscular Volume (test code = 787-2) 82.6 81-99 [facility] CenterAutomated erythrocyte mean corpuscular hemoglobin (mass per erythrocyte)2020-02-28 15:15:00* Test Item Value Reference Range Interpretation Comments Mean Corpuscular Hemoglobin (test code = 785-6) 25.9 28-32 [facility] CenterAutomated erythrocyte mean corpuscular hemoglobin concentration measurement (mass/volume)2020-02-28 15:15:00* Test Item Value Reference Range Interpretation Comments Mean Corpuscular Hemoglobin Concent (test code = 786-4) 31.4 31-35 [facility] CenterRDW YzrUc-Qlf8312-34-05 15:15:00* Test Item Value Reference Range Interpretation Comments Red Cell Distribution Width (test code = 66062-4) 13.8 11.7 -14.4 [facility] CenterAutomated blood platelet count (count/volume)2020-02-28 15:15:00* Test Item Value Reference Range Interpretation Comments Platelet Count (test code = 777-3) 361 140-360 [facility] CenterAutomated blood segmented neutrophil count as percentage of total googsrxpxh7509-49-20 15:15:00* Test Item Value Reference Range Interpretation Comments Neutrophils (%) (Auto) (test code = 73102-9) 64.7 38.7-80.0 [facility] CenterAutomated blood lymphocyte count as percentage ot total mmymbbjylm2031-92-72 15:15:00* Test Item Value Reference Range Interpretation Comments Lymphocytes (%) (Auto) (test code = 736-9) 25.1 18.0-39.1 [facility] CenterAutomated blood monocyte count as percentage of total pbenduzfev1142-85-26 15:15:00* Test Item Value Reference Range Interpretation Comments Monocytes (%) (Auto) (test code = 5905-5) 6.3 4.4-11.3 [facility] CenterAutomated blood eosinophil count as percentage of total vdpztpnnwy7161-75-03 15:15:00* Test Item Value Reference Range Interpretation Comments Eosinophils (%) (Auto) (test code = 713-8) 2.9 0.0-6.0 [facility] CenterAutomated blood basophil count as percentage of total wnigbvwtjd5961-80-15 15:15:00* Test Item Value Reference Range Interpretation Comments Basophils (%) (Auto) (test code = 706-2) 0.5 0.0-1.0 [facility] CenterFluoroscopic procedure less than one hour wwrdnqub4289-95-51 15:15:00* Test Item Value Reference Range Interpretation Comments IM GRANULOCYTES % (test code = IM GRANULOCYTES %) 0.5 0.0- 1.0 [facility] CenterAutformerly mcd[facility] hospitaled blood neutrophil count 2020-02-28 15:15:00* Test Item Value Reference Range Interpretation Comments Neutrophils # (Auto) (test code = 751-8) 6.2 2.1-6.9 [facility] CenterBlood lymphocytes count (number/volume) 2020-02-28 15:15:00* Test Item Value Reference Range Interpretation Comments Lymphocytes # (Auto) (test code = 29710-4) 2.4 1.0-3.2 [facility] CenterBlood monocytes automated count (number/volume)2020-02-28 15:15:00* Test Item Value Reference Range Interpretation Comments Monocytes # (Auto) (test code = 742-7) 0.6 0.2-0.8 [facility] CenterAutomated blood eosinophil count 2020-02-28 15:15:00* Test Item Value Reference Range Interpretation Comments Eosinophils # (Auto) (test code = 711-2) 0.3 0.0-0.4 [facility] CenterAutomated blood basophil count (count/volume)2020-02-28 15:15:00* Test Item Value Reference Range Interpretation Comments Basophils # (Auto) (test code = 704-7) 0.1 0.0-0.1 [facility] CenterFluoroscopic procedure less than one hour ajigdoxi2058-66-59 15:15:00* Test Item Value Reference Range Interpretation Comments Absolute Immature Granulocyte (auto (cesar t code = Absolute Immature Granulocyte (auto) 0.05 0-0.1 [facility] plasma sodium measurement (moles/volume)2020-02-28 15:15:00* Test Item Value Reference Range Interpretation Comments Sodium Level (test code = 2951-2) 138 136-145 [facility] Arlingtonerum or plasma potassium measurement (moles/volume)2020-02-28 15:15:00* Test Item Value Reference Range Interpretation Comments Potassium Level (test code = 2823-3) 4.0 3.5-5.1 [facility] Arlingtonerum or plasma chloride measurement (moles/volume)2020-02-28 15:15:00* Test Item Value Reference Range Interpretation Comments Chloride Level (test code = 2075-0) 104 98-107 [facility] Arlingtonerum or plasma carbon dioxide, total measurement (moles/volume)2020-02-28 15:15:00* Test Item Value Reference Range Interpretation Comments Carbon Dioxide Level (test code = 2028-9) 26 22-29 [facility] Arlingtonerum or plasma anion mba9520-30-02 15:15:00* Test Item Value Reference Range Interpretation Comments Anion Gap (test code = 80541-2) 12.0 8-16 [facility] Arlingtonerum or plasma urea nitrogen measurement (mass/volume)2020-02-28 15:15:00* Test Item Value Reference Range Interpretation Comments Blood Urea Nitrogen (test code = 3094-0) 15 7-26 [facility] Arlingtoner[facility] or plasma creatinine measurement (mass/volume)2020-02-28 15:15:00* Test Item Value Reference Range Interpretation Comments Creatinine (test code = 2160-0) 0.98 0.57-1.11 [facility] Arlingtoner[facility] or plasma urea nitrogen/creatinine mass ycguu6130-42-24 15:15:00* Test Item Value Reference Range Interpretation Comments BUN/Creatinine Ratio (test code = 3097-3) 15 6-25 [facility] CenterEstimated glomerular filtration rate (GFR) zyoslacgsazwd0846-82-10 15:15:00* Test Item Value Reference Range Interpretation Comments Estimat Glomerular Filtration Rate (test code = 123056262) 59 >60 Ranges were taken from the National Kidney Disease Education Program and the [facility] Kidney Foundation literature.Reference ranges:60 or greater: Vszlac25-95 ( for 3 consecutive months): Chronic kidney disease 15 or less: Kidney failureBrownfield Regional Medical CenterGlucose phwanftwjbw0777-84-86 15:15:00* Test Item Value Reference Range Interpretation Comments Glucose Level (test code = FNC7260) 289 74-118 [facility] or plasma calcium measurement (mass/volume)2020-02-28 15:15:00* Test Item Value Reference Range Interpretation Comments Calcium Level (test code = 23137-4) 9.5 8.4-10.2 [facility] or plasma total bilirubin measurement (mass/volume)2020-02-28 15:15:00* Test Item Value Reference Range Interpretation Comments Total Bilirubin (test code = 1975-2) 0.2 0.2-1.2 [facility] CenterFluoroscopic procedure less than one hour imbmtgap3730-39-73 15:15:00* Test Item Value Reference Range Interpretation Comments Aspartate Amino Transf (AST/SGOT) (test code = Aspartate Amino Transf (AST/SGOT)) 18 5-34 [facility] Arlingtonerum or plasma alanine aminotransferase measurement (enzymatic activity/volume)2020-02-28 15:15:00* Test Item Value Reference Range Interpretation Comments Alanine Aminotransferase (ALT/SGPT) (test code = 1742-6) 13 0-55 [facility] Arlingtoner[facility] or plasma protein measurement (mass/volume)2020-02-28 15:15:00* Test Item Value Reference Range Interpretation Comments Total Protein (test code = 2885-2) 7.2 6.5-8.1 [facility] Arlingtoner[facility] or plasma albumin measurement (mass/volume)2020-02-28 15:15:00* Test Item Value Reference Range Interpretation Comments Albumin (test code = 1751-7) 3.5 3.5-5.0 [facility] CenterPlasma globulin measurement (mass/volume) 2020-02-28 15:15:00* Test Item Value Reference Range Interpretation Comments Globulin (test code = 30957-9) 3.7 2.3-3.5 [facility] Arlingtonerum or plasma albumin/globulin mass fgcty4405-41-61 15:15:00* Test Item Value Reference Range Interpretation Comments Albumin/Globulin Ratio (test code = 1759-0) 0.9 0.8-2.0 [facility] Arlingtoner[facility] or plasma alkaline phosphatase measurement (enzymatic activity/volume)2020-02-28 15:15:00* Test Item Value Reference Range Interpretation Comments Alkaline Phosphatase (test code = 6768-6) 43 40-150 [facility] Arlingtoner[facility] or plasma creatine kinase measurement (enzymatic activity/volume)2020-02-28 15:15:00* Test Item Value Reference Range Interpretation Comments Creatine Kinase (test code = 2157-6) 75 29-168 [facility] Arlingtonerum or plasma creatine kinase MB measurement (mass/volume)2020-02-28 15:15:00* Test Item Value Reference Range Interpretation Comments Creatine Kinase MB (test code = 23120-6) 1.50 0-5.0 [facility] CenterTroponin I measurement by highly sensitive enzyme eewfmafujjf4474-26-08 15:15:00* Test Item Value Reference Range Interpretation Comments Troponin I (test code = 94795-1) 0.067 0-0.300 [facility] CenterBedside Lwcpagu1752-41-30 11:43:00* Test Item Value Reference Range Interpretation Comments Bedside Glucose (test code = 15454-4) 262 70-120 H Meter ID: [id number] St. [facility] HospitalCapillary blood glucose measurement by glucometer (mass/volume)2019-07-13 10:36:00* Test Item Value Reference Range Interpretation Comments Bedside Glucose (test code = 16391-6) 262 70-120 Meter ID: [id number] [facility] HospitalCapillary blood glucose measurement by glucometer (mass/volume)2019-07-13 10:36:00* Test Item Value Reference Range Interpretation Comments Bedside Glucose (test code = 39964-0) 262 70-120 Meter ID: [id number] St. [facility] HospitalWhite Blood Count 2019-07-13 05:29:00* Test Item Value Reference Range Interpretation Comments White Blood Count (test code = 6690-2) 9.43 4.8-10.8 [facility] CenterRed Blood Qgezq2679-52-73 05:29:00* Test Item Value Reference Range Interpretation Comments Red Blood Count (test code = 789-8) 3.72 3.6-5.1 [facility] CenterHemoglobin2020-02-18 05:29:00* Test Item Value Reference Range Interpretation Comments Hemoglobin (test code = 26715-7) 10.2 12.0-16.0 L [facility] CenterHematocrit2020-02-18 05:29:00* Test Item Value Reference Range Interpretation Comments Hematocrit (test code = 4544-3) 31.5 34.2-44.1 L [facility] CenterMean Corpuscular Jbnvuw3071-97-73 05:29:00* Test Item Value Reference Range Interpretation Comments Mean Corpuscular Volume (test code = 787-2) 84.7 81-99 [facility] CenterMean Corpuscular Vqihvhkfaw8454-10-27 05:29:00* Test Item Value Reference Range Interpretation Comments Mean Corpuscular Hemoglobin (test code = 785-6) 27.4 28-32 L [facility] CenterMean Corpuscular Hemoglobin Concent 2019-07-13 05:29:00* Test Item Value Reference Range Interpretation Comments Mean Corpuscular Hemoglobin Concent (test code = 786-4) 32.4 31-35 [facility] CenterRed Cell Distribution Ojuhu5464-05-52 05:29:00* Test Item Value Reference Range Interpretation Comments Red Cell Distribution Width (test code = 88321-4) 15.3 11.7 -14.4 H [facility] CenterPlatelet Qtauj4520-50-25 05:29:00* Test Item Value Reference Range Interpretation Comments Platelet Count (test code = 777-3) 232 140-360 [facility] CenterNeutrophils (%) (Auto)2019-07-13 05:29:00 * Test Item Value Reference Range Interpretation Comments Neutrophils (%) (Auto) (test code = 80494-1) 59.7 38.7-80.0 [facility] CenterLymphocytes (%) (Auto)2019-07-13 05:29:00 * Test Item Value Reference Range Interpretation Comments Lymphocytes (%) (Auto) (test code = 736-9) 28.1 18.0-39.1 [facility] CenterMonocytes (%) (Auto)2019-07-13 05:29:00* Test Item Value Reference Range Interpretation Comments Monocytes (%) (Auto) (test code = 5905-5) 7.6 4.4-11.3 [facility] CenterEosinophils (%) (Auto)2019-07-13 05:29:00 * Test Item Value Reference Range Interpretation Comments Eosinophils (%) (Auto) (test code = 713-8) 3.7 0.0-6.0 [facility] CenterBasophils (%) (Auto)2019-07-13 05:29:00* Test Item Value Reference Range Interpretation Comments Basophils (%) (Auto) (test code = 706-2) 0.5 0.0-1.0 [facility] CenterIM GRANULOCYTES %2019-07-13 05:29:00* Test Item Value Reference Range Interpretation Comments IM GRANULOCYTES % (test code = IM GRANULOCYTES %) 0.4 0.0- 1.0 [facility] CenterNeutrophils # (Auto)2019-07-13 05:29:00* Test Item Value Reference Range Interpretation Comments Neutrophils # (Auto) (test code = 751-8) 5.6 2.1-6.9 [facility] CenterLymphocytes # (Auto)2019-07-13 05:29:00* Test Item Value Reference Range Interpretation Comments Lymphocytes # (Auto) (test code = 79349-6) 2.7 1.0-3.2 [facility] CenterMonocytes # (Auto)2019-07-13 05:29:00* Test Item Value Reference Range Interpretation Comments Monocytes # (Auto) (test code = 742-7) 0.7 0.2-0.8 [facility] CenterEosinophils # (Auto)2019-07-13 05:29:00* Test Item Value Reference Range Interpretation Comments Eosinophils # (Auto) (test code = 711-2) 0.4 0.0-0.4 [facility] CenterBasophils # (Auto)2019-07-13 05:29:00* Test Item Value Reference Range Interpretation Comments Basophils # (Auto) (test code = 704-7) 0.1 0.0-0.1 [facility] CenterAbsolute Immature Granulocyte (auto 2019-07-13 05:29:00* Test Item Value Reference Range Interpretation Comments Absolute Immature Granulocyte (auto (cesar t code = Absolute Immature Granulocyte (auto) 0.04 0-0.1 [facility] CenterBlood Boiyynl2062-30-46 05:26:00* Test Item Value Reference Range Interpretation Comments Blood Culture (test code = 77626427) NO GROWTH AFTER 5 DAYS, FINAL REPORT [facility] Arlingtonodium Nuexs9401-65-05 06:41:00* Test Item Value Reference Range Interpretation Comments Sodium Level (test code = 2951-2) 143 136-145 [facility] CenterPotassium Ktlvf3405-35-61 06:41:00* Test Item Value Reference Range Interpretation Comments Potassium Level (test code = 2823-3) 3.6 3.5-5.1 [facility] CenterChloride Dlupv6079-76-77 06:41:00* Test Item Value Reference Range Interpretation Comments Chloride Level (test code = 2075-0) 106 98-107 [facility] CenterCarbon Dioxide Vsjrw1979-44-88 06:41:00* Test Item Value Reference Range Interpretation Comments Carbon Dioxide Level (test code = 2028-9) 27 22-29 [facility] CenterAnion Fqy1543-61-07 06:41:00* Test Item Value Reference Range Interpretation Comments Anion Gap (test code = 01926-8) 13.6 8-16 [facility] CenterBlood Urea Dfacfumn6454-80-11 06:41:00* Test Item Value Reference Range Interpretation Comments Blood Urea Nitrogen (test code = 3094-0) < 5 7-26 L [facility] CenterCreatinine2020-02-17 06:41:00* Test Item Value Reference Range Interpretation Comments Creatinine (test code = 2160-0) 0.66 0.57-1.11 [facility] CenterBUN/Creatinine Jmfkj0310-64-03 06:41:00* Test Item Value Reference Range Interpretation Comments BUN/Creatinine Ratio (test code = 3097-3) 8 6-25 [facility] CenterEstimat Glomerular Filtration Rate 2019-07-12 06:41:00* Test Item Value Reference Range Interpretation Comments Estimat Glomerular Filtration Rate (test code = 606049510) > 60 >60 Ranges were taken from the National Kidney Disease Education Program and the [facility] Kid[facility] Foundation literature.Reference ranges:60 or greater: Kdiqpp85-08 ( for 3 consecutive months): Chronic kidney disease 15 or less: Kidney failureBrownfield Regional Medical CenterGlucose Uwbmn2437-71-30 06:41:00* Test Item Value Reference Range Interpretation Comments Glucose Level (test code = NWR5265) 84 74-118 [facility] CenterCalcium Tcnvn6583-79-60 06:41:00* Test Item Value Reference Range Interpretation Comments Calcium Level (test code = 35993-3) 8.7 8.4-10.2 [facility] CenterCHEST XRAY LINE CFPSKUAVK3311-22-08 20:00:00 [facility] [address] [place] [address] Patient Name: BRIDGET SHETTY MR #: [id number] : 1965 Age/Sex: 54/F Req #: [id number] Adm Physician: SUSAN CHRISTY MD Ordered by: SUSAN CHRISTY MD Report #: [id number] Location: ICU Room/Bed: ICU 1921 Procedure: [id number] DX /CHEST XRAY LINE PLACEMENT Exam Date: [...] 07/09/192000 COPY TO: SUSAN CHRISTY MD Prothrombin Xsfd2429-73-87 08:30:00* Test Item Value Reference Range Interpretation Comments Prothrombin Time (test code = 5902-2) 14.8 11.9-14.5 H [facility] CenterProthromb Time International Ratio 2019-07-09 08:30:00* Test Item Value Reference Range Interpretation Comments Prothromb Time International Ratio (test code = 6301-6) 1.09 Oral Anticoagulant Therapy INR Values:1. Low Intensity Therapy 1.5 - 2.02 . Moderate Intensity Therapy 2.0 - 3.03. High Intensity Therapy(1) 2.5 - 3. 54. High Intensity Therapy(2) 3.0 - 4.05. Panic Value INR > 5.0 [facility] CenterActivated Partial Thromboplast Time 2019-07-09 08:30:00* Test Item Value Reference Range Interpretation Comments Activated Partial Thromboplast Time (test code = 39809-6) 25.8 23.8-35.5 [facility] CenterProthrombin time (PT) in platelet poor plasma by coagulation qwguv3257-21-36 07:00:00* Test Item Value Reference Range Interpretation Comments Prothrombin Time (test code = 5902-2) 14.8 11.9-14.5 [facility] CenterINR in Platelet poor plasma by Coagulation pjgjk1809-91-31 07:00:00* Test Item Value Reference Range Interpretation Comments Prothromb Time International Ratio (test code = 6301-6) 1.09 Oral Anticoagulant Therapy INR Values:1. Low Intensity Therapy 1.5 - 2.02 . Moderate Intensity Therapy 2.0 - 3.03. High Intensity Therapy(1) 2.5 - 3. 54. High Intensity Therapy(2) 3.0 - 4.05. Panic Value INR > 5.0 [facility] CenterActivated partial thromboplastin time (aPTT) in platelet poor plasma by coagulation zzgzy9717-94-79 07:00:00* Test Item Value Reference Range Interpretation Comments Activated Partial Thromboplast Time (test code = 68073-2) 25.8 23.8-35.5 [facility] CenterProthrombin time (PT) in platelet poor plasma by coagulation sdqmo5868-21-46 07:00:00* Test Item Value Reference Range Interpretation Comments Prothrombin Time (test code = 5902-2) 14.8 11.9-14.5 [facility] CenterINR in Platelet poor plasma by Coagulation wjioa6764-95-14 07:00:00* Test Item Value Reference Range Interpretation Comments Prothromb Time International Ratio (test code = 6301-6) 1.09 Oral Anticoagulant Therapy INR Values:1. Low Intensity Therapy 1.5 - 2.02 . Moderate Intensity Therapy 2.0 - 3.03. High Intensity Therapy(1) 2.5 - 3. 54. High Intensity Therapy(2) 3.0 - 4.05. Panic Value INR > 5.0 [facility] CenterActivated partial thromboplastin time (aPTT) in platelet poor plasma by coagulation jgiip2704-46-82 07:00:00* Test Item Value Reference Range Interpretation Comments Activated Partial Thromboplast Time (test code = 62869-1) 25.8 23.8-35.5 [facility] CenterTotal Hoyoeqbec0997-70-08 05:40:00* Test Item Value Reference Range Interpretation Comments Total Bilirubin (test code = 1975-2) 0.2 0.2-1.2 [facility] CenterAspartate Amino Transf (AST/SGOT) 2019-07-09 05:40:00* Test Item Value Reference Range Interpretation Comments Aspartate Amino Transf (AST/SGOT) (test code = Aspartate Amino Transf (AST/SGOT)) 15 5-34 [facility] CenterAlanine Aminotransferase (ALT/SGPT) 2019-07-09 05:40:00* Test Item Value Reference Range Interpretation Comments Alanine Aminotransferase (ALT/SGPT) (test code = 1742-6) 9 0-55 [facility] CenterTotal Pckyuab7005-44-68 05:40:00* Test Item Value Reference Range Interpretation Comments Total Protein (test code = 2885-2) 4.3 6.5-8.1 L [facility] CenterAlbumin2020-02-14 05:40:00* Test Item Value Reference Range Interpretation Comments Albumin (test code = 1751-7) 2.6 3.5-5.0 L [facility] CenterGlobulin2020-02-14 05:40:00* Test Item Value Reference Range Interpretation Comments Globulin (test code = 52472-7) 1.7 2.3-3.5 L [facility] CenterAlbumin/Globulin Xovkj0549-36-97 05:40:00 * Test Item Value Reference Range Interpretation Comments Albumin/Globulin Ratio (test code = 1759-0) 1.5 0.8-2.0 [facility] CenterAlkaline Bnogllodjhj1065-20-21 05:40:00* Test Item Value Reference Range Interpretation Comments Alkaline Phosphatase (test code = 6768-6) 27 40-150 L [facility] CenterTroponin R8629-33-97 22:07:00* Test Item Value Reference Range Interpretation Comments Troponin I (test code = SRB9667) 0.030 0-0.300 [facility] CenterCreatine Kinase YD8912-38-13 20:02:00* Test Item Value Reference Range Interpretation Comments Creatine Kinase MB (test code = 45424-4) 3.20 0-4.3 [facility] CenterCreatine Ixuhgu4500-12-00 19:52:00* Test Item Value Reference Range Interpretation Comments Creatine Kinase (test code = 2157-6) 66 29-168 [facility] CenterPhosphorus Lgnrw0327-57-83 07:38:00* Test Item Value Reference Range Interpretation Comments Phosphorus Level (test code = QQS3611) 4.1 2.3-4.7 [facility] CenterMagnesium Danov2444-67-93 07:38:00* Test Item Value Reference Range Interpretation Comments Magnesium Level (test code = 21593-4) 1.4 1.3-2.1 [facility] CenterTriglycerides Ttaut6236-11-72 07:38:00* Test Item Value Reference Range Interpretation Comments Triglycerides Level (test code = 2571-8) 258 0-149 H [facility] CenterCholesterol Jjdqd4696-59-73 07:38:00* Test Item Value Reference Range Interpretation Comments Cholesterol Level (test code = 2093-3) 80 0-199 Less than 200 mg/dL Low Qskb354 - 239 mg/dL Borderline Hsan021 m g/dl and greater High Risk [facility] CenterLDL Qakbzysoyzz6740-86-24 07:38:00* Test Item Value Reference Range Interpretation Comments LDL Cholesterol (test code = 2089-1) 11 60-130 L [facility] CenterHDL Dyylgzupvsu2449-92-72 07:38:00* Test Item Value Reference Range Interpretation Comments HDL Cholesterol (test code = 2085-9) 17 40-60 L [facility] CenterCholesterol/HDL Adzhg6614-99-90 07:38:00 * Test Item Value Reference Range Interpretation Comments Cholesterol/HDL Ratio (test code = 9830-1) 4.7 3.0-3.6 H [facility] CenterPhosphorus otwpecqxure0234-13-25 05:55:00 * Test Item Value Reference Range Interpretation Comments Phosphorus Level (test code = [id number]) 4.1 2.3-4.7 [facility] magnesium measurement (mass/volume)2019-07-08 05:55:00* Test Item Value Reference Range Interpretation Comments Magnesium Level (test code = 54467-9) 1.4 1.3-2.1 [facility] triglyceride measurement (mass/volume)2019-07-08 05:55:00* Test Item Value Reference Range Interpretation Comments Triglycerides Level (test code = 2571-8) 258 0-149 [facility] plasma cholesterol measurement (mass/volume)2019-07-08 05:55:00* Test Item Value Reference Range Interpretation Comments Cholesterol Level (test code = 2093-3) 80 0-199 Less than 200 mg/dL Low Ixpl069 - 239 mg/dL Borderline Zioq018 m g/dl and greater [facility] cholesterol in LDL measurement (mass/volume) 2019-07-08 05:55:00* Test Item Value Reference Range Interpretation Comments LDL Cholesterol (test code = 2089-1) 11 60-130 [facility] cholesterol in HDL measurement (mass/volume)2019-07-08 05:55:00* Test Item Value Reference Range Interpretation Comments HDL Cholesterol (test code = 2085-9) 17 40-60 [facility] plasma total cholesterol/cholesterol in HDL mass jofak7602-76-08 05:55:00* Test Item Value Reference Range Interpretation Comments Cholesterol/HDL Ratio (test code = 9830-1) 4.7 3.0-3.6 [facility] CenterPhosphorus gvkehgcvjjd6071-10-49 05:55:00 * Test Item Value Reference Range Interpretation Comments Phosphorus Level (test code = VHL1966) 4.1 2.3-4.7 [facility] magnesium measurement (mass/volume)2019-07-08 05:55:00* Test Item Value Reference Range Interpretation Comments Magnesium Level (test code = 79466-8) 1.4 1.3-2.1 [facility] triglyceride measurement (mass/volume)2019-07-08 05:55:00* Test Item Value Reference Range Interpretation Comments Triglycerides Level (test code = 2571-8) 258 0-149 [facility] cholesterol measurement (mass/volume)2019-07-08 05:55:00* Test Item Value Reference Range Interpretation Comments Cholesterol Level (test code = 2093-3) 80 0-199 Less than 200 mg/dL Low Yfpk463 - 239 mg/dL Borderline Ccop693 m g/dl and greater [facility] cholesterol in LDL measurement (mass/volume) 2019-07-08 05:55:00* Test Item Value Reference Range Interpretation Comments LDL Cholesterol (test code = 2089-1) 11 60-130 [facility] plasma cholesterol in HDL measurement (mass/volume)2019-07-08 05:55:00* Test Item Value Reference Range Interpretation Comments HDL Cholesterol (test code = 2085-9) 17 40-60 [facility] plasma total cholesterol/cholesterol in HDL mass zdtfx6147-16-60 05:55:00* Test Item Value Reference Range Interpretation Comments Cholesterol/HDL Ratio (test code = 9830-1) 4.7 3.0-3.6 [facility] CenterDifferential Total Cells Counted 2019-07-07 20:09:00* Test Item Value Reference Range Interpretation Comments Differential Total Cells Counted (test code = Differen tial Total Cells Counted) 100 [facility] CenterNeutrophils % (Manual)2019-07-07 20:09:00 * Test Item Value Reference Range Interpretation Comments Neutrophils % (Manual) (test code = 10825-2) 52 40-74 [facility] CenterLymphocytes % (Manual)2019-07-07 20:09:00 * Test Item Value Reference Range Interpretation Comments Lymphocytes % (Manual) (test code = 737-7) 39 19-48 [facility] CenterMonocytes % (Manual)2019-07-07 20:09:00* Test Item Value Reference Range Interpretation Comments Monocytes % (Manual) (test code = 744-3) 8 3.4-9.0 [facility] CenterReactive Ixznsgnfjuk2651-26-44 20:09:00* Test Item Value Reference Range Interpretation Comments Reactive Lymphocytes (test code = 94361-2) 1 [facility] CenterPlatelet Fwpvamok2974-44-86 20:09:00* Test Item Value Reference Range Interpretation Comments Platelet Estimate (test code = 56961-2) ADEQUATE [facility] CenterPlatelet Morphology Tdbhqit2640-55-46 20:09:00* Test Item Value Reference Range Interpretation Comments Platelet Morphology Comment (test code = 91225-1) NORMAL [facility] CenterHypochromasia2020-02-12 20:09:00* Test Item Value Reference Range Interpretation Comments Hypochromasia (test code = 728-6) SLIGHT [facility] CenterRed Cell Morphology Mrrldup4629-23-01 20:09:00* Test Item Value Reference Range Interpretation Comments Red Cell Morphology Comment (test code = 6742-1) NORMAL [facility] CenterArterial Blood lD2977-66-66 19:10:00* Test Item Value Reference Range Interpretation Comments Arterial Blood pH (test code = 2744-1) 7.42 7.31-7.41 H [facility] CenterArterial Blood Partial Pressure CO2 2019-07-07 19:10:00* Test Item Value Reference Range Interpretation Comments Arterial Blood Partial Pressure CO2 (test code = 2019-8) 27 41-51 L [facility] CenterArterial Blood Partial Pressure O2 2019-07-07 19:10:00* Test Item Value Reference Range Interpretation Comments Arterial Blood Partial Pressure O2 (test code = 2018-8) 95 80-105 [facility] CenterArterial Blood XQZ65553-86-34 19:10:00* Test Item Value Reference Range Interpretation Comments Arterial Blood HCO3 (test code = 1959-4) 17 23-28 L [facility] CenterArterial Blood Base Irqwex3899-82-81 19:10:00* Test Item Value Reference Range Interpretation Comments Arterial Blood Base Excess (test code = 1925-7) -7.0 -2-3 L [facility] CenterArterial Blood Oxygen Saturation 2019-07-07 19:10:00* Test Item Value Reference Range Interpretation Comments Arterial Blood Oxygen Saturation (test code = 2708-6) 98.0 95-98 [facility] CenterFiO22020-02-12 19:10:00* Test Item Value Reference Range Interpretation Comments FiO2 (test code = FiO2) 21 ABG DRAWN ON RIGHT RADIAL ON RAPATIENT DOES TAKE ASPIRIN DAILY RESULTS GIVEN TO THE PATIENT ER NURSE [facility] CenterArterial blood pH qbfourtasip8590-44-21 17:36:00* Test Item Value Reference Range Interpretation Comments Arterial Blood pH (test code = 2744-1) 7.42 7.31-7.41 [facility] CenterpCO2 KuoW1663-69-57 17:36:00* Test Item Value Reference Range Interpretation Comments Arterial Blood Partial Pressure CO2 (test code = 2018-8) 27 41-51 [facility] CenterpCO2 NsmM1617-30-16 17:36:00* Test Item Value Reference Range Interpretation Comments Arterial Blood Partial Pressure O2 (test code = 2018-8) 95 80-105 [facility] CenterArterial blood bicarbonate measurement (moles/volume)2019-07-07 17:36:00* Test Item Value Reference Range Interpretation Comments Arterial Blood HCO3 (test code = 1959-4) 17 23-28 [facility] CenterArterial blood base excess by calculation 2019-07-07 17:36:00* Test Item Value Reference Range Interpretation Comments Arterial Blood Base Excess (test code = 1925-7) -7.0 -2-3 [facility] CenterArterial blood oxygen saturation wqibjktzdxd5075-94-82 17:36:00* Test Item Value Reference Range Interpretation Comments Arterial Blood Oxygen Saturation (test code = 2708-6) 98.0 95-98 [facility] CenterFluoroscopic procedure less than one hour kfoqqecc6140-78-92 17:36:00* Test Item Value Reference Range Interpretation Comments FiO2 (test code = FiO2) 21 ABG DRAWN ON RIGHT RADIAL ON RAPATIENT DOES TAKE ASPIRIN DAILY RESULTS GIVEN TO THE PATIENT ER NURSE [facility] CenterArterial blood pH ruxstrshyic5655-94-40 17:36:00* Test Item Value Reference Range Interpretation Comments Arterial Blood pH (test code = 2744-1) 7.42 7.31-7.41 [facility] CenterpCO2 RsrQ9376-85-55 17:36:00* Test Item Value Reference Range Interpretation Comments Arterial Blood Partial Pressure CO2 (test code = 2018-8) 27 41-51 [facility] CenterpCO2 DpoZ3609-79-68 17:36:00* Test Item Value Reference Range Interpretation Comments Arterial Blood Partial Pressure O2 (test code = 2018-8) 95 80-105 [facility] CenterArterial blood bicarbonate measurement (moles/volume)2019-07-07 17:36:00* Test Item Value Reference Range Interpretation Comments Arterial Blood HCO3 (test code = 1960-4) 17 23-28 [facility] CenterArterial blood base excess by calculation 2019-07-07 17:36:00* Test Item Value Reference Range Interpretation Comments Arterial Blood Base Excess (test code = 1925-7) -7.0 -2-3 [facility] CenterArterial blood oxygen saturation upxoqlnglbr3584-57-50 17:36:00* Test Item Value Reference Range Interpretation Comments Arterial Blood Oxygen Saturation (test code = 2708-6) 98.0 95-98 [facility] CenterFluoroscopic procedure less than one hour pggauxbd6563-76-67 17:36:00* Test Item Value Reference Range Interpretation Comments FiO2 (test code = FiO2) 21 ABG DRAWN ON RIGHT RADIAL ON RAPATIENT DOES TAKE ASPIRIN DAILY RESULTS GIVEN TO THE PATIENT ER NURSE [facility] CenterCT CHEST D0061-54-47 17:24:00 [facility] [address] [address] Patient Name: BRIDGET SHETTY MR #: [id number] : 1965 Age/Sex: 54/F Req #: [id number] Adm Physician: SUSAN CHRISTY MD Ordered by: IAN VELASQUEZ, JANEL VELASQUEZ Report #: [id number] Location: [facility] Room/Bed: [address] [address] Procedure: [id number]/CT CHEST W Exam [...] 5:25 PM Dictated By: DESHAUN GRACE MD 1725 Transcribed By: ROSY on 07/07/191724 COPY TO: JANEL SOSA Urine OFD4332-96-14 15:48:00* Test Item Value Reference Range Interpretation Comments Urine WBC (test code = 5821-4) 6-10 0-5 H [facility] CenterUrine WOA2100-65-89 15:48:00* Test Item Value Reference Range Interpretation Comments Urine RBC (test code = 74202-6) NONE 0-5 [facility] CenterUrine Bqrlwevk9196-14-50 15:48:00* Test Item Value Reference Range Interpretation Comments Urine Bacteria (test code = 87006-5) MANY NONE H [facility] CenterUrine Epithelial Nbxth5948-81-95 15:48:00 * Test Item Value Reference Range Interpretation Comments Urine Epithelial Cells (test code = 22941-9) MODERATE NONE [facility] CenterLipase2020-02-12 15:38:00* Test Item Value Reference Range Interpretation Comments Lipase (test code = 3040-3) 13 8-78 [facility] CenterThyroid Stimulating Hormone (TSH) 2019-07-07 15:38:00* Test Item Value Reference Range Interpretation Comments Thyroid Stimulating Hormone (TSH) (test code = 86188-7) 1.895 0.350-4.940 [facility] CenterUrine Ouxpd7582-51-05 15:37:00* Test Item Value Reference Range Interpretation Comments Urine Color (test code = 5778-6) YELLOW YELLOW [facility] CenterUrine Btqffpk7270-29-64 15:37:00* Test Item Value Reference Range Interpretation Comments Urine Clarity (test code = 64253-4) SL CLOUDY CLEAR [facility] CenterUrine Specific Msakmqm6939-40-43 15:37:00 * Test Item Value Reference Range Interpretation Comments Urine Specific [place] (test code = 5811-5) 1.025 1.010-1.02 5 [facility] CenterUrine hE4598-15-17 15:37:00* Test Item Value Reference Range Interpretation Comments Urine pH (test code = 46122-8) 5.5 5-7 [facility] CenterUrine Leukocyte Urfualax8386-27-00 15:37:00* Test Item Value Reference Range Interpretation Comments Urine Leukocyte Esterase (test code = 5799-2) TRACE [facility]GATIVE [facility] Mmixlpd9434-50-42 15:37:00* Test Item Value Reference Range Interpretation Comments Urine Nitrite (test code = 23904-0) NEGATIVE NEGATIVE [facility] CenterUrine Oksywzl4247-39-36 15:37:00* Test Item Value Reference Range Interpretation Comments Urine Protein (test code = 5804-0) TRACE NEGATIVE [facility] Glucose (UA)2019-07-07 15:37:00* Test Item Value Reference Range Interpretation Comments Urine Glucose (UA) (test code = 2349-9) NEGATIVE NEGATIVE [facility] CenterUrine Elclveb5629-81-22 15:37:00* Test Item Value Reference Range Interpretation Comments Urine Ketones (test code = 56418-8) TRACE NEGATIVE H [facility] CenterUrine Urxxvztijlmy3776-33-15 15:37:00* Test Item Value Reference Range Interpretation Comments Urine Urobilinogen (test code = 93817-4) 0.2 0.2-1 [facility] CenterUrine Cevfjldwl5457-97-53 15:37:00* Test Item Value Reference Range Interpretation Comments Urine Bilirubin (test code = 1978-6) NEGATIVE NEGATIVE [facility] CenterUrine Ddzup5119-91-32 15:37:00* Test Item Value Reference Range Interpretation Comments Urine Blood (test code = 79029-6) NEGATIVE NEGATIVE [facility] CenterB-Type Natriuretic Oolmdbj0091-20-59 15:24:00* Test Item Value Reference Range Interpretation Comments B-Type Natriuretic Peptide (test code = 11703-3) 162.1 0-100 H [facility] CenterCHEST SINGLE (NOT PORTABLE)2019-07-07 15:22:00 [facility] [address] [address] Patient Name: BRIDGET SHETTY MR #: [id number] : 1965 Age/Sex: 54/F Req #: [id number] Adm Physician: Ordered by: ASH LIVINGST[facility] [employer] CLERK Report #: [id number] Location: ER Room/Bed: Procedure: [id number] D X/CHEST SINGLE (NOT PORTABLE) Exam Date: [...] ronically Signed By: DESHAUN GRACE MD on 07/07/19 152 Transcribed By: ROSY on 07/07/19 1524 COPY TO: ASH [employer]IVING[employer] BILL [employer]AD[employer] CLERK Influenza Virus Types A,B Bhwxwzb3807-48-12 15:19:00* Test Item Value Reference Range Interpretation Comments Influenza Virus Types A,B Antigen (test code = 10037-9) NEGATIVE NEGATIVE [facility] CenterD-Dimer Quantitative (PE/DVT)2019-07-07 15:08:00* Test Item Value Reference Range Interpretation Comments D-Dimer Quantitative (PE/DVT) (test code = 31172-9) 0.18 0. 00-0.45 As with all in vitro diagnostic tests, the test results should be interpreted by the physician in conjunction with clinical findings and other test results.Test results are reported in NEW D-dimer units(ug/mLFEU).[facility] CenterFluoroscopic procedure less than one hour pfgvbrlb1702-14-68 12:52:00* Test Item Value Reference Range Interpretation Comments Differential Total Cells Counted (test code = Kala morrowl Total Cells Counted) 100 [facility] blood neutrophils/100 leukocytes 2019-07-07 12:52:00* Test Item Value Reference Range Interpretation Comments Neutrophils % (Manual) (test code = 34910-3) 52 40-74 [facility] blood lymphocytes/100 leukocytes 2019-07-07 12:52:00* Test Item Value Reference Range Interpretation Comments Lymphocytes % (Manual) (test code = 737-7) 39 19-48 [facility] blood monocytes/100 leukocytes 2019-07-07 12:52:00* Test Item Value Reference Range Interpretation Comments Monocytes % (Manual) (test code = 744-3) 8 3.4-9.0 [facility] lymphocytes variant count (number/volume)2019-07-07 12:52:00* Test Item Value Reference Range Interpretation Comments Reactive Lymphocytes (test code = 00684-8) 1 [facility] platelets count by estimate (number/volume)2019-07-07 12:52:00* Test Item Value Reference Range Interpretation Comments Platelet Estimate (test code = 93128-3) ADEQUATE [facility] CenterPlatelet iafqhlmpil4492-87-83 12:52:00* Test Item Value Reference Range Interpretation Comments Platelet Morphology Comment (test code = 63041-1) NORMAL [facility] hypochromia detection by light iloqdevuoe8767-55-60 12:52:00* Test Item Value Reference Range Interpretation Comments Hypochromasia (test code = 728-6) SLIGHT [facility] CenterRBC hyneronybu5697-65-89 12:52:00* Test Item Value Reference Range Interpretation Comments Red Cell Morphology Comment (test code = 6742-1) NORMAL [facility] CenterFibrin D-dimer DDU measurement in platelet poor plasma (mass/volume)2019-07-07 12:52:00* Test Item Value Reference Range Interpretation Comments D-Dimer Quantitative (PE/DVT) (test code = 54454-8) 0.18 0. 00-0.45 As with all in vitro diagnostic tests, the test results should be interpreted by the physician in conjunction with clinical findings and other test results.Test results are reported in NEW D-dimer units(ug/mLFEU).[facility] CenterInfluenza virus A and B antigen identification by tnmubkfrkjajqksoap0705-60-89 12:52:00* Test Item Value Reference Range Interpretation Comments Influenza Virus Types A,B Antigen (test code = 63342-8) NEGATIVE NEGATIVE [facility] CenterBNP Iva-iGse0299-97-12 12:52:00* Test Item Value Reference Range Interpretation Comments B-Type Natriuretic Peptide (test code = 26799-1) 162.1 0-100 [facility] plasma lipase measurement (enzymatic activity/volume)2019-07-07 12:52:00* Test Item Value Reference Range Interpretation Comments Lipase (test code = 3040-3) 13 8-78 [facility] Arlingtoner[facility] or plasma thyrotropin measurement by detection limit <= 0.005 miu/l (units/volume)2019-07-07 12:52:00* Test Item Value Reference Range Interpretation Comments Thyroid Stimulating Hormone (TSH) (test code = 70857-1) 1.895 0.350-4.940 [facility] CenterFluoroscopic procedure less than one hour ladknknx6678-57-02 12:52:00* Test Item Value Reference Range Interpretation Comments Differential Total Cells Counted (test code = Differen tial Total Cells Counted) 100 [facility]100 leukocytes 2019-07-07 12:52:00* Test Item Value Reference Range Interpretation Comments Neutrophils % (Manual) (test code = 74408-3) 52 40-74 [facility] lymphocytes/100 leukocytes 2019-07-07 12:52:00* Test Item Value Reference Range Interpretation Comments Lymphocytes % (Manual) (test code = 737-7) 39 19-48 [facility] blood monocytes/100 leukocytes 2019-07-07 12:52:00* Test Item Value Reference Range Interpretation Comments Monocytes % (Manual) (test code = 744-3) 8 3.4-9.0 [facility] CenterBlood lymphocytes variant count (number/volume)2019-07-07 12:52:00* Test Item Value Reference Range Interpretation Comments Reactive Lymphocytes (test code = 87683-0) 1 [facility] CenterBlood platelets count by estimate (number/volume)2019-07-07 12:52:00* Test Item Value Reference Range Interpretation Comments Platelet Estimate (test code = 60129-5) ADEQUATE [facility] CenterPlatelet meycwdbicz3534-53-89 12:52:00* Test Item Value Reference Range Interpretation Comments Platelet Morphology Comment (test code = 07955-4) NORMAL [facility] CenterBlood hypochromia detection by light alainwmnkn3241-48-87 12:52:00* Test Item Value Reference Range Interpretation Comments Hypochromasia (test code = 728-6) SLIGHT [facility] CenterRBC oifpjsjspd2912-33-95 12:52:00* Test Item Value Reference Range Interpretation Comments Red Cell Morphology Comment (test code = 6742-1) NORMAL [facility] CenterFibrin D-dimer DDU measurement in platelet poor plasma (mass/volume)2019-07-07 12:52:00* Test Item Value Reference Range Interpretation Comments D-Dimer Quantitative (PE/DVT) (test code = 21801-2) 0.18 0. 00-0.45 As with all in vitro diagnostic tests, the test results should be interpreted by the physician in conjunction with clinical findings and other test results.Test results are reported in NEW D-dimer units(ug/mLFEU).[facility] CenterInfluenza virus A and B antigen identification by mbogbmmyecjfyrxetq0676-06-40 12:52:00* Test Item Value Reference Range Interpretation Comments Influenza Virus Types A,B Antigen (test code = 95639-9) NEGATIVE NEGATIVE [facility] plasma lipase measurement (enzymatic activity/volume)2019-07-07 12:52:00* Test Item Value Reference Range Interpretation Comments Lipase (test code = 3040-3) 13 8-78 [facility] Arlingtoner[facility] or plasma thyrotropin measurement by detection limit <= 0.005 miu/l (units/volume)2019-07-07 12:52:00* Test Item Value Reference Range Interpretation Comments Thyroid Stimulating Hormone (TSH) (test code = 26375-9) 1.895 0.350-4.940 [facility] CenterUrine color zbcbwrsvgmqgw0697-41-97 12:47:00* Test Item Value Reference Range Interpretation Comments Urine Color (test code = 5778-6) YELLOW YELLOW [facility] CenterUrine tbqibod4213-12-94 12:47:00* Test Item Value Reference Range Interpretation Comments Urine Clarity (test code = 22138-4) SL CLOUDY CLEAR [facility] Arlington[facility] gravity of Urine by Test strip 2019-07-07 12:47:00* Test Item Value Reference Range Interpretation Comments Urine Specific [place] (test code = 5811-5) 1.025 1.010-1.02 5 [facility] CenterUrine pH measurement by automated test zsohf1994-12-42 12:47:00* Test Item Value Reference Range Interpretation Comments Urine pH (test code = 55545-9) 5.5 5-7 [facility] CenterUrine leukocyte esterase detection by nawogoef4155-43-52 12:47:00* Test Item Value Reference Range Interpretation Comments Urine Leukocyte Esterase (test code = 5799-2) TRACE NEGATIVE [facility] CenterUrine nitrite xgxsfasuz2728-47-34 12:47:00* Test Item Value Reference Range Interpretation Comments Urine Nitrite (test code = 44104-9) NEGATIVE NEGATIVE [facility] CenterUrine protein measurement by test strip (mass/volume)2019-07-07 12:47:00* Test Item Value Reference Range Interpretation Comments Urine Protein (test code = 5804-0) TRACE NEGATIVE [facility] CenterUrine glucose xaszlabrt4088-53-77 12:47:00* Test Item Value Reference Range Interpretation Comments Urine Glucose (UA) (test code = 2349-9) NEGATIVE NEGATIVE [facility] CenterUrine ketones detection by automated test gmawr6374-29-64 12:47:00* Test Item Value Reference Range Interpretation Comments Urine Ketones (test code = 99021-9) TRACE NEGATIVE [facility] CenterUrine urobilinogen measurement by test strip (mass/volume)2019-07-07 12:47:00* Test Item Value Reference Range Interpretation Comments Urine Urobilinogen (test code = 02716-3) 0.2 0.2-1 [facility] CenterUrine total bilirubin measurement (mass/volume)2019-07-07 12:47:00* Test Item Value Reference Range Interpretation Comments Urine Bilirubin (test code = 1978-6) NEGATIVE NEGATIVE [facility] CenterUrine erythrocytes znsvvcatx1052-94-28 12:47:00* Test Item Value Reference Range Interpretation Comments Urine Blood (test code = 02940-4) NEGATIVE NEGATIVE [facility] CenterAutomated urine sediment leukocyte count by microscopy (number/high power field)2019-07-07 12:47:00* Test Item Value Reference Range Interpretation Comments Urine WBC (test code = 5821-4) 6-10 0-5 [facility] CenterErythrocytes detection in urine sediment by light ystlummxju6273-49-76 12:47:00* Test Item Value Reference Range Interpretation Comments Urine RBC (test code = 66123-4) NONE 0-5 [facility] CenterBacteria detection in urine sediment by light jzxcfpcbcj3793-16-08 12:47:00* Test Item Value Reference Range Interpretation Comments Urine Bacteria (test code = 09263-6) MANY NONE [facility] CenterEpithelial cells detection in urine sediment by light jifpvzfdqc9821-02-07 12:47:00* Test Item Value Reference Range Interpretation Comments Urine Epithelial Cells (test code = 53397-7) MODERATE NONE [facility] CenterUrine color zogifsmndkiee3862-91-10 12:47:00* Test Item Value Reference Range Interpretation Comments Urine Color (test code = 5778-6) YELLOW YELLOW [facility] CenterUrine vsjbwyn7927-50-34 12:47:00* Test Item Value Reference Range Interpretation Comments Urine Clarity (test code = 05698-4) SL CLOUDY CLEAR [facility] gravity [facility] Urine by Test strip 2019-07-07 12:47:00* Test Item Value Reference Range Interpretation Comments Urine Specific [place] (test code = 5811-5) 1.025 1.010-1.02 5 [facility] CenterUrine pH measurement by automated test fzqbg6855-68-30 12:47:00* Test Item Value Reference Range Interpretation Comments Urine pH (test code = 08517-3) 5.5 5-7 [facility] CenterUrine leukocyte esterase detection by teckvrvz4033-42-53 12:47:00* Test Item Value Reference Range Interpretation Comments Urine Leukocyte Esterase (test code = 5799-2) TRACE NEGATIVE [facility] CenterUrine nitrite jinxlhuuf3911-33-58 12:47:00* Test Item Value Reference Range Interpretation Comments Urine Nitrite (test code = 75547-1) NEGATIVE NEGATIVE [facility] CenterUrine protein measurement by test strip (mass/volume)2019-07-07 12:47:00* Test Item Value Reference Range Interpretation Comments Urine Protein (test code = 5804-0) TRACE NEGATIVE [facility] CenterUrine glucose tyclgzabp5653-24-71 12:47:00* Test Item Value Reference Range Interpretation Comments Urine Glucose (UA) (test code = 2349-9) NEGATIVE NEGATIVE [facility] CenterUrine ketones detection by automated test ziomq1048-96-08 12:47:00* Test Item Value Reference Range Interpretation Comments Urine Ketones (test code = 90294-3) TRACE NEGATIVE [facility] CenterUrine urobilinogen measurement by test strip (mass/volume)2019-07-07 12:47:00* Test Item Value Reference Range Interpretation Comments Urine Urobilinogen (test code = 72893-9) 0.2 0.2-1 [facility] CenterUrine total bilirubin measurement (mass/volume)2019-07-07 12:47:00* Test Item Value Reference Range Interpretation Comments Urine Bilirubin (test code = 1978-6) NEGATIVE NEGATIVE [facility] CenterUrine erythrocytes sngksvyib4870-16-31 12:47:00* Test Item Value Reference Range Interpretation Comments Urine Blood (test code = 92268-3) NEGATIVE NEGATIVE [facility] CenterAutomated urine sediment leukocyte count by microscopy (number/high power field)2019-07-07 12:47:00* Test Item Value Reference Range Interpretation Comments Urine WBC (test code = 5821-4) 6-10 0-5 [facility] CenterErythrocytes detection in urine sediment by light skngnueyjp1256-60-45 12:47:00* Test Item Value Reference Range Interpretation Comments Urine RBC (test code = 52997-9) NONE 0-5 [facility] CenterBacteria detection in urine sediment by light kufmdfstrs4343-88-00 12:47:00* Test Item Value Reference Range Interpretation Comments Urine Bacteria (test code = 56670-1) MANY NONE [facility] CenterEpithelial cells detection in urine sediment by light afvpwajapg0778-68-40 12:47:00* Test Item Value Reference Range Interpretation Comments Urine Epithelial Cells (test code = 05870-6) MODERATE NONE [facility] CenterBlood ffzrfel0475-86-13 00:55:00* Test Item Value Reference Range Interpretation Comments Blood Culture (test code = 21896519) NO GROWTH AFTER 5 DAYS, FINAL REPORT [facility] CenterBlood sgyvmqb5970-50-03 00:55:00* Test Item Value Reference Range Interpretation Comments Blood Culture (test code = 47345534) NO GROWTH AFTER 5 DAYS, FINAL REPORT [facility] CenterMRI SPINE LUMBAR AV3111-74-65 13:52:00 [facility] [address] [place] [address] Patient Name: BRIDGET SHETTY MR #: [id number] : [birth year] Age/Sex: 54/F Req #: [id number] Adm Physician: Ordered by: SUSAN CHRISTY MD Report #: [id number] Location: MRI Room/Bed: Procedure: [id number] MRI /MRI SPINE LUMBAR WO Exam Date: [...] 04/14/192126 COPY TO: SUSAN CHRISTY MD Urine VSI0227-34-99 18:01:00* Test Item Value Reference Range Interpretation Comments Urine WBC (test code = 5821-4) NONE 0-5 [facility] CenterUrine KEL3343-54-59 18:01:00* Test Item Value Reference Range Interpretation Comments Urine RBC (test code = 71262-5) NONE 0-5 [facility] CenterUrine Etycudao6815-05-03 18:01:00* Test Item Value Reference Range Interpretation Comments Urine Bacteria (test code = 95890-4) NONE NONE [facility] CenterUrine Epithelial Qvvxb5613-99-98 18:01:00 * Test Item Value Reference Range Interpretation Comments Urine Epithelial Cells (test code = 47582-5) FEW NONE [facility] CenterUrine Dvena6320-66-51 17:46:00* Test Item Value Reference Range Interpretation Comments Urine Color (test code = 5778-6) YELLOW YELLOW [facility] CenterUrine Ficrguj3646-15-17 17:46:00* Test Item Value Reference Range Interpretation Comments Urine Clarity (test code = 68757-3) CLEAR CLEAR [facility] Specific Fcyynez5178-17-68 17:46:00 * Test Item Value Reference Range Interpretation Comments Urine Specific [place] (test code = 5811-5) 1.010 1.010-1.02 5 [facility] CenterUrine xQ5252-29-09 17:46:00* Test Item Value Reference Range Interpretation Comments Urine pH (test code = 40924-1) 7.5 5-7 [facility] CenterUrine Leukocyte Vrwrfhmf4998-57-76 17:46:00* Test Item Value Reference Range Interpretation Comments Urine Leukocyte Esterase (test code = 60547-0) NEGATIVE NEGATIV E [facility] CenterUrine Ueghohb7599-47-41 17:46:00* Test Item Value Reference Range Interpretation Comments Urine Nitrite (test code = 63380-8) NEGATIVE NEGATIVE [facility] CenterUrine Qfxuasr7541-33-54 17:46:00* Test Item Value Reference Range Interpretation Comments Urine Protein (test code = 15021-8) NEGATIVE NEGATIVE [facility] CenterUrine Glucose (UA)2019-03-23 17:46:00* Test Item Value Reference Range Interpretation Comments Urine Glucose (UA) (test code = 48951-4) NEGATIVE NEGATIVE [facility] CenterUrine Nautlgg2594-19-70 17:46:00* Test Item Value Reference Range Interpretation Comments Urine Ketones (test code = 85910-2) NEGATIVE NEGATIVE [facility] CenterUrine Knvwqdwperym6405-63-70 17:46:00* Test Item Value Reference Range Interpretation Comments Urine Urobilinogen (test code = 02833-0) 0.2 0.2-1 [facility] CenterUrine Ouukxcdxt8949-51-07 17:46:00* Test Item Value Reference Range Interpretation Comments Urine Bilirubin (test code = 1977-8) NEGATIVE NEGATIVE [facility] CenterUrine Mxcdo1696-45-20 17:46:00* Test Item Value Reference Range Interpretation Comments Urine Blood (test code = 45371-6) NEGATIVE NEGATIVE [facility] CenterCT ABDOMEN/PELVIS HE5154-75-93 17:17:00 [place] [address] Patient Name: BRIDGET SHETTY MR #: [id number] : [birth year] Age/Sex: 54/F Req #: [id number] Adm Physician: Ordered by: CAESAR ESCOBAR MD Report #: [id number] Location: ER Room/Bed: Procedure: [id number] CT/CT ABDOMEN/PELVIS WO Exam Date: Exam Time: [...] 03/23/191723 COPY TO: CAESAR ESCOBAR MD Sodium Eonpl8169-62-55 16:54:00* Test Item Value Reference Range Interpretation Comments Sodium Level (test code = 2951-2) 141 136-145 [facility] CenterPotassium Pakdb5562-79-42 16:54:00* Test Item Value Reference Range Interpretation Comments Potassium Level (test code = 2823-3) 3.6 3.5-5.1 [facility] CenterChloride Oizij9004-32-82 16:54:00* Test Item Value Reference Range Interpretation Comments Chloride Level (test code = 2075-0) 103 98-107 [facility] CenterCarbon Dioxide Cawdk8318-26-95 16:54:00* Test Item Value Reference Range Interpretation Comments Carbon Dioxide Level (test code = 8-9) 28 22-29 [facility] CenterAnion Bcg0631-97-16 16:54:00* Test Item Value Reference Range Interpretation Comments Anion Gap (test code = 61928-6) 13.6 8-16 [facility] CenterBlood Urea Tirzhrrl7405-19-99 16:54:00* Test Item Value Reference Range Interpretation Comments Blood Urea Nitrogen (test code = 3094-0) 12 12-18 [facility] CenterCreatinine2019-10-29 16:54:00* Test Item Value Reference Range Interpretation Comments Creatinine (test code = 2160-0) 0.73 0.57-1.11 [facility] CenterBUN/Creatinine Dckbb4192-75-24 16:54:00* Test Item Value Reference Range Interpretation Comments BUN/Creatinine Ratio (test code = 3097-3) 16 11-17 [facility] CenterEstimat Glomerular Filtration Rate 2019-03-23 16:54:00* Test Item Value Reference Range Interpretation Comments Estimat Glomerular Filtration Rate (test code = 520089107) > 60 >60 Ranges were taken from the National Kidney Disease Education Program and the Cele [facility] Kidney Foundation literature.Reference ranges:60 or greater: Zysfdm44-80 ( for 3 consecutive months): Chronic kidney disease 15 or less: Kidney failureBrownfield [facility] Medical CenterGlucose Jdgci9292-35-32 16:54:00* Test Item Value Reference Range Interpretation Comments Glucose Level (test code = WAK4596) 141 74-118 H [facility] CenterCalcium Xueih5385-95-68 16:54:00* Test Item Value Reference Range Interpretation Comments Calcium Level (test code = 40772-4) 9.1 8.4-10.2 [facility] CenterTotal Qqewbqvud8651-15-17 16:54:00* Test Item Value Reference Range Interpretation Comments Total Bilirubin (test code = 1975-2) 0.2 0.2-1.2 [facility] CenterAspartate Amino Transf (AST/SGOT) 2019-03-23 16:54:00* Test Item Value Reference Range Interpretation Comments Aspartate Amino Transf (AST/SGOT) (test code = Aspartate Amino Transf (AST/SGOT)) 13 534 [facility] CenterAlanine Aminotransferase (ALT/SGPT) 2019-03-23 16:54:00* Test Item Value Reference Range Interpretation Comments Alanine Aminotransferase (ALT/SGPT) (test code = 1742-6) 15 0-55 [facility] CenterTotal Joovjzq3413-90-81 16:54:00* Test Item Value Reference Range Interpretation Comments Total Protein (test code = 2885-2) 7.1 6.5-8.1 [facility] CenterAlbumin2019-10-29 16:54:00* Test Item Value Reference Range Interpretation Comments Albumin (test code = 1751-7) 3.9 3.5-5.0 [facility] CenterGlobulin2019-10-29 16:54:00* Test Item Value Reference Range Interpretation Comments Globulin (test code = 55115-5) 3.2 2.3-3.5 [facility] CenterAlbumin/Globulin Fmxeh4245-82-22 16:54:00 * Test Item Value Reference Range Interpretation Comments Albumin/Globulin Ratio (test code = 1759-0) 1.2 0.8-2.0 [facility] CenterAlkaline Dcjmzfxjcsw4822-23-17 16:54:00* Test Item Value Reference Range Interpretation Comments Alkaline Phosphatase (test code = 6768-6) 55 40-150 [facility] CenterWhite Blood Dvxkp2246-50-59 16:33:00* Test Item Value Reference Range Interpretation Comments White Blood Count (test code = 6690-2) 10.96 4.8-10.8 H [facility] CenterRed Blood Nvsbd5574-66-25 16:33:00* Test Item Value Reference Range Interpretation Comments Red Blood Count (test code = 789-8) 5.06 3.6-5.1 [facility] CenterHemoglobin2019-10-29 16:33:00* Test Item Value Reference Range Interpretation Comments Hemoglobin (test code = 11952-9) 13.0 12.0-16.0 [facility] CenterHematocrit2019-10-29 16:33:00* Test Item Value Reference Range Interpretation Comments Hematocrit (test code = 4544-3) 41.3 34.2-44.1 [facility] CenterMean Corpuscular Wxzgjp7395-81-82 16:33:00* Test Item Value Reference Range Interpretation Comments Mean Corpuscular Volume (test code = 787-2) 81.6 81-99 [facility] CenterMean Corpuscular Uutdowuniw2117-00-21 16:33:00* Test Item Value Reference Range Interpretation Comments Mean Corpuscular Hemoglobin (test code = 785-6) 25.7 28-32 L [facility] CenterMean Corpuscular Hemoglobin Concent 2019-03-23 16:33:00* Test Item Value Reference Range Interpretation Comments Mean Corpuscular Hemoglobin Concent (test code = 786-4) 31.5 31-35 [facility] CenterRed Cell Distribution Deiqt0305-97-60 16:33:00* Test Item Value Reference Range Interpretation Comments Red Cell Distribution Width (test code = 98398-2) 14.9 11.7 -14.4 H [facility] CenterPlatelet Qrqza0560-23-67 16:33:00* Test Item Value Reference Range Interpretation Comments Platelet Count (test code = 777-3) 320 140-360 [facility] CenterNeutrophils (%) (Auto)2019-03-23 16:33:00 * Test Item Value Reference Range Interpretation Comments Neutrophils (%) (Auto) (test code = 40790-2) 59.6 38.7-80.0 [facility] CenterLymphocytes (%) (Auto)2019-03-23 16:33:00 * Test Item Value Reference Range Interpretation Comments Lymphocytes (%) (Auto) (test code = 736-9) 29.5 18.0-39.1 [facility] CenterMonocytes (%) (Auto)2019-03-23 16:33:00* Test Item Value Reference Range Interpretation Comments Monocytes (%) (Auto) (test code = 5905-5) 6.5 4.4-11.3 [facility] CenterEosinophils (%) (Auto)2019-03-23 16:33:00 * Test Item Value Reference Range Interpretation Comments Eosinophils (%) (Auto) (test code = 713-8) 3.3 0.0-6.0 [facility] CenterBasophils (%) (Auto)2019-03-23 16:33:00* Test Item Value Reference Range Interpretation Comments Basophils (%) (Auto) (test code = 706-2) 0.6 0.0-1.0 [facility] CenterIM GRANULOCYTES %2019-03-23 16:33:00* Test Item Value Reference Range Interpretation Comments IM GRANULOCYTES % (test code = IM GRANULOCYTES %) 0.5 0.0- 1.0 [facility] CenterNeutrophils # (Auto)2019-03-23 16:33:00* Test Item Value Reference Range Interpretation Comments Neutrophils # (Auto) (test code = 751-8) 6.5 2.1-6.9 [facility] CenterLymphocytes # (Auto)2019-03-23 16:33:00* Test Item Value Reference Range Interpretation Comments Lymphocytes # (Auto) (test code = 82139-4) 3.2 1.0-3.2 [facility] CenterMonocytes # (Auto)2019-03-23 16:33:00* Test Item Value Reference Range Interpretation Comments Monocytes # (Auto) (test code = 742-7) 0.7 0.2-0.8 [facility] CenterEosinophils # (Auto)2019-03-23 16:33:00* Test Item Value Reference Range Interpretation Comments Eosinophils # (Auto) (test code = 711-2) 0.4 0.0-0.4 [facility] CenterBasophils # (Auto)2019-03-23 16:33:00* Test Item Value Reference Range Interpretation Comments Basophils # (Auto) (test code = 704-7) 0.1 0.0-0.1 [facility] CenterAbsolute Immature Granulocyte (auto 2019-03-23 16:33:00* Test Item Value Reference Range Interpretation Comments Absolute Immature Granulocyte (auto (cesar t code = Absolute Immature Granulocyte (auto) 0.05 0-0.1 [facility] CenterCHEST SINGLE (NOT PORTABLE)2019-03-23 14:43:00 [facility] [address] [place] [address] Patient Name: BRIDGET SHETTY MR #: [id number] : 1965 Age/Sex: 54/F Req #: [id number] Adm Physician: Ordered by: CAESAR ESCOBAR MD Report #: [id number] Location: ER Room/Bed: Procedure: [id number] DX/CHEST SINGLE (NOT PORTABLE) Exam Date: 03/23/19 E xam Time: 1429 REPORT STATUS: Daniela d EXAMINATION: CHEST SINGLE (NOT PORTABLE) INDICATION: Chest pain COMPARISON: None FINDINGS: LINES/TUBES:None LUNGS:The cristy ngs are well-inflated. No focal consolidation or pulmonary edema. PLEURA:No pleural effusion or pneumothorax. MEDIASTINUM:The cardiomediastinal silhou ette appears normal in size and shape. BONES/SOFT TISSUES:No acute osseous injury. ABDOMEN:No free air under the diaphragm. IMPRESSION: No focal pneumonia or pulmonary edema. Signed by: Ramón Greenfield MD on 03/23/2019 2:44 PM Dictated By: RAMÓN GREENFIELD MD 1444 Transcribed By: ROSY on 03/23/19 1444 COPY TO: CAESAR ESCOBAR MD HIP LEFT 2-3 VW (+/- PELVIS)2019-03-23 14:08:00 [place] [address] Patient Name: BRIDGET SHETTY MR #: [id number] : 1965 Age/Sex: 54/F Req #: [id number] Adm Physician: Ordered by: CAESAR ESCOBAR MD Report #: [id number] Location: ER Room/Bed: Procedure: [id number] DX/HIP LEFT 2-3 VW (+/- PELVIS) Exam [...] COPY TO: CAESAR ESCOBAR MD SHOULDER LEFT FOKTQJDU7757-63-60 18:59:00 [place] [address] Patient Name: BRIDGET SHETTY MR #: [id number] : 1965 Age/Sex: 53/F Req #: [id number] Adm Physician: Ordered by: MONICA CERDA BILL OF LADING CLERK Report #: [id number] Location: ER Room/Bed: Procedure: [id number] DX/ SHOULDER LEFT COMPLETE Exam Date: 02/16/19 [...] osteoarth rosis. Signed by: Dr. Kyler Terry D.OCecilia, M.M.M. on 02/16/2019 7:01 PM Dictated By: KYLER TERRY DO 00 Transcribed By: ROSY on 02/16/191900 COPY TO: MONICA CERDA BILL OF LADING CLERK Prothrombin Ynql3139-96-50 18:28:00* Test Item Value Reference Range Interpretation Comments Prothrombin Time (test code = 5902-2) 12.6 11.9-14.5 [facility] CenterProthromb Time International Ratio 2019-02-16 18:28:00* Test Item Value Reference Range Interpretation Comments Prothromb Time International Ratio (test code = 6301-6) 0.90 Oral Anticoagulant Therapy INR Values:1. Low Intensity Therapy 1.5 - 2.02 . Moderate Intensity Therapy 2.0 - 3.03. High Intensity Therapy(1) 2.5 - 3. 54. High Intensity Therapy(2) 3.0 - 4.05. Panic Value INR > 5.0 [facility] CenterActivated Partial Thromboplast Time 2019-02-16 18:28:00* Test Item Value Reference Range Interpretation Comments Activated Partial Thromboplast Time (test code = 87784-6) 30.9 23.8-35.5 [facility] CenterProthrombin Hixq0857-65-26 18:28:00* Test Item Value Reference Range Interpretation Comments Prothrombin Time (test code = 5902-2) 12.6 11.9-14.5 [facility] CenterProthromb Time International Ratio 2019-02-16 18:28:00* Test Item Value Reference Range Interpretation Comments Prothromb Time International Ratio (test code = 6301-6) 0.90 Oral Anticoagulant Therapy INR Values:1. Low Intensity Therapy 1.5 - 2.02 . Moderate Intensity Therapy 2.0 - 3.03. High Intensity Therapy(1) 2.5 - 3. 54. High Intensity Therapy(2) 3.0 - 4.05. Panic Value INR > 5.0 [facility] CenterActivated Partial Thromboplast Time 2019-02-16 18:28:00* Test Item Value Reference Range Interpretation Comments Activated Partial Thromboplast Time (test code = 96396-3) 30.9 23.8-35.5 [facility] CenterCreatine Kinase CA6695-89-03 18:21:00* Test Item Value Reference Range Interpretation Comments Creatine Kinase MB (test code = 09114-3) 1.10 0-5.0 [facility] CenterTroponin K4224-74-51 18:21:00* Test Item Value Reference Range Interpretation Comments Troponin I (test code = EYM9343) 0.006 0-0.300 [facility] CenterCreatine Kinase GT9665-84-71 18:21:00* Test Item Value Reference Range Interpretation Comments Creatine Kinase MB (test code = 55916-3) 1.10 0-5.0 [facility] CenterTroponin C9068-81-00 18:21:00* Test Item Value Reference Range Interpretation Comments Troponin I (test code = TTX5453) 0.006 0-0.300 [facility] CenterCHEST SINGLE (PORTABLE)2019-02-16 18:18:00 [place] [address] Patient Name: BRIDGET SHETTY MR #: [id number] : 1965 Age/Sex: 53/F Req #: [id number] Adm Physician: Ordered by: CAESAR WHITE MD Report #: [id number] Location: ER Room/Bed: Procedure: [id number] D X/CHEST SINGLE (PORTABLE) Exam Date: 02/16/19 [...] IMPRESSION: No acute radiographic abnormality. Signed by: Halima FrancoOCecilia, M.M.M. on 02/16/2019 6:19 PM Dictated By: KYLER TERRY DO Electron ically Signed By: KYLER TERRY DO on 02/16/191818 Transcribed By: ROSY on 1818 COPY TO: CAESAR WHITE MD Sodium Adndn8363-92-39 18:13:00* Test Item Value Reference Range Interpretation Comments Sodium Level (test code = 2951-2) 138 136-145 [facility] CenterPotassium Zgssg5588-84-61 18:13:00* Test Item Value Reference Range Interpretation Comments Potassium Level (test code = 2823-3) 3.3 3.5-5.1 L [facility] CenterChloride Giwlh4286-57-57 18:13:00* Test Item Value Reference Range Interpretation Comments Chloride Level (test code = 2075-0) 103 98-107 [facility] CenterCarbon Dioxide Oaaxd7414-28-44 18:13:00* Test Item Value Reference Range Interpretation Comments Carbon Dioxide Level (test code = 8-9) 27 -29 [facility] CenterAnion Zwg4665-84-49 18:13:00* Test Item Value Reference Range Interpretation Comments Anion Gap (test code = 96880-6) 11.3 8-16 [facility] CenterBlood Urea Asrxrsnf9803-88-84 18:13:00* Test Item Value Reference Range Interpretation Comments Blood Urea Nitrogen (test code = 3094-0) 12 7-26 [facility] CenterCreatinine2019-09-24 18:13:00* Test Item Value Reference Range Interpretation Comments Creatinine (test code = 2160-0) 0.79 0.57-1.11 [facility] CenterBUN/Creatinine Zuvyi3590-10-10 18:13:00* Test Item Value Reference Range Interpretation Comments BUN/Creatinine Ratio (test code = 3097-3) 15 6- [facility] CenterEstimat Glomerular Filtration Rate 2019-02-16 18:13:00* Test Item Value Reference Range Interpretation Comments Estimat Glomerular Filtration Rate (test code = 053910854) > 60 >60 Ranges were taken from the National Kidney Disease Education Program and the Cele [facility] Kidney Foundation literature.Reference ranges:60 or greater: Fwjqab46-67 ( for 3 consecutive months): Chronic kidney disease 15 or less: Kidney failureBrownfield Regional Medical CenterGlucose Yrafh0994-74-57 18:13:00* Test Item Value Reference Range Interpretation Comments Glucose Level (test code = ODK3937) 120 74-118 H [facility] CenterCalcium Jggze6969-36-62 18:13:00* Test Item Value Reference Range Interpretation Comments Calcium Level (test code = 07678-4) 9.5 8.4-10.2 [facility] CenterTotal Qgjxgwlts5738-48-47 18:13:00* Test Item Value Reference Range Interpretation Comments Total Bilirubin (test code = 1975-2) 0.3 0.2-1.2 [facility] CenterAspartate Amino Transf (AST/SGOT) 2019-02-16 18:13:00* Test Item Value Reference Range Interpretation Comments Aspartate Amino Transf (AST/SGOT) (test code = Aspartate Amino Transf (AST/SGOT)) 15 5-34 [facility] CenterAlanine Aminotransferase (ALT/SGPT) 2019-02-16 18:13:00* Test Item Value Reference Range Interpretation Comments Alanine Aminotransferase (ALT/SGPT) (test code = 1742-6) 21 0-55 [facility] CenterTotal Ehcbkbj4849-51-17 18:13:00* Test Item Value Reference Range Interpretation Comments Total Protein (test code = 2885-2) 7.0 6.5-8.1 [facility] CenterAlbumin2019-09-24 18:13:00* Test Item Value Reference Range Interpretation Comments Albumin (test code = 1751-7) 3.7 3.5-5.0 [facility] CenterGlobulin2019-09-24 18:13:00* Test Item Value Reference Range Interpretation Comments Globulin (test code = 18308-1) 3.3 2.3-3.5 [facility] CenterAlbumin/Globulin Thwcf1448-55-98 18:13:00 * Test Item Value Reference Range Interpretation Comments Albumin/Globulin Ratio (test code = 1759-0) 1.1 0.8-2.0 [facility] CenterAlkaline Fywaeicppzl6759-04-76 18:13:00* Test Item Value Reference Range Interpretation Comments Alkaline Phosphatase (test code = 6768-6) 55 40-150 [facility] CenterCreatine Xyvbrj6091-14-48 18:13:00* Test Item Value Reference Range Interpretation Comments Creatine Kinase (test code = 2157-6) 83 29-168 [facility] CenterCreatine Tpzmla8883-13-80 18:13:00* Test Item Value Reference Range Interpretation Comments Creatine Kinase (test code = 2157-6) 83 29-168 [facility] CenterWhite Blood Kkmsy0649-35-05 17:56:00* Test Item Value Reference Range Interpretation Comments White Blood Count (test code = 6690-2) 13.37 4.8-10.8 H [facility] CenterRed Blood Cuubo5029-29-91 17:56:00* Test Item Value Reference Range Interpretation Comments Red Blood Count (test code = 789-8) 4.62 3.6-5.1 [facility] CenterHemoglobin2019-09-24 17:56:00* Test Item Value Reference Range Interpretation Comments Hemoglobin (test code = 50833-0) 12.1 12.0-16.0 [facility] CenterHematocrit2019-09-24 17:56:00* Test Item Value Reference Range Interpretation Comments Hematocrit (test code = 4544-3) 37.2 34.2-44.1 [facility] CenterMean Corpuscular Rdyqur6703-30-92 17:56:00* Test Item Value Reference Range Interpretation Comments Mean Corpuscular Volume (test code = 787-2) 80.5 81-99 L [facility] CenterMean Corpuscular Gjjffnyfrj2519-97-47 17:56:00* Test Item Value Reference Range Interpretation Comments Mean Corpuscular Hemoglobin (test code = 785-6) 26.2 28-32 L [facility] CenterMean Corpuscular Hemoglobin Concent 2019-02-16 17:56:00* Test Item Value Reference Range Interpretation Comments Mean Corpuscular Hemoglobin Concent (test code = 786-4) 32.5 31-35 [facility] CenterRed Cell Distribution Yfybp8195-72-45 17:56:00* Test Item Value Reference Range Interpretation Comments Red Cell Distribution Width (test code = 11762-1) 14.6 11.7 -14.4 H [facility] CenterPlatelet Stafd0829-98-33 17:56:00* Test Item Value Reference Range Interpretation Comments Platelet Count (test code = 777-3) 292 140-360 [facility] CenterNeutrophils (%) (Auto)2019-02-16 17:56:00 * Test Item Value Reference Range Interpretation Comments Neutrophils (%) (Auto) (test code = 55711-2) 65.1 38.7-80.0 [facility] CenterLymphocytes (%) (Auto)2019-02-16 17:56:00 * Test Item Value Reference Range Interpretation Comments Lymphocytes (%) (Auto) (test code = 736-9) 26.5 18.0-39.1 [facility] CenterMonocytes (%) (Auto)2019-02-16 17:56:00* Test Item Value Reference Range Interpretation Comments Monocytes (%) (Auto) (test code = 5905-5) 5.7 4.4-11.3 [facility] CenterEosinophils (%) (Auto)2019-02-16 17:56:00 * Test Item Value Reference Range Interpretation Comments Eosinophils (%) (Auto) (test code = 713-8) 1.8 0.0-6.0 [facility] CenterBasophils (%) (Auto)2019-02-16 17:56:00* Test Item Value Reference Range Interpretation Comments Basophils (%) (Auto) (test code = 706-2) 0.4 0.0-1.0 [facility] CenterIM GRANULOCYTES %2019-02-16 17:56:00* Test Item Value Reference Range Interpretation Comments IM GRANULOCYTES % (test code = IM GRANULOCYTES %) 0.5 0.0- 1.0 [facility] CenterNeutrophils # (Auto)2019-02-16 17:56:00* Test Item Value Reference Range Interpretation Comments Neutrophils # (Auto) (test code = 751-8) 8.7 2.1-6.9 H [facility] CenterLymphocytes # (Auto)2019-02-16 17:56:00* Test Item Value Reference Range Interpretation Comments Lymphocytes # (Auto) (test code = 99287-7) 3.5 1.0-3.2 H [facility] CenterMonocytes # (Auto)2019-02-16 17:56:00* Test Item Value Reference Range Interpretation Comments Monocytes # (Auto) (test code = 742-7) 0.8 0.2-0.8 [facility] CenterEosinophils # (Auto)2019-02-16 17:56:00* Test Item Value Reference Range Interpretation Comments Eosinophils # (Auto) (test code = 711-2) 0.2 0.0-0.4 [facility] CenterBasophils # (Auto)2019-02-16 17:56:00* Test Item Value Reference Range Interpretation Comments Basophils # (Auto) (test code = 704-7) 0.1 0.0-0.1 [facility] CenterAbsolute Immature Granulocyte (auto 2019-02-16 17:56:00* Test Item Value Reference Range Interpretation Comments Absolute Immature Granulocyte (auto (cesar t code = Absolute Immature Granulocyte (auto) 0.07 0-0.1 [facility] CenterTHORACIC SPINE 3JD4274-96-89 11:30:00 [place] [address] Patient Name: BRIDGET SHETTY MR #: [id number] : 1965 Age/Sex: 53/F Req #: [id number] Adm Physician: Ordered by: SUSAN CHRISTY MD Report #: [id number] Location: [facility] Room/Bed: Procedure: [id number] DX/ THORACIC SPINE 2VW Exam Date: 09/09/18 [...] SUSAN CHRISTY MD SP LUMBAR, COMPLETE MIN [id number] 11:25:00 [place] [address] Patient Name: BRIDGET SHETTY MR #: [id number] : 1965 Age/Sex: 53/F Req #: [id number] Adm Physician: Ordered by: SUSAN CHRISTY MD Report #: [id number] Location: [facility] Room/Bed: Procedure: [id number] DX/ SP LUMBAR, COMPLETE MIN 4VW Exam [...] 11:30 AM Dictated By: JACKIE BOBO MD [facility] Signed By: JACKIE BOBO MD on 09/09/18 1130 Transcribed By: ROSY on 1130 COPY TO: SUSAN CHRISTY MD SACRUM [id number] 11:25:00 [place] [address] Patient Name: BRIDGET SHETTY MR #: [id number] : 1965 Age/Sex: 53/F Req #: [id number] Adm Physician: Ordered by: SUSAN CHRISTY MD Report #: [id number] Location: [facility] Room/Bed: Procedure: [id number] DX/ SACRUM X-RAY Exam Date: 09/09/18 Exam [...] COPY TO: SUSAN CHRISTY MD CT ABDOMEN [id number] 11:02:00 [place] [address] Patient Name: BRIDGET SHETTY MR #: [id number] : 1965 Age/Sex: 53/F Req #: [id number] Adm Physician: Ordered by: SUSAN CHRISTY MD Report #: [id number] Location: CT Room/Bed: Procedure: [id number] CT/ CT ABDOMEN W Exam Date: 06/11/18 [...] 11:07 AM Dictated By: CHEYANNE Babb MD 06 Transcribe d By: ROSY on 06/11/181106 COPY TO: SUSAN CHRISTY MD Blood Urea Znrvxhow8900-93-62 10:11:00* Test Item Value Reference Range Interpretation Comments Blood Urea Nitrogen (test code = 3094-0) 11 12-18 [facility] CenterCreatinine2019-01-17 10:11:00* Test Item Value Reference Range Interpretation Comments Creatinine (test code = 2160-0) 0.72 0.57-1.11 [facility] CenterBUN/Creatinine Qrndr7550-10-34 10:11:00* Test Item Value Reference Range Interpretation Comments BUN/Creatinine Ratio (test code = 3097-3) 15 11-17 [facility] CenterEstimat Glomerular Filtration Rate 2018-06-11 10:11:00* Test Item Value Reference Range Interpretation Comments Estimat Glomerular Filtration Rate (test code = 226369589) > 60 >60 Ranges were taken from the National Kidney Disease Education Program and the Cele [facility]al Kidney Foundation literature.Reference ranges:60 or greater: Jnwrgz17-31 ( for 3 consecutive months): Chronic kidney disease 15 or less: Kidney failureCHI [facility] ParkwayUS QZOADTABHYU1267-12-43 17:24:00 [place] [address] Patient Name: BRIDGET SHETTY MR #: [id number] : 1965 Age/Sex: 53/F Req #: [id number] Adm Physician: Ordered by: ANGELLA MOTA NP Report #: [id number] Location: ER Room/Bed: Procedure: [id number] US/US GALLBLADDER Exam Date: 06/02/18 Exam Time: 151 6 REPORT STATUS: [facility]: Right upper [...] 06/02/181727 COPY TO: ANGELLA MOTA NP Sodium Zjdve7441-56-43 15:20:00* Test Item Value Reference Range Interpretation Comments Sodium Level (test code = 2951-2) 141 136-145 [facility] CenterPotassium Tkbza7171-44-92 15:20:00* Test Item Value Reference Range Interpretation Comments Potassium Level (test code = 2823-3) 3.6 3.5-5.1 [facility] CenterChloride Zmpsw3071-58-11 15:20:00* Test Item Value Reference Range Interpretation Comments Chloride Level (test code = 2075-0) 105 98-107 [facility] CenterCarbon Dioxide Whckj4111-74-43 15:20:00* Test Item Value Reference Range Interpretation Comments Carbon Dioxide Level (test code = 2028-9) 26 22-29 [facility] CenterAnion Dzr7685-72-41 15:20:00* Test Item Value Reference Range Interpretation Comments Anion Gap (test code = 94741-7) 13.6 8-16 [facility] CenterBlood Urea Fkluqfip0050-66-74 15:20:00* Test Item Value Reference Range Interpretation Comments Blood Urea Nitrogen (test code = 3094-0) 16 7-26 [facility] CenterCreatinine2019-01-08 15:20:00* Test Item Value Reference Range Interpretation Comments Creatinine (test code = 2160-0) 0.81 0.57-1.11 [facility] CenterBUN/Creatinine Tpttm6438-86-42 15:20:00* Test Item Value Reference Range Interpretation Comments BUN/Creatinine Ratio (test code = 3097-3) 20 6-25 [facility] CenterEstimat Glomerular Filtration Rate 2018-06-02 15:20:00* Test Item Value Reference Range Interpretation Comments Estimat Glomerular Filtration Rate (test code = 626667427) > 60 >60 Ranges were taken from the National Kidney Disease Education Program and the Cele [facility] Kidney Foundation literature.Reference ranges:60 or greater: Ewjqgj11-06 ( for 3 consecutive months): Chronic kidney disease 15 or less: Kidney failureBrownfield [facility] Medical CenterGlucose Bzghw8396-44-66 15:20:00* Test Item Value Reference Range Interpretation Comments Glucose Level (test code = YLA8297) 139 74-118 H [facility] CenterCalcium Fiwjj9079-71-34 15:20:00* Test Item Value Reference Range Interpretation Comments Calcium Level (test code = 94603-3) 9.4 8.4-10.2 [facility] CenterTotal Zizguqnov3150-91-16 15:20:00* Test Item Value Reference Range Interpretation Comments Total Bilirubin (test code = 1975-2) 0.2 0.2-1.2 [facility] CenterAspartate Amino Transf (AST/SGOT) 2018-06-02 15:20:00* Test Item Value Reference Range Interpretation Comments Aspartate Amino Transf (AST/SGOT) (test code = Aspartate Amino Transf (AST/SGOT)) 17 5-34 [facility] CenterAlanine Aminotransferase (ALT/SGPT) 2018-06-02 15:20:00* Test Item Value Reference Range Interpretation Comments Alanine Aminotransferase (ALT/SGPT) (test code = 1742-6) 24 0-55 [facility] Lytvfiy7592-99-22 15:20:00* Test Item Value Reference Range Interpretation Comments Total Protein (test code = 2885-2) 7.0 6.5-8.1 [facility] CenterAlbumin2019-01-08 15:20:00* Test Item Value Reference Range Interpretation Comments Albumin (test code = 1751-7) 3.7 3.5-5.0 [facility] CenterGlobulin2019-01-08 15:20:00* Test Item Value Reference Range Interpretation Comments Globulin (test code = 40400-7) 3.3 2.3-3.5 [facility] CenterAlbumin/Globulin Rbdub1754-14-09 15:20:00 * Test Item Value Reference Range Interpretation Comments Albumin/Globulin Ratio (test code = 1759-0) 1.1 0.8-2.0 [facility] CenterAlkaline Wntmccausgf6564-59-91 15:20:00* Test Item Value Reference Range Interpretation Comments Alkaline Phosphatase (test code = 6768-6) 53 40-150 [facility] CenterAmylase Uabcx6979-17-97 15:20:00* Test Item Value Reference Range Interpretation Comments Amylase Level (test code = 1798-8) 40 25-125 [facility] CenterLipase2019-01-08 15:20:00* Test Item Value Reference Range Interpretation Comments Lipase (test code = 3040-3) 24 8-78 [facility]odium Volcb7129-86-74 15:20:00* Test Item Value Reference Range Interpretation Comments Sodium Level (test code = 2951-2) 141 136-145 [facility] CenterPotassium Whqwd8540-06-39 15:20:00* Test Item Value Reference Range Interpretation Comments Potassium Level (test code = 2823-3) 3.6 3.5-5.1 [facility] CenterChloride Vcqjg5793-48-92 15:20:00* Test Item Value Reference Range Interpretation Comments Chloride Level (test code = 2075-0) 105 98-107 [facility] CenterCarbon Dioxide Cwupi6067-14-00 15:20:00* Test Item Value Reference Range Interpretation Comments Carbon Dioxide Level (test code = 2028-9) 26 22-29 [facility] CenterAnion Pvr5103-16-58 15:20:00* Test Item Value Reference Range Interpretation Comments Anion Gap (test code = 14778-7) 13.6 8-16 [facility] CenterGlucose Dewru8560-45-89 15:20:00* Test Item Value Reference Range Interpretation Comments Glucose Level (test code = CUI1597) 139 74-118 H [facility] CenterCalcium Sosjo8619-88-84 15:20:00* Test Item Value Reference Range Interpretation Comments Calcium Level (test code = 60552-6) 9.4 8.4-10.2 [facility] CenterTotal Vbgnguoha9758-20-86 15:20:00* Test Item Value Reference Range Interpretation Comments Total Bilirubin (test code = 1975-2) 0.2 0.2-1.2 [facility] CenterAspartate Amino Transf (AST/SGOT) 2018-06-02 15:20:00* Test Item Value Reference Range Interpretation Comments Aspartate Amino Transf (AST/SGOT) (test code = Aspartate Amino Transf (AST/SGOT)) 17 5-34 [facility] CenterAlanine Aminotransferase (ALT/SGPT) 2018-06-02 15:20:00* Test Item Value Reference Range Interpretation Comments Alanine Aminotransferase (ALT/SGPT) (test code = 1742-6) 24 0-55 [facility] CenterTotal Sjbcizn6621-28-82 15:20:00* Test Item Value Reference Range Interpretation Comments Total Protein (test code = 2885-2) 7.0 6.5-8.1 [facility] CenterAlbumin2019-01-08 15:20:00* Test Item Value Reference Range Interpretation Comments Albumin (test code = 1751-7) 3.7 3.5-5.0 [facility] CenterGlobulin2019-01-08 15:20:00* Test Item Value Reference Range Interpretation Comments Globulin (test code = 57406-2) 3.3 2.3-3.5 [facility] CenterAlbumin/Globulin Lgljp9803-48-57 15:20:00 * Test Item Value Reference Range Interpretation Comments Albumin/Globulin Ratio (test code = 1759-0) 1.1 0.8-2.0 [facility] CenterAlkaline Hprydwmfkbl3501-85-14 15:20:00* Test Item Value Reference Range Interpretation Comments Alkaline Phosphatase (test code = 6768-6) 53 40-150 [facility] CenterAmylase Pzxlt0858-90-67 15:20:00* Test Item Value Reference Range Interpretation Comments Amylase Level (test code = 1798-8) 40 25-125 [facility] CenterLipase2019-01-08 15:20:00* Test Item Value Reference Range Interpretation Comments Lipase (test code = 3040-3) 24 8-78 [facility] CenterAmylase Qajev3819-87-33 15:20:00* Test Item Value Reference Range Interpretation Comments Amylase Level (test code = 1798-8) 40 25-125 [facility] CenterLipase2019-01-08 15:20:00* Test Item Value Reference Range Interpretation Comments Lipase (test code = 3040-3) 24 78 [facility] CenterAmylase Ctolo6154-00-69 15:20:00* Test Item Value Reference Range Interpretation Comments Amylase Level (test code = 1798-8) 40 25-125 [facility] CenterLipase2019-01-08 15:20:00* Test Item Value Reference Range Interpretation Comments Lipase (test code = 3040-3) 24 [facility] CenterUrine Qnlfs1521-29-55 15:18:00* Test Item Value Reference Range Interpretation Comments Urine Color (test code = 5778-6) YELLOW YELLOW [facility] CenterUrine Vokgalr9056-33-09 15:18:00* Test Item Value Reference Range Interpretation Comments Urine Clarity (test code = 37885-3) CLEAR CLEAR [facility] CenterUrine Specific Biywntj9212-48-31 15:18:00 * Test Item Value Reference Range Interpretation Comments Urine Specific [place] (test code = 5811-5) 1.015 1.010-1.02 5 [facility] CenterUrine iK8499-76-18 15:18:00* Test Item Value Reference Range Interpretation Comments Urine pH (test code = 47912-8) 8 5-7 H [facility] CenterUrine Leukocyte Qhppgdqx5385-28-94 15:18:00* Test Item Value Reference Range Interpretation Comments Urine Leukocyte Esterase (test code = 5799-2) NEGATIVE NEGATIVE [facility] CenterUrine Kgttljc6665-27-75 15:18:00* Test Item Value Reference Range Interpretation Comments Urine Nitrite (test code = 98581-1) NEGATIVE NEGATIVE [facility] CenterUrine Dwzozaz4309-98-43 15:18:00* Test Item Value Reference Range Interpretation Comments Urine Protein (test code = 5804-0) NEGATIVE NEGATIVE [facility] CenterUrine Glucose (UA)2018-06-02 15:18:00* Test Item Value Reference Range Interpretation Comments Urine Glucose (UA) (test code = 2349-9) NEGATIVE NEGATIVE [facility] Lrangrl6629-69-00 15:18:00* Test Item Value Reference Range Interpretation Comments Urine Ketones (test code = 39747-8) NEGATIVE NEGATIVE [facility] Aowqoseslsdx0288-89-73 15:18:00* Test Item Value Reference Range Interpretation Comments Urine Urobilinogen (test code = 97959-7) 0.2 0.2-1 [facility] Lkgjhhoud2445-40-42 15:18:00* Test Item Value Reference Range Interpretation Comments Urine Bilirubin (test code = 1978-6) NEGATIVE NEGATIVE [facility] Czkyh0415-12-52 15:18:00* Test Item Value Reference Range Interpretation Comments Urine Blood (test code = 82011-2) NEGATIVE NEGATIVE [facility] VNN6628-14-02 15:18:00* Test Item Value Reference Range Interpretation Comments Urine WBC (test code = 5821-4) 0-5 0-5 [facility] CenterUrine HAB8374-14-47 15:18:00* Test Item Value Reference Range Interpretation Comments Urine RBC (test code = 35040-3) 0-5 0-5 [facility] CenterUrine Mvhcdahg1212-45-24 15:18:00* Test Item Value Reference Range Interpretation Comments Urine Bacteria (test code = 90588-5) FEW NONE [facility] CenterUrine Epithelial Ghaoa6014-20-47 15:18:00 * Test Item Value Reference Range Interpretation Comments Urine Epithelial Cells (test code = 10497-5) FEW NONE [facility] CenterUrine Bjlvt4207-83-69 15:18:00* Test Item Value Reference Range Interpretation Comments Urine Color (test code = 5778-6) YELLOW YELLOW [facility] CenterUrine Zorzszd5682-08-03 15:18:00* Test Item Value Reference Range Interpretation Comments Urine Clarity (test code = 70055-1) CLEAR CLEAR [facility] Specific Yrzkjwj3595-67-39 15:18:00 * Test Item Value Reference Range Interpretation Comments Urine Specific [place] (test code = 5811-5) 1.015 1.010-1.02 5 [facility] CenterUrine sG2122-66-58 15:18:00* Test Item Value Reference Range Interpretation Comments Urine pH (test code = 43114-1) 8 5-7 H [facility] CenterUrine Leukocyte Ojulpehy2840-23-58 15:18:00* Test Item Value Reference Range Interpretation Comments Urine Leukocyte Esterase (test code = 5799-2) NEGATIVE NEGATIVE [facility] CenterUrine Ynfdqcu7087-01-71 15:18:00* Test Item Value Reference Range Interpretation Comments Urine Nitrite (test code = 59956-1) NEGATIVE NEGATIVE [facility] CenterUrine Wteuzjr3929-85-68 15:18:00* Test Item Value Reference Range Interpretation Comments Urine Protein (test code = 5804-0) NEGATIVE NEGATIVE [facility] CenterUrine Glucose (UA)2018-06-02 15:18:00* Test Item Value Reference Range Interpretation Comments Urine Glucose (UA) (test code = 2349-9) NEGATIVE NEGATIVE [facility] CenterUrine Uyaxomn3264-87-92 15:18:00* Test Item Value Reference Range Interpretation Comments Urine Ketones (test code = 94787-4) NEGATIVE NEGATIVE [facility] Olbkbotizdwv7951-72-09 15:18:00* Test Item Value Reference Range Interpretation Comments Urine Urobilinogen (test code = 19164-3) 0.2 0.2-1 [facility] CenterUrine Uqfktnkxq1349-46-86 15:18:00* Test Item Value Reference Range Interpretation Comments Urine Bilirubin (test code = 1978-6) NEGATIVE NEGATIVE [facility] CenterUrine Pthxj2800-27-95 15:18:00* Test Item Value Reference Range Interpretation Comments Urine Blood (test code = 77719-1) NEGATIVE NEGATIVE [facility] CenterU[facility] HYK9825-28-01 15:18:00* Test Item Value Reference Range Interpretation Comments Urine WBC (test code = 5821-4) 0-5 0-5 [facility] CenterU[facility] WDL7149-29-50 15:18:00* Test Item Value Reference Range Interpretation Comments Urine RBC (test code = 52127-5) 0-5 0-5 [facility] CenterUrine Tchxaijk9444-87-24 15:18:00* Test Item Value Reference Range Interpretation Comments Urine Bacteria (test code = 34099-4) FEW NONE [facility] CenterUrine Epithelial Tgwhy9762-76-64 15:18:00 * Test Item Value Reference Range Interpretation Comments Urine Epithelial Cells (test code = 62810-3) FEW NONE [facility] CenterUrine Zwntg9160-16-40 15:18:00* Test Item Value Reference Range Interpretation Comments Urine Color (test code = 5778-6) YELLOW YELLOW [facility] CenterUrine Zrwcchu0257-08-69 15:18:00* Test Item Value Reference Range Interpretation Comments Urine Clarity (test code = 62008-9) CLEAR CLEAR [facility] Specific Jqmrtos7967-84-81 15:18:00 * Test Item Value Reference Range Interpretation Comments Urine Specific [place] (test code = 5811-5) 1.015 1.010-1.02 5 [facility] CenterU[facility] kK9393-59-74 15:18:00* Test Item Value Reference Range Interpretation Comments Urine pH (test code = 93186-6) 8 5-7 H [facility] CenterUrine Leukocyte Aylekqrl8459-29-46 15:18:00* Test Item Value Reference Range Interpretation Comments Urine Leukocyte Esterase (test code = 5799-2) NEGATIVE NEGATIVE [facility] CenterUrine Vkhefzu8477-34-14 15:18:00* Test Item Value Reference Range Interpretation Comments Urine Nitrite (test code = 41597-0) NEGATIVE NEGATIVE [facility] CenterUrine Ofxdxrm0265-05-27 15:18:00* Test Item Value Reference Range Interpretation Comments Urine Protein (test code = 5804-0) NEGATIVE NEGATIVE [facility] CenterUrine Glucose (UA)2018-06-02 15:18:00* Test Item Value Reference Range Interpretation Comments Urine Glucose (UA) (test code = 2349-9) NEGATIVE NEGATIVE [facility] CenterUrine Unczokb0197-72-04 15:18:00* Test Item Value Reference Range Interpretation Comments Urine Ketones (test code = 68384-5) NEGATIVE NEGATIVE [facility] Daifljzbjhdt2770-64-12 15:18:00* Test Item Value Reference Range Interpretation Comments Urine Urobilinogen (test code = 21898-7) 0.2 0.2-1 [facility] CenterU[facility] Xsrajtbvj5010-93-90 15:18:00* Test Item Value Reference Range Interpretation Comments Urine Bilirubin (test code = 1978-6) NEGATIVE NEGATIVE [facility] Juqsb3690-96-63 15:18:00* Test Item Value Reference Range Interpretation Comments Urine Blood (test code = 53816-8) NEGATIVE NEGATIVE [facility] VLL9290-71-77 15:18:00* Test Item Value Reference Range Interpretation Comments Urine WBC (test code = 5821-4) 0-5 0-5 [facility] IRV6387-10-21 15:18:00* Test Item Value Reference Range Interpretation Comments Urine RBC (test code = 61294-9) 0-5 0-5 [facility] Nhhflhit6014-55-79 15:18:00* Test Item Value Reference Range Interpretation Comments Urine Bacteria (test code = 69756-5) FEW NONE [facility] CenterUrine Epithelial Qplsf9467-17-27 15:18:00 * Test Item Value Reference Range Interpretation Comments Urine Epithelial Cells (test code = 66723-6) FEW NONE [facility] CenterU[facility] Xmre7567-48-67 15:09:00* Test Item Value Reference Range Interpretation Comments Urine Test (test code = 2106-3) NEGATIVE NEGATIVE [facility] Hudy4515-47-96 15:09:00* Test Item Value Reference Range Interpretation Comments Urine Test (test code = 2106-3) NEGATIVE NEGATIVE [facility] Hyan3623-73-77 15:09:00* Test Item Value Reference Range Interpretation Comments Urine Test (test code = 2106-3) NEGATIVE NEGATIVE [facility] Lacn0152-37-03 15:09:00* Test Item Value Reference Range Interpretation Comments Urine Test (test code = 2106-3) NEGATIVE NEGATIVE [facility] CenterWhite Blood [id number] 15:03:00* Test Item Value Reference Range Interpretation Comments White Blood Count (test code = 6690-2) 11.09 4.8-10.8 H [facility] CenterRed Blood Ycvnu6318-10-84 15:03:00* Test Item Value Reference Range Interpretation Comments Red Blood Count (test code = 789-8) 4.71 3.6-5.1 [facility] CenterHemoglobin2019-01-08 15:03:00* Test Item Value Reference Range Interpretation Comments Hemoglobin (test code = 23742-4) 12.2 12.0-16.0 [facility] CenterHematocrit2019-01-08 15:03:00* Test Item Value Reference Range Interpretation Comments Hematocrit (test code = 4544-3) 37.7 34.2-44.1 [facility] CenterMean Corpuscular Pnipyy6955-85-50 15:03:00* Test Item Value Reference Range Interpretation Comments Mean Corpuscular Volume (test code = 787-2) 80.0 81-99 L [facility] CenterMean Corpuscular Ojvfjafelo6690-56-60 15:03:00* Test Item Value Reference Range Interpretation Comments Mean Corpuscular Hemoglobin (test code = 785-6) 25.9 28-32 L [facility] CenterMean Corpuscular Hemoglobin Concent 2018-06-02 15:03:00* Test Item Value Reference Range Interpretation Comments Mean Corpuscular Hemoglobin Concent (test code = 786-4) 32.4 31-35 [facility] CenterRed Cell Distribution Upiky9205-98-40 15:03:00* Test Item Value Reference Range Interpretation Comments Red Cell Distribution Width (test code = 78311-5) 13.8 11.7 -14.4 [facility] CenterPlatelet Lafgi2886-56-02 15:03:00* Test Item Value Reference Range Interpretation Comments Platelet Count (test code = 777-3) 346 140360 [facility] CenterNeutrophils (%) (Auto)2018-06-02 15:03:00 * Test Item Value Reference Range Interpretation Comments Neutrophils (%) (Auto) (test code = 51621-3) 59.8 38.7-80.0 [facility] CenterLymphocytes (%) (Auto)2018-06-02 15:03:00 * Test Item Value Reference Range Interpretation Comments Lymphocytes (%) (Auto) (test code = 736-9) 31.6 18.0-39.1 [facility] CenterMonocytes (%) (Auto)2018-06-02 15:03:00* Test Item Value Reference Range Interpretation Comments Monocytes (%) (Auto) (test code = 5905-5) 5.8 4.4-11.3 [facility] CenterEosinophils (%) (Auto)2018-06-02 15:03:00 * Test Item Value Reference Range Interpretation Comments Eosinophils (%) (Auto) (test code = 713-8) 2.0 0.0-6.0 [facility] CenterBasophils (%) (Auto)2018-06-02 15:03:00* Test Item Value Reference Range Interpretation Comments Basophils (%) (Auto) (test code = 706-2) 0.4 0.0-1.0 [facility] CenterIM GRANULOCYTES %2018-06-02 15:03:00* Test Item Value Reference Range Interpretation Comments IM GRANULOCYTES % (test code = IM GRANULOCYTES %) 0.4 0.0- 1.0 [facility] CenterNeutrophils # (Auto)2018-06-02 15:03:00* Test Item Value Reference Range Interpretation Comments Neutrophils # (Auto) (test code = 751-8) 6.7 2.1-6.9 [facility] CenterLymphocytes # (Auto)2018-06-02 15:03:00* Test Item Value Reference Range Interpretation Comments Lymphocytes # (Auto) (test code = 89723-9) 3.5 1.0-3.2 H [facility] CenterMonocytes # (Auto)2018-06-02 15:03:00* Test Item Value Reference Range Interpretation Comments Monocytes # (Auto) (test code = 742-7) 0.6 0.2-0.8 [facility] CenterEosinophils # (Auto)2018-06-02 15:03:00* Test Item Value Reference Range Interpretation Comments Eosinophils # (Auto) (test code = 711-2) 0.2 0.0-0.4 [facility] CenterBasophils # (Auto)2018-06-02 15:03:00* Test Item Value Reference Range Interpretation Comments Basophils # (Auto) (test code = 704-7) 0.0 0.0-0.1 [facility] CenterAbsolute Immature Granulocyte (auto 2018-06-02 15:03:00* Test Item Value Reference Range Interpretation Comments Absolute Immature Granulocyte (auto (cesar t code = Absolute Immature Granulocyte (auto) 0.04 0-0.1 [facility] CenterWhite Blood Eenhv9376-30-90 15:03:00* Test Item Value Reference Range Interpretation Comments White Blood Count (test code = 6690-2) 11.09 4.8-10.8 H [facility] CenterRed Blood Unzxe1402-94-99 15:03:00* Test Item Value Reference Range Interpretation Comments Red Blood Count (test code = 789-8) 4.71 3.6-5.1 [facility] CenterHemoglobin2019-01-08 15:03:00* Test Item Value Reference Range Interpretation Comments Hemoglobin (test code = 12388-3) 12.2 12.0-16.0 [facility] CenterHematocrit2019-01-08 15:03:00* Test Item Value Reference Range Interpretation Comments Hematocrit (test code = 4544-3) 37.7 34.2-44.1 [facility] CenterMean Corpuscular Pwneri0944-01-46 15:03:00* Test Item Value Reference Range Interpretation Comments Mean Corpuscular Volume (test code = 787-2) 80.0 81-99 L [facility] CenterMean Corpuscular Dmvjsaunsp1586-05-28 15:03:00* Test Item Value Reference Range Interpretation Comments Mean Corpuscular Hemoglobin (test code = 785-6) 25.9 28-32 L [facility] CenterMean Corpuscular Hemoglobin Concent 2018-06-02 15:03:00* Test Item Value Reference Range Interpretation Comments Mean Corpuscular Hemoglobin Concent (test code = 786-4) 32.4 31-35 [facility] CenterRed Cell Distribution Bmebw0567-78-12 15:03:00* Test Item Value Reference Range Interpretation Comments Red Cell Distribution Width (test code = 70306-8) 13.8 11.7 -14.4 [facility] CenterPlatelet Dnoeq4060-15-39 15:03:00* Test Item Value Reference Range Interpretation Comments Platelet Count (test code = 777-3) 346 140-360 [facility] CenterNeutrophils (%) (Auto)2018-06-02 15:03:00 * Test Item Value Reference Range Interpretation Comments Neutrophils (%) (Auto) (test code = 50066-5) 59.8 38.7-80.0 [facility] CenterLymphocytes (%) (Auto)2018-06-02 15:03:00 * Test Item Value Reference Range Interpretation Comments Lymphocytes (%) (Auto) (test code = 736-9) 31.6 18.0-39.1 [facility] CenterMonocytes (%) (Auto)2018-06-02 15:03:00* Test Item Value Reference Range Interpretation Comments Monocytes (%) (Auto) (test code = 5905-5) 5.8 4.4-11.3 [facility] CenterEosinophils (%) (Auto)2018-06-02 15:03:00 * Test Item Value Reference Range Interpretation Comments Eosinophils (%) (Auto) (test code = 713-8) 2.0 0.0-6.0 [facility] CenterBasophils (%) (Auto)2018-06-02 15:03:00* Test Item Value Reference Range Interpretation Comments Basophils (%) (Auto) (test code = 706-2) 0.4 0.0-1.0 [facility] CenterIM GRANULOCYTES %2018-06-02 15:03:00* Test Item Value Reference Range Interpretation Comments IM GRANULOCYTES % (test code = IM GRANULOCYTES %) 0.4 0.0- 1.0 [facility] CenterNeutrophils # (Auto)2018-06-02 15:03:00* Test Item Value Reference Range Interpretation Comments Neutrophils # (Auto) (test code = 751-8) 6.7 2.1-6.9 [facility] CenterLymphocytes # (Auto)2018-06-02 15:03:00* Test Item Value Reference Range Interpretation Comments Lymphocytes # (Auto) (test code = 88315-3) 3.5 1.0-3.2 H [facility] CenterMonocytes # (Auto)2018-06-02 15:03:00* Test Item Value Reference Range Interpretation Comments Monocytes # (Auto) (test code = 742-7) 0.6 0.2-0.8 [facility] CenterEosinophils # (Auto)2018-06-02 15:03:00* Test Item Value Reference Range Interpretation Comments Eosinophils # (Auto) (test code = 711-2) 0.2 0.0-0.4 [facility] CenterBasophils # (Auto)2018-06-02 15:03:00* Test Item Value Reference Range Interpretation Comments Basophils # (Auto) (test code = 704-7) 0.0 0.0-0.1 [facility] CenterAbsolute Immature Granulocyte (auto 2018-06-02 15:03:00* Test Item Value Reference Range Interpretation Comments Absolute Immature Granulocyte (auto (cesar t code = Absolute Immature Granulocyte (auto) 0.04 0-0.1 [facility] CenterBX RAYSA 1ST LESION STRTCTC-LT [facility] [address] [address] Patient Name: BRIDGET SHTETY MR #: [id number] : 1965 Age/Sex: 52/F Req #: [id number] [facility] Physician: Ordered by: SUSAN CHRISTY MD Report #: [id number] Location: MAMMO Room/Bed: Procedure: MG/BX RAYSA 1ST LESION STRTCT C-LT Exam Date: Exam Time: REPORT STATUS: Si gned THIS REPORT HAS BEEN AMENDED. #[id number] - [id number] STEREOTAC TIC GUIDED BIOPSY: 07/29/2017 PATIENT CONSENT: According to [facility] requirements, a time out was performed, [...] performed with wr itten informed consent. A timekeeping supervisor out was taken prior to beginning the [...] mammogram and 06/20/2017 mammogram - [facility]. IMPRESSION: STEREOTACTIC GUIDED B TULIO VargheseO. cw/:07/29/2017 13:14:47 Imaging Te chnologist: Cynthia ARECHIGA(R)(M), [facility] 190 81LT AMENDMENT: 08/04/2017 Khadar Stevens Jr., D.O. Pathology res ults from the stereo biopsy reveal Fibroadenomatoid stroma with embedded calc ifications. Negative for malignancy. Dictated By: KHADAR SANTOS lectronically Signed By: KHADAR STEVENS DO on 07/29/17 1314 Transcribed By: DELORES MORALEZ on 08/04/17 0948 COPY TO: SUSAN CHRISTY MD MAMMO DIAG UNI CAD LT [address] [place] [address] Patient Name: BRIDGET SHETTY MR #: [id number] : 1965 Age/Sex: 52/F Req #: [id number] Adm Physician: Ordered by: SUSAN CHRISTY MD Report #: [id number] Location: MAMMO Room/Bed: Procedure: MG/MAMMO DIAG UNI CAD LT Exam Date: 07/14/17 Exam Time: 1300 REPORT STA TUS: Signed #[id number] - [id number] #UNILATERAL LEFT DIGITAL DIAGNOST IC MAMMOGRAM WITH CAD WITH MAGNIFICATION: 07/14/2017 Comparison is made to exam dated: 06/20/2017 mammogram - [facility]. Current s tudy contains 3 films. There [...] biopsy. Khadar Stevens Jr., D.O. cw/:07/14/2017 14:26:52 Business Line Controller: Cynthia ARECHIGA (R)(Sonido), [facility] letter sent: Biopsy Required Ma mmogram BI-RADS: 4a Suspicious abnormality - low suspicion for malignancy Di ctated By: KHADAR STEVENS DO 1426 COPY TO: SUSAN CHRISTY MD MAMMOGRAPHY DIGITAL SCR BILAT [place] [address] Patient Name: BRIDGET SHETTY MR #: [id number] : 1965 Age/Sex: 52/F Req #: [id number] Adm Physician: Ordered by: SUSAN CHRISTY MD Report #: [id number] Location: MAMMO Room/Bed: Procedure: [id number] MG/MAMMOGRAPHY DIGITAL SCR BILAT Exam Date: 06/20/17 Exam Time: 0900 REPO RT STATUS: Signed #[id number] - [id number] #BILATERAL FIRST EVER DIGITA L [...] D.O. cw/:07/05/2017 09:58:36 Imaging Technologis t: Cynthia ARECHIGA(R)(Sonido), [facility] letter sent: Ad ditional Imaging Needed Mammogram BI-RADS: 0 Indeterminate Dictated By: KHADAR STEEVNS DO 7 T ranscribed By: VERONICA on 07/05/17957 COPY TO: SUSAN CHRISTY MD
[2020-02-29 21:46] VITALS: BP 151/68
[2020-02-29] MEDS ORDERED: CYCLOBENZAPRINE10 MG PO (22:54)
[2020-02-29] MEDS ORDERED: CYMBALTA30 MG PO (22:54)
[2020-02-29] MEDS ORDERED: HUMALOG MI100 UNIT/2 SQ ×2 (22:54)
[2020-02-29] MEDS ORDERED: CLOPIDOGREL75 MG PO (22:54)
[2020-02-29] MEDS ORDERED: FENOFIBRATE145 MG PO (22:54)
[2020-02-29] MEDS ORDERED: HYDROCHLOROTH12.5 MG PO (22:54)
[2020-02-29] MEDS ORDERED: LYRICA150 MG PO (22:54)
[2020-02-29] MEDS ORDERED: LOSARTAN POTAS100 MG PO (22:54)
--- NOTE | 2020-02-29 23:40 | NUR ---
NO DIET ORDER FROM ED. SPOKE WITH MD RENE, STATED PATIENT NEEDED SWALLOW EVAL BEFORE SHE COULD BE GIVEN FOOD OR DRINK. PATIENT STATED SHE WANTED ICE CHIPS AND HAD WATER SINCE COMING IN TO ED WITH "NO ISSUES." PATIENT DOES NOT WANT TO WAIT FOR MORNING FOR SWALLOW EVAL. MD RENE STATED RN BEDSIDE SWALLOW EVAL WAS OKAY. BEDSIDE SWALLOW EVAL COMPLETED, NO INITIAL INDICATIONS OF DIFFICULTY SWALLOWING NOTED. NO FACIAL DROOPING NOTED. SMILE EQUAL ON BOTH SIDES. TWO ICE CHIP TRIALS COMPLETED. DONNY'S APPLE ELEVATION NOTED. NO COUGHING, CHOKING, WET VOCAL SOUNDS NOTED. PATIENT SPOKE FOR 1-2 MINUTES BETWEEN EACH TRIAL AND NO DEFICITS WERE NOTED. PATIENT DRANK 3OZ OF WATER, DONNY'S APPLE ELEVATION NOTED. NO COUGHING, CHOKING, OR WET VOCAL SOUNDS NOTED. PATIENT STATED UPON COMPLETION THAT SHE WOULD CONSENT TO ANOTHER EVAL IN THE AM, AND THAT SHE "WANTS AT LEAST ICE CHIPS" AVAILABLE DURING THE NIGHT.
[2020-03-01] VITALS (8 sets, daily range): BP systolic 146–160; BP diastolic 65–74
[2020-03-01 03:50] LABS: BASOPHILS % 0.3 % (0.0-1.0); HEMATOCRIT 33.2 % (34.2-44.1); HEMOGLOBIN 11.1 g/dL (12.0-16.0); LYMPHOCYTES # (AUTO) 1.2 (1.0-3.2); LYMPHOCYTES % 11.1 % (18.0-39.1); MEAN CORPUSCULAR HEMOGLOBIN 27.6 pg (28-32); MEAN CORPUSCULAR HGB CONC 33.4 g/dL (31-35); MEAN CORPUSCULAR VOLUME 82.6 fL (81-99); MONOCYTES # (AUTO) 0.1 (0.2-0.8); MONOCYTES % 0.7 % (4.4-11.3); NEUTROPHILS % 87.1 % (38.7-80.0); PLATELET COUNT 321 x10e3/uL (140-360); RED BLOOD COUNT 4.02 x10e6/uL (3.6-5.1); RED CELL DISTRIBUTION WIDTH 13.8 % (11.7-14.4)
[2020-03-01 04:07] LABS: ALANINE AMINOTRANSFERASE 11 IU/L (0-55); ALBUMIN 3.3 g/dL (3.5-5.0); ALKALINE PHOSPHATASE 40 IU/L (40-150); ANION GAP 14.1 mmol/L (8-16); BLOOD UREA NITROGEN 13 mg/dL (7-26); BUN/CREATININE RATIO 16 (6-25); CALCIUM 8.6 mg/dL (8.4-10.2); CARBON DIOXIDE 23 mmol/L (22-29); CHLORIDE 104 mmol/L (98-107); CREATININE, SERUM 0.79 mg/dL (0.57-1.11); EST GLOMERULAR FILTRATION RATE > 60 ML/MIN (60-); GLUCOSE 240 mg/dL (74-118); POTASSIUM 4.1 mmol/L (3.5-5.1); SODIUM 137 mmol/L (136-145)
[2020-03-01 04:19] LABS: CREATINE KINASE 43 IU/L (29-168)
[2020-03-01] MEDS: ASPIRIN 81 MG ENTERIC COATED PO SCH ×3 (05:11→13:05)
--- NOTE | 2020-03-01 07:00 | NUR ---
ASSUMED CARE. PATIENT RESTING IN BED. AWAKE AND ALERT. ACYANOTIC. NO DISTRESS NOTED. CALL LIGHT IN REACH. SIDE RAILS UP X2. BED LOW AND LOCKED.
[2020-03-01] MEDS ORDERED: ONDANSETRON HCL INJ 2MG/ML 2ML 2 MG/ML VIAL IV PRN (07:15)
[2020-03-01 07:29] LABS: CHOL/HDL RATIO 3.5 (3.0-3.6)
[2020-03-01 07:50] LABS: THYROID STIMULATING HORMONE 0.702 uIU/mL (0.350-4.940)
--- NOTE | 2020-03-01 10:57 | NUR ---
SPEECH THERAPIST CONFIRMED AFTER PERFORMING BEDSIDE SWALLOW EVAL THAT THE PATIENT CAN SWALLOW WITHOUT ISSUES.
[2020-03-01] MEDS ORDERED: MORPHINE SULFATE 2 MG/ML SYR 1ML IV PRN (11:30)
--- NOTE | 2020-03-01 12:28 | NUR ---
Discontinuing PT services since patient is Mod I in functional mobility. Thank you Addendum: 03/01/20 at 1229 by Nelson turner PT Amended: Links added.
--- NOTE | 2020-03-01 12:36 | Diagnostic Imaging Report ---
History: CVA seen on CT Comparison studies: Head CTs 02/29/2020 and 02/28/2020 Technique: Sagittal and axial T2 FS, axial DWI, axial T2*GRE, axial T1 FLAIR and axial coronal T2 FLAIR. Intravenous contrast: None Findings: Several pulse sequences are somewhat limited artifacts related to patient motion. In spite of limitations: Scalp: Normal in signal. No masses. Bone marrow: Normal in signal intensity. Brain sulci: Appropriate for age. Ventricles: Normal in size. No hydrocephalus. Extra axial spaces: No mass, no fluid collection. Parenchyma: Acute infarct in the right KEYBOARD OPERATOR territory with restricted diffusion and T2 FLAIR hyperintensity present along the right inferior occipital, lingual, occipitotemporal and perihippocampal gyri and body and tail the right hippocampus. A few scattered small T2 FLAIR hyperintense foci in the supratentorial white matter are nonspecific but are most compatible with chronic microvascular ischemic changes. Subtle T2 FLAIR hyperintense focus in the left paramedian lauren is also nonspecific but may be subtle chronic ischemic changes or other nonspecific focal gliosis. Suprasellar region: No abnormalities. Craniocervical junction: Patent foramen magnum. No Chiari malformation. Vessels: Normal flow-voids in the arteries and sinuses. Cannot adequate evaluate for distal right KEYBOARD OPERATOR patency on this MRI. IMPRESSION: 1. Acute nonhemorrhagic right occipitotemporal KEYBOARD OPERATOR infarct without significant mass effect is unchanged from the prior head CT of 02/29/2020. 2. Minimal chronic microvascular ischemic changes. Signed by: Dr. Jairo Ramirez M.D. on 03/01/2020 12:33 PM
[2020-03-01] MEDS: ACETAMINOPHEN 325 MG TAB PO PRN ×2 (13:04→19:45)
[2020-03-01 13:45] LABS: HEMATOCRIT 34.7 % (34.2-44.1); HEMOGLOBIN 11.3 g/dL (12.0-16.0); MEAN CORPUSCULAR HEMOGLOBIN 26.5 pg (28-32); MEAN CORPUSCULAR HGB CONC 32.6 g/dL (31-35); MEAN CORPUSCULAR VOLUME 81.5 fL (81-99); PLATELET COUNT 349 x10e3/uL (140-360); RED BLOOD COUNT 4.26 x10e6/uL (3.6-5.1); RED CELL DISTRIBUTION WIDTH 13.2 % (11.7-14.4)
[2020-03-01 14:01] LABS: CREATINE KINASE 45 IU/L (29-168)
[2020-03-01] MEDS ORDERED: ASPIRIN 81 MG CHEW TAB PO ONE ×2 (15:45)
[2020-03-01 17:25] LABS: INR 1.04; PROTHROMBIN TIME 14.1 seconds (11.9-14.5)
[2020-03-01] MEDS ORDERED: SODIUM CHLORIDE 0.9% 100 ML ONE (18:21)
[2020-03-01] MEDS ORDERED: IOPAMIDOL 370 MG/ML 200 ML INFUS..BTL INJ ONE (18:22)
--- NOTE | 2020-03-01 18:25 | Consultation ---
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 Denies history of hypertension, atrial fibrillation, blood clots in the past. REVIEW OF SYSTEMS: Endorses just headache, shortness of breath. No chest pain. No neck pain. No dizziness, no weakness. PHYSICAL EXAMINATION: VITAL SIGNS: Stable. Blood pressure is 158/70, heart rate is 86 and regular. She is afebrile. HEENT: Extraocular muscles are intact. Face symmetric. Tongue midline. Speech is clear. She has a visual field cut on the left. No hemineglect . NEURO: Strength is 5/5. There is no ataxia. Reflexes are symmetric. ABDOMEN: Soft, nontender. PULMONARY: Clear to auscultation. 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 Given the presentation of the imaging, concern for large vessel thrombosis versus an embolic event; so, echocardiogram, CTA of head and neck, aspirin and statins. MD KHADRA YEN/CASEY /[id number]
[2020-03-01] MEDS: DOCUSATE SODIUM 100 MG CAP PO PRN (19:45)
--- NOTE | 2020-03-01 20:16 | NUR ---
MD RENE CONSULTED ABOUT BLOOD SUGAR 356, PATIENT STATES SHE TAKES NOVOLOG 75/25 30 UNITS AT NIGHT AND SHORT ACTING BEFORE EACH
--- NOTE | 2020-03-01 20:29 | NUR ---
PER MD RENE VERBALLY ORDER PATIENT TO ONLY RECEIVE 7 UNITS OF SHORT ACTING INSULIN TONIGHT AND 10UNITS OF LANTUS, ORDER CARRIED OUT
[2020-03-01] MEDS ORDERED: DEXTROSE 50% SYRINGE 50 ML IV PRN ×2 (20:30)
[2020-03-01] MEDS ORDERED: ATORVASTATIN 40 MG TAB PO SCH (21:00)
[2020-03-01] MEDS: INSULIN GLARGINE 100 UNITS/ML VIAL SQ SCH (21:00)
[2020-03-01] MEDS: INSULIN LISPRO 100 UNIT/1 ML 3ML VIAL SQ SCH (21:01)
--- NOTE | 2020-03-01 22:12 | NUR ---
patient continues to c/o head pain that is increasing in strength, states "It is now hurting near my ear" no weakness noted on left side, neuro check performed
--- NOTE | 2020-03-01 22:15 | NUR ---
MD APARICIO CONTACT VIA TELEPHONE INFORMED THAT PATIENT IS EXPERIENCING INCREASE HEADACHE THAT IS RADIATING TO LEFT EAR, PAIN LEVEL 4/10, ACETAMINOPHEN GIVEN TWO HOURS PRIOR WITH NO GOOD RESULT, ORDERED TO COMPLETED CT BRAIN W/O CONTRAST, GIVE TORADOL 15MG x 1 DOSE IV STAT,
[2020-03-01] MEDS ORDERED: KETOROLAC TROMETHAMINE 30 MG/ML VIAL IV STA (22:18)
--- NOTE | 2020-03-01 22:23 | NUR ---
PATIENT TAKEN VIA BED TO HAVE CT COMPLETED AWAITING MEDICATION VERIFICATON TO GIVE TORADOL
--- NOTE | 2020-03-01 22:35 | NUR ---
PATIENT ARRIVED BACK FROM CT BRAIN VIA BED AWAKE ALERT, STAT TORADOL IV GIVEN ORDERED, RESTING CALL LIGHT WITHIN REACH
--- NOTE | 2020-03-01 22:46 | Diagnostic Imaging Report ---
EXAMINATION: Head CT HISTORY: Acute stroke COMPARISON: Brain MRI 03/01/[address] 02/29/2020 TECHNIQUE: Helical axial images of the head were obtained. Reformatted coronal and sagittal images from the axial data. Dose modulation, iterative reconstruction, and/or weight based adjustment of the mA/kV was utilized to reduce the radiation dose to as low as reasonably achievable. FINDINGS: Parenchyma: 1. Again noted acute infarct in the right inferior occipital and lingual gyri and within the right hippocampus (along the right NUTRITION INTERNSHIP distribution) without hemorrhagic conversion, significant mass effect or midline shift. 2. No mass or hemorrhage. No CT evidence of acute territorial vascular insult. Extra-axial spaces:No abnormal density. No extra-axial fluid collections Brain volume: Normal for age. Ventricles: No hydrocephalus or displacement. Arteries: No density suggestive of thrombus. Dural sinuses: No abnormal density. Foramen magnum: No mass, Chiari malformation, or basilar invagination. Sella: No obvious mass. Paranasal/mastoid sinuses: Imaged portions unremarkable. Skull/Scalp: No lytic or blastic lesions. No fractures. IMPRESSION: Unchanged acute ischemic infarct in the right occipital lobe compared to CT of 02/29/2020. No hemorrhagic conversion or worsening mass effect. Signed by: Dr. Chasity Larsen M.D. on 03/01/2020 10:42 PM
[2020-03-01] MEDS ORDERED: DEPAKOTE DELAYED-RELEASE TAB 500 MG PO SCH (23:15)
[2020-03-01] MEDS ORDERED: MAGNESIUM SULF 1GRAM/DEXTROSE 100 ML IV ONE (23:15)
[2020-03-01] MEDS ORDERED: SODIUM CHLORIDE 0.9% 250ML 250 ML ONE (23:33)
--- NOTE | 2020-03-01 23:48 | Diagnostic Imaging Report ---
EXAMINATION: CT angiogram of the [place] and neck with contrast CLINICAL HISTORY: Acute occipital ischemic infarct COMPARISON: None available TECHNIQUE: The head and neck was scanned utilizing a multidetector helical scanner from the thoracic inlet to the vertex after the I.V contrast administration of 150 mL of Omnipaque 300 mg . For optimization of of anatomic evaluation, multi-planar reconstructions, maximum intensity projections, and advanced 3D off-line post-processing was obtained and performed on a dedicated stand-alone workstation under the direct supervision of the interpreting physician. Dose modulation, iterative reconstruction, and/or weight based adjustment of the mA/kV was utilized to reduce the radiation dose to as low as reasonably achievable. FINDINGS: The are no areas of abnormal density or enhancement in the brain. There is no mass, hemorrhage or extra-axial fluid collection. The CSF containing spaces are normal in size, position and configuration. CT ANGIOGRAM OF THE [place]: The internal carotid artery segments as well as the middle cerebral and anterior cerebral arteries are normal in caliber. The vertebro-basilar circulation is normal. No vascular malformation or aneurysmal dilatation is seen. The draining venous structures are normal and patent. Anatomic variation: Anterior Communicating Artery: Patent Posterior Communicating Arteries: No well-visualized Vertebral arteries: Codominant CT ANGIOGRAM OF THE NECK: If present, stenosis of the carotid bulbs is measured based on NASCET criteria i.e area of maximum stenosis compared to the cervical ICA distal to the bulb. The origin of the vessels is patent bilaterally. Right Carotid Artery: Extensive soft and calcified atherosclerotic plaque in the right carotid bulb results in severe stenoses (close to 90%). Otherwise the common carotid, internal and external carotid arteries at the level of the neck are normal in caliber, and patent, no evidence of stenoses. Left carotid artery: Minimal calcified atherosclerotic plaque in the right carotid bulb without associated stenoses (0%). The common carotid, internal and external carotid arteries at the level of the neck are normal in caliber, and patent, no evidence of stenoses. Vertebral Arteries: Mild focal atherosclerotic calcified plaque in the left vertebral artery at the level of the foramen magnum resulting in minimal narrowing. Otherwise both vertebral arteries are normal in morphology and caliber. Both are codominant. No significant stenosis is seen. IMPRESSION: 1. High-grade/severe stenoses of the right carotid bulb (about 90%). 2. Normal left carotid bulb. 3. No large vessel occlusion or significant stenosis of the intracranial vessels. Signed by: Dr. Chasity Larsen M.D. on 03/01/2020 11:45 PM
[2020-03-02] VITALS (11 sets, daily range): BP systolic 148–200; BP diastolic 64–112
[2020-03-02] MEDS: PROPRANOLOL HCL 10 MG TAB PO SCH ×3 (00:15→16:32)
--- NOTE | 2020-03-02 00:15 | Consultation ---
DATE OF CONSULTATION: 03/01/2020 REASON FOR CONSULTATION: Coagulopathy. HISTORY OF PRESENTING ILLNESS: Ms. Pavon is a 55-year-old pleasant female with a past medical history of hyperlipidemia, hypertension, diabetes mellitus, coronary artery disease, status post PCI, and history of TIA, seven years ago, presenting with tingling in her left side of her face and her left arm associated with headache. She was admitted last night and underwent a CT brain. The CT brain basically reviewed an acute infarct in the right TIN PLATER territory without significant mass effect. There was no hemorrhage or acute intracranial abnormalities noted. She also had an MRI of brain, which reviewed an acute nonhemorrhagic right occipitotemporal TIN PLATER infarct without significant mass effect. Neurology was subsequently consulted and Hematology has been consulted to rule out the possibility of an underlying hypercoagulable disorder. The patient is currently sitting comfortably. She does not appear to be in any distress. She says the headaches are her main complaint. Tingling in the left side of her face and her left arm have completely resolved. She denies any weakness, nausea, or vomiting. PAST MEDICAL HISTORY: 1. Hyperlipidemia. 2. Hypertension. 3. Diabetes mellitus. 4. TIA, seven years ago. 5. Coronary artery disease, status post PCI. PAST SURGICAL HISTORY: 1. Hysterectomy. 2. . ALLERGIES: NO KNOWN DRUG ALLERGIES. SOCIAL HISTORY: She admits the use of tobacco about a pack, which last for 4 days for the past 30 to 40 years. She denies use of alcohol or any illicit drugs. FAMILY HISTORY: Negative for any bladder cancer history that she is aware of. She tell me that she does not have much history about her biological family. PHYSICAL EXAMINATION: VITAL SIGNS: Reviewed and as per the electronic medical record. HEAD AND NECK: Pupils equally reactive to light. The patient complains of loss of central vision in the left eye for a peripheral field. CARDIOVASCULAR: S1 and S2 regular. LUNGS: Clear to auscultate bilaterally. ABDOMEN: Soft. No guarding or rigidity. EXTREMITIES: No focal deficits that will be appreciated. No pitting pedal edema. LABORATORY DATA: CBC significant for white count of 12.57, hemoglobin 11.3, hematocrit 34.7, platelets of 349. Coags reveal a PT of 14.1, INR of 1.04. Chemistry significant for sodium 137, potassium 4.1, chloride 104, bicarbonate 23, BUN 13 and creatinine 0.79. LFTs reveal a total bilirubin of 0.2, AST 13, ALT 11, alkaline phosphatase 40. ASSESSMENT AND PLAN: Ms. Tiffany Pavon is a pleasant 55-year-old female with a history of hypertension, diabetes, hyperlipidemia, transient ischemic attack, coronary artery disease, status post PCI, on aspirin and Plavix, presenting with an acute stroke. She has the presence of nonhemorrhagic occipitotemporal posterior cerebral artery infarct without significant mass effect. She has been started on statin and aspirin. Hematology has been consulted to rule out the possibility of an underlying coagulopathy or thrombophilia. The patient denies having had any blood clot in the past in the form of a deep vein thrombosis or pulmonary embolism. She denies having any miscarriages in the past. 1. Occipitotemporal posterior cerebral artery infarct, currently on aspirin and statin, management as per Neurology. Her stroke is likely secondary to underlying risk factors such as hypertension, diabetes, and hyperlipidemia. However, thrombophilia panel has been requested and plan to follow up with the results to see if there is any other factor contributing to the development of a stroke. 2. Coagulopathy. PT and INR are within normal limits. Platelet count is within normal limits. She denies any easy bruising or bleeding. Plan to monitor for now. Thank you for the consult. I will continue to be available. Please call if any questions. Divine VINES/JIML /[id number] [email or web address]
--- NOTE | 2020-03-02 00:47 | NUR ---
patient blood pressure decreasing gradually, current SBP 154, denies headache seen sleeping resting with call light within reach
--- NOTE | 2020-03-02 05:49 | History and Physical ---
CHIEF COMPLAINT: Headaches, dizziness. HISTORY OF PRESENT ILLNESS: A 55-year-old female with past medical history type 2 diabetes, hypertension, hyperlipidemia, chronic smoker, presented to the [facility] with complaints of headaches and dizziness ongoing for the last 3 days at home. The patient reports that she was having severe posterior headaches since Friday while she was at work. She noticed that her symptoms never truly resolved. She reports she was taking some Tylenol for some minor relief. Denies any slurred speech or any facial drooping. The patient is having blurry vision in the left eye and some concerns of nystagmus. Reports of any chest pain or any palpitations. The patient has never experienced anything like this before. The patient is seen and evaluated at bedside on the medical floor. She is currently doing well with no other issues at this time. REVIEW OF SYSTEMS: Pertinent positive: Headache , generalized weakness, and The rest of 14-point review of systems have been reviewed with the patient and are negative. ALLERGIES: NO KNOWN DRUG ALLERGIES. HOME MEDICATIONS: , losartan, metoprolol, potassium chloride, Lyrica, glipizide and PAST MEDICAL HISTORY: PAST SURGICAL HISTORY: PHYSICAL EXAMINATION: VITAL SIGNS: Temperature 98.8, pulse is GENERAL: Not in acute distress. Alert and oriented x3. Cooperative on exam. PULMONARY: Clear to auscultation bilaterally. No wheezing, rales, or rhonchi. No crackles appreciated. CARDIOVASCULAR: Positive S1, S2. ABDOMEN: Soft, nondistended, and nontender to palpation. Bowel sounds present. MUSCULOSKELETAL: Strength is 5/5 throughout. NEUROLOGICAL: The patient reports having some blurry vision in the left eye with decreased focus. Rest of the neurological exam deferred to Neurology. LABORATORY DATA: CBC reviewed. White blood count . Hematology workup negative. Sodium 137, potassium 4.1, chloride 101, bicarb 20, anion gap of 14, BUN is 13, creatinine 0.79, glucose 248. A1c 7.7. LFTs within normal range. Albumin 3.3. Urine drug screen shows positive opioids. Immunology, several serologies are pending, coronavirus pending. Microbiology, none. None. IMAGING STUDIES: CT of the brain shows acute infarct in the right FUR DRUMMER territory without significant mass effect. No acute hemorrhage or other acute intracranial abnormalities. Chest x-ray, no acute thoracic abnormality. MRI of the brain, acute nonhemorrhagic right occipitotemporal FUR DRUMMER, significant mass effect unchanged from a CT on 02/29/2020. Minimal chronic microvascular ischemic changes. Carotid ultrasound. CTA head and neck were all pending. IMPRESSION: 1. Acute cerebrovascular accident, nonhemorrhagic right occipitotemporal FUR DRUMMER infarct. 2. Type 2 diabetes. 3. Hypertension. 4. Depression. 5. Hyperlipidemia. PLAN: At this time, the patient came in with stroke-like symptoms, found to have a stroke on MRI of the brain. Continue with aspirin and statin, PT/OT, Neurology consultation. MRI has been performed. Carotid ultrasound 2D echo has been ordered. I spoke with the Neurology, in which he wanted to have a linoleum floor installer evaluate the patient for concerns for paroxysmal atrial fibrillation as well as Hematology for concerns of some sort of anticoagulation issue, a sort of coagulation issue. They have been consulted respectively. Resume same home medications. Hold anticoagulation for now in the event of the converted to hemorrhagic. Put on insulin sliding scale, Accu-Cheks, A1c. Resume same home medications. Monitor closely. MD JACKELYN Solano/JIML /[id number]
--- NOTE | 2020-03-02 07:20 | NUR ---
PATIENT IS AWAKE, ALERT, AND IN STABLE CONDITION WITH NO S/S OF RESPIRATORY DISTRESS. PATIENT C/O HEAD PAIN 09/02- PATIENT REFUSING PAIN MEDICATION AT THIS TIME. TELEMETRY APPLIED.. CALL LIGHT IS WITHIN REACH OF PATIENT, PATIENT INSTRUCTED TO CALL FOR ASSISTANCE NEEDED.
[2020-03-02] MEDS: INSULIN LISPRO 100 UNIT/1 ML 3ML VIAL SQ SCH ×4 (07:30→20:48)
--- NOTE | 2020-03-02 07:38 | NUR ---
VERIFIED ALL MEDICATION ON eMAR WITH MD APARICIO, MD APARICIO ORDERED METOPROLOL AND LIPITOR 40MG TO BE STOPPED, AND PARAMETER TO BE ADDED: PROPANOLOL TO BE HELD IF SBP <100, COZAAR TO BE HELD IF SBP <120, ORDERED VERIFIED TORB
--- NOTE | 2020-03-02 08:29 | NUR ---
awake, complains of headache 97.0 71 146/66 calm, aox3 left hemianopsia face symmetric tongue midline rrr cta abd soft no ataxia no pronator drift a/p stroke- large vessel thombus vs embolic event hypercoag workup in progress.on ASA full dose high dose statin high grade carotid stenosis- 90% needs vascular eval blood pressure control 140 max. , hold for sbp <120 - permissive hypertention headache - will start topiramate for elevated ICP and headahce 50bid
[2020-03-02] MEDS: ASPIRIN 325 MG TAB PO SCH (08:37)
[2020-03-02] MEDS: LOSARTAN POTASSIUM 100 MG TAB PO SCH (08:37)
[2020-03-02] MEDS: FENOFIBRATE 145 MG TAB PO SCH (08:38)
[2020-03-02] MEDS: FERROUS SULFATE 325 MG TAB PO SCH (08:38)
[2020-03-02] MEDS: CLOPIDOGREL BISULFATE 75 MG TAB PO SCH (08:38)
[2020-03-02] MEDS ORDERED: METOPROLOL TARTRATE 50 MG TAB PO SCH (09:00)
[2020-03-02] MEDS: TOPIRAMATE 25 MG TAB PO SCH ×2 (09:35→16:33)
[2020-03-02] MEDS ORDERED: HEPARIN 25,000 UNIT 700 UNIT in DEXTROSE 5% 250ML 250 ML IV SCH (11:30)
[2020-03-02] MEDS ORDERED: HEPARIN SOD (PORCINE) 5,000 UNIT/ML VIAL IV ONE (11:30)
[2020-03-02] MEDS ORDERED: HEPARIN SOD (PORCINE) 5,000 UNIT/ML VIAL IV NR (12:15)
--- NOTE | 2020-03-02 12:30 | NUR ---
PATIENT'S PTT RESULT 26.8, HEPARIN DRIP STARTED AT 9 MLS/HR. PATIENT IN STABLE CONDITION WITH NO S/S OF RESPIRATORY DISTRESS. TELEMETRY APPLIED.
--- NOTE | 2020-03-02 14:02 | Consultation ---
DATE OF CONSULTATION: 03/02/2020 Cardiology Consultation CONSULTING PHYSICIAN: Meng Lan MD, Interventional Cardiology. REASON FOR CONSULTATION: Stroke. HISTORY OF PRESENT ILLNESS: A 55-year-old woman with history of type 2 diabetes, hypertension, dyslipidemia, tobacco abuse, presents with left hemianopia and dizziness noted to have right occipitotemporal infarct in GRAIN OPERATOR territory. Incidentally, she was also noted to have severe right ICA/bulb stenosis on Doppler as well as CT imaging studies. She denies any chest pain or shortness of breath. Has no other complaints at this time. REVIEW OF SYSTEMS: A 12-system review negative except for as noted above. ALLERGIES: NO KNOWN DRUG ALLERGIES. PAST MEDICAL HISTORY: Remarkable for hypertension, diabetes, dyslipidemia, depression, tobacco abuse. SOCIAL HISTORY: Tobacco abuse for over 10 pack years. No drugs. FAMILY HISTORY: Noncontributory. PHYSICAL EXAMINATION: VITAL SIGNS: Temperature 98.7, heart rate 65, respiratory rate 20, blood pressure 148/81, O2 saturation 100% on room air. GENERAL: No acute distress, alert. NECK: Right carotid bruit and no JVD. CHEST: Clear to auscultation. CARDIOVASCULAR: Regular rate and rhythm. Normal S1, S2. No S3 or S4. Systolic murmur. ABDOMEN: Soft. Bowel sounds positive. No edema. CARDIOVASCULAR MEDICATION: Reviewed. White blood cells 12.5, hemoglobin 11.3, platelets 349. INR 1. Glucose 356. A1c 7.7. LDL was 64, HDL 31, triglycerides 72. ASSESSMENT AND PLAN: 1. Acute cerebrovascular accident, right occipital temporal territory. 2. Right severe carotid artery stenosis. 3. Tobacco abuse. 4. Preserved ventricular systolic function. 5. Diabetes. 6. Hypertension. 7. Dyslipidemia. RECOMMENDATIONS: 1. Initiate IV heparin. Continue antiplatelet therapy and high potency statin therapy. 2. Liberalize blood pressure control. 3. Vascular surgical consultation initiated. Discussed with Primary Service. We will follow closely. Meng Lan MD AFV/MODL /[id number]
--- NOTE | 2020-03-02 16:22 | NUR ---
RECEIVED CALL FROM DR. HERMAN REGARDING CONSULT - INFORMED DR. HERMAN OF PATIENT'S CARE AND IMAGING RESULTS: NECK CTA AND BRAIN MRI. NO NEW ORDERS RECEIVED.
--- NOTE | 2020-03-02 18:22 | NUR ---
PATIENT'S PTT RESULT 36.2, INCREASED HEPARIN RATE TO 11 MLS/HR
--- NOTE | 2020-03-02 18:30 | NUR ---
CALL PLACED OUT TO DR. SHETTY REGARDING PATIENT'S BP INCREASING- ASSESSED BP MANUALLY RESULT 180/86. AWAITING CALLBACK. IV HEPARIN INFUSING. TELEMETRY APPLIED. PATIENT CURRENTLY SITTING UP ON THE SIDE OF THE BED.
--- NOTE | 2020-03-02 18:46 | NUR ---
PATIENT IS IN STABLE CONDITION WITH NO S/S OF RESPIRATORY DISTRESS. DENIES PAIN. IV HEPARIN INFUSING. TELEMETRY APPLIED. CALL LIGHT IS WITHIN REACH OF PATIENT, PATIENT INSTRUCTED TO CALL FOR ASSISTANCE NEEDED. BEDSIDE SHIFT REPORT GIVEN TO ONCOMING NURSE.
[2020-03-02] MEDS ORDERED: HYDRALAZINE HCL 20 MG/ML VIAL IV PRN (19:00)
--- NOTE | 2020-03-02 19:00 | NUR ---
SBAR REPORT RECEIVED PT SEEN RESTING COMFORTABLY IN BED, STABLE CONDITION, REPORTED LAST B/P >180, AWAITING CALLBACK FROM CARDIAC VASCULAR SURGERY, PT UPDATED WITH PLAN OF CARE AT BEDSIDE, REPORTS PAIN WNR, CALL LIGHT WITHIN REACH
--- NOTE | 2020-03-02 19:13 | NUR ---
MD SHETTY CALLED BACK UPDATED WITH CURRENT AND PAST BLOOD PRESSURE LEVEL TODAY, PRN HYDRALAZINE IV ORDERED FOR SBP 180, ORDERED TO CONTINUE TO MONITOR BLOOD PRESSURE
--- NOTE | 2020-03-02 20:17 | NUR ---
IV SITE INTACT NO BLEEDING NOTED, DRESSING C/D/I, HEPARIN CONTINUEED AT 11ML/HR PTT REPEAT AT 2300
[2020-03-02] MEDS: DULOXETINE HCL 30 MG DELAYED RELEASE PO SCH (20:26)
[2020-03-02] MEDS: ATORVASTATIN 40 MG TAB PO SCH (20:26)
[2020-03-02] MEDS: INSULIN GLARGINE 100 UNITS/ML VIAL SQ SCH (20:48)
[2020-03-02] MEDS ORDERED: PREGABALIN 75 MG CAP PO SCH (21:00)
[2020-03-03] VITALS (10 sets, daily range): BP systolic 150–176; BP diastolic 69–108
--- NOTE | 2020-03-03 00:34 | NUR ---
PTT 27.1, RATE INCREASE PER PROTOCOL, PTT REORDER FOR 6 HOURS, PT TOLERATED MEDICATION WELL NO SIGNS OF BLEEDING, BRUISING LEFT AND RIGHT HAND R/T VENIPUNCTURE
[2020-03-03 05:49] LABS: BASOPHILS % 0.4 % (0.0-1.0); EOSINOPHILS # (AUTO) 0.2 (0.0-0.4); EOSINOPHILS % 1.6 % (0.0-6.0); HEMATOCRIT 38.4 % (34.2-44.1); HEMOGLOBIN 12.3 g/dL (12.0-16.0); LYMPHOCYTES # (AUTO) 3.1 (1.0-3.2); LYMPHOCYTES % 29.3 % (18.0-39.1); MEAN CORPUSCULAR HEMOGLOBIN 26.1 pg (28-32); MEAN CORPUSCULAR VOLUME 81.4 fL (81-99); MONOCYTES # (AUTO) 0.7 (0.2-0.8); MONOCYTES % 6.4 % (4.4-11.3); NEUTROPHILS # (AUTO) 6.4 (2.1-6.9); NEUTROPHILS % 61.9 % (38.7-80.0); PLATELET COUNT 385 x10e3/uL (140-360); RED BLOOD COUNT 4.72 x10e6/uL (3.6-5.1); RED CELL DISTRIBUTION WIDTH 13.5 % (11.7-14.4)
--- NOTE | 2020-03-03 07:10 | NUR ---
PATIENT IS AWAKE, ALERT, AND IN STABLE CONDITION WITH NO S/S OF RESPIRATORY DISTRESS. PATIENT C/O HEAD PAIN 07/05- REFUSED PAIN MEDICATION BUT WILL SOON RECEIVE MORNING MEDICATIONS. IV HEPARIN INFUSING. TELEMETRY APPLIED. CALL LIGHT IS WITHIN REACH OF PATIENT, PATIENT INSTRUCTED TO CALL FOR ASSISTANCE NEEDED.
--- NOTE | 2020-03-03 07:20 | NUR ---
PATIENT IS AWAKE, ALERT, AND IN STABLE CONDITION WITH NO S/S OF RESPIRATORY DISTRESS. NO PAIN VOICED. IV FLUIDS INFUSING. CALL LIGHT IS WITHIN REACH OF PATIENT, PATIENT INSTRUCTED TO CALL FOR ASSISTANCE NEEDED. Addendum: 03/03/20 at 0943 by Melly Burgos RN WRONG ENTRY
[2020-03-03] MEDS: INSULIN LISPRO 100 UNIT/1 ML 3ML VIAL SQ SCH ×4 (07:30→21:25)
--- NOTE | 2020-03-03 07:35 | NUR ---
BEDSHIFT SHIFT REPORT GIVEN TO DAYSHIFT RN, PATIENT SEEN SLEEPING, EASILY AWAKEN, PT AOX3, NEURO CHECKS [id number] CONTINUED, HEPARIN CONTINUES, NEXT PTT DUE AT 0800 PT REPORTS HEADACHE 3/10 PAIN SCALE 1-10, LYING COMFORTABLY IN BED WITH CALL LIGHT WITHIN REACH, BED IN LOWEST POSITION
--- NOTE | 2020-03-03 07:41 | NUR ---
LAB CALLED TO OBTAIN PTT VIA VENIPUNCTURE PER HEPARIN PROTOCOL
[2020-03-03] MEDS: PROPRANOLOL HCL 10 MG TAB PO SCH ×2 (08:06→16:16)
[2020-03-03] MEDS: FERROUS SULFATE 325 MG TAB PO SCH (08:06)
[2020-03-03] MEDS: CLOPIDOGREL BISULFATE 75 MG TAB PO SCH (08:06)
[2020-03-03] MEDS: TOPIRAMATE 25 MG TAB PO SCH ×2 (08:06→16:16)
[2020-03-03] MEDS: ASPIRIN 325 MG TAB PO SCH (08:06)
[2020-03-03] MEDS: LOSARTAN POTASSIUM 100 MG TAB PO SCH (08:06)
[2020-03-03] MEDS: FENOFIBRATE 145 MG TAB PO SCH (08:06)
--- NOTE | 2020-03-03 08:45 | Progress Note ---
DATE: 03/02/2020 SUBJECTIVE: The patient doing okay today. Still has visual issues in the left eye from her stroke. I spoke with Vascular Surgery. He will come and evaluate the patient. I spoke with Cardiology, Neurology, they recommended heparin drip, which has been initiated by them. PHYSICAL EXAMINATION: VITAL SIGNS: Temperature is 97.6, pulse 65, respiratory rate is 20, blood pressure is 168/80, pulse is 100% on room air. GENERAL: Not in acute distress, alert, oriented x3. She is cooperative on examination. HEENT: Head is normocephalic, atraumatic. Eyes; pupils are reactive to light bilaterally. NECK: Supple. Good range of motion. PULMONARY: Clear to auscultation bilaterally. No wheezing, rales, or rhonchi. No crackles appreciated. CARDIOVASCULAR: Positive S1, S2. No murmurs, rubs, or gallops appreciated. ABDOMEN: Soft, nontender, nondistended to palpation. Bowel sounds present. MUSCULOSKELETAL: Strength 5/5 throughout. NEUROLOGICAL: The patient reports having some left residual defect from her underlying CVA, which I will defer for further neurological exam to Neurology. LABORATORY DATA: Labs show white count 12.5, hemoglobin 11, hematocrit 34, and platelets of 349. Chemistries reviewed, stable. Several studies are pending. MICROBIOLOGY: None. IMAGING STUDIES: CTA head and neck shows high grade severe stenosis of the right internal carotid about 90%. Normal left carotid bulb. No large vessel occlusion or significant stenosis of intracranial vessels. Repeat CT brain shows unchanged acute ischemic infarct in the right occipital lobe compared to the CT on 02/29/2020. No hemorrhagic conversion or worsening mass affect. IMPRESSION: 1. Acute cerebrovascular accident, nonhemorrhagic, right occipital temporal or posterior cerebral artery infarct. 2. Type 2 diabetes. 3. Hypertension. 4. Depression. 5. Hyperlipidemia. PLAN: At this time from a Neurology standpoint, CTA of the head and neck consistent with a right internal carotid stenosis, prompting Vascular Surgery consultation. I spoke with Vascular Surgery, Dr. Ball. He reports he will come and evaluate the patient. He has tonight or in the morning. He does not recommend surgery at this time immediately after having an acute CVA and back would like to wait 3-4 weeks, but we will defer to them once evaluated. The patient will continue with anti-platelet therapy. She has been initiated on heparin drip by Cardiology and by Neurology. There is no evidence of any paroxysmal atrial fibrillation at this time noted. As for Hematology, there were consulted to evaluate for possible hypercoagulable state. Further testing has been ordered and they can follow up as an outpatient in the office. She is otherwise doing well. She is working with PT and OT. Heart healthy diet. Diabetic diet. Continue with heparin drip. Await recommendations further by the consultants. MD JACKELYN Solano/CASEY /[id number]
--- NOTE | 2020-03-03 08:50 | NUR ---
PATIENT'S LAST PTT WAS 61.0, PATIENT CURRENTLY IN THERAPEUTIC RANGE ACCORDING TO HEPARIN SCALE. WILL REASSESS PTT IN SIX HOURS.
--- NOTE | 2020-03-03 11:48 | NUR ---
no acute events or overnight complaints, headache resolved vs 97.6 176/76 66 calm, aox3 left hemianopsia face symmetric tongue midline rrr cta abd soft no ataxia no pronator drift a/p stroke- large vessel thombus vs embolic event hypercoag workup in progress high grade carotid stenosis- 90% needs vascular eval - has initaited heparin ggt as per vasc surgical recommendations blood pressure control 140 max. , hold for sbp <120 - permissive hypertension add CCB headache - will start topiramate for elevated ICP and headache 50bid
--- NOTE | 2020-03-03 12:11 | NUR ---
no acute events or overnight complaints, headache resolved vs 97.6 176/76 66 calm, aox3 left hemianopsia face symmetric tongue midline rrr cta abd soft no ataxia no pronator drift a/p stroke- large vessel thombus vs embolic event hypercoag workup in progress high grade carotid stenosis- 90% needs vascular eval - has initaited heparin ggt as per cardiology , previous not in error, mentions this was initiated as per vascular surgery. I will discuss w/ vascular surgery regarding antiplatelet/anticoag guidelines before discharge.. likely to go home on ASA 81 plavix 75 and no anticoagulation however awaiting surgical recommendations before finalization blood pressure control 140 max. , hold for sbp <120 - permissive hypertension add CCB headache - will start topiramate for elevated ICP and headache 50bid
[2020-03-03] MEDS: AMLODIPINE BESYLATE 5 MG TAB PO SCH (16:16)
--- NOTE | 2020-03-03 19:23 | NUR ---
PATIENT IS IN STABLE CONDITION WITH NO S/S OF RESPIRATORY DISTRESS. NO PAIN VOICED. TELEMETRY APPLIED. CALL LIGHT IS WITHIN REACH OF PATIENT, PATIENT INSTRUCTED TO CALL FOR ASSISTANCE NEEDED. BEDSIDE SHIFT REPORT GIVEN TO ONCOMING NURSE.
--- NOTE | 2020-03-03 20:04 | Progress Note ---
DATE: 03/03/2020 Cardiology Progress Note SUBJECTIVE: No new complaints. Denies any recurrent episodes of numbness, weakness, changes in speech or dizziness. Visual changes persist, unchanged. Denies chest pain or shortness of breath. OBJECTIVE: VITAL SIGNS: Temperature 98.5, heart rate 59, blood pressure 152/108, respiratory rate 18, O2 saturation 100%. GENERAL: No acute distress. Alert. NECK: JVD. CHEST: Clear to auscultation. CARDIOVASCULAR: Regular rate and rhythm. Normal S1 and S2. No S3. No S4. No murmurs or rubs. ABDOMEN: Soft. Bowel sounds positive. EXTREMITIES: No edema. CARDIOVASCULAR MEDICATIONS: Reviewed. Propranolol 10 mg b.i.d., fenofibrate 145 mg daily, amlodipine 5 mg b.i.d., atorvastatin 80 mg at bedtime, losartan 100 mg daily, aspirin 81 mg daily, clopidogrel 75 mg daily. STUDIES: Reviewed. Creatinine 0.7. White blood cells 10, hemoglobin 12, platelets 385. ASSESSMENT AND PLAN: A 55-year-old woman presents with occipital right hemispheric ischemic cerebrovascular accident, severe right carotid artery stenosis, diabetes, hypertension, dyslipidemia, tobacco abuse. RECOMMEND: Continue current cardiovascular medications. Aspirin, Plavix for anticoagulation as well as high potency statin therapy. Seen by Vascular Surgery. Plans were outpatient carotid endarterectomy. Outpatient followup advised in 4 weeks post discharge. MD DALTON Reyes/CASEY /[id number]
[2020-03-03] MEDS: ATORVASTATIN 40 MG TAB PO SCH (21:22)
[2020-03-03] MEDS: DULOXETINE HCL 30 MG DELAYED RELEASE PO SCH (21:22)
[2020-03-03] MEDS: ACETAMINOPHEN 325 MG TAB PO PRN (21:23)
[2020-03-03] MEDS: INSULIN GLARGINE 100 UNITS/ML VIAL SQ SCH (21:24)
[2020-03-04 00:37] VITALS: BP 130/69
--- NOTE | 2020-03-04 01:49 | Progress Note ---
DATE: 03/03/2020 Medicine Progress Note SUBJECTIVE: The patient is doing much better today. She does complain of headache. Her visual johnson in the left eye still present, which she is not seeing very well. Several consultants come spoke with the patient. LABORATORY DATA: Labs show white count 10, hemoglobin 12, hematocrit 38, platelets of 385. Chemistry, none today. Several serologies and immunology studies are pending. MICROBIOLOGY: None. IMAGING STUDIES: None. PHYSICAL EXAMINATION: VITAL SIGNS: Temperature is 98.7, pulse 63, respiratory rate is 18, blood pressure 150/77, pulse ox 100% on room air. GENERAL: Not in acute distress, alert, oriented x3. Cooperative on examination. PULMONARY: Clear to auscultation bilaterally. No wheezing, rales, or rhonchi. No crackles appreciated. CARDIOVASCULAR: Positive S1, S2. No murmurs, rubs, or gallops appreciated. GI: Abdomen is soft, nontender, nondistended to palpation. Bowel sounds present. MUSCULOSKELETAL: Strength 5/5 throughout. NEUROLOGIC: The patient has left eye visual deficit from recent CVA. IMPRESSION: 1. Acute cerebrovascular accident, nonhemorrhagic, right occipital temporal with SUBMARINE ELEMENT COORDINATOR infarct. 2. Type 2 diabetes. 3. Hypertension. 4. Depression. 5. Hyperlipidemia. 6. Headache, secondary to cerebrovascular accident. PLAN: At this time per Neurology, the patient will be discharged on dual anti-platelet therapy with aspirin, Plavix, and heparin will be discontinued. She will follow up with Neurology as an outpatient in 2 weeks' time. We will continue with oral statin. As for Vascular Surgery, Dr. Ball, he came by and spoke with the patient. He recommends holding off on surgery for now and possibly potential surgery sometime next week or the week after once she heals from recurrent issues. The patient was informed that she verbalized understanding. Continue with insulin sliding scale, Accu-Cheks. Stop heparin drip as per Neurology and Vascular Surgery recommendations. Continue working with PT and OT. I spoke with the patient about potential discharge today. She wanted to . We will go ahead and discharge tomorrow. Cardiology is following and monitor very closely. Appreciate recommendations, no other . MD JACKELYN Solano/CASEY /[id number]
[2020-03-04 04:55] VITALS: BP 146/78
[2020-03-04 06:38] LABS: HEMATOCRIT 40.1 % (34.2-44.1)
[2020-03-04 07:02] LABS: ANION GAP 14.6 mmol/L (8-16); BLOOD UREA NITROGEN 15 mg/dL (7-26); BUN/CREATININE RATIO 20 (6-25); CALCIUM 8.9 mg/dL (8.4-10.2); CARBON DIOXIDE 17 mmol/L (22-29); CHLORIDE 110 mmol/L (98-107); CREATININE, SERUM 0.76 mg/dL (0.57-1.11); EST GLOMERULAR FILTRATION RATE > 60 ML/MIN (60-); GLUCOSE 167 mg/dL (74-118); POTASSIUM 3.6 mmol/L (3.5-5.1); SODIUM 138 mmol/L (136-145)
--- NOTE | 2020-03-04 07:03 | NUR ---
SBAR BEDSIDE REPORT RECEIVED FROM PM SHIFT RN. PATIENT FOUND LYING IN BED IN NO ACUTE DISTRESS. PATIENT IS AAOX4 AND DENIES ANY FURTHER NEEDS. PATIENT WAS EDUCATED ON FALL RISK PRECAUTIONS AND VERBALIZED UNDERSTANDING. CALL LIGHT AND BELONGINGS PLACED NEARBY. PATIENT AWARE OF HOURLY ROUNDS. I WILL CONTINUE TO MONITOR.
[2020-03-04 08:00] VITALS: BP 160/88
[2020-03-04] MEDS: INSULIN LISPRO 100 UNIT/1 ML 3ML VIAL SQ SCH ×2 (08:00→11:52)
[2020-03-04 09:00] VITALS: BP 160/88
[2020-03-04] MEDS ORDERED: ASPIRIN 81 MG CHEW TAB PO ONE (09:00)
[2020-03-04] MEDS ORDERED: ASPIRIN 325 MG TAB PO ONE (09:00)
[2020-03-04] MEDS ORDERED: CLOPIDOGREL BISULFATE 75 MG TAB PO SCH (09:00)
[2020-03-04] MEDS: PROPRANOLOL HCL 10 MG TAB PO SCH (09:32)
[2020-03-04] MEDS: LOSARTAN POTASSIUM 100 MG TAB PO SCH (09:32)
[2020-03-04] MEDS: AMLODIPINE BESYLATE 5 MG TAB PO SCH (09:32)
[2020-03-04] MEDS: TOPIRAMATE 25 MG TAB PO SCH (09:32)
[2020-03-04] MEDS: FENOFIBRATE 145 MG TAB PO SCH (09:32)
[2020-03-04] MEDS: FERROUS SULFATE 325 MG TAB PO SCH (09:32)
--- NOTE | 2020-03-04 11:25 | Progress Note ---
DATE: 03/04/2020 Cardiology Progress Note SUBJECTIVE: Denies any new or worsening episodes of visual change, dizziness, weakness, numbness, changes in speech, vision, or gait. She does have residual visual changes that she describes unchanged from recent. OBJECTIVE: VITAL SIGNS: Temperature 98.2, heart rate 69, blood pressure 160/88, respiratory rate 19, and O2 saturation 100%. GENERAL: In no acute distress. Alert. NECK: No JVD. CHEST: Clear to auscultation. CARDIOVASCULAR: Regular rate and rhythm. Normal S1 and S2. Systolic ejection murmur. No S3. No S4. ABDOMEN: Soft. Bowel sounds positive. EXTREMITIES: No edema. Telemetry reviewed, normal sinus rhythm. No evidence of atrial fibrillation so far. CARDIOVASCULAR MEDICATIONS: Propranolol 10 mg b.i.d., fenofibrate 145 mg daily, amlodipine 5 mg b.i.d., atorvastatin 80 mg at bedtime, losartan 100 mg daily, and clopidogrel 75 mg daily. STUDIES: Reviewed. Sodium 138, potassium 3.6, chloride 110, bicarbonate 17, BUN 15, creatinine 0.7, and glucose 167. White blood cells 10.4, hemoglobin 13, and platelets 385. INR 1. AST 13 and ALT 11. ASSESSMENT AND PLAN: A 55-year-old woman presents with right temporo-occipital hemispheric ischemic cerebrovascular accident, acute in the setting of severe carotid stenosis, right ICA, tobacco abuse, diabetes, hypertension, dyslipidemia, and metabolic acidosis. RECOMMEND: Continue anti-platelet therapy, aspirin and Plavix as well as high potency statin therapy. Continue diabetes optimization, tobacco abuse cessation, and blood pressure medications. Liberalize blood pressure control, acceptable at this point given significant carotid disease with plans to optimize antihypertensive strategy post revascularization, which is planned by Vascular Surgery over the ensuing several weeks. Outpatient followup in 4 weeks post discharge has been discussed with the patient. MD DALTON Reyes/CASEY /[id number]
[2020-03-04 11:55] VITALS: BP 142/61
--- NOTE | 2020-03-04 13:10 | NUR ---
PATIENT DISCHARGED HOME VIA PRIVATE VEHICLE. PERIPHERAL IV WAS DISCONTINUED WITHOUT RESISTANCE, CATHETER TIP INTACT. DRY DRESSING APPLIED. PATIENT RECEIVED DISCHARGE INSTRUCTIONS, WRITTEN PRESCRIPTIONS, AND EDUCATION MATERIAL. PATIENT VERBALIZED UNDERSTANDING.
--- NOTE | 2020-03-05 02:48 | Discharge Summary ---
DISCHARGE DIAGNOSES: 1. Acute cerebrovascular accident, nonhemorrhagic with right occipito-temporal with EVENTS ASSISTANT infarct. 2. Type 2 diabetes. 3. Hypertension. 4. Migraine headaches. 5. Hyperlipidemia. 6. Severe right internal carotid stenosis. CONSULTANTS: Vascular Surgery, Neurology, and Cardiology. PHYSICAL EXAMINATION: VITAL SIGNS: Temperature 98, pulse is 65, respiratory rate is 21, blood pressure 140/61, and pulse ox 96% on room air. LABORATORY DATA: White count 10, hemoglobin to 13, hematocrit 40, and platelets of 385. Coagulation, PTT 27.8. INR of 1, PT 14. Sodium 138, potassium 3.6, chloride 110, bicarb 17, anion gap of 14, BUN is 15, creatinine 0.76. Hemoglobin A1c 8.9. Troponins were all negative. TSH is 0.702. LDL was 64. Albumin 3.3. Urinalysis negative for . UDS shows positive opioids. Immunology; several, serologies are pending. Coronavirus not detected. MICROBIOLOGY: None. IMAGING STUDIES: CT brain shows acute infarct in the right EVENTS ASSISTANT territory without significant mass effect. No acute hemorrhage or other acute intracranial abnormality. Chest x-ray negative. MRI of the brain, acute nonhemorrhagic right occipital temporal EVENTS ASSISTANT infarct without significant mass effect, unchanged from prior CT on 02/29/2020. Minimal chronic microvascular ischemic changes. Carotid ultrasound shows severe high-grade right internal carotid stenosis, left internal carotid within normal range. CTA head and neck shows high-grade severe stenosis of the right carotid bulb about 90%. Normal left carotid bulb. No large vessel occlusion or significant stenosis of the intracranial vessels. Repeat CT brain 02/29/2020, unchanged acute ischemic infarct in the right occipital lobe compared to the prior CT on 02/29/2020. No hemorrhagic conversion or worsening mass effect. 2D echo within normal range. A 2D echo, the patient will follow up with Cardiology in relation to the final report but has been cleared for discharge by Cardiology. HOSPITAL COURSE: A 55-year-old female, who comes into the ED with complaints of severe headaches and found to have an acute CVA on CT of the brain. The patient was admitted in which Neurology and Cardiology was consulted. MRI of the brain still shows evidence of an acute CVA as well. Internal carotid artery shows high-grade internal carotid. The patient had a CTA of the head and neck still shows a high-grade internal carotid stenosis. The patient maintained on anticoagulation initially by Neurology and Cardiology, on heparin drip then agreed upon that the patient will need to be on dual anti-platelet therapy. Heparin drip was discontinued. The patient maintained on dual antiplatelet therapy as well as statin. Anti glycemic as well as hypertension medications were adjusted accordingly. Due to the high-grade internal carotid stenosis, Vascular Surgery was consulted. Vascular Surgery recommended follow up in about 10 to 14 days in his office in which his office was scheduled appointment to have her internal carotid endarterectomy at a later date. As per Vascular Surgery, they recommended to hold off for any surgery due to the current insult and would like for her insult to improve and heal up before intervening in any kind of surgery. No further workup needed by Vascular Surgery in which the patient will follow up closely in about 10 to 14 days in his office and which will be arranged at a later date. As per Neurology, Neurology recommends dual anti-platelet therapy as well as statin as well as Topamax for underlying headaches. She was cleared for discharge by Neurology. As per Cardiology no further workup was needed. She does need to follow up as an outpatient in his office to be monitored closely. She will get the final results on the 2D echo as an outpatient in the office. There is no evidence of any atrial fibrillation according to Cardiology. In fact, last week to Cardiology, 2D echo was found to be within normal range. Hematology was consulted for evaluation of hematologic disorders for any clotting. Several serologies are pending and the patient will need to follow up with Dr. Serna as an outpatient in about 2-3 weeks time to get the final results. The patient has been cleared for discharge by all consultants. The patient is back to normal baseline. I educated the patient about following up with methods engineer as outpatient to evaluate her left eye as she reports evidence of visual defects, which is likely due to underlying CVA, which I confirmed that with Neurology. At this time, no further workup was needed at this time. The patient has been cleared for discharge by all consultants. On the day of discharge, vital signs were stable labs reviewed and stable. The patient was seen and examined by me thoroughly on the day of discharge. No other complaints. The patient is standing and agreed to plan of care to follow up as an outpatient with primary care physician in 1 week, Vascular Surgery in 10 to 14 days, Neurology in 10 to 14 days, Cardiology in 3 weeks, and Hematology in 2 weeks to get the final serology results. MEDICATIONS: See med reconciliation form. DISPOSITION: Home. CONDITION: Stable. DIET: Heart healthy. In the event of any worsening symptoms, the patient was advised to come back to the ED for further evaluation. Discharge summary took greater than 35 minutes. Once again the patient was educated about no driving, not to use any high machinery or any kind of ways of hurting others with accessing any kind of vehicle or machinery. I also educated her about not going to work at this time until she was observed and improves. Also educated her about followup with consultants as described above. Continue with her medications. I also informed her primary care physician Dr. Gerhard Christy about the findings and the referrals that are needed. Otherwise, the patient is back to baseline and cleared for discharge by all consultants. MD JACKELYN Solano/CASEY /[id number]
== END 2020-03-04 13:10 | disposition home or self-care (01) | DRG 65 ==
LOC: ER 18:22 → ERHOLD 20:49 → MED/SURG2 20:54
PROVIDERS: ADMIT Internal Medicine; ATTEND Internal Medicine
DX: I63.9 Cerebral infarction, unspecified (principal); D68.9 Coagulation defect, unspecified; E87.2 Acidosis; I10 Essential (primary) hypertension; E11.9 Type 2 diabetes mellitus without complications; I65.21 Occlusion and stenosis of right carotid artery; H53.9 Unspecified visual disturbance; F17.200 Nicotine dependence, unspecified, uncomplicated; E78.5 Hyperlipidemia, unspecified; F32.9 Major depressive disorder, single episode, unspecified; G44.89 Other headache syndrome; I25.10 Atherosclerotic heart disease of native coronary artery without angina pectoris; Z86.73 Personal history of transient ischemic attack (TIA), and cerebral infarction without residual deficits; I48.0 Paroxysmal atrial fibrillation; Z11.59 Encounter for screening for other viral diseases
CPT/HCPCS: 36415; 70450; 70496; 70498; 70551; 71045; 80048; 80053; 80061; 80307; 81025; 81241; 81400; 82550; 82553; 82948; 83036; 83880; 84436; 84443; 84479; 84484; 85007; 85014; 85018; 85025; 85027; 85303; 85306; 85597; 85598; 85610; 85613; 85730; 85732; 86039; 86146; 86147; 86148; 86849; 93005; 93306; 93880; 97139; 99284; J1200; J1644; J1885; J2270; J2405; J2765; J2930; J3475; J7030; J7050; Q9967

== ENCOUNTER → 2021-10-29 | Outpatient (CLI) | payer OTHER ==
[~2021-10-29] MED LIST changes: +CLOPIDOGREL75 MG PO; +CYCLOBENZAPRINE10 MG PO; +CYMBALTA30 MG PO; +FENOFIBRATE145 MG PO; +HUMALOG MI100 UNIT/2 SQ; +HYDROCHLOROTH12.5 MG PO; +LOSARTAN POTAS100 MG PO; +LYRICA150 MG PO
== END ==
LOC: MAMMO 08:58
PROVIDERS: ATTEND Internal Medicine
DX: Z12.31 Encounter for screening mammogram for malignant neoplasm of breast (principal)
CPT/HCPCS: 77067

== ENCOUNTER → 2021-11-15 | Outpatient (CLI) | payer OTHER | LOC: MAMMO 09:13 | PROVIDERS: ATTEND Internal Medicine | DX: R92.8 Other abnormal and inconclusive findings on diagnostic imaging of breast (principal); N60.01 Solitary cyst of right breast ==

== ENCOUNTER 2022-02-04 12:39 | Emergency (ER) | payer OTHER ==
[~2022-02-04] VITALS: Ht 157.5 cm; Wt 74.8 kg
[2022-02-04] MEDS ORDERED: ONDANSETRON HCL INJ 2MG/ML 2ML 2 MG/ML VIAL IV PRN (13:30)
[2022-02-04] MEDS ORDERED: SODIUM CHLORIDE 0.9% 1000ML 1,000 ML IV ONE (13:30)
[2022-02-04 14:03] LABS: BASOPHILS % 0.3 % (0.0-1.0); EOSINOPHILS # (AUTO) 0.1 (0.0-0.4); EOSINOPHILS % 1.1 % (0.0-6.0); HEMATOCRIT 44.3 % (34.2-44.1); HEMOGLOBIN 14.4 g/dL (12.0-16.0); LYMPHOCYTES # (AUTO) 2.8 (1.0-3.2); LYMPHOCYTES % 24.4 % (18.0-39.1); MEAN CORPUSCULAR HEMOGLOBIN 25.9 pg (28-32); MEAN CORPUSCULAR HGB CONC 32.5 g/dL (31-35); MEAN CORPUSCULAR VOLUME 79.8 fL (81-99); MONOCYTES # (AUTO) 0.6 (0.2-0.8); NEUTROPHILS % 68.8 % (38.7-80.0); PLATELET COUNT 390 x10e3/uL (140-360); RED BLOOD COUNT 5.55 x10e6/uL (3.6-5.1); RED CELL DISTRIBUTION WIDTH 14.4 % (11.7-14.4)
[2022-02-04 14:12] LABS: CLARITY,URINE CLEAR (CLEAR); COLOR,URINE YELLOW (YELLOW); KETONES,URINE NEGATIVE (NEGATIVE); LEUKOCYTE ESTERASE ,URINE NEGATIVE (NEGATIVE); NITRITE,URINE NEGATIVE (NEGATIVE); PROTEIN,URINE DIPSTICK NEGATIVE (NEGATIVE); URINE UROBILINOGEN 0.2 mg/dL (0.2 - 1)
[2022-02-04 14:20] LABS: ALBUMIN 3.9 g/dL (3.5-5.0); ALBUMIN/GLOBULIN RATIO 1.1 (0.8-2.0); ANION GAP 19.3 mmol/L (8-16); CALCIUM 9.8 mg/dL (8.4-10.2); CREATININE, SERUM 0.78 mg/dL (0.57-1.11); LIPASE 8 U/L (8-78); POTASSIUM 3.3 mmol/L (3.5-5.1)
[2022-02-04 14:33] LABS: EPITHELIAL CELLS,URINE FEW /LPF
[2022-02-04 14:34] LABS: BACTERIA,URINE FEW /HPF; RBC,URINE 0-5 /HPF (0-5); WBC,URINE (MAN) 0-5 /HPF (0-5)
[2022-02-04] MEDS ORDERED: ONDANSETRON ODT4 MG PO (17:45)
[2022-02-04] MEDS ORDERED: DICYCLOMINE HCL20 MG PO (17:45)
[2022-02-04] MEDS ORDERED: MECLIZINE HCL 12.5 MG TAB PO SCH (21:00)
== END 2022-02-04 17:55 | disposition home or self-care (01) ==
LOC: ER 12:52
DX: R19.7 Diarrhea, unspecified (principal); E86.0 Dehydration; R42 Dizziness and giddiness; I10 Essential (primary) hypertension; E11.65 Type 2 diabetes mellitus with hyperglycemia; E78.5 Hyperlipidemia, unspecified; D64.9 Anemia, unspecified; M54.9 Dorsalgia, unspecified; G89.29 Other chronic pain; I25.2 Old myocardial infarction; Z86.73 Personal history of transient ischemic attack (TIA), and cerebral infarction without residual deficits
CPT/HCPCS: 36415; 70450; 80053; 81001; 83690; 84484; 85025; 93005; 99284; J2405; J7030; J8597

== ENCOUNTER 2022-03-17 00:20 | Emergency (ER) | payer OTHER ==
[~2022-03-17] VITALS: Ht 157.5 cm; Wt 74.8 kg
[~2022-03-17 00:20] MED LIST changes: +DICYCLOMINE HCL20 MG PO; +ONDANSETRON ODT4 MG PO
[2022-03-17] MEDS ORDERED: ONDANSETRON HCL INJ 2MG/ML 2ML 2 MG/ML VIAL IV STA (00:36)
[2022-03-17 00:43] LABS: BASOPHILS # (AUTO) 0.1 (0.0-0.1); BASOPHILS % 0.5 % (0.0-1.0); EOSINOPHILS # (AUTO) 0.4 (0.0-0.4); EOSINOPHILS % 2.4 % (0.0-6.0); HEMATOCRIT 42.7 % (34.2-44.1); HEMOGLOBIN 13.4 g/dL (12.0-16.0); LYMPHOCYTES # (AUTO) 4.3 (1.0-3.2); LYMPHOCYTES % 27.6 % (18.0-39.1); MEAN CORPUSCULAR HEMOGLOBIN 25.9 pg (28-32); MEAN CORPUSCULAR HGB CONC 31.4 g/dL (31-35); MEAN CORPUSCULAR VOLUME 82.4 fL (81-99); MONOCYTES % 6.3 % (4.4-11.3); NEUTROPHILS # (AUTO) 9.8 (2.1-6.9); NEUTROPHILS % 62.6 % (38.7-80.0); PLATELET COUNT 399 x10e3/uL (140-360); RED BLOOD COUNT 5.18 x10e6/uL (3.6-5.1); RED CELL DISTRIBUTION WIDTH 14.9 % (11.7-14.4)
[2022-03-17] MEDS ORDERED: ONDANSETRON HCL INJ 2MG/ML 2ML 2 MG/ML VIAL ONE (00:44)
[2022-03-17] MEDS ORDERED: DICYCLOMINE HCL 20 MG/2 ML VIAL IM ONE (00:45)
[2022-03-17] MEDS ORDERED: LIDOCAINE VISC 2% SOLN 15 ML UDC PO ONE (00:45)
[2022-03-17] MEDS ORDERED: MAGNESIUM/ALUMINUM/SIMETHICONE 30 ML UDC PO ONE (00:45)
[2022-03-17] MEDS ORDERED: BELLADONNA ALK/PHENOBARBITAL 5 ML UDC PO ONE (00:45)
[2022-03-17 00:57] LABS: CLARITY,URINE SL CLOUDY (CLEAR); COLOR,URINE YELLOW (YELLOW); KETONES,URINE NEGATIVE (NEGATIVE); LEUKOCYTE ESTERASE ,URINE NEGATIVE (NEGATIVE); NITRITE,URINE NEGATIVE (NEGATIVE); PROTEIN,URINE DIPSTICK 2+ (NEGATIVE); URINE UROBILINOGEN 0.2 mg/dL (0.2 - 1)
[2022-03-17 00:58] LABS: ALBUMIN 3.9 g/dL (3.5-5.0); ALBUMIN/GLOBULIN RATIO 1.1 (0.8-2.0); CALCIUM 11.1 mg/dL (8.4-10.2)
[2022-03-17 01:04] LABS: BACTERIA,URINE MANY /HPF; EPITHELIAL CELLS,URINE MODERATE /LPF; RBC,URINE 21-50 /HPF (0-5); WBC,URINE (MAN) >50 /HPF (0-5)
[2022-03-17 01:12] LABS: CREATININE, SERUM 0.77 mg/dL (0.57-1.11); POTASSIUM 3.2 mmol/L (3.5-5.1)
[2022-03-17 01:13] LABS: ANION GAP 18.2 mmol/L (8-16)
[2022-03-17] MEDS ORDERED: IOPAMIDOL 370 MG/ML 100 ML INFUS..BTL INJ ONE (01:29)
[2022-03-17] MEDS ORDERED: FENTANYL CITRATE/PF 100MCG/2 ML INJ IV PRN (01:30)
[2022-03-17] MEDS ORDERED: CEFDINIR300 MG PO (02:32)
== END 2022-03-17 02:49 | disposition home or self-care (01) ==
LOC: ER 00:26
DX: R10.13 Epigastric pain (principal); K29.70 Gastritis, unspecified, without bleeding; N39.0 Urinary tract infection, site not specified; R11.2 Nausea with vomiting, unspecified; I10 Essential (primary) hypertension; E11.65 Type 2 diabetes mellitus with hyperglycemia; E78.5 Hyperlipidemia, unspecified; D64.9 Anemia, unspecified; M54.9 Dorsalgia, unspecified; G89.29 Other chronic pain; I25.2 Old myocardial infarction; Z86.73 Personal history of transient ischemic attack (TIA), and cerebral infarction without residual deficits; R94.31 Abnormal electrocardiogram [ECG] [EKG]
CPT/HCPCS: 36415; 71045; 74177; 80053; 81001; 83690; 84484; 85025; 93005; 99284; C9113; J0500; J0696; J2405; J3010; Q9967

== ENCOUNTER → 2023-06-23 | Outpatient (REF) | payer OTHER ==
[~2023-06-23] MED LIST changes: +CEFDINIR300 MG PO
== END ==
LOC: RAD 14:50
PROVIDERS: ATTEND Internal Medicine
DX: M47.27 Other spondylosis with radiculopathy, lumbosacral region (principal)
CPT/HCPCS: 72110

== ENCOUNTER → 2023-07-01 | Outpatient (REF) | payer OTHER | LOC: MAMMO 09:35 | PROVIDERS: ATTEND Internal Medicine | DX: Z12.31 Encounter for screening mammogram for malignant neoplasm of breast (principal); Z13.820 Encounter for screening for osteoporosis; M47.27 Other spondylosis with radiculopathy, lumbosacral region | CPT/HCPCS: 77067; 77080 ==

== ENCOUNTER → 2024-03-12 | Day surgery (SDC) | payer OTHER ==
[2024-03-08 10:10] LABS: BASOPHILS # (AUTO) 0.1 (0.0-0.1); BASOPHILS % 0.8 % (0.0-1.0); EOSINOPHILS # (AUTO) 0.2 (0.0-0.4); EOSINOPHILS % 2.4 % (0.0-6.0); HEMATOCRIT 36.2 % (34.2-44.1); HEMOGLOBIN 11.3 g/dL (12.0-16.0); LYMPHOCYTES # (AUTO) 2.3 (1.0-3.2); LYMPHOCYTES % 28.8 % (18.0-39.1); MEAN CORPUSCULAR HGB CONC 31.2 g/dL (31-35); MEAN CORPUSCULAR VOLUME 83.4 fL (81-99); MONOCYTES # (AUTO) 0.6 (0.2-0.8); MONOCYTES % 7.2 % (4.4-11.3); NEUTROPHILS # (AUTO) 4.8 (2.1-6.9); NEUTROPHILS % 60.2 % (38.7-80.0); PLATELET COUNT 282 x10e3/uL (140-360); RED BLOOD COUNT 4.34 x10e6/uL (3.6-5.1); RED CELL DISTRIBUTION WIDTH 16.8 % (11.7-14.4); WHITE BLOOD COUNT 7.95 x10e3/uL (4.8-10.8)
[~2024-03-12] MED LIST changes: +AMLODIPINE BESY10 MG PO; +CELEBREX100 MG PO; +FENTANYL CITRATE/PF 100MCG/2 ML INJ ONE; +HYOSCYAMINE SULFATE 0.5 MG/ML INJ ONE; +LIDOCAINE HCL 2% LOCAL INJ 5 ML SDV VIAL INJ ONE; +LOSARTAN-HCTZ1 EAC2 PO; +LYRICA25 MG PO; +METFORMIN HCL500 MG PO; +METHOCARBAMOL750 MG PO; +METRONIDAZOLE500 MG PO; +MIDAZOLAM HCL 2 MG/2 ML VIAL ONE; +POTASSIUM PO; +PROPOFOL IV EMULSION 10 MG/ML 20 ML VIAL ONE; +PROPOFOL IV EMULSION 10 MG/ML 50 ML VIAL IV ONE; +SOLIQUA 100 UNIT3 ML SC; +SUCRALFATE1 GM PO; +TETRACYCLINE H500 MG PO; +ULTRAM 50MG50 MG PO
[2024-03-12 12:56] VITALS: TEMP 97
[2024-03-12 13:25] VITALS: BP 127/64; PULSE 55; RESP 15; O2SAT 98
== END | disposition home or self-care (01) ==
LOC: OR 08:56
PROVIDERS: ATTEND Internal Medicine Gastroenterology
DX: Z12.11 Encounter for screening for malignant neoplasm of colon (principal); D12.3 Benign neoplasm of transverse colon; D12.8 Benign neoplasm of rectum; K64.8 Other hemorrhoids; I45.10 Unspecified right bundle-branch block; I44.4 Left anterior fascicular block; I10 Essential (primary) hypertension; I25.10 Atherosclerotic heart disease of native coronary artery without angina pectoris; I25.2 Old myocardial infarction; Z95.5 Presence of coronary angioplasty implant and graft; E78.5 Hyperlipidemia, unspecified; E10.9 Type 1 diabetes mellitus without complications; Z79.4 Long term (current) use of insulin; Z79.84 Long term (current) use of oral hypoglycemic drugs; F17.200 Nicotine dependence, unspecified, uncomplicated; D64.9 Anemia, unspecified; F32.A Depression, unspecified; Z86.73 Personal history of transient ischemic attack (TIA), and cerebral infarction without residual deficits; Z01.812 Encounter for preprocedural laboratory examination; Z01.810 Encounter for preprocedural cardiovascular examination; Z79.899 Other long term (current) drug therapy; Z79.02 Long term (current) use of antithrombotics/antiplatelets
CPT/HCPCS: 36415; 45385; 85025; 93005; J1980; J2003; J2704 ×2; J3010; 45378; J2250

== ENCOUNTER 2024-07-16 15:35 | Emergency (ER) | payer SELFPAY ==
[~2024-07-16] VITALS: Ht 157.5 cm; Wt 68.9 kg
[~2024-07-16 15:35] MED LIST changes: -FENTANYL CITRATE/PF 100MCG/2 ML INJ ONE; -HYOSCYAMINE SULFATE 0.5 MG/ML INJ ONE; -LIDOCAINE HCL 2% LOCAL INJ 5 ML SDV VIAL INJ ONE; -MIDAZOLAM HCL 2 MG/2 ML VIAL ONE; -PROPOFOL IV EMULSION 10 MG/ML 20 ML VIAL ONE; -PROPOFOL IV EMULSION 10 MG/ML 50 ML VIAL IV ONE
[2024-07-16 15:50] VITALS: PULSE 76; RESP 18; TEMP 98.8; O2SAT 100
[2024-07-16] MEDS: KETOROLAC TROMETHAMINE 30 MG/ML VIAL IV STA (16:39)
[2024-07-16] MEDS: SODIUM CHLORIDE 0.9% 1000ML 1,000 ML IV SCH (16:39)
[2024-07-16] MEDS: METOCLOPRAMIDE HCL 10 MG/2ML VIAL IV ONE (16:39)
[2024-07-16] MEDS: DIPHENHYDRAMINE HCL INJ 50 MG/ML VIAL IV STA (16:39)
== END 2024-07-16 18:36 | disposition home or self-care (01) ==
LOC: ER 15:46
DX: R51.9 Headache, unspecified (principal); R42 Dizziness and giddiness; I10 Essential (primary) hypertension; E11.9 Type 2 diabetes mellitus without complications; E78.5 Hyperlipidemia, unspecified; D64.9 Anemia, unspecified; M54.9 Dorsalgia, unspecified; G89.29 Other chronic pain; I25.2 Old myocardial infarction; Z86.73 Personal history of transient ischemic attack (TIA), and cerebral infarction without residual deficits; Z87.19 Personal history of other diseases of the digestive system
CPT/HCPCS: 70450; 99284; J1200; J1885; J2765; J7030